=== PATIENT | female | born 1995 | race Caucasian/White ===

== ENCOUNTER → 2019-07-25 13:30 | Outpatient (BNVA) | payer MEDICAID, SELFPAY | PROVIDERS: Family Provider Internal Medicine; Visit Provider Nurse Practitioner | DX: F70 Mild intellectual disabilities (principal); F33.1 Major depressive disorder, recurrent, moderate | CPT/HCPCS: 99214 ==

== ENCOUNTER → 2019-10-17 07:43 | Outpatient (BNVA) | payer MEDICAID, SELFPAY | PROVIDERS: Family Provider Internal Medicine; Visit Provider Nurse Practitioner | DX: F33.1 Major depressive disorder, recurrent, moderate (principal); F70 Mild intellectual disabilities | CPT/HCPCS: 99214 ==

== ENCOUNTER → 2020-01-24 07:21 | Outpatient (BNVA) | payer MEDICAID, SELFPAY | PROVIDERS: Family Provider Internal Medicine; Visit Provider Nurse Practitioner | DX: F33.1 Major depressive disorder, recurrent, moderate (principal); F70 Mild intellectual disabilities; Z79.899 Other long term (current) drug therapy | CPT/HCPCS: 99213 ==

== ENCOUNTER → 2020-04-26 07:24 | Outpatient (BNVA) | payer MEDICAID, SELFPAY | PROVIDERS: Family Provider Internal Medicine; Visit Provider Nurse Practitioner | DX: F70 Mild intellectual disabilities (principal); F33.1 Major depressive disorder, recurrent, moderate | CPT/HCPCS: 99214 ==

== ENCOUNTER → 2020-07-03 08:16 | Outpatient (BNVA) | payer MEDICAID, SELFPAY | PROVIDERS: Family Provider Internal Medicine; Visit Provider Nurse Practitioner | DX: F33.1 Major depressive disorder, recurrent, moderate (principal); F70 Mild intellectual disabilities | CPT/HCPCS: 99214 ==

== ENCOUNTER 2020-07-27 11:44 | Emergency (ER) | payer MEDICAID, SELFPAY ==
[2020-07-27 11:56] VITALS: BP 125/77; PULSE 83; RESP 18; TEMP 36.8; O2SAT 96; BMI 29.7
[2020-07-27 12:12] VITALS: BP 125/77; PULSE 81; RESP 18; O2SAT 96
[2020-07-27] MEDS: HYDROcodone-acetaminophen 5-325 mg Tablet 1 TAB PO (12:21)
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
[2020-07-27] MEDS: ondansetron 4 MG Tablet PO (12:56)
[2020-07-27 13:25] VITALS: RESP 16
[2020-07-27] MEDS: morphine 4 mg/mL SDV 1 mL IM (13:25)
[2020-07-27 13:51] VITALS: BP 104/69; PULSE 71; RESP 17; O2SAT 92
== END 2020-07-27 13:52 | disposition home or self-care (01) ==
PROVIDERS: Emergency Provider Nurse Practitioner Family
DX: T76.21XA Adult sexual abuse, suspected, initial encounter (principal); F70 Mild intellectual disabilities
CPT/HCPCS: 99283; J2270; Q0162

== ENCOUNTER 2020-07-27 17:59 | Outpatient (CLI) | payer MEDICAID, SELFPAY ==
[2020-07-27 18:34] LABS: Basophils # 0.1 10^3/uL (0.0-0.1); Basophils % 0.8 %; Eosinophils # 0.3 10^3/uL (0.0-0.8); Eosinophils % 3.4 %; Hematocrit 42.8 % (37.0-47.0); Hemoglobin 13.7 g/dL (11.5-15.3); Lymphocytes # 3.1 10^3/uL (0.8-4.8); Lymphocytes % 36.1 %; Mean Corpuscular Hemoglobin 28.9 pg (28.0-34.0); Mean Corpuscular Volume 90.3 fL (81-99); Mean Platelet Volume 10.9 fL (7.4-10.4); Monocytes # 0.8 10^3/uL (0.2-0.9); Monocytes % 9.3 %; Neutrophils # 4.25 10^3/uL (1.8-7.7); Nucleated Red Blood Cells % 0 %; Platelet Count 218 10^3/cmm (130-400); Red Blood Count 4.74 10^6/uL (4.1-5.3); Red Cell Distribution Width 13.9 % (12.1-15.1); White Blood Count 8.5 10^3/uL (4.0-10.0)
[2020-07-27 18:56] LABS: Alanine Aminotransferase 21 U/L (0-33); Albumin Level 4.5 g/dL (3.5-5.2); Alkaline Phosphatase 92 IU/L (35-105); Anion Gap 13.6 (5-19); Aspartate Amino Transferase 21 U/L (0-32); Blood Urea Nitrogen 13 mg/dL (6-20); Calcium 9.2 mg/dL (8.5-10.5); Carbon Dioxide 27 mmol/L (22-29); Chloride 104 mmol/L (98-107); Globulin 3.1 g/dL (1.3-4.6); Glomerular Filtration Rate 45.5 mL/min (90-130); Glucose 90 mg/dL (65-115); Osmolality Calculated 292 mOsm/kg (285-295); Potassium 3.6 mmol/L (3.5-5.1); Rapid Plasma Reagin Syphilis Nonreactive (Nonreactive); Sodium 141 mmol/L (136-145); Total Bilirubin 0.2 mg/dL (0.15-1.2); Total Protein 7.6 g/dL (6.6-8.7)
[2020-07-27 19:07] LABS: Hepatitis A Antibody IgM Non-Reactive (Nonreactive); Hepatitis B Core IgM Non-Reactive (Nonreactive); Hepatitis B Surface Antigen Non-Reactive (Nonreactive); Hepatitis C Virus Antibody Non-Reactive (Nonreactive)
[2020-07-27 19:08] LABS: HIV 1 & 2 Antibody Non-Reactive (Non-Reactiv); HIV 1 & 2 Antigen Non-Reactive (Non-Reactiv)
== END 2020-07-27 18:00 | disposition home or self-care (01) ==
PROVIDERS: Visit Provider Nurse Practitioner Family
DX: N93.9 Abnormal uterine and vaginal bleeding, unspecified (principal); T76.21XA Adult sexual abuse, suspected, initial encounter
CPT/HCPCS: 36415; 80053; 80074; 85025; 86592; 87806

== ENCOUNTER → 2020-09-26 12:44 | Outpatient (BNVA) | payer MEDICAID, SELFPAY | PROVIDERS: Visit Provider Nurse Practitioner | DX: F33.1 Major depressive disorder, recurrent, moderate (principal); F70 Mild intellectual disabilities | CPT/HCPCS: 99214 ==

== ENCOUNTER → 2020-10-22 15:48 | Outpatient (BNVA) | payer MEDICAID, SELFPAY | PROVIDERS: Visit Provider Nurse Practitioner | DX: F70 Mild intellectual disabilities (principal); F33.1 Major depressive disorder, recurrent, moderate | CPT/HCPCS: 99214 ==

== ENCOUNTER → 2020-12-11 08:16 | Outpatient (BNVA) | payer MEDICAID, SELFPAY | PROVIDERS: Visit Provider Nurse Practitioner | DX: F33.1 Major depressive disorder, recurrent, moderate (principal); F70 Mild intellectual disabilities | CPT/HCPCS: 99214 ==

== ENCOUNTER → 2021-02-11 07:44 | Outpatient (BNVA) | payer MEDICAID, SELFPAY | PROVIDERS: Visit Provider Nurse Practitioner | DX: F33.1 Major depressive disorder, recurrent, moderate (principal); F70 Mild intellectual disabilities | CPT/HCPCS: 99214 ==

== ENCOUNTER → 2021-05-06 07:52 | Outpatient (BNVA) | payer MEDICAID, SELFPAY | PROVIDERS: Visit Provider Nurse Practitioner | DX: F33.1 Major depressive disorder, recurrent, moderate (principal); F70 Mild intellectual disabilities | CPT/HCPCS: 99214 ==

== ENCOUNTER → 2021-08-06 12:54 | Outpatient (BNVA) | payer MEDICAID, SELFPAY | PROVIDERS: Visit Provider Nurse Practitioner | DX: F33.1 Major depressive disorder, recurrent, moderate (principal); F70 Mild intellectual disabilities | CPT/HCPCS: 99214 ==

== ENCOUNTER → 2021-08-12 11:52 | Outpatient (BNVA) | payer MEDICAID, SELFPAY | PROVIDERS: Visit Provider Nurse Practitioner Family | DX: E03.9 Hypothyroidism, unspecified (principal); Z79.899 Other long term (current) drug therapy; F33.1 Major depressive disorder, recurrent, moderate; J30.9 Allergic rhinitis, unspecified; Z13.6 Encounter for screening for cardiovascular disorders; Z68.32 Body mass index [BMI] 32.0-32.9, adult | CPT/HCPCS: 80053; 80061; 83036; 83735; 84439; 84443; 85025 ==

== ENCOUNTER → 2021-11-11 13:47 | Outpatient (BNVA) | payer MEDICAID, SELFPAY | PROVIDERS: Visit Provider Nurse Practitioner | DX: F33.1 Major depressive disorder, recurrent, moderate (principal); F70 Mild intellectual disabilities; N39.44 Nocturnal enuresis | CPT/HCPCS: 99214 ==

== ENCOUNTER 2021-12-13 12:04 | Emergency (ER) | payer MEDICAID, SELFPAY ==
[2021-12-13 12:12] VITALS: BP 109/73; PULSE 72; RESP 16; TEMP 36.6; O2SAT 97; BMI 31.4
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
[2021-12-13 12:56] LABS: HCG Qualitative Urine. Negative (Negative)
[2021-12-13 12:56] LABS: Basophils % 0.5 %; Eosinophils # 0.3 10^3/uL (0.0-0.8); Eosinophils % 2.9 %; Hematocrit 41.4 % (37.0-47.0); Hemoglobin 13.6 g/dL (11.5-15.3); Lymphocytes # 1.7 10^3/uL (0.8-4.8); Lymphocytes % 18.9 %; Mean Corpuscular HGB Conc 32.9 g/dL (30.0-36.0); Mean Corpuscular Hemoglobin 29.1 pg (28.0-34.0); Mean Corpuscular Volume 88.5 fl (81-99); Mean Platelet Volume 10.5 fL (7.4-10.4); Monocytes # 0.6 10^3/uL (0.2-0.9); Monocytes % 6.5 %; Neutrophils # 6.28 10^3/uL (1.8-7.7); Neutrophils % 70.9 %; Nucleated Red Blood Cells % 0 %; Platelet Count 218 10^3/cmm (130-400); Red Blood Count 4.68 10^6/uL (4.1-5.3); Red Cell Distribution Width 14.5 % (12.1-15.1); White Blood Count 8.9 10^3/uL (4.0-10.0)
[2021-12-13 13:25] LABS: Alanine Aminotransferase 20 U/L (0-33); Albumin Level 4.6 g/dL (3.5-5.2); Alkaline Phosphatase 87 IU/L (35-105); Aspartate Amino Transferase 18 U/L (0-32); Blood Urea Nitrogen 24 mg/dL (6-20); Calcium 9.7 mg/dL (8.5-10.5); Carbon Dioxide 24 mmol/L (22-29); Chloride 103 mmol/L (98-107); Glomerular Filtration Rate 59.6 mL/min (90-130); Glucose 83 mg/dL (65-115); Osmolality Calculated 289 mOsm/kg (285-295); Sodium 138 mmol/L (136-145); Thyroid Stimulating Hormone 2.62 uIU/mL (0.27-4.20); Total Bilirubin 0.2 mg/dL (0.15-1.2); Total Protein 7.6 g/dL (6.6-8.7)
[2021-12-13 13:26] LABS: Acetaminophen < 5.0 ug/mL (10-30); Alcohol Level < 10 mg/dL (0-10); Salicylate < 0.3 mg/dL (3-10)
[2021-12-13 13:59] LABS: Add Urine Microscopic? NO; Charge for UA Resulting for Rev
[2021-12-13 14:02] LABS: Bilirubin Urine Neg (Negative); Blood Urine Neg (Negative); Glucose Urine UA Norm (Normal); Ketones Urine Negative (Negative); Leukocyte Esterase Urine Negative (Negative); Nitrate Urine Negative (Negative); Protein Urine Neg (Negative); Urine Appearance Clear (CLEAR); Urine Color Yellow (Yellow); Urobilinogen Urine Norm (Negative); pH Urine 5 (5-7)
--- NOTE | 2021-12-13 14:02 | PC.PHAR ---
PT IS FROM HEALTH [facility]AC[facility] - MEDICATION VERIFIED USING MED LIST FROM FACILITY- LIST LAST UPDATED 11/2021
[2021-12-13 14:11] LABS: Amphetamines Screen Urine Negative (Negative); Barbiturates Screen Urine Negative (Negative); Benzodiazepines Screen Urine Negative (Negative); Cocaine Screen Urine Negative (Negative); Opiate Screen Urine Negative (Negative); PCP Screen Urine Negative (Negative); THC Screen Urine Negative (Negative)
[2021-12-13 18:29] VITALS: BP 90/57; PULSE 75; RESP 18; O2SAT 97
== END 2021-12-13 18:31 | disposition home or self-care (01) ==
PROVIDERS: Emergency Provider Emergency Medicine
DX: R46.89 Other symptoms and signs involving appearance and behavior (principal)
CPT/HCPCS: 80053; 80306; 80307; 81003; 81025; 84443; 85025; 99283

== ENCOUNTER 2022-05-19 15:25 | Emergency (ER) | payer MEDICAID, SELFPAY ==
[2022-05-19] VITALS (11 sets, daily range): BP systolic 93–131; BP diastolic 77–93; PULSE 110; RESP 16; TEMP 34.4; O2SAT 92–99; BMI 33.3
--- NOTE | 2022-05-19 16:12 | ECG_ITS ---
[facility] Test Date: 2022-05-19 Pat Name: Jessica Pichardo Department: Room: Gender: Female Home Theater Specialist: : 1995 Requested By: Robert Lopez Order Number: [id number] Shannon MD: He March M.D. Measurements Intervals [place] Rate: 89 P: 61 [place]: 153 QRS: 74 QRSD: 105 T: 28 QT: 362 QTc: 442 Interpretive Statements SINUS RHYTHM LOW QRS VOLTAGE IN PRECORDIAL LEADS [QRS DEFLECTION < 1.0 mV IN CHEST LEADS] PATTERN CONSISTENT WITH PULMONARY DISEASE INCOMPLETE RIGHT BUNDLE BRANCH BLOCK [90+ ms QRS DURATION, TERMINAL R IN V1/V2, 40+ ms S IN I/aVL/V4/V5/V6] Compared to ECG 01/22/2016 11:15:35 Low QRS voltage now present Incomplete right bundle-branch block now present Electronically Signed On 05-20-2022 9:26:30 SECONDARY ENGLISH TEACHER by He Macrh M.D. [id number]
[2022-05-19 16:40] LABS: Basophils # 0.1 10^3/uL (0.0-0.1); Basophils % 0.7 %; Eosinophils # 0.4 10^3/uL (0.0-0.8); Eosinophils % 4.1 %; Hematocrit 41.6 % (37.0-47.0); Hemoglobin 13.2 g/dL (11.5-15.3); Lymphocytes # 2.2 10^3/uL (0.8-4.8); Lymphocytes % 25.8 %; Mean Corpuscular HGB Conc 31.7 g/dL (30.0-36.0); Mean Corpuscular Hemoglobin 28.1 pg (28.0-34.0); Mean Corpuscular Volume 88.7 fl (81-99); Mean Platelet Volume 10.3 fL (7.4-10.4); Monocytes # 0.6 10^3/uL (0.2-0.9); Monocytes % 6.5 %; Neutrophils # 5.35 10^3/uL (1.8-7.7); Neutrophils % 62.2 %; Nucleated Red Blood Cells % 0 %; Platelet Count 226 10^3/cmm (130-400); Red Blood Count 4.69 10^6/uL (4.1-5.3); White Blood Count 8.6 10^3/uL (4.0-10.0)
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
[2022-05-19 17:00] LABS: Troponin T (5th) Once 10 ng/L (0-10)
[2022-05-19 17:04] LABS: Anion Gap 15.2 (5-19); Blood Urea Nitrogen 18 mg/dL (6-20); Calcium 9.8 mg/dL (8.5-10.5); Carbon Dioxide 26 mmol/L (22-29); Chloride 104 mmol/L (98-107); Creatinine Clr Calc Pharmacy 77.6665; Glomerular Filtration Rate 53.5 mL/min (90-130); Glucose 77 mg/dL (65-115); Osmolality Calculated 295 mOsm/kg (285-295); Potassium 3.2 mmol/L (3.5-5.1); Sodium 142 mmol/L (136-145)
== END 2022-05-19 17:32 | disposition home or self-care (01) ==
PROVIDERS: Emergency Provider Student in an Organized Health Care Education/Training Program
DX: S40.022A Contusion of left upper arm, initial encounter (principal); S40.021A Contusion of right upper arm, initial encounter; S10.91XA Abrasion of unspecified part of neck, initial encounter; Y04.2XXA Assault by strike against or bumped into by another person, initial encounter
CPT/HCPCS: 36415; 80048; 84484; 85025; 93005; 99284

== ENCOUNTER → 2022-08-26 11:52 | Outpatient (BNVA) | payer MEDICAID, SELFPAY | PROVIDERS: Visit Provider Nurse Practitioner | DX: Z79.899 Other long term (current) drug therapy (principal) | CPT/HCPCS: 80061; 83036; 83721 ==

== ENCOUNTER 2022-10-24 17:38 | Emergency (ER) | payer MEDICAID, SELFPAY ==
[2022-10-24 17:40] VITALS: BMI 21.4
--- NOTE | 2022-10-24 18:03 | W.ED.PSYCHS ---
HPI - Psych General: Chief Complaint: Psychiatric Symptoms Stated Complaint: MHE Time Seen by Provider: 10/24/22 17:43 Source: patient Limitations: no limitations History of Present Illness: 27-year-old female who is here from [facility] states has been having increasing mood swings states that she has had just thoughts of destroying her own stuff. States she has been kicking the wall and taking up some of her drawings. She denies any suicidal or homicidal ideations no suicidal thoughts at all. She states that she came here wanting to get her meds reviewed. She does follow-up with [facility]. Associated symptoms: Deny depression Review of Systems Const: Denies: fever(s), chills, body aches or change in appetite ENMT: Denies: throat pain or dental pain Card: Denies: chest pain Resp: Denies: dyspnea GI: Denies: abdominal pain, nausea, vomiting or diarrhea : Denies: dysuria Musc: Denies: neck pain or back pain Skin/Breast: Denies: rash Neuro: Denies: headache(s) Psych: Reports: mood swings; Denies: depression PFSH ED PFSH: Medical History Intermittent explosive disorder Major depressive disorder, recurrent, moderate Mild intellectual disabilities Nocturnal enuresis On high dose antipsychotic drug therapy Psychiatric care Family History Other Family history unknown Social History Smoking and tobacco status: never smoked Second hand smoke exposure: No Alcohol intake: never Substance/Drug Use: never Caregiver/support person: Yes Lives independently: No Household members: other Details: Deya Simmons Marital status: Single service: No Current occupational status: disabled Current gender identity: Female Special gilmer needs: No Agree to transfusion: Yes Physical Exam Const: COMMON NORMALS: no acute distress, patient oriented x3 and healthy appearing HENMT: COMMON NORMALS: normocephalic and atraumatic HEAD & SCALP: normocephalic and atraumatic Eye: COMMON NORMALS: conjunctivae normal CONJUNCTIVA: Yes conjunctivae normal Neck/C-Spine: COMMON NORMALS: full ROM and supple Chest: COMMONS NORMALS: normal inspection of the chest and normal palpation of entire chest wall Resp: COMMON NORMALS: normal respiratory effort, No retractions, No use of accessory muscles and clear to auscultation bilaterally AUSCULTATION: clear to auscultation bilaterally Cardio: COMMON NORMALS: regular rate, regular rhythm and No murmurs present (Cardio) RATE: regular rate RHYTHM: regular rhythm GI: COMMON NORMALS: Normal to inspection, nondistended, normoactive bowel sounds present, Soft to palpation, non-tender and no masses PALPATION: Yes Soft to palpation Extremity: COMMON NORMALS: normal to inspection and full ROM Neuro: COMMON NORMALS: patient oriented x3, moves all extremities and no focal motor deficits Psych: COMMON NORMALS: mental status grossly normal, Normal thought process present and cooperative THOUGHT PROCESS: Normal thought process present Skin: COMMON NORMALS: no rashes or lesions noted and no wounds GENERAL SKIN EXAM: no rashes or lesions noted Course Vital Signs: Vital signs: Vital Signs Temperature 98.0 F 10/24/22 18:33 Pulse Rate 99 10/24/22 18:33 Respiratory Rate 18 10/24/22 18:33 Blood Pressure 110/78 10/24/22 18:33 Pulse Oximetry 95 10/24/22 18:33 MDM - Psych Medical Decision Making Patient presents with anger outburst she is not suicidal or homicidal she has not been harming any of the staff she has been destructive to some of her own things I did speak to Dr. Pritchett of psychiatry reviewed case with him she does not require inpatient admission we will add Zyprexa 5 mg for her to take during the day and she is to follow-up with [facility]. Medical Records I reviewed the patient's medical records. Lab Data I reviewed the patient's lab results. Discharge Plan Discharge Patient Disposition: Home Clinical Impression: Intermittent explosive disorder Condition: Stable Prescriptions: New Zyprexa 5 mg tablet 5 mg PO DAILY Qty: 30 0RF No Action levothyroxine 100 mcg capsule 100 mcg PO DAILY Rx Instructions: take 30 minutes before meal. trazodone 50 mg tablet 50 mg PO BEDTIME PRN (Reason: sleep) Qty: 30 2RF topiramate 100 mg tablet 100 mg PO BID Qty: 60 2RF duloxetine [Cymbalta] 30 mg capsule,delayed release(DR/EC) 30 mg PO DAILY Qty: 30 1RF olanzapine 20 mg tablet 20 mg PO .HS Qty: 30 2RF lamotrigine [Lamictal] 200 mg tablet 200 mg PO BID Qty: 60 2RF hydroxyzine pamoate 25 mg capsule See Rx Instructions .ROUTE .COMPLEX Qty: 30 1RF Dose Instruction: take 1 capsule BY MOUTH AT BEDTIME FOR sleep Rx Instructions: take 1 capsule BY MOUTH AT BEDTIME FOR sleep acetaminophen [Tylenol Extra Strength] 500 mg Tablet 500 mg PO Q4H PRN (Reason: TEMP OVER 100 DEGREES) benzonatate 100 mg capsule 100 mg PO TID PRN (Reason: Cough) loratadine 10 mg tablet 10 mg PO DAILY promethazine 6.25 mg/5 mL Syrup 12.5 mg PO Q6H PRN (Reason: Cough) Mucinex D 60-600 mg Tablet Extended Release 12 Hr 1 tab PO BID PRN (Reason: Congestion) prednisone 1 mg tablet See Rx Instructions .ROUTE .COMPLEX Rx Instructions: 2 mg orally in AM and 1 mg in PM Banophen 25 mg Tablet 25 mg PO TID PRN (Reason: Allergic Symptoms) mupirocin 2 % ointment 1 applic TOPICAL BID PRN (Reason: Skin Irritation) ondansetron 4 mg Tablet,Disintegrating 4 mg PO Q6H PRN (Reason: Nausea And Vomiting) SF 5000 Plus 1.1 % Cream 1 applic DENTAL BID Discharge Orders: Discharge ED (Routine); Ordered 10/24/22 Ordered By: Suzie Alvarenga Referrals: [facility], [Staff Physician] - 1-3 days Fran Mera DO [Primary Care Provider] - Discharge Diet: Advance as tolerated Discharge Activity: Resume usual activity Patient Instructions: Depression (ED) Coding Level of Care Code ED Etl Analyst for Carolina Figueroa
[2022-10-24 18:33] VITALS: BP 110/78; PULSE 99; RESP 18; TEMP 36.7; O2SAT 95
== END 2022-10-24 18:37 | disposition home or self-care (01) ==
PROVIDERS: Emergency Provider Emergency Medicine; PCP Internal Medicine
DX: F63.81 Intermittent explosive disorder (principal)
CPT/HCPCS: 99283

== ENCOUNTER 2022-11-22 02:42 | Emergency (ER) | payer MEDICAID, SELFPAY ==
[2022-11-22 02:46] VITALS: BP 130/86; PULSE 63; RESP 18; TEMP 37.2; O2SAT 95; BMI 26.6
[2022-11-22 03:06] LABS: Basophils # 0.1 10^3/uL (0.0-0.1); Basophils % 0.6 %; Eosinophils # 0.3 10^3/uL (0.0-0.8); Eosinophils % 3.2 %; Hematocrit 40.9 % (37.0-47.0); Hemoglobin 13.1 g/dL (11.5-15.3); Lymphocytes # 3.3 10^3/uL (0.8-4.8); Lymphocytes % 34.7 %; Mean Corpuscular Hemoglobin 28.2 pg (28.0-34.0); Mean Platelet Volume 10.9 fL (7.4-10.4); Monocytes # 0.8 10^3/uL (0.2-0.9); Monocytes % 8.7 %; Neutrophils # 4.91 10^3/uL (1.8-7.7); Neutrophils % 52.3 %; Nucleated Red Blood Cells % 0 %; Platelet Count 236 10^3/cmm (130-400); Red Blood Count 4.65 10^6/uL (4.1-5.3); Red Cell Distribution Width 14.8 % (12.1-15.1); White Blood Count 9.4 10^3/uL (4.0-10.0)
[2022-11-22 03:19] LABS: Alanine Aminotransferase 84 U/L (0-33); Albumin Level 4.8 g/dL (3.5-5.2); Alkaline Phosphatase 114 U/L (35-105); Aspartate Amino Transferase 55 U/L (0-32); Blood Urea Nitrogen 14 mg/dL (6-20); Carbon Dioxide 22 mmol/L (22-29); Chloride 101 mmol/L (98-107); Globulin 3.3 g/dL (1.3-4.6); Glomerular Filtration Rate 44.8 mL/min (90-130); Glucose 101 mg/dL (65-115); Osmolality Calculated 287 mOsm/kg (285-295); Sodium 138 mmol/L (136-145); Total Bilirubin 0.3 mg/dL (0.15-1.2); Total Protein 8.1 g/dL (6.6-8.7)
[2022-11-22 03:21] LABS: Creatinine Clr Calc Pharmacy 59.7172; Salicylate < 0.3 mg/dL (3-10)
[2022-11-22 03:22] LABS: Acetaminophen < 5.0 ug/mL (10-30); Alcohol Level < 10 mg/dL (0-10); Anion Gap 18.9 (5-19); Potassium 3.9 mmol/L (3.5-5.1)
--- NOTE | 2022-11-22 04:07 | ED.C_ITS ---
HPI - Psych General: Chief Complaint: Psychiatric Symptoms Stated Complaint: MHE Time Seen by Provider: 11/22/22 02:54 History of Present Illness: 27-year-old female who lives in a care home environment. She was upset this morning, and abraded her left wrist. She denies suicidality. She states that she was frustrated, and had the urge to do so. She is [place] now. She states I would like help so that I do not feel like I need to do this . complaint: feels depressed and other Onset (ago): hour(s) History of same: Yes Relieving factors: none Exacerbating factors: none Context: other Associated psychiatric symptoms: depression Associated symptoms: Reports depression; Deny auditory hallucinations, visual hallucinations, delusions, homicidal ideation, suicidal ideation or racing thoughts Treatments prior to arrival: none If self harm: admits thoughts of self harm (Abrading wrist. Denies suicidal ideation) Review of Systems Const: Denies: fever(s), chills or body aches Eyes: Denies: change in vision Card: Denies: chest pain or palpitations Resp: Denies: dyspnea, productive cough, non-productive cough or wheezing GI: Denies: abdominal pain, nausea, vomiting, diarrhea or hematochezia : Denies: difficulty voiding Skin/Breast: Denies: rash Neuro: Denies: headache(s), weakness in extremities, dizziness or confusion Psych: Reports: depression; Denies: visual hallucinations, auditory hallucinations, suicidal ideation or homicidal ideation PFS ED PFSH: Medical History Intermittent explosive disorder Major depressive disorder, recurrent, moderate Mild intellectual disabilities Nocturnal enuresis On high dose antipsychotic drug therapy Psychiatric care Family History Other Family history unknown Social History Smoking and tobacco status: never smoked Second hand smoke exposure: No Alcohol intake: never Substance/Drug Use: never Caregiver/support person: Yes Lives independently: No Household members: other Details: Deya Simmons Marital status: Single service: No Current occupational status: disabled Current gender identity: Female Special gilmer needs: No Agree to transfusion: Yes Physical Exam Const: COMMON NORMALS: no acute distress GENERAL APPEARANCE: cooperative; not ill appearing and not frail appearing HENMT: COMMON NORMALS: normocephalic, atraumatic and Normal external nose present HEAD & SCALP: normocephalic and atraumatic FACE & SINUS: normal facial exam and face symmetric NOSE: Normal external nose present Eye: COMMON NORMALS: Equal, round and reactive pupils present and EOMs intact bilaterally PUPIL: Yes Equal, round and reactive pupils present Neck/C-Spine: GENERAL: Yes trachea midline Chest: CHEST: Yes Symmetrical chest wall rise Resp: COMMON NORMALS: normal respiratory effort, No retractions, No use of accessory muscles and clear to auscultation bilaterally AUSCULTATION: clear to auscultation bilaterally Cardio: COMMON NORMALS: regular rate and regular rhythm RATE: regular rate RHYTHM: regular rhythm GI: COMMON NORMALS: Normal to inspection, nondistended, normoactive bowel sounds present Extremity: COMMON NORMALS: no pedal edema Neuro: DANY COMA SCALE: document GCS findings [place] coma scale eye opening: Spontaneous [place] coma scale verbal response: Orientated [place] coma scale motor response: Obey commands Dany coma scale total score: 15 SENSORY EXAM: Yes extremities (intact) Psych: COMMON NORMALS: speech normal SPEECH: Yes normal speech THOUGHT CONTENT: No delusions Skin: NARRATIVE SKIN EXAM: Several very small superficial abrasions to the left forearm Course Vital Signs: Vital signs: Vital Signs Temperature 98.9 F 11/22/22 02:46 Pulse Rate 78 11/22/22 04:48 Respiratory Rate 16 11/22/22 04:48 Blood Pressure 130/86 11/22/22 02:46 Pulse Oximetry 98 11/22/22 04:48 Oxygen Delivery Me thod Room Air 11/22/22 02:46 MDM - Psych Medical Decision Making 27-year-old female. Medically she is quite stable. She has a stable chronic rise in her creatinine indicative of chronic kidney disease. Minimal elevation in her liver enzymes. Otherwise laboratory is not remarkable. She is not suicidal or homicidal. She is much more calm now. She is given a dose of oral Zyprexa to prevent agitation and/or escalation currently checking to see whether or not she is taking the 5 mg olanzapine she was prescribed daily a few weeks ago. This was recommended by psychiatry on her previous visit. She is not psychotic, suicidal or homicidal, I do not believe she qualifies for inpatient treatment at this time. Outpatient follow-up this coming week. The staff member with her notes that she does go to therapy Lab Data 11/22/22 03:00 11/22/22 03:00 Laboratory Results WBC 9.4 10^3/uL (4.0-10.0) 11/22/22 03:00 RBC 4.65 10^6/uL (4.1-5.3) 11/22/22 03:00 Hgb 13.1 g/dL (11.5-15.3) 11/22/22 03:00 Hct 40.9 % (37.0-47.0) 11/22/22 03:00 MCV 88.0 fl (81-99) 11/22/22 03:00 MCH 28.2 pg (28.0-34.0) 11/22/22 03:00 MCHC 32.0 g/dL (30.0-36.0) 11/22/22 03:00 RDW 14.8 % (12.1-15.1) 11/22/22 03:00 Plt Count 236 10^3/cmm (130-400) 11/22/22 03:00 MPV 10.9 fL (7.4-10.4) H 11/22/22 03:00 Neut % (Auto) 52.3 % 11/22/22 03:00 Lymph % (Auto) 34.7 % 11/22/22 03:00 [place] % (Auto) 8.7 % 11/22/22 03:00 Eos % (Auto) 3.2 % 11/22/22 03:00 Baso % (Auto) 0.6 % 11/22/22 03:00 Neut # (Auto) 4.91 10^3/uL (1.8-7.7) 11/22/22 03:00 Lymph # (Auto) 3.3 10^3/uL (0.8-4.8) 11/22/22 03:00 [place] # (Auto) 0.8 10^3/uL (0.2-0.9) 11/22/22 03:00 Eos # (Auto) 0.3 10^3/uL (0.0-0.8) 11/22/22 03:00 Baso # (Auto) 0.1 10^3/uL (0.0-0.1) 11/22/22 03:00 Nucleated RBC % (auto) 0 % 11/22/22 03:00 Nucleated RBCs # 0.0 /100WBC 11/22/22 03:00 Sodium 138 mmol/L (136-145) 11/22/22 03:00 Potassium 3.9 mmol/L (3.5-5.1) 11/22/22 03:00 Chloride 101 mmol/L (98-107) 11/22/22 03:00 Carbon Dioxide 22 mmol/L (22-29) 11/22/22 03:00 Anion Gap 18.9 (5-19) 11/22/22 03:00 BUN 14 mg/dL (6-20) 11/22/22 03:00 Creatinine 1.4 mg/dL (0.5-0.9) H 11/22/22 03:00 GFR Calculation 44.8 mL/min (90-130) L 11/22/22 03:00 Glucose 101 mg/dL (65-115) 11/22/22 03:00 Calculated Osmolality 287 mOsm/kg (285-295) 11/22/22 03:00 Calcium 10.0 mg/dL (8.5-10.5) 11/22/22 03:00 Total Bilirubin 0.3 mg/dL (0.15-1.2) 11/22/22 03:00 AST 55 U/L (0-32) H 11/22/22 03:00 ALT 84 U/L (0-33) H 11/22/22 03:00 Alkaline Phosphatase 114 U/L (35-105) H 11/22/22 03:00 Total Protein 8.1 g/dL (6.6-8.7) 11/22/22 03:00 Albumin 4.8 g/dL (3.5-5.2) 11/22/22 03:00 Globulin 3.3 g/dL (1.3-4.6) 11/22/22 03:00 Salicylates < 0.3 mg/dL (3-10) L 11/22/22 03:00 Acetaminophen < 5.0 ug/mL (10-30) L 11/22/22 03:00 Ethyl Alcohol < 10 mg/dL (0-10) 11/22/22 03:00 Discharge Plan Discharge Patient Disposition: Home Clinical Impression: Intermittent explosive disorder, Deliberate self-cutting Condition: Stable Prescriptions: No Action levothyroxine 100 mcg capsule 100 mcg PO DAILY Rx Instructions: take 30 minutes before meal. trazodone 50 mg tablet 50 mg PO BEDTIME PRN (Reason: sleep) Qty: 30 2RF topiramate 100 mg tablet 100 mg PO BID Qty: 60 2RF olanzapine 20 mg tablet 20 mg PO .HS Qty: 30 2RF lamotrigine [Lamictal] 200 mg tablet 200 mg PO BID Qty: 60 2RF duloxetine [Cymbalta] 60 mg capsule,delayed release(DR/EC) 60 mg PO DAILY Qty: 30 1RF hydroxyzine pamoate 25 mg capsule See Rx Instructions .ROUTE .COMPLEX Qty: 30 1RF Dose Instruction: take 1 capsule BY MOUTH AT BEDTIME FOR sleep Rx Instructions: take 1 capsule BY MOUTH AT BEDTIME FOR sleep acetaminophen [Tylenol Extra Strength] 500 mg Tablet 500 mg PO Q4H PRN (Reason: TEMP OVER 100 DEGREES) benzonatate 100 mg capsule 100 mg PO TID PRN (Reason: Cough) loratadine 10 mg tablet 10 mg PO DAILY Zyprexa 5 mg tablet 5 mg PO DAILY Qty: 30 0RF promethazine 6.25 mg/5 mL Syrup 12.5 mg PO Q6H PRN (Reason: Cough) Mucinex D 60-600 mg Tablet Extended Release 12 Hr 1 tab PO BID PRN (Reason: Congestion) prednisone 1 mg tablet See Rx Instructions .ROUTE .COMPLEX Rx Instructions: 2 mg orally in AM and 1 mg in PM Banophen 25 mg Tablet 25 mg PO TID PRN (Reason: Allergic Symptoms) mupirocin 2 % ointment 1 applic TOPICAL BID PRN (Reason: Skin Irritation) ondansetron 4 mg Tablet,Disintegrating 4 mg PO Q6H PRN (Reason: Nausea And Vomiting) SF 5000 Plus 1.1 % Cream 1 applic DENTAL BID Discharge Orders: Discharge ED (Routine); Ordered 11/22/22 Ordered By: Mukund Rasheed Referrals: Fran Mera DO [Primary Care Provider] - 4-7 days Discharge Diet: Advance as tolerated Discharge Activity: Resume usual activity Patient Instructions: Suicide Prevention (ED) Coding Level of Care Code ED Enterprise Architect for Carolina Figueroa
[2022-11-22] MEDS: OLANZapine 10 mg ODT 20 MG PO (04:22)
[2022-11-22 04:48] VITALS: PULSE 78; RESP 16; O2SAT 98
== END 2022-11-22 04:50 | disposition home or self-care (01) ==
PROVIDERS: Emergency Provider Emergency Medicine; PCP Internal Medicine
DX: F63.81 Intermittent explosive disorder (principal); R45.88 Nonsuicidal self-harm; S50.812A Abrasion of left forearm, initial encounter; X78.9XXA Intentional self-harm by unspecified sharp object, initial encounter; Y92.199 Unspecified place in other specified residential institution as the place of occurrence of the external cause
CPT/HCPCS: 80053; 80307; 85025; 99283

== ENCOUNTER 2022-12-23 18:44 | Inpatient (IN) | payer MEDICAID, SELFPAY ==
[2022-12-23 18:51] VITALS: BP 137/86; PULSE 104; RESP 16; TEMP 36.8; O2SAT 95; BMI 37.9
--- NOTE | 2022-12-23 19:30 | W.ED.PSYCHS ---
HPI - Psych General: Chief Complaint: Psychiatric Symptoms Stated Complaint: SI Time Seen by Provider: 12/23/22 19:04 History of Present Illness: Presents to the ER with complaints of suicidal ID patient got into an argument with the [facility] she took a knife locked herself into the bathroom and attempted to cut her left wrist with a steak knife. Patient does have a small abrasion very superficial laceration to her left wrist. As well as some abrasions to her right wrist. Review of Systems General: Reports: 10 or more systems reviewed and unremarkable except in HPI and below PFSH ED PFSH: Medical History Intermittent explosive disorder Major depressive disorder, recurrent, moderate Mild intellectual disabilities Nocturnal enuresis On high dose antipsychotic drug therapy Psychiatric care Family History Other Family history unknown Social History Smoking and tobacco status: never smoked Second hand smoke exposure: No Alcohol intake: never Substance/Drug Use: never Caregiver/support person: Yes Lives independently: No Household members: other Details: Deya Simmons Marital status: Single service: No Current occupational status: disabled Current gender identity: Female Special gilmer needs: No Agree to transfusion: Yes Physical Exam Const: COMMON NORMALS: no acute distress, average body habitus, patient oriented x3, no limitations, healthy appearing, alert and well nourished HENMT: COMMON NORMALS: normocephalic, hearing grossly normal bilaterally, external ears normal, Normal external nose present and moist oral mucous membranes HEAD & SCALP: normocephalic NOSE: Normal external nose present EXTERNAL EAR: Yes external ears normal Neck/C-Spine: COMMON NORMALS: full ROM, no lymphadenopathy, supple, no meningeal signs, no JVD and Thyroid normal THYROID: Thyroid normal Chest: COMMONS NORMALS: normal inspection of the chest and normal palpation of entire chest wall Resp: COMMON NORMALS: normal respiratory effort, No retractions, No use of accessory muscles and clear to auscultation bilaterally AUSCULTATION: clear to auscultation bilaterally Cardio: COMMON NORMALS: no JVD, regular rate, regular rhythm, S1 normal heart sound present, S2 normal heart sound present, No gallops present (Cardio), No clicks present (Cardio), No murmurs present (Cardio) and No rub (Cardio) RATE: regular rate RHYTHM: regular rhythm HEART SOUNDS: S1 normal heart sound present and S2 normal heart sound present GI: COMMON NORMALS: Normal to inspection, nondistended, normoactive bowel sounds present, Soft to palpation, non-tender, No hepatosplenomegaly present and no masses PALPATION: Yes Soft to palpation and Yes No hepatosplenomegaly present : COMMON NORMALS: Yes no CVA tenderness BLADDER/KIDNEY EXAM: Yes no CVA tenderness Back/Pelvis: COMMON NORMALS: no CVA tenderness Neuro: COMMON NORMALS: patient oriented x3 SENSORIUM/ORIENTATION: Yes alert MENINGEAL SIGNS: Yes no meningeal signs Skin: NARRATIVE SKIN EXAM: Facial abrasions to the right wrist, superficial abrasion and superficial laceration to the left wrist. Bleeding controlled Course Vital Signs: Vital signs: Vital Signs Temperature 98.2 F 12/23/22 18:51 Pulse Rate 104 H 12/23/22 18:51 Respiratory Rate 16 12/23/22 18:51 Blood Pressure 137/86 12/23/22 18:51 Pulse Oximetry 95 12/23/22 18:51 Oxygen Delivery Me thod Room Air 12/23/22 18:51 MDM - Psych Medical Decision Making Presents to the ER today with a suicidal ideation and superficial laceration of her left arm. Physical exam was performed lab work was obtained patient anticipation admission to behavioral health unit. Shreyas was consulted and agreed to admission to [facility] for further evaluation and treatment. Differential Diagnosis Likely suicidal ideation; Unlikely acute psychosis, chronic schizophrenia, bipolar disorder, depression, drug-induced psychotic disorder or acute anxiety Medical Records I reviewed the patient's medical records. Lab Data I reviewed the patient's lab results. 12/23/22 19:20 12/23/22 19:20 Laboratory Results WBC 7.4 10^3/uL (4.0-10.0) 12/23/22 19:20 RBC 4.33 10^6/uL (4.1-5.3) 12/23/22 19:20 Hgb 12.6 g/dL (11.5-15.3) 12/23/22 19:20 Hct 39.2 % (37.0-47.0) 12/23/22 19:20 MCV 90.5 fl (81-99) 12/23/22 19:20 MCH 29.1 pg (28.0-34.0) 12/23/22 19:20 MCHC 32.1 g/dL (30.0-36.0) 12/23/22 19:20 RDW 14.6 % (12.1-15.1) 12/23/22 19:20 Plt Count 185 10^3/cmm (130-400) 12/23/22 19:20 MPV 10.8 fL (7.4-10.4) H 12/23/22 19:20 Neut % (Auto) 50.6 % 12/23/22 19:20 Lymph % (Auto) 35.1 % 12/23/22 19:20 [place] % (Auto) 8.0 % 12/23/22 19:20 Eos % (Auto) 4.8 % 12/23/22 19:20 Baso % (Auto) 0.8 % 12/23/22 19:20 Neut # (Auto) 3.73 10^3/uL (1.8-7.7) 12/23/22 19:20 Lymph # (Auto) 2.6 10^3/uL (0.8-4.8) 12/23/22 19:20 [place] # (Auto) 0.6 10^3/uL (0.2-0.9) 12/23/22 19:20 Eos # (Auto) 0.4 10^3/uL (0.0-0.8) 12/23/22 19:20 Baso # (Auto) 0.1 10^3/uL (0.0-0.1) 12/23/22 19:20 Nucleated RBC % (auto) 0 % 12/23/22 19:20 Nucleated RBCs # 0.0 /100WBC 12/23/22 19:20 Sodium 138 mmol/L (136-145) 12/23/22 19:20 Potassium 3.5 mmol/L (3.5-5.1) 12/23/22 19:20 Chloride 104 mmol/L (98-107) 12/23/22 19:20 Carbon Dioxide 20 mmol/L (22-29) L 12/23/22 19:20 Anion Gap 17.5 (5-19) 12/23/22 19:20 BUN 9 mg/dL (6-20) 12/23/22 19:20 Creatinine 1.3 mg/dL (0.5-0.9) H 12/23/22 19:20 GFR Calculation 48.8 mL/min (90-130) L 12/23/22 19:20 Glucose 95 mg/dL (65-115) 12/23/22 19:20 Calculated Osmolality 284 mOsm/kg (285-295) L 12/23/22 19:20 Calcium 9.3 mg/dL (8.5-10.5) 12/23/22 19:20 Total Bilirubin 0.2 mg/dL (0.15-1.2) 12/23/22 19:20 AST 61 U/L (0-32) H 12/23/22 19:20 ALT 88 U/L (0-33) H 12/23/22 19:20 Alkaline Phosphatase 114 U/L (35-105) H 12/23/22 19:20 Total Protein 7.4 g/dL (6.6-8.7) 12/23/22 19:20 Albumin 4.3 g/dL (3.5-5.2) 12/23/22 19:20 Globulin 3.1 g/dL (1.3-4.6) 12/23/22 19:20 Urine Color Yellow (Yellow) 12/23/22 19:35 Urine Appearance Clear (CLEAR) 12/23/22 19:35 Urine pH 5 (5-7) 12/23/22 19:35 Ur Specific [place] 1.020 (1.005-1.030) 12/23/22 19:35 Urine Protein Neg (Negative) 12/23/22 19:35 Urine Glucose (UA) Norm (Normal) 12/23/22 19:35 Urine Ketones Negative (Negative) 12/23/22 19:35 Urine Blood 3+ (Negative) H 12/23/22 19:35 Urine Nitrate Negative (Negative) 12/23/22 19:35 Urine Bilirubin Neg (Negative) 12/23/22 19:35 Urine Urobilinogen Norm mg/dL (Negative) 12/23/22 19:35 Ur Leukocyte Esterase Trace (Negative) H 12/23/22 19:35 Urine RBC 0-4 /hpf (0-2) H 12/23/22 19:35 Urine WBC 0-4 /hpf (0-5) H 12/23/22 19:35 Ur Squamous Epith Cells 0-4 /hpf (0-5) H 12/23/22 19:35 Amorphous Sediment Not Reportable 12/23/22 19:35 Urine Bacteria Trace /hpf (NONE) 12/23/22 19:35 Urine Mucus 1+ /hpf 12/23/22 19:35 Salicylates < 0.3 mg/dL (3-10) L 12/23/22 19:20 Urine Opiates Screen Negative ng/mL (Negative) 12/23/22 19:35 Acetaminophen < 5.0 ug/mL (10-30) L 12/23/22 19:20 Ur Barbiturates Screen Negative ng/mL (Negative) 12/23/22 19:35 Ur Phencyclidine Scrn Negative ng/mL (Negative) 12/23/22 19:35 Ur Amphetamines Screen Negative ng/mL (Negative) 12/23/22 19:35 U Benzodiazepines Scrn Negative ng/mL (Negative) 12/23/22 19:35 Urine Cocaine Screen Negative ng/mL (Negative) 12/23/22 19:35 U Marijuana (THC) Screen Negative ng/mL (Negative) 12/23/22 19:35 Ethyl Alcohol < 10 mg/dL (0-10) 12/23/22 19:20 Discharge Plan Discharge Patient Disposition: Admitted As Inpatient Clinical Impression: Suicidal ideation, Mild intellectual disabilities, Major depressive disorder, recurrent, moderate Condition: Stable Coding Level of Care Code ED Data Modeler for Carolina Figueroa
[2022-12-23 19:34] LABS: Basophils # 0.1 10^3/uL (0.0-0.1); Basophils % 0.8 %; Eosinophils # 0.4 10^3/uL (0.0-0.8); Eosinophils % 4.8 %; Hematocrit 39.2 % (37.0-47.0); Hemoglobin 12.6 g/dL (11.5-15.3); Lymphocytes # 2.6 10^3/uL (0.8-4.8); Lymphocytes % 35.1 %; Mean Corpuscular HGB Conc 32.1 g/dL (30.0-36.0); Mean Corpuscular Hemoglobin 29.1 pg (28.0-34.0); Mean Corpuscular Volume 90.5 fl (81-99); Mean Platelet Volume 10.8 fL (7.4-10.4); Monocytes # 0.6 10^3/uL (0.2-0.9); Neutrophils # 3.73 10^3/uL (1.8-7.7); Neutrophils % 50.6 %; Nucleated Red Blood Cells % 0 %; Platelet Count 185 10^3/cmm (130-400); Red Blood Count 4.33 10^6/uL (4.1-5.3); Red Cell Distribution Width 14.6 % (12.1-15.1); White Blood Count 7.4 10^3/uL (4.0-10.0)
[2022-12-23 19:59] LABS: Alanine Aminotransferase 88 U/L (0-33); Albumin Level 4.3 g/dL (3.5-5.2); Alkaline Phosphatase 114 U/L (35-105); Anion Gap 17.5 (5-19); Aspartate Amino Transferase 61 U/L (0-32); Blood Urea Nitrogen 9 mg/dL (6-20); Calcium 9.3 mg/dL (8.5-10.5); Carbon Dioxide 20 mmol/L (22-29); Chloride 104 mmol/L (98-107); Globulin 3.1 g/dL (1.3-4.6); Glomerular Filtration Rate 48.8 mL/min (90-130); Glucose 95 mg/dL (65-115); Osmolality Calculated 284 mOsm/kg (285-295); Potassium 3.5 mmol/L (3.5-5.1); Sodium 138 mmol/L (136-145); Total Bilirubin 0.2 mg/dL (0.15-1.2); Total Protein 7.4 g/dL (6.6-8.7)
[2022-12-23 20:01] LABS: Acetaminophen < 5.0 ug/mL (10-30); Alcohol Level < 10 mg/dL (0-10); Salicylate < 0.3 mg/dL (3-10)
[2022-12-23 20:09] LABS: Add Urine Microscopic? YES; Bilirubin Urine Neg (Negative); Blood Urine 3+ (Negative); Glucose Urine UA Norm (Normal); Ketones Urine Negative (Negative); Leukocyte Esterase Urine Trace (Negative); Nitrate Urine Negative (Negative); Protein Urine Neg (Negative); Urine Appearance Clear (CLEAR); Urine Color Yellow (Yellow); Urobilinogen Urine Norm (Negative); pH Urine 5 (5-7)
[2022-12-23 20:11] LABS: Add Urine Culture? No; Bacteria Urine TRACE /hpf; Mucus Urine 1+ /hpf; RBC Urine 0-4 /hpf (0-2); Squamous Epithelial Cell Urine 0-4 /hpf (0-5); WBC Urine 0-4 /hpf (0-5)
[2022-12-23 20:14] LABS: Amphetamines Screen Urine Negative (Negative); Barbiturates Screen Urine Negative (Negative); Benzodiazepines Screen Urine Negative (Negative); Cocaine Screen Urine Negative (Negative); Opiate Screen Urine Negative (Negative); PCP Screen Urine Negative (Negative); THC Screen Urine Negative (Negative)
[2022-12-23 22:29] VITALS: BP 127/80; PULSE 100; RESP 18; TEMP 36.9; O2SAT 97
--- NOTE | 2022-12-23 23:42 | PC.NURSE ---
ATTEMPTED TO CALL PT GUARDIAN AT TIME OF ADMISSION BUT GOT VOICEMAIL.
[2022-12-23] MEDS: OLANZapine 10 mg TABLET 20 MG PO (23:56)
[2022-12-24] MEDS: acetaminophen 325 mg Tablet 650 MG PO (00:05)
[2022-12-24 06:00] VITALS: RESP 20
[2022-12-24] MEDS: predniSONE 1 mg Tablet 2 MG PO (06:13)
--- NOTE | 2022-12-24 09:07 | PC.OT ---
OT EVALUATION ATTEMPTED THIS A.M. PATIENT IS SLEEPING SOUNDLY AND DOES NOT AWAKEN TO NAME; MULTIPLE ATTEMPTS. WILL ATTEMPT EVALUATION AGAIN THIS AFTERNOON.
[2022-12-24] MEDS: topiramate 100 mg Tablet PO ×2 (09:42→17:30)
[2022-12-24] MEDS: OLANZapine 5 mg TABLET PO (09:42)
[2022-12-24] MEDS: duloxetine 60 mg Capsule PO (09:42)
[2022-12-24] MEDS: loratadine 10 mg Tablet PO (09:42)
[2022-12-24] MEDS: lamoTRIgine 100 mg Tablet 200 MG PO ×2 (09:42→17:30)
[2022-12-24] MEDS: levothyroxine 100 mcg Tablet PO (09:42)
[2022-12-24 11:15] LABS: HCG Qualitative Urine. Negative (Negative)
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
--- NOTE | 2022-12-24 12:39 | XRR_ITS ---
PROCEDURE INFORMATION: Exam: XR Right Wrist Exam date and time: 12/24/2022 12:51 PM Age: 27 years old Clinical indication: Pain; Wrist; Right; Additional info: Possible fracture TECHNIQUE: Imaging protocol: Radiologic exam of the right wrist. Views: 3 or more views. COMPARISON: No relevant prior studies available. FINDINGS: Bones/joints: Alignment is normal. Joint spaces are preserved. No acute fracture. Soft tissues: Soft tissue edema in the dorsal distal forearm. XR/XR wrist RT min 3V* [id number] IMPRESSION: No acute fracture.
[2022-12-24 13:38] VITALS: BP 113/79; PULSE 104; RESP 16; TEMP 37.1; O2SAT 94
--- NOTE | 2022-12-24 15:04 | PC.OT ---
OT EVALUATION ATTEMPTED AGAIN THIS P.M. PATIENT CONTINUES TO SLEEP SOUNDLY. WILL ATTEMPT AGAIN TOMORROW.
--- NOTE | 2022-12-24 16:57 | PC.NURSE ---
Pt is currently endorsing that she wants to cut herself. This nurse encouraged pt to sit on the bench across from the nurses station, for a while. Nurse sat and talked with pt, pt states that she had spoken on the phone with her staff member and the staff had yelled at her on the phone and stated that she was still mad and upset with the patient. Pt was crying, staff talked with and consoled pt, encouraging pt to use some coping skills.
[2022-12-24] MEDS: OLANZapine 10 mg TABLET 20 MG PO (20:55)
[2022-12-24] MEDS: trazodone 50 mg Tablet PO (20:55)
[2022-12-24] MEDS: haloperidol 5 mg Tablet PO (21:09)
[2022-12-24 21:37] VITALS: BP 121/75; PULSE 103; RESP 17; TEMP 36.9; O2SAT 98
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
[2022-12-24] MEDS: predniSONE 1 mg Tablet PO (21:43)
--- NOTE | 2022-12-25 00:10 | PC.NURSE ---
AT APPROXIMATELY AT 2100 SPECIAL MACHINE OPERATOR REPORTED THAT PT DUG HER NAIL INTO HER LEFT WRIST WHERE SHE HAD PREVIOUSLY CUT HERSELF AT THE PLACE SHE LIVES PRIOR TO COMING TO FACILITY. LEFT WRIST WAS ASSESSED, NO BLEEDING, DRAINAGE OR INFECTION TO THE SITE IS NOTED. THE AREA APPEARS SLIGHTLY REDDENED BUT IT IS NOT BLEEDING. THIS RN ADVISED PT TO GO AND WASH HER ARM AND THEN LEAVE IT OPEN TO AIR AND STOP MESSING WITH IT. PT WAS EDUCATED ON INCREASING INFECTION TO THE AREA. SPECIAL MACHINE OPERATOR SPOKE TO PT IN DEPTH AND RN PROVIDED EDUCATION ON REPORTING INCREASED FEELINGS OF HURTING HERSELF. PT SHOOK HER HEAD YES AND STATES I SENDY, I'M SORRY. PT WAS INFORMED IF SHE NEEDS TO COME AND TALK TO STAFF SHE CAN. PT VERBALIZED UNDERSTANDING. PT WAS OFFERED MEDICATION FOR ANXIETY AND WAS GIVEN HALDOL 5 MG AND TRAZODONE 50 MG ORDERED TO HELP HER SLEEP AND DECREASE HER ANXIETY. PT HAS BEEN IN BED RESTING WITH EYES CLOSED IN NO DISTRESS SINCE APPROXIMATELY [address] [facility].
--- NOTE | 2022-12-25 02:06 | PC.NURSE ---
XRAY OF RIGHT WRIST/FOREARM REVIEWED AND IS NEGATIVE. NO NEW ORDERS RECEIVED.
[2022-12-25 06:00] VITALS: RESP 17
[2022-12-25] MEDS: duloxetine 30 mg Capsule 90 MG PO (09:57)
[2022-12-25] MEDS: loratadine 10 mg Tablet PO (09:57)
[2022-12-25] MEDS: topiramate 100 mg Tablet PO ×2 (09:57→17:53)
[2022-12-25] MEDS: lamoTRIgine 100 mg Tablet 200 MG PO ×2 (09:57→17:53)
[2022-12-25] MEDS: predniSONE 1 mg Tablet 2 MG PO (09:57)
[2022-12-25] MEDS: OLANZapine 5 mg TABLET PO (09:57)
[2022-12-25] MEDS: levothyroxine 100 mcg Tablet PO (09:57)
--- NOTE | 2022-12-25 12:00 | P.NPUPN_ITS ---
Subjective NPU Subjective: Patient presented today reporting that she was doing better and wanted to go home. She denied any residual feelings towards staff that were negative. We discussed the fact that staff were making proper adjustments to ensure her safety at home. She reports that she called staff saying that there was a likely discharge tomorrow and she reports they agree they will come pick her up. We discussed that we would talk with her outpatient team likely and consider the possibility of discharge tomorrow. Mental Status Exam MSE Comments: This is an obese white female with hospital scrubs on with limited grooming and adequate eye contact. No abnormal movements except for mild psychomotor retarda tion. Cooperative with exam in no acute distress. Speech was slightly decreased rate and volume and somewhat childlike. Mood described as okay, affect slightly subdued. Thought process organized. Thought content: Patient denied suicidal or homicidal ideation, there were no delusions reported or noted, she denied any auditory or visual hallucinations. Attention and concentration appeared intact and memory was mostly reliable but none were formally tested. She is alert and oriented times person and place. Insight and judgment are limited impulse control is impaired. Intellectual ability is impaired. Vitals/I&O/Wt Last Vital Signs Temp 98.5 F 12/24/22 21:37 Pulse 103 H 12/24/22 21:37 Resp 17 12/25/22 06:00 BP 121/75 12/24/22 21:37 Pulse Ox 98 12/24/22 21:37 O2 Del Method Room Air 12/24/22 21:37 Weight last 48 hrs Weight 103.419 kg Data NPU 12/23/22 19:20 12/23/22 19:20 A&P Assessment and plan (1) Intermittent explosive disorder: (2) Suicidal ideation: (3) Mild intellectual disabilities: (4) Dysthymia: Plan 27-year-old white female history of intellectual disability, intermittent explosive disorder, and depression currently residing in a half-way with suicidal ideation and increased aggressive outbursts. Patient would likely benefit from continued hospitalization with possible adjustments in medication. It is concerning that the patient appears to be having increase in weight with labs that appear to be supporting the development of metabolic syndrome (elevated LFT, weight gain) The financial underwriter of this note believes that this might be due to continued use of olanzapine to target agitation aggression and impul sivity. An alternative medication may need to be initiated that has lower potential to be the cause of this problem. #1. Encourage individual group and milieu therapy. #2. Will restart psychotropic medications and other outpatient medications. #3. Therapeutic observation 15-minute checks on the unit for safety #4. Will attempt to gather collateral information and possibly initiate new medication or alternative medication to target aggression and impulsivity. Patient showing no signs of irritability or aggression here and likely long-term has these intermittent moments. Staff have put dangerous items out of reach and will likely discharge tomorrow and recommend outpatient team take a look at medication changes over a longer period we will consider interventions for weight management. Involuntary Hold Information 96 Hour Hold: 96 Hour Involuntary Admission: No Attestations NPU Medical Necessity Statement*: Patient hospitalization is medically necessary and deemed to be the clinically appropriate intervention at this time. We will monitor and initiate medications while making changes as indicated. The patient's likely length of stay is 1-3 days. Coding Level of Care Code Acute Code for Chg Fwd Diagnoses Intermittent explosive disorder F63.81 Suicidal ideation R45.851 Mild intellectual disabilities F70 Dysthymia F34.1
[2022-12-25 14:00] VITALS: BP 110/76; PULSE 100; RESP 17; TEMP 36.7; O2SAT 96
[2022-12-25] MEDS: OLANZapine 10 mg TABLET 20 MG PO (20:46)
[2022-12-25] MEDS: predniSONE 1 mg Tablet PO (20:46)
[2022-12-25 21:33] VITALS: BP 126/84; PULSE 101; RESP 18; TEMP 37.1; O2SAT 94
[2022-12-26 06:00] VITALS: BP 101/70; PULSE 95; RESP 16; TEMP 36.7; O2SAT 94
[2022-12-26] MEDS: lamoTRIgine 100 mg Tablet 200 MG PO (08:32)
[2022-12-26] MEDS: loratadine 10 mg Tablet PO (08:32)
[2022-12-26] MEDS: levothyroxine 100 mcg Tablet PO (08:32)
[2022-12-26] MEDS: duloxetine 30 mg Capsule 90 MG PO (08:32)
[2022-12-26] MEDS: OLANZapine 5 mg TABLET PO (08:32)
[2022-12-26] MEDS: topiramate 100 mg Tablet PO (08:32)
[2022-12-26] MEDS: predniSONE 1 mg Tablet 2 MG PO (08:33)
--- NOTE | 2022-12-26 09:37 | PC.NURSE ---
IN DAY ROOM SPEAKING WITH PEERS. PT VOICES EXCITEMENT ABOUT LEAVING TODAY. PT IS GOING BACK TO [facility]. PT DENIES PAIN. DENIES SI/HI AND AVH AT THIS TIME.
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
[2022-12-26 13:28] VITALS: BP 101/70; PULSE 95; RESP 16; TEMP 36.7; O2SAT 94
[2022-12-26 14:00] VITALS: BP 117/81; PULSE 100; RESP 20; TEMP 37; O2SAT 95
== END 2022-12-26 15:44 | disposition home or self-care (01) | DRG 914 ==
LOC: ER 19:33 → NP 12-24 06:57
PROVIDERS: Admitting Provider Psychiatry & Neurology Psychiatry; Emergency Provider Emergency Medicine; PCP Internal Medicine; Visit Provider Psychiatry & Neurology Psychiatry
DX: T14.91XA Suicide attempt, initial encounter (principal); F33.9 Major depressive disorder, recurrent, unspecified; X78.1XXA Intentional self-harm by knife, initial encounter; F63.81 Intermittent explosive disorder; F70 Mild intellectual disabilities; Z91.410 Personal history of adult physical and sexual abuse; Z62.812 Personal history of neglect in childhood; Z81.8 Family history of other mental and behavioral disorders
CPT/HCPCS: 36415; 73110; 80053; 80306; 80307; 81001; 81025; 85025; 97150; 97165; 99238; 99285; J7512

== ENCOUNTER 2023-01-09 23:42 | Emergency (ER) | payer MEDICAID, SELFPAY ==
[2023-01-09 23:44] VITALS: BP 115/79; PULSE 100; RESP 18; TEMP 36.6; O2SAT 98; BMI 38.6
[2023-01-10 00:46] LABS: Basophils # 0.1 10^3/uL (0.0-0.1); Basophils % 0.8 %; Eosinophils # 0.2 10^3/uL (0.0-0.8); Eosinophils % 2.9 %; Hematocrit 39.6 % (36-47); Lymphocytes # 2.8 10^3/uL (0.8-4.8); Mean Corpuscular HGB Conc 33.1 g/dL (30-55); Mean Corpuscular Hemoglobin 29.6 pg (27-33); Mean Corpuscular Volume 89.6 fl (85-98); Mean Platelet Volume 10.6 fL (7.4-10.4); Monocytes # 0.7 10^3/uL (0.2-0.9); Monocytes % 10.1 %; Neutrophils # 3.49 10^3/uL (1.8-7.7); Neutrophils % 47.5 %; Nucleated Red Blood Cells % 0 %; Platelet Count 229 10^3/cmm (157-399); Red Blood Count 4.42 10^6/uL (3.85-5.65); White Blood Count 7.34 10^3/uL (3.29-11.43)
[2023-01-10 00:52] LABS: HCG Qualitative Urine. Negative (Negative)
[2023-01-10 01:03] LABS: Alanine Aminotransferase 59 U/L (0-33); Albumin Level 4.8 g/dL (3.5-5.2); Alkaline Phosphatase 125 U/L (35-105); Anion Gap 17.2 (5-19); Aspartate Amino Transferase 39 U/L (0-32); Blood Urea Nitrogen 19 mg/dL (6-20); Calcium 9.6 mg/dL (8.5-10.5); Carbon Dioxide 25 mmol/L (22-29); Chloride 102 mmol/L (98-107); Globulin 2.9 g/dL (1.3-4.6); Glomerular Filtration Rate 44.8 mL/min (90-130); Glucose 110 mg/dL (65-115); Osmolality Calculated 295 mOsm/kg (285-295); Potassium 3.2 mmol/L (3.5-5.1); Sodium 141 mmol/L (136-145); Total Bilirubin 0.3 mg/dL (0.15-1.2); Total Protein 7.7 g/dL (6.6-8.7)
[2023-01-10 01:05] LABS: Acetaminophen < 5.0 ug/mL (10-30); Alcohol Level < 10 mg/dL (0-10); Creatinine Clr Calc Pharmacy 72.0547; Salicylate < 0.3 mg/dL (3-10)
[2023-01-10 01:47] LABS: Amphetamines Screen Urine Negative (Negative); Barbiturates Screen Urine Negative (Negative); Benzodiazepines Screen Urine Negative (Negative); Cocaine Screen Urine Negative (Negative); Opiate Screen Urine Negative (Negative); PCP Screen Urine Negative (Negative); THC Screen Urine Negative (Negative)
[2023-01-10 01:52] LABS: Add Urine Microscopic? YES; Bilirubin Urine 1+ (Negative); Blood Urine Neg (Negative); Glucose Urine UA Norm (Normal); Ketones Urine 1+ (Negative); Leukocyte Esterase Urine 2+ (Negative); Nitrate Urine Negative (Negative); Protein Urine Trace (Negative); RBC Urine 0-4 /hpf (0-2); Urine Appearance Clear (CLEAR); Urine Color Yellow (Yellow); Urobilinogen Urine 1 mg/dL (Negative); WBC Urine 15-25 /hpf (0-5); pH Urine 5 (5-7)
[2023-01-10 01:53] LABS: Add Urine Culture? Yes; Bacteria Urine TRACE /hpf; Mucus Urine 4+ /hpf; Squamous Epithelial Cell Urine 0-4 /hpf (0-5)
[2023-01-10] MEDS: ziprasidone 20 mg/mL SDV IM (03:18)
[2023-01-10] MEDS: water for injection-sterile 10 ML (03:19)
[2023-01-10 04:03] VITALS: BP 120/90; PULSE 101; RESP 14; O2SAT 94
--- NOTE | 2023-01-10 04:14 | W.ED.PSYCHS ---
Documented by User: Mukund Rasheed DO 01/10/23 18:21 HPI - Psych General: Chief Complaint: Psychiatric Symptoms Stated Complaint: SI Time Seen by Provider: 01/09/23 23:52 History of Present Illness: 27-year-old female presenting from [facility]. She was brought in after an outburst at home. This evidently was upsetting to her, causing her to have thoughts about hurting herself. She has abraded her forearms with her fingernails. Staff from the home states that they have pulled multiple things off of her today including thumbtacks and paperclips used to scratch herself evidently. The patient is here willingly, concerned that she may harm herself because she is still upset. Review of Systems Const: Denies: fever(s), chills or body aches Eyes: Denies: change in vision Card: Denies: chest pain or palpitations Resp: Denies: dyspnea, productive cough, non-productive cough or wheezing GI: Denies: abdominal pain, nausea, vomiting, diarrhea or hematochezia : Denies: difficulty voiding Skin/Breast: Denies: rash Neuro: Denies: headache(s), weakness in extremities, dizziness or confusion PFSH ED PFSH: Medical History Intermittent explosive disorder Major depressive disorder, recurrent, moderate Mild intellectual disabilities Nocturnal enuresis On high dose antipsychotic drug therapy Psychiatric care Family History Other Family history unknown Social History Smoking and tobacco status: never smoked Second hand smoke exposure: No Alcohol intake: never Substance/Drug Use: never Caregiver/support person: Yes Lives independently: No Household members: other Details: Deya Simmons Marital status: Single service: No Current occupational status: disabled Current gender identity: Female Special gilmer needs: No Agree to transfusion: Yes Physical Exam Const: COMMON NORMALS: no acute distress GENERAL APPEARANCE: cooperative; not ill appearing and not frail appearing HENMT: COMMON NORMALS: normocephalic, atraumatic and Normal external nose present HEAD & SCALP: normocephalic and atraumatic FACE & SINUS: normal facial exam and face symmetric NOSE: Normal external nose present Eye: COMMON NORMALS: Equal, round and reactive pupils present and EOMs intact bilaterally PUPIL: Yes Equal, round and reactive pupils present Neck/C-Spine: GENERAL: Yes trachea midline Chest: CHEST: Yes Symmetrical chest wall rise Resp: COMMON NORMALS: normal respiratory effort, No retractions, No use of accessory muscles and clear to auscultation bilaterally AUSCULTATION: clear to auscultation bilaterally Cardio: COMMON NORMALS: regular rate and regular rhythm RATE: regular rate RHYTHM: regular rhythm GI: COMMON NORMALS: Normal to inspection, nondistended, normoactive bowel sounds present Extremity: COMMON NORMALS: no pedal edema Neuro: DANY COMA SCALE: document GCS findings [place] coma scale eye opening: Spontaneous Dany coma scale verbal response: Orientated Dany coma scale motor response: Obey commands [place] coma scale total score: 15 SENSORY EXAM: Yes extremities (intact) Psych: COMMON NORMALS: speech normal SPEECH: Yes normal speech Skin: COMMON NORMALS: no rashes or lesions noted GENERAL SKIN EXAM: no rashes or lesions noted Course Vital Signs: Vital signs: Vital Signs Temperature 98 F 01/09/23 23:44 Pulse Rate 86 01/10/23 10:13 Respiratory Rate 18 01/10/23 11:08 Blood Pressure 120/90 01/10/23 04:03 Pulse Oximetry 98 01/10/23 11:08 MDM - Psych Medical Decision Making Medically the patient is quite stable. There is some secondary gain to her complaint, and honestly I do not believe that she would seriously injure herself in her current home setting. There is some attention seeking behavior here. She continues to make statements of wanting to self-harm. I spoke with psychiatry, and we do not have bed available here currently. Recommendations were medication to calm the patient, and potentially diffuse the situation that brought events about an home, followed by his interview later in the morning for further recommendations. Were compliant with this. Her potassium was mildly low, and will be repleted. 01/10 @0630. Patient maintains that she is worried Lab Data 01/10/23 00:33 01/10/23 00:33 Laboratory Results WBC 7.34 10^3/uL (3.29-11.43) 01/10/23 00:33 RBC 4.42 10^6/uL (3.85-5.65) 01/10/23 00:33 Hgb 13.10 g/dL (11.27-16.99) 01/10/23 00:33 Hct 39.6 % (36-47) 01/10/23 00:33 MCV 89.6 fl (85-98) 01/10/23 00:33 MCH 29.6 pg (27-33) 01/10/23 00: MCHC 33.1 g/dL (30-55) 01/10/23 00: RDW 14.0 % (12.1-15.1) 01/10/23 00:33 Plt Count 229 10^3/cmm (157-399) 01/10/23 00: MPV 10.6 fL (7.4-10.4) H 01/10/23 00: Neut % (Auto) 47.5 % 01/10/23 00: Lymph % (Auto) 38.0 % 01/10/23 00: Pope % (Auto) 10.1 % 01/10/23 00:33 Eos % (Auto) 2.9 % 01/10/23 00:33 Baso % (Auto) 0.8 % 01/10/23 00:33 Neut # (Auto) 3.49 10^3/uL (1.8-7.7) 01/10/23 00:33 Lymph # (Auto) 2.8 10^3/uL (0.8-4.8) 01/10/23 00:33 Pope # (Auto) 0.7 10^3/uL (0.2-0.9) 01/10/23 00: Eos # (Auto) 0.2 10^3/uL (0.0-0.8) 01/10/23 00:33 Baso # (Auto) 0.1 10^3/uL (0.0-0.1) 01/10/23 00:33 Nucleated RBC % (auto) 0 % 01/10/23 00: Nucleated RBCs # 0.0 /100WBC 01/10/23 00:33 Sodium 141 mmol/L (136-145) 01/10/23 00:33 Potassium 3.2 mmol/L (3.5-5.1) L 01/10/23 00: Chloride 102 mmol/L (98-107) 01/10/23 00:33 Carbon Dioxide 25 mmol/L (22-29) 01/10/23 00:33 Anion Gap 17.2 (5-19) 01/10/23 00:33 BUN 19 mg/dL (6-20) 01/10/23 00:33 Creatinine 1.4 mg/dL (0.5-0.9) H 01/10/23 00:33 GFR Calculation 44.8 mL/min (90-130) L 01/10/23 00: Glucose 110 mg/dL (65-115) 01/10/23 00:33 Calculated Osmolality 295 mOsm/kg (285-295) 01/10/23 00:33 Calcium 9.6 mg/dL (8.5-10.5) 01/10/23 00:33 Total Bilirubin 0.3 mg/dL (0.15-1.2) 01/10/23 00:33 AST 39 U/L (0-32) H 01/10/23 00: ALT 59 U/L (0-33) H 01/10/23 00:33 Alkaline Phosphatase 125 U/L (35-105) H 01/10/23 00:33 Total Protein 7.7 g/dL (6.6-8.7) 01/10/23 00:33 Albumin 4.8 g/dL (3.5-5.2) 01/10/23 00:33 Globulin 2.9 g/dL (1.3-4.6) 01/10/23 00:33 HCG, Qual Negative (Negative) 01/10/23 00:11 Urine Color Yellow (Yellow) 01/10/23 00:11 Urine Appearance Clear (CLEAR) 01/10/23 00:11 Urine pH 5 (5-7) 01/10/23 00:11 Ur Specific [place] 1.030 (1.005-1.030) 01/10/23 00:11 Urine Protein Trace (Negative) 01/10/23 00:11 Urine Glucose (UA) Norm (Normal) 01/10/23 00:11 Urine Ketones 1+ (Negative) H 01/10/23 00:11 Urine Blood Neg (Negative) 01/10/23 00:11 Urine Nitrate Negative (Negative) 01/10/23 00:11 Urine Bilirubin 1+ (Negative) H 01/10/23 00:11 Urine Urobilinogen 1 mg/dL (Negative) H 01/10/23 00:11 Ur Leukocyte Esterase 2+ (Negative) H 01/10/23 00:11 Urine RBC 0-4 /hpf (0-2) H 01/10/23 00:11 Urine WBC 15-25 /hpf (0-5) H 01/10/23 00:11 Ur Squamous Epith Cells 0-4 /hpf (0-5) H 01/10/23 00:11 Amorphous Sediment Not Reportable 01/10/23 00:11 Urine Bacteria Trace /hpf (NONE) 01/10/23 00:11 Urine Mucus 4+ /hpf 01/10/23 00:11 Salicylates < 0.3 mg/dL (3-10) L 01/10/23 00:33 Urine Opiates Screen Negative ng/mL (Negative) 01/10/23 00:11 Acetaminophen < 5.0 ug/mL (10-30) L 01/10/23 00:33 Ur Barbiturates Screen Negative ng/mL (Negative) 01/10/23 00:11 Ur Phencyclidine Scrn Negative ng/mL (Negative) 01/10/23 00:11 Ur Amphetamines Screen Negative ng/mL (Negative) 01/10/23 00:11 U Benzodiazepines Scrn Negative ng/mL (Negative) 01/10/23 00:11 Urine Cocaine Screen Negative ng/mL (Negative) 01/10/23 00:11 U Marijuana (THC) Screen Negative ng/mL (Negative) 01/10/23 00:11 Ethyl Alcohol < 10 mg/dL (0-10) 01/10/23 00:33 Discharge Plan Discharge Patient Disposition: Home Clinical Impression: Intermittent explosive disorder, Acute hypokalemia Condition: Stable Prescriptions: No Action levothyroxine 100 mcg capsule 100 mcg PO DAILY Rx Instructions: take 30 minutes before meal. lamotrigine [Lamictal] 200 mg tablet 200 mg PO BID Qty: 60 2RF loratadine 10 mg tablet 10 mg PO DAILY topiramate 100 mg tablet 100 mg PO BID olanzapine 20 mg tablet 20 mg PO BEDTIME duloxetine 30 mg Capsule,Delayed Release(Dr/Ec) 90 mg PO DAILY 30 Days Qty: 90 1RF sertraline 100 mg tablet 200 mg PO DAILY ondansetron 4 mg tablet,disintegrating 4 mg PO Q6H PRN (Reason: Nausea) duloxetine 60 mg capsule,delayed release(DR/EC) 60 mg PO DAILY prednisone 1 mg tablet See Rx Instructions .ROUTE .COMPLEX Rx Instructions: 2 mg orally in AM and 1 mg in PM Discharge Orders: Discharge ED (Routine); Ordered 01/10/23 Ordered By: Niles Simons Referrals: Fran Mera DO [Primary Care Provider] - 1-3 days Discharge Diet: Usual diet Discharge Activity: Increase activity as tolerated Patient Instructions: Hypokalemia (ED), Help Prevent Suicide in Children and Adolescents (ED) Activity Restrictions/Additional Instructions: Follow-up with behavioral health as previously scheduled. No change in medications at this time. Coding Level of Care Code ED Tractor Crane Engineer for Chg Fwd Documented by User: Niles Simons DO 01/10/23 13:01 HPI - Psych General: Chief Complaint: Psychiatric Symptoms Stated Complaint: SI Time Seen by Provider: 01/09/23 23:52 PFSH ED PFSH: Medical History Intermittent explosive disorder Major depressive disorder, recurrent, moderate Mild intellectual disabilities Nocturnal enuresis On high dose antipsychotic drug therapy Psychiatric care Family History Other Family history unknown Social History Smoking and tobacco status: never smoked Second hand smoke exposure: No Alcohol intake: never Substance/Drug Use: never Caregiver/support person: Yes Lives independently: No Household members: other Details: Deya Simmons Marital status: Single service: No Current occupational status: disabled Current gender identity: Female Special gilmer needs: No Agree to transfusion: Yes Physical Exam Neuro: DANY COMA SCALE: document GCS findings D[place] coma scale total score: 15 Course Vital Signs: Vital signs: Vital Signs Temperature 98 F 01/09/23 23:44 Pulse Rate 86 01/10/23 10:13 Respiratory Rate 18 01/10/23 11:08 Blood Pressure 120/90 01/10/23 04:03 Pulse Oximetry 98 01/10/23 11:08 MDM - Psych Medical Decision Making Medically the patient is quite stable. There is some secondary gain to her complaint, and honestly I do not believe that she would seriously injure herself in her current home setting. There is some attention seeking behavior here. She continues to make statements of wanting to self-harm. I spoke with psychiatry, and we do not have bed available here currently. Recommendations were medication to calm the patient, and potentially diffuse the situation that brought events about an home, followed by his interview later in the morning for further recommendations. Were compliant with this. Her potassium was mildly low, and will be repleted. 01/10 @0630. Patient maintains that she is worried 01/10/[address] Lemos's he feels patient can be discharged home. He is seen the patient by telehealth. Discharge patient home no change in medications follow-up with her outpatient psychiatry team. Lab Data 01/10/23 00:33 01/10/23 00:33 Laboratory Results WBC 7.34 10^3/uL (3.29-11.43) 01/10/23 00:33 RBC 4.42 10^6/uL (3.85-5.65) 01/10/23 00:33 Hgb 13.10 g/dL (11.27-16.99) 01/10/23 00:33 Hct 39.6 % (36-47) 01/10/23 00:33 MCV 89.6 fl (85-98) 01/10/23 00:33 MCH 29.6 pg (27-33) 01/10/23 00:33 MCHC 33.1 g/dL (30-55) 01/10/23 00:33 RDW 14.0 % (12.1-15.1) 01/10/23 00:33 Plt Count 229 10^3/cmm (157-399) 01/10/23 00:33 MPV 10.6 fL (7.4-10.4) H 01/10/23 00:33 Neut % (Auto) 47.5 % 01/10/23 00:33 Lymph % (Auto) 38.0 % 01/10/23 00:33 Pope % (Auto) 10.1 % 01/10/23 00:33 Eos % (Auto) 2.9 % 01/10/23 00:33 Baso % (Auto) 0.8 % 01/10/23 00: Neut # (Auto) 3.49 10^3/uL (1.8-7.7) 01/10/23 00: Lymph # (Auto) 2.8 10^3/uL (0.8-4.8) 01/10/23 00:33 Pope # (Auto) 0.7 10^3/uL (0.2-0.9) 01/10/23 00:33 Eos # (Auto) 0.2 10^3/uL (0.0-0.8) 01/10/23 00: Baso # (Auto) 0.1 10^3/uL (0.0-0.1) 01/10/23 00:33 Nucleated RBC % (auto) 0 % 01/10/23 00: Nucleated RBCs # 0.0 /100WBC 01/10/23 00:33 Sodium 141 mmol/L (136-145) 01/10/23 00:33 Potassium 3.2 mmol/L (3.5-5.1) L 01/10/23 00: Chloride 102 mmol/L (98-107) 01/10/23 00: Carbon Dioxide 25 mmol/L (22-29) 01/10/23 00:33 Anion Gap 17.2 (5-19) 01/10/23 00: BUN 19 mg/dL (6-20) 01/10/23 00: Creatinine 1.4 mg/dL (0.5-0.9) H 01/10/23 00:33 GFR Calculation 44.8 mL/min (90-130) L 01/10/23 00: Glucose 110 mg/dL (65-115) 01/10/23 00: Calculated Osmolality 295 mOsm/kg (285-295) 01/10/23 00: Calcium 9.6 mg/dL (8.5-10.5) 01/10/23 00:33 Total Bilirubin 0.3 mg/dL (0.15-1.2) 01/10/23 00: AST 39 U/L (0-32) H 01/10/23 00:33 ALT 59 U/L (0-33) H 01/10/23 00:33 Alkaline Phosphatase 125 U/L (35-105) H 01/10/23 00:33 Total Protein 7.7 g/dL (6.6-8.7) 01/10/23 00:33 Albumin 4.8 g/dL (3.5-5.2) 01/10/23 00:33 Globulin 2.9 g/dL (1.3-4.6) 01/10/23 00:33 HCG, Qual Negative (Negative) 01/10/23 00:11 Urine Color Yellow (Yellow) 01/10/23 00:11 Urine Appearance Clear (CLEAR) 01/10/23 00:11 Urine pH 5 (5-7) 01/10/23 00:11 Ur Specific [place] 1.030 (1.005-1.030) 01/10/23 00:11 Urine Protein Trace (Negative) 01/10/23 00:11 Urine Glucose (UA) Norm (Normal) 01/10/23 00:11 Urine Ketones 1+ (Negative) H 01/10/23 00:11 Urine Blood Neg (Negative) 01/10/23 00:11 Urine Nitrate Negative (Negative) 01/10/23 00:11 Urine Bilirubin 1+ (Negative) H 01/10/23 00:11 Urine Urobilinogen 1 mg/dL (Negative) H 01/10/23 00:11 Ur Leukocyte Esterase 2+ (Negative) H 01/10/23 00:11 Urine RBC 0-4 /hpf (0-2) H 01/10/23 00:11 Urine WBC 15-25 /hpf (0-5) H 01/10/23 00:11 Ur Squamous Epith Cells 0-4 /hpf (0-5) H 01/10/23 00:11 Amorphous Sediment Not Reportable 01/10/23 00:11 Urine Bacteria Trace /hpf (NONE) 01/10/23 00:11 Urine Mucus 4+ /hpf 01/10/23 00:11 Salicylates < 0.3 mg/dL (3-10) L 01/10/23 00:33 Urine Opiates Screen Negative ng/mL (Negative) 01/10/23 00:11 Acetaminophen < 5.0 ug/mL (10-30) L 08/26/23 00:33 Ur Barbiturates Screen Negative ng/mL (Negative) 01/10/23 00:11 Ur Phencyclidine Scrn Negative ng/mL (Negative) 01/10/23 00:11 Ur Amphetamines Screen Negative ng/mL (Negative) 01/10/23 00:11 U Benzodiazepines Scrn Negative ng/mL (Negative) 01/10/23 00:11 Urine Cocaine Screen Negative ng/mL (Negative) 01/10/23 00:11 U Marijuana (THC) Screen Negative ng/mL (Negative) 01/10/23 00:11 Ethyl Alcohol < 10 mg/dL (0-10) 01/10/23 00:33 Discharge Plan Discharge Patient Disposition: Home Clinical Impression: Intermittent explosive disorder, Acute hypokalemia Condition: Stable Prescriptions: No Action levothyroxine 100 mcg capsule 100 mcg PO DAILY Rx Instructions: take 30 minutes before meal. lamotrigine [Lamictal] 200 mg tablet 200 mg PO BID Qty: 60 2RF loratadine 10 mg tablet 10 mg PO DAILY topiramate 100 mg tablet 100 mg PO BID olanzapine 20 mg tablet 20 mg PO BEDTIME duloxetine 30 mg Capsule,Delayed Release(Dr/Ec) 90 mg PO DAILY 30 Days Qty: 90 1RF sertraline 100 mg tablet 200 mg PO DAILY ondansetron 4 mg tablet,disintegrating 4 mg PO Q6H PRN (Reason: Nausea) duloxetine 60 mg capsule,delayed release(DR/EC) 60 mg PO DAILY prednisone 1 mg tablet See Rx Instructions .ROUTE .COMPLEX Rx Instructions: 2 mg orally in AM and 1 mg in PM Discharge Orders: Discharge ED (Routine); Ordered 01/10/23 Ordered By: Niles Simons Referrals: Fran Mera DO [Primary Care Provider] - 1-3 days Discharge Diet: Usual diet Discharge Activity: Increase activity as tolerated Patient Instructions: Hypokalemia (ED), Help Prevent Suicide in Children and Adolescents (ED) Activity Restrictions/Additional Instructions: Follow-up with behavioral health as previously scheduled. No change in medications at this time. Coding Level of Care Code ED Tractor Crane Engineer for Carolina Figueroa
[2023-01-10] MEDS: potassium chloride ER 20 mEq Tablet 40 MEQ PO (04:44)
[2023-01-10] MEDS: ondansetron 4 MG Tablet PO (05:00)
--- NOTE | 2023-01-10 07:11 | PC.NURSE ---
Report from Keyona LANDERS. Pt resting quietly at this time. Visitor at bedside.
[2023-01-10 10:13] VITALS: PULSE 86; RESP 16; O2SAT 97
[2023-01-10 11:08] VITALS: RESP 18; O2SAT 98
== END 2023-01-10 11:12 | disposition home or self-care (01) ==
PROVIDERS: Emergency Medicine; Emergency Provider Family Medicine; PCP Internal Medicine
DX: F63.81 Intermittent explosive disorder (principal); E87.6 Hypokalemia
CPT/HCPCS: 80053; 80306; 80307; 81001; 81025; 85025; 87086; 96372; 99284; J3486; Q0162

== ENCOUNTER 2023-01-22 19:25 | Emergency (ER) | payer MEDICAID, SELFPAY ==
[2023-01-22 19:28] VITALS: BP 130/90; PULSE 85; RESP 16; TEMP 36.9; O2SAT 93; BMI 38.2
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
[2023-01-22 19:53] LABS: Basophils # 0.1 10^3/uL (0.0-0.1); Basophils % 0.7 %; Eosinophils # 0.4 10^3/uL (0.0-0.8); Eosinophils % 5.4 %; Hematocrit 39.4 % (36-47); Lymphocytes # 3.1 10^3/uL (0.8-4.8); Lymphocytes % 38.1 %; Mean Corpuscular HGB Conc 32.7 g/dL (30-55); Mean Corpuscular Hemoglobin 28.8 pg (27-33); Mean Corpuscular Volume 87.9 fl (85-98); Mean Platelet Volume 10.7 fL (7.4-10.4); Monocytes # 0.7 10^3/uL (0.2-0.9); Monocytes % 8.6 %; Neutrophils # 3.81 10^3/uL (1.8-7.7); Neutrophils % 46.6 %; Nucleated Red Blood Cells % 0 %; Platelet Count 235 10^3/cmm (157-399); Red Blood Count 4.48 10^6/uL (3.85-5.65); Red Cell Distribution Width 13.9 % (12.1-15.1); White Blood Count 8.17 10^3/uL (3.29-11.43)
[2023-01-22 19:56] LABS: HCG Qualitative Urine. Negative (Negative)
[2023-01-22 20:02] LABS: Amphetamines Screen Urine Negative (Negative); Barbiturates Screen Urine Negative (Negative); Benzodiazepines Screen Urine Negative (Negative); Cocaine Screen Urine Negative (Negative); Opiate Screen Urine Negative (Negative); PCP Screen Urine Negative (Negative); THC Screen Urine Negative (Negative)
[2023-01-22 20:16] LABS: Alanine Aminotransferase 68 U/L (0-33); Albumin Level 4.6 g/dL (3.5-5.2); Alkaline Phosphatase 120 U/L (35-105); Anion Gap 14.7 (5-19); Aspartate Amino Transferase 49 U/L (0-32); Blood Urea Nitrogen 13 mg/dL (6-20); Calcium 9.4 mg/dL (8.5-10.5); Carbon Dioxide 24 mmol/L (22-29); Chloride 102 mmol/L (98-107); Globulin 2.8 g/dL (1.3-4.6); Glomerular Filtration Rate 53.5 mL/min (90-130); Glucose 93 mg/dL (65-115); Osmolality Calculated 284 mOsm/kg (285-295); Potassium 3.7 mmol/L (3.5-5.1); Salicylate 0.5 mg/dL (3-10); Sodium 137 mmol/L (136-145); Total Bilirubin 0.3 mg/dL (0.15-1.2); Total Protein 7.4 g/dL (6.6-8.7)
[2023-01-22 20:17] LABS: Acetaminophen < 5.0 ug/mL (10-30); Alcohol Level < 10 mg/dL (0-10)
[2023-01-22] MEDS: meclizine 25 mg tablet 50 MG PO (20:25)
== END 2023-01-22 20:40 | disposition home or self-care (01) ==
PROVIDERS: Emergency Provider Emergency Medicine; PCP Internal Medicine
DX: F63.81 Intermittent explosive disorder (principal); F32.A Depression, unspecified
CPT/HCPCS: 36415; 80053; 80306; 80307; 81025; 85025; 99283; J8597

== ENCOUNTER 2023-02-21 20:28 | Inpatient (IN) | payer MEDICAID, SELFPAY ==
[2023-02-21 20:30] VITALS: BP 149/90; PULSE 120; RESP 18; TEMP 36.6; O2SAT 94
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
--- NOTE | 2023-02-21 20:40 | XRR_ITS ---
PROCEDURE INFORMATION: Exam: XR Left Foot Exam date and time: 02/21/2023 8:48 PM Age: 27 years old Clinical indication: Injury or trauma; Other: Pain to left foot after being stepped on; Patient HX: Left foot pain after being stepped on; Most painful in arch area TECHNIQUE: Imaging protocol: Radiologic exam of the left foot. Views: 3 or more views. COMPARISON: No relevant prior studies available. FINDINGS: Bones/joints: No evidence of acute fracture or dislocation. No erosive disease. No significant degenerative change. Soft tissues: Normal. XR/XR foot LT min 3V* [id number] IMPRESSION: No acute bony injury.
[2023-02-21 21:06] LABS: Basophils % 0.7 %; Eosinophils # 0.4 10^3/uL (0.0-0.8); Eosinophils % 6.1 %; Hematocrit 41.8 % (36-47); Lymphocytes # 2.2 10^3/uL (0.8-4.8); Lymphocytes % 36.8 %; Mean Corpuscular HGB Conc 32.1 g/dL (30-55); Mean Corpuscular Volume 90.5 fl (85-98); Mean Platelet Volume 10.4 fL (7.4-10.4); Monocytes # 0.6 10^3/uL (0.2-0.9); Monocytes % 9.8 %; Neutrophils # 2.74 10^3/uL (1.8-7.7); Neutrophils % 46.1 %; Nucleated Red Blood Cells % 0 %; Platelet Count 229 10^3/cmm (157-399); Red Blood Count 4.62 10^6/uL (3.85-5.65); Red Cell Distribution Width 13.3 % (12.1-15.1); White Blood Count 5.93 10^3/uL (3.29-11.43)
[2023-02-21 21:36] LABS: Alanine Aminotransferase 105 U/L (0-33); Albumin Level 4.3 g/dL (3.5-5.2); Alkaline Phosphatase 139 U/L (35-105); Anion Gap 16.5 (5-19); Aspartate Amino Transferase 79 U/L (0-32); Blood Urea Nitrogen 14 mg/dL (6-20); Calcium 9.3 mg/dL (8.5-10.5); Carbon Dioxide 22 mmol/L (22-29); Chloride 103 mmol/L (98-107); Globulin 3.1 g/dL (1.3-4.6); Glomerular Filtration Rate 53.5 mL/min (90-130); Glucose 103 mg/dL (65-115); Osmolality Calculated 287 mOsm/kg (285-295); Potassium 3.5 mmol/L (3.5-5.1); Sodium 138 mmol/L (136-145); Thyroid Stimulating Hormone 0.71 uIU/mL (0.27-4.20); Total Bilirubin 0.2 mg/dL (0.15-1.2); Total Protein 7.4 g/dL (6.6-8.7)
[2023-02-21 21:37] LABS: Acetaminophen < 5.0 ug/mL (10-30); Alcohol Level < 10 mg/dL (0-10); Salicylate < 0.3 mg/dL (3-10)
[2023-02-21 21:57] LABS: HCG Qualitative Urine. Negative (Negative)
[2023-02-21 22:00] VITALS: RESP 16
[2023-02-21 22:01] LABS: Amphetamines Screen Urine Negative (Negative); Barbiturates Screen Urine Negative (Negative); Benzodiazepines Screen Urine Negative (Negative); Cocaine Screen Urine Negative (Negative); Opiate Screen Urine Negative (Negative); PCP Screen Urine Negative (Negative); THC Screen Urine Negative (Negative)
[2023-02-21 22:11] LABS: Blood Urine Neg (Negative); Glucose Urine UA Norm (Normal); Ketones Urine 1+ (Negative); Nitrate Urine Negative (Negative); Protein Urine Trace (Negative); Urine Appearance Clear (CLEAR); Urine Color Amber (Yellow); pH Urine 5 (5-7)
[2023-02-21 22:12] LABS: Add Urine Culture? No; Add Urine Microscopic? YES; Amorphous Sediment Urine 1+ /hpf; Bacteria Urine TRACE /hpf; Bilirubin Urine Neg (Negative); Leukocyte Esterase Urine 1+ (Negative); Mucus Urine 1+ /hpf; RBC Urine 0-4 /hpf (0-2); Urobilinogen Urine 1 mg/dL (Negative)
[2023-02-21] MEDS: diphenhydrAMINE 50 mg/mL SDV 1mL IM (23:40)
--- NOTE | 2023-02-21 23:42 | PC.NURSE ---
Patient nauseous and has vomited on the floor x 2. Provider notified and Benadryl has been ordered.
[2023-02-22 01:29] VITALS: PULSE 88; RESP 16; O2SAT 98
[2023-02-22 01:59] VITALS: BP 126/90; PULSE 95; RESP 18; TEMP 37.3; O2SAT 99
--- NOTE | 2023-02-22 02:47 | PC.NURSE ---
Pt arrived to [facility] w/RN at side. Cooperative w/assessment. Lac to left great toe, cleaned w/NS and bandaid applied per orders.
[2023-02-22 06:00] VITALS: BP 117/87; PULSE 104; RESP 17; O2SAT 97
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
[2023-02-22 15:11] VITALS: BP 117/87; PULSE 104; RESP 17; O2SAT 97
== END 2023-02-22 16:09 | disposition intermediate care facility (04) | DRG 883 ==
LOC: ER 02-22 00:48 → NP 02-22 01:32
PROVIDERS: Admitting Provider Psychiatry & Neurology Psychiatry; Emergency Provider Nurse Practitioner Family; PCP Internal Medicine; Visit Provider Psychiatry & Neurology Psychiatry
DX: F63.81 Intermittent explosive disorder (principal); R45.851 Suicidal ideations; F32.A Depression, unspecified; F70 Mild intellectual disabilities; S99.922A Unspecified injury of left foot, initial encounter; W50.0XXA Accidental hit or strike by another person, initial encounter; R45.850 Homicidal ideations
CPT/HCPCS: 36415; 73630; 80053; 80306; 80307; 81001; 81025; 84443; 85025; 96372; 99285; J1200

== ENCOUNTER 2023-03-06 16:11 | Emergency (ER) | payer MEDICAID, SELFPAY ==
[2023-03-06 16:58] VITALS: BP 108/75; PULSE 100; RESP 18; TEMP 36.8; O2SAT 96
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
--- NOTE | 2023-03-06 19:01 | PC.NURSE ---
EXTERNAL EXAM DONE ON PT WITH DR. ULLOA. BRUISING NOTED TO POSTERIOR MEDIAL ASPECT OF R KNEE. NO BRUISING NOTED TO EXTERNAL VAGINAL AREA. NO BLOOD NOTED TO AREA. PT DOES C/O TENDERNESS TO ABD WITH PALPATION.
[2023-03-06 19:16] LABS: HCG Qualitative Urine. Negative (Negative)
[2023-03-06 19:37] LABS: Add Urine Culture? No; Add Urine Microscopic? YES; Bilirubin Urine Neg (Negative); Blood Urine Neg (Negative); Glucose Urine UA Norm (Normal); Ketones Urine 1+ (Negative); Leukocyte Esterase Urine 1+ (Negative); Nitrate Urine Negative (Negative); Protein Urine Neg (Negative); Specific Gravity, Urine 1.015 (1.005-1.030); Urine Appearance Clear (CLEAR); Urine Color Yellow (Yellow); Urobilinogen Urine Neg (Negative); WBC Urine 0-4 /hpf (0-5); pH Urine 5 (5-7)
[2023-03-06 21:39] VITALS: BP 115/88; PULSE 84; RESP 17; O2SAT 97
[2023-03-06 21:40] VITALS: RESP 17; O2SAT 97
== END 2023-03-06 21:41 | disposition short-term general hospital (02) ==
PROVIDERS: Emergency Provider Emergency Medicine; PCP Internal Medicine
DX: T76.21XA Adult sexual abuse, suspected, initial encounter (principal); Y07.9 Unspecified perpetrator of maltreatment and neglect
CPT/HCPCS: 81001; 81025; 99283

== ENCOUNTER 2023-03-08 23:17 | Emergency (ER) | payer MEDICAID, SELFPAY ==
[2023-03-08 23:20] VITALS: BP 124/84; PULSE 98; RESP 16; TEMP 36.9; O2SAT 95; BMI 20.7
[2023-03-09 00:39] VITALS: BP 124/84; PULSE 98; RESP 16; TEMP 36.9; O2SAT 95
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
== END 2023-03-09 00:40 | disposition home or self-care (01) ==
PROVIDERS: Emergency Provider Emergency Medicine; PCP Internal Medicine
DX: F63.81 Intermittent explosive disorder (principal)
CPT/HCPCS: 99282

== ENCOUNTER 2023-03-21 18:17 | Emergency (ER) | payer MEDICAID, SELFPAY ==
[2023-03-21 18:28] VITALS: BP 110/81; PULSE 101; RESP 17; TEMP 36.8; O2SAT 95
[2023-03-21 20:03] VITALS: BP 119/73; PULSE 98; O2SAT 97
--- NOTE | 2023-03-21 20:08 | W.ED.DIZZY ---
HPI - Dizziness General: Chief Complaint: Dizziness Stated Complaint: possible seizsure around 5:15 Time Seen by Provider: 03/21/23 19:59 History of Present Illness: HPI Narrative: Patient is a 27-year-old female with a past medical history significant for major depressive disorder, seizure-like activity, and developmental delay who presents to the emergency department from a inpatient facility with caregiver for evaluation of lightheadedness, dizziness, and seizure-like activity. Caregiver reports that approximately 1700 the patient was found on the couch having tonic-clonic like activity. Caregiver reports that the episode lasted approximately 2 minutes. Patient does take lamotrigine and topiramate for management of her seizures. Caregiver reports that she takes her medications as prescribed on a daily basis. Patient states that since the episode she has continued to have lightheadedness and dizziness. Patient states that she also has had mild shortness of breath and intermittent chest pains. Admits to subjective fever and chills. Admits to a nonproductive cough and a sore throat. Patient did have approximately 1 episode of emesis after the seizure-like activity. Patient states she is still nauseous. She denies abdominal pain, constipation, diarrhea, dysuria, hematuria, otalgia, otorrhea, melena, hematochezia, hematemesis, or any other associated symptoms. No other complaints at this time. Associated symptoms: Reports chest pain, chills, nausea and vomiting; Denies ear discharge or palpitations Review of Systems General: Reports: 10 or more systems reviewed and unremarkable except in HPI and below Const: Reports: fever(s) and chills Eyes: Denies: change in vision, blurry vision, eye discharge or eye redness ENMT: Reports: throat pain; Denies: odynophagia, ear or mastoid pain or ear discharge Card: Reports: chest pain and lightheadedness; Denies: palpitations Resp: Reports: dyspnea and non-productive cough; Denies: wheezing, stridor or pain on inspiration GI: Reports: nausea and vomiting; Denies: abdominal pain, diarrhea or constipation : Denies: difficulty voiding, dysuria, urinary urgency or hematuria Musc: Denies: neck pain, back pain, extremity pain or extremity swelling Skin/Breast: Denies: rash Neuro: Reports: dizziness and seizure-like activity [facility] ED PFSH: Medical History Intermittent explosive disorder Major depressive disorder, recurrent, moderate Mild intellectual disabilities Nocturnal enuresis On high dose antipsychotic drug therapy Psychiatric care Family History Other Family history unknown Social History Smoking and tobacco/nicotine status: never used tobacco/nicotine Second hand smoke exposure: No Alcohol intake: never Substance/Drug Use: never Caregiver/support person: Yes Lives independently: No Household members: other Details: Deya Simmons Marital status: Single service: No Current occupational status: disabled Current gender identity: Female Special gilmer needs: No Agree to transfusion: Yes Physical Exam Const: COMMON NORMALS: no acute distress, patient oriented x3 and alert HENMT: COMMON NORMALS: normocephalic and atraumatic; oropharynx not normal HEAD & SCALP: normocephalic and atraumatic OTHER: Posterior oropharynx mildly erythematous without swelling, lesions, erythema, or exudates. No evidence of retropharyngeal abscess, peritonsillar abscess, or Awais angina. Neck/C-Spine: COMMON NORMALS: full ROM, no lymphadenopathy and supple Chest: COMMONS NORMALS: normal inspection of the chest Resp: COMMON NORMALS: normal respiratory effort, No retractions, No use of accessory muscles and clear to auscultation bilaterally AUSCULTATION: clear to auscultation bilaterally Cardio: COMMON NORMALS: regular rate, regular rhythm, No gallops present (Cardio), No clicks present (Cardio), No murmurs present (Cardio) and No rub (Cardio) RATE: regular rate RHYTHM: regular rhythm GI: COMMON NORMALS: Normal to inspection, nondistended, normoactive bowel sounds present, Soft to palpation and non-tender PALPATION: Yes Soft to palpation Neuro: COMMON NORMALS: patient oriented x3 SENSORIUM/ORIENTATION: Yes alert OTHER: Sensation intact in the bilateral upper and lower extremities. No focal neurological deficits noted on examination. Cranial nerves II through XII grossly intact. Course Vital Signs: Vital signs: Vital Signs Temperature 98.3 F 03/21/23 18:28 Pulse Rate 84 03/21/23 21:11 Respiratory Rate 17 03/21/23 18:28 Blood Pressure 125/77 03/21/23 21:11 Pulse Oximetry 98 03/21/23 21:11 Oxygen Delivery Me thod Room Air 03/21/23 21:11 MDM - Dizziness Medical Decision Making Patient is a 27-year-old female with a past medical history significant for major depressive disorder, seizure-like activity, and developmental delay who presents to the emergency department from a inpatient facility with caregiver for evaluation of lightheadedness, dizziness, and seizure-like activity. On physical examination patient is nontoxic and in no acute distress. Vital signs stable at discharge. Patient is afebrile. CBC, CMP, urinalysis, urine , urine drug screen, influenza, COVID-19, and rapid strep all grossly unremarkable. Lamotrigine and topiramate levels currently pending. Patient currently resides at a facility and caregiver states that she takes her medications on a regular basis. Patient was given her normal dose of lamotrigine and topiramate in the emergency department. EKG normal sinus rhythm with nonspecific T wave abnormalities. CT of the head without contrast showed no acute intracranial pathology. Patient was given 1 L normal saline in the emergency department. Patient reports that her symptoms had greatly improved after fluid administration. Based off history and physical examination I do not believe the patient symptoms are emergent and warrant further emergent evaluation at this time. Patient has a known history of seizure-like activity. Patient reports that she had a seizure in the emergency department, however, the patient showed no signs of postictal state and with the patient's significant psychiatric history and developmental delay I am concerned for possible pseudoseizures. I discussed the patient's history, exam, and all findings with Dr. Rasheed In the emergency department who agreed my assessment and plan. He did not feel the patient required admission or further evaluation at this time. Patient and caregiver stated understanding of all discharge instructions and was agreeable to the plan of care. Continue to take all home medications as prescribed. Increase oral hydration. See handout over generalized instructions. Cold-mist humidifier night. Call your primary care provider tomorrow with an update of your symptoms and to schedule appointment for further management/evaluation. Return to the emergency department for any rapid or worsening symptoms to include but not limited to increase seizure-like activity, fever, chest pain, shortness of breath, palpitations, lightheadedness, dizziness, or as needed Differential diagnosis includes but is not limited to pseudoseizures, epilepsy, viral URI, urinary tract infection, substance abuse, arrhythmia, electrolyte abnormality Lab Data 03/21/23 20:14 03/21/23 20:[address] 03/21/23 20:19 IMPRESSION: No evidence of acute intracranial hemorrhage, mass effect, or edema. Laboratory Results WBC 7.24 10^3/uL (3.29-11.43) 03/21/23 20:14 RBC 4.39 10^6/uL (3.85-5.65) 03/21/23 20:14 Hgb 13.00 g/dL (11.27-16.99) 03/21/23 20:14 Hct 40.5 % (36-47) 03/21/23 20:14 MCV 92.3 fl (85-98) 03/21/23 20:14 MCH 29.6 pg (27-33) 03/21/23 20:14 MCHC 32.1 g/dL (30-55) 03/21/23 20:14 RDW 13.4 % (12.1-15.1) 03/21/23 20:14 Plt Count 215 10^3/cmm (157-399) 03/21/23 20:14 MPV 11.0 fL (7.4-10.4) H 03/21/23 20:14 Neut % (Auto) 42.1 % 03/21/23 20:14 Lymph % (Auto) 43.6 % 03/21/23 20:14 Thomas % (Auto) 8.1 % 03/21/23 20:14 Eos % (Auto) 4.8 % 03/21/23 20:14 Baso % (Auto) 0.7 % 03/21/23 20:14 Neut # (Auto) 3.04 10^3/uL (1.8-7.7) 03/21/23 20:14 Lymph # (Auto) 3.2 10^3/uL (0.8-4.8) 03/21/23 20:14 Thomas # (Auto) 0.6 10^3/uL (0.2-0.9) 03/21/23 20:14 Eos # (Auto) 0.4 10^3/uL (0.0-0.8) 03/21/23 20:14 Baso # (Auto) 0.1 10^3/uL (0.0-0.1) 03/21/23 20:14 Nucleated RBC % (auto) 0 % 03/21/23 20:14 Nucleated RBCs # 0.0 /100WBC 03/21/23 20:14 Sodium 140 mmol/L (136-145) 03/21/23 20:14 Potassium 3.8 mmol/L (3.5-5.1) 03/21/23 20:14 Chloride 104 mmol/L (98-107) 03/21/23 20:14 Carbon Dioxide 24 mmol/L (22-29) 03/21/23 20:14 Anion Gap 15.8 (5-19) 03/21/23 20:14 BUN 13 mg/dL (6-20) 03/21/23 20:14 Creatinine 1.1 mg/dL (0.5-0.9) H 03/21/23 20:14 GFR Calculation 59.1 mL/min (90-130) L 03/21/23 20:14 Glucose 88 mg/dL (65-115) 03/21/23 20:14 Calculated Osmolality 290 mOsm/kg (285-295) 03/21/23 20:14 Calcium 9.1 mg/dL (8.5-10.5) 03/21/23 20:14 Total Bilirubin 0.2 mg/dL (0.15-1.2) 03/21/23 20:14 AST 5 U/L (0-32) 03/21/23 20:14 ALT 52 U/L (0-33) H 03/21/23 20:14 Alkaline Phosphatase 132 U/L (35-105) H 03/21/23 20:14 Total Protein 7.2 g/dL (6.6-8.7) 03/21/23 20:14 Albumin 4.2 g/dL (3.5-5.2) 03/21/23 20:14 Globulin 3.0 g/dL (1.3-4.6) 03/21/23 20:14 HCG, Qual Negative (Negative) 03/21/23 21:50 Urine Color Yellow (Yellow) 03/21/23 21:50 Urine Appearance Clear (CLEAR) 03/21/23 21:50 Urine pH 7 (5-7) 03/21/23 21:50 Ur Specific [place] 1.010 (1.005-1.030) 03/21/23 21:50 Urine Protein Neg (Negative) 03/21/23 21:50 Urine Glucose (UA) Norm (Normal) 03/21/23 21:50 Urine Ketones 1+ (Negative) H 03/21/23 21:50 Urine Blood Neg (Negative) 03/21/23 21:50 Urine Nitrate Negative (Negative) 03/21/23 21:50 Urine Bilirubin Neg (Negative) 03/21/23 21:50 Urine Urobilinogen Neg mg/dL (Negative) 03/21/23 21:50 Ur Leukocyte Esterase Negative (Negative) 03/21/23 21:50 Urine Opiates Screen Negative ng/mL (Negative) 03/21/23 21:50 Ur Barbiturates Screen Negative ng/mL (Negative) 03/21/23 21:50 Ur Phencyclidine Scrn Negative ng/mL (Negative) 03/21/23 21:50 Ur Amphetamines Screen Negative ng/mL (Negative) 03/21/23 21:50 U Benzodiazepines Scrn Negative ng/mL (Negative) 03/21/23 21:50 Urine Cocaine Screen Negative ng/mL (Negative) 03/21/23 21:50 U Marijuana (THC) Screen Negative ng/mL (Negative) 03/21/23 21:50 Influenza Type A Ag negative (Negative) 03/21/23 20:14 Influenza Type B Ag negative (Negative) 03/21/23 20:14 SARS-CoV-2 RNA (RT-PCR) Cancelled 03/21/23 20:14 SARS-CoV-2 Ag (Rapid) negative (Negative) 03/21/23 20:14 Group A Strep Rapid Negative (Negative) 03/21/23 20:14 All radiology interpretation(s) finalized by discharge Discharge Plan Discharge Patient Disposition: Home Clinical Impression: Seizure-like activity Condition: Stable Prescriptions: No Action levothyroxine 100 mcg capsule 100 mcg PO DAILY Rx Instructions: take 30 minutes before meal. duloxetine [Cymbalta] 30 mg capsule,delayed release(DR/EC) 30 mg PO DAILY Qty: 30 1RF Rx Instructions: take together with cymbalta 60mg duloxetine 60 mg capsule,delayed release(DR/EC) 60 mg PO DAILY Qty: 30 1RF Rx Instructions: take together with cymbalta 30mg lamotrigine [Lamictal] 200 mg tablet 200 mg PO BID Qty: 60 2RF topiramate 100 mg tablet 100 mg PO BID Qty: 60 2RF olanzapine 20 mg tablet 20 mg PO BEDTIME Qty: 30 2RF loratadine 10 mg tablet 10 mg PO DAILY sertraline 100 mg tablet 200 mg PO DAILY ondansetron 4 mg tablet,disintegrating 4 mg PO Q6H PRN (Reason: Nausea) prednisone 1 mg tablet See Rx Instructions .ROUTE .COMPLEX Rx Instructions: 2 mg orally in AM and 1 mg in PM Discharge Orders: Discharge ED (Routine); Ordered 03/21/23 Ordered By: Alexander Stephenson Referrals: Fran Mera DO [Primary Care Provider] - Patient Instructions: Seizures Activity Restrictions/Additional Instructions: Continue to take all home medications as prescribed. Increase oral hydration. See handout over generalized instructions. Cold-mist humidifier night. Call your primary care provider tomorrow with an update of your symptoms and to schedule appointment for further management/evaluation. Return to the emergency department for any rapid or worsening symptoms to include but not limited to increase seizure-like activity, fever, chest pain, shortness of breath, palpitations, lightheadedness, dizziness, or as needed Coding Level of Care Code ED Transformation Coach for Carolina Figueroa
--- NOTE | 2023-03-21 20:19 | CTR_ITS ---
PROCEDURE INFORMATION: Exam: CT Head Without Contrast Exam date and time: 03/21/2023 8:32 PM Age: 27 years old Clinical indication: Patient HX: Seizure activity. TECHNIQUE: Imaging protocol: Computed tomography of the head without contrast. Radiation optimization: All CT scans at this facility use at least one of these dose optimization techniques: automated exposure control; mA and/or kV adjustment per patient size (includes targeted exams where dose is matched to clinical indication); or iterative reconstruction. REPORTING DATA: Count of CT and Cardiac NM exams in prior 12 months: This patient has received 0 known CTs and 0 known cardiac nuclear medicine studies in the 12 months prior to the current study. COMPARISON: No relevant prior studies available. RADIATION DOSE METRICS: Total DLP (mGy-cm): 1093.79 FINDINGS: Brain: No hemorrhage. Unremarkable white matter. No mass effect. Preserved singh-white interfaces. Cerebral ventricles: No ventriculomegaly. Paranasal sinuses: Visualized sinuses are unremarkable. No fluid levels. Mastoid air cells: Visualized mastoid air cells are well aerated. Bones/joints: Unremarkable. No acute fracture. Soft tissues: Unremarkable. CT/CT head wo con* [id number] IMPRESSION: No evidence of acute intracranial hemorrhage, mass effect, or edema.
[2023-03-21 20:40] LABS: Basophils # 0.1 10^3/uL (0.0-0.1); Basophils % 0.7 %; Eosinophils # 0.4 10^3/uL (0.0-0.8); Eosinophils % 4.8 %; Hematocrit 40.5 % (36-47); Lymphocytes # 3.2 10^3/uL (0.8-4.8); Lymphocytes % 43.6 %; Mean Corpuscular HGB Conc 32.1 g/dL (30-55); Mean Corpuscular Hemoglobin 29.6 pg (27-33); Mean Corpuscular Volume 92.3 fl (85-98); Monocytes # 0.6 10^3/uL (0.2-0.9); Monocytes % 8.1 %; Neutrophils # 3.04 10^3/uL (1.8-7.7); Neutrophils % 42.1 %; Nucleated Red Blood Cells % 0 %; Platelet Count 215 10^3/cmm (157-399); Red Blood Count 4.39 10^6/uL (3.85-5.65); Red Cell Distribution Width 13.4 % (12.1-15.1); White Blood Count 7.24 10^3/uL (3.29-11.43)
--- NOTE | 2023-03-21 20:52 | ECG_ITS ---
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 Measurements Intervals [place] Rate: 86 P: 67 CO: 147 QRS: 75 QRSD: 93 T: 58 QT: 355 QTc: 425 Interpretive Statements SINUS RHYTHM NONSPECIFIC T-WAVE ABNORMALITY Compared to ECG 05/19/2022 16:12:39 T-wave abnormality now present Incomplete right bundle-branch block no longer present Electronically Signed On 03-22-2023 5:50:53 GLASSWARE FINISHER by Gricelda Burrell M.D. [email or web address]
[2023-03-21 21:00] LABS: Influenza A by IFA negative (Negative); Influenza B by IFA negative (Negative)
[2023-03-21 21:06] LABS: Albumin Level 4.2 g/dL (3.5-5.2); Alkaline Phosphatase 132 U/L (35-105); Anion Gap 15.8 (5-19); Blood Urea Nitrogen 13 mg/dL (6-20); Calcium 9.1 mg/dL (8.5-10.5); Carbon Dioxide 24 mmol/L (22-29); Chloride 104 mmol/L (98-107); Glomerular Filtration Rate 59.1 mL/min (90-130); Glucose 88 mg/dL (65-115); Osmolality Calculated 290 mOsm/kg (285-295); Potassium 3.8 mmol/L (3.5-5.1); SARS Covid-2 Antigen negative (Negative); Sodium 140 mmol/L (136-145); Total Bilirubin 0.2 mg/dL (0.15-1.2); Total Protein 7.2 g/dL (6.6-8.7)
[2023-03-21] MEDS: sodium chloride 0.9% 1,000 ML 999 ML IV (21:09)
[2023-03-21 21:11] VITALS: BP 125/77; PULSE 84; O2SAT 98
[2023-03-21 21:18] LABS: Alanine Aminotransferase 52 U/L (0-33); Aspartate Amino Transferase 5 U/L (0-32)
[2023-03-21 21:21] LABS: Rapid Strep A Test Negative (Negative)
[2023-03-21] MEDS: lamoTRIgine 100 mg Tablet 200 MG PO (21:53)
[2023-03-21] MEDS: topiramate 100 mg Tablet PO (21:54)
[2023-03-21 21:56] LABS: Add Urine Microscopic? NO; Charge for UA Resulting for Rev
[2023-03-21 21:59] LABS: Bilirubin Urine Neg (Negative); Blood Urine Neg (Negative); Glucose Urine UA Norm (Normal); HCG Qualitative Urine. Negative (Negative); Ketones Urine 1+ (Negative); Leukocyte Esterase Urine Negative (Negative); Nitrate Urine Negative (Negative); Protein Urine Neg (Negative); Urine Appearance Clear (CLEAR); Urine Color Yellow (Yellow); Urobilinogen Urine Neg (Negative); pH Urine 7 (5-7)
[2023-03-21 22:09] LABS: Amphetamines Screen Urine Negative (Negative); Barbiturates Screen Urine Negative (Negative); Benzodiazepines Screen Urine Negative (Negative); Cocaine Screen Urine Negative (Negative); Opiate Screen Urine Negative (Negative); PCP Screen Urine Negative (Negative); THC Screen Urine Negative (Negative)
[2023-03-27 10:00] LABS: Lamotrigine (Lamictal) Level 5.4 mcg/mL (2.5-15.0)
== END 2023-03-21 22:33 | disposition home or self-care (01) ==
PROVIDERS: Emergency Provider Physician Assistant; PCP Internal Medicine
DX: R56.9 Unspecified convulsions (principal); Z11.52 Encounter for screening for COVID-19
CPT/HCPCS: 70450; 80053; 80175; 80201; 80306; 81003; 81025; 85025; 87081; 87426; 87804; 87880; 93005; 96360; 99285; J7030

== ENCOUNTER 2023-04-27 10:06 | Emergency (ER) | payer MEDICAID, SELFPAY ==
[2023-04-27 10:11] VITALS: BP 123/79; PULSE 99; RESP 18; TEMP 37; O2SAT 96; BMI 37.0
--- NOTE | 2023-04-27 10:50 | ED.C_ITS ---
HPI - Psych 2 General: Chief Complaint: Psychiatric Symptoms Stated Complaint: MHE Time Seen by Provider: 04/27/23 10:26 Source: patient and other (care staff) Mode of arrival: ambulatory Limitations: no limitations History of Present Illness: Patient is a 28-year-old female presents to ED today along with her care staff as she is a resident at [facility] here for complaints of sleeping more than normal. Staff states she is sleeping much more than is characteristic for her and when she is awake seems to be more angry than normal. She reportedly mentioned feeling suicidal yesterday but states she is not currently suicidal. Care staff states that patient's medications and sharps are locked up in her home. Patient tells me about a week ago she had nonspecific URI-like symptoms and was seen by a medical provider and diagnosed with a viral infection. She states symptoms seem to be improving however she does still have a bit of a cough. She has not been running fevers. Denies vomiting or diarrhea. Relieving factors: none Exacerbating factors: none Associated psychiatric symptoms: depression Treatments prior to arrival: none Review of Systems 2 Const: Reports: fatigue; Denies: fever(s), chills, body aches or malaise ENMT: Denies: throat pain, odynophagia, ear or mastoid pain, nasal discharge, nasal congestion or sinus pain Card: Denies: chest pain Resp: Reports: productive cough and chest congestion; Denies: dyspnea, wheezing or hemoptysis GI: Denies: abdominal pain, nausea, vomiting or diarrhea : Denies: flank pain, difficulty voiding, dysuria, urinary frequency, urinary urgency or urinary hesitancy Musc: Denies: neck pain, back pain, extremity pain or joint pain Skin/Breast: Denies: rash Neuro: Denies: headache(s), numbness in extremities, weakness in extremities or sensory changes PFSH ED 2 PFSH: Medical History Intermittent explosive disorder Nocturnal enuresis Psychiatric care On high dose antipsychotic drug therapy Major depressive disorder, recurrent, moderate Mild intellectual disabilities Family History Other Family history unknown Social History Smoking and tobacco/nicotine status: never used tobacco/nicotine Second hand smoke exposure: No Alcohol intake: never Substance/Drug Use: never Caregiver/support person: Yes Lives independently: No Household members: other Details: Deya Simmons Marital status: Single service: No Current occupational status: disabled Current gender identity: Female Special gilmer needs: No Agree to transfusion: Yes Physical Exam 2 Const: COMMON NORMALS: no acute distress, average body habitus, patient oriented x3, alert and well nourished EXAM LIMITATIONS: other limitations (Intellectual disability) GENERAL APPEARANCE: cooperative O RIENTATION/CONSCIOUSNESS: Yes awake, Yes oriented to person, Yes oriented to place and Yes oriented to time HENMT: COMMON NORMALS: normocephalic, atraumatic, hearing grossly normal bilaterally, external ears normal, EAC's normal, TM's normal bilaterally, Normal external nose present and Normal nasal mucous membranes and turbinates present HEAD & SCALP: normal to inspection, normocephalic and atraumatic FACE & SINUS: normal facial exam NOSE: Normal external nose present and Normal nasal mucous membranes and turbinates present EXTERNAL EAR: Yes external ears normal EXTERNAL AUDITORY CANAL: EAC's normal TYMPANIC MEMBRANE: TM's normal bilaterally MOUTH: Normal oral and palatal mucosa present and lip normal THROAT: posterior oropharynx normal Eye: GENERAL EYE: appearance normal, both eyes and all related structures Neck/C-Spine: COMMON NORMALS: no lymphadenopathy Resp: COMMON NORMALS: normal respiratory effort and clear to auscultation bilaterally AUSCULTATION: clear to auscultation bilaterally Cardio: COMMON NORMALS: regular rate and regular rhythm RATE: regular rate RHYTHM: regular rhythm GI: COMMON NORMALS: Normal to inspection, nondistended, normoactive bowel sounds present, Soft to palpation and non-tender PALPATION: Yes Soft to palpation : COMMON NORMALS: Yes no CVA tenderness BLADDER/KIDNEY EXAM: Yes no CVA tenderness Back/Pelvis: COMMON NORMALS: no CVA tenderness Extremity: GENERAL: Yes normal exam except as noted Neuro: DANY COMA SCALE: document GCS findings Dany coma scale eye opening: Spontaneous [place] coma scale verbal response: Orientated Dany coma scale motor response: Obey commands Dany coma scale total score: 15 COMMON NORMALS: patient oriented x3, moves all extremities, no focal motor deficits, no sensory deficits noted and gait normal SENSORIUM/ORIENTATION: Yes alert, Yes oriented to person, Yes oriented to place and Yes oriented to time Skin: COMMON NORMALS: no rashes or lesions noted GENERAL SKIN EXAM: no rashes or lesions noted Course 2 Vital Signs: Vital signs: Vital Signs Temperature 98.6 F 04/27/23 10:11 Pulse Rate 99 04/27/23 10:11 Respiratory Rate 18 04/27/23 10:11 Blood Pressure 123/79 04/27/23 10:11 Pulse Oximetry 96 04/27/23 10:11 Oxygen Delivery Me thod Room Air 04/27/23 10:11 MDM - Psych Medical Decision Making Patient is alert and oriented here. Vital signs are normal. Blood work overall is unremarkable. She has minor elevations to her kidney and LFTs that are chronic. These most likely are medication induced although LFTs could be secondary to fatty liver as she is obese. Her Lamictal and Topamax labs are send outs and thus pending. CXR is normal. Patient is on multiple sedating medications. Primary care or psychiatrist can perform medication reconciliation and adjustment as needed or indicated. Fatigue may be also post viral as she is recovering from recent viral infection. Patient states she is not suicidal. She had a negative suicide assessment questionnaire. All of the medications/sharps are already locked up in the home. Patient is stable for discharge with return precautions. Lab Data 04/27/23 10:46 04/27/23 10:46 Laboratory Results WBC 6.56 10^3/uL (3.29-11.43) 04/27/23 10:46 RBC 4.47 10^6/uL (3.85-5.65) 04/27/23 10:46 Hgb 13.10 g/dL (11.27-16.99) 04/27/23 10:46 Hct 41.4 % (36-47) 04/27/23 10:46 MCV 92.6 fl (85-98) 04/27/23 10:46 MCH 29.3 pg (27-33) 04/27/23 10:46 MCHC 31.6 g/dL (30-55) 04/27/23 10:46 RDW 13.7 % (12.1-15.1) 04/27/23 10:46 Plt Count 233 10^3/cmm (157-399) 04/27/23 10:46 MPV 10.5 fL (7.4-10.4) H 04/27/23 10:46 Neut % (Auto) 43.1 % 04/27/23 10:46 Lymph % (Auto) 41.3 % 04/27/23 10:46 [place] % (Auto) 7.8 % 04/27/23 10:46 Eos % (Auto) 4.7 % 04/27/23 10:46 Baso % (Auto) 0.8 % 04/27/23 10:46 Neut # (Auto) 2.83 10^3/uL (1.8-7.7) 04/27/23 10:46 Lymph # (Auto) 2.7 10^3/uL (0.8-4.8) 04/27/23 10:46 [place] # (Auto) 0.5 10^3/uL (0.2-0.9) 04/27/23 10:46 Eos # (Auto) 0.3 10^3/uL (0.0-0.8) 04/27/23 10:46 Baso # (Auto) 0.1 10^3/uL (0.0-0.1) 04/27/23 10:46 Nucleated RBC % (auto) 0 % 04/27/23 10:46 Nucleated RBCs # 0.0 /100WBC 04/27/23 10:46 Sodium 141 mmol/L (136-145) 04/27/23 10:46 Potassium 3.6 mmol/L (3.5-5.1) 04/27/23 10:46 Chloride 107 mmol/L (98-107) 04/27/23 10:46 Carbon Dioxide 23 mmol/L (22-29) 04/27/23 10:46 Anion Gap 14.6 (5-19) 04/27/23 10:46 BUN 8 mg/dL (6-20) 04/27/23 10:46 Creatinine 1.3 mg/dL (0.5-0.9) H 04/27/23 10:46 GFR Calculation 48.4 mL/min (90-130) L 04/27/23 10:46 Glucose 108 mg/dL (65-115) 04/27/23 10:46 Calculated Osmolality 291 mOsm/kg (285-295) 04/27/23 10:46 Calcium 9.5 mg/dL (8.5-10.5) 04/27/23 10:46 Total Bilirubin 0.2 mg/dL (0.15-1.2) 04/27/23 10:46 AST 45 U/L (0-32) H 04/27/23 10:46 ALT 66 U/L (0-33) H 04/27/23 10:46 Alkaline Phosphatase 126 U/L (35-105) H 04/27/23 10:46 Total Protein 7.2 g/dL (6.6-8.7) 04/27/23 10:46 Albumin 4.3 g/dL (3.5-5.2) 04/27/23 10:46 Globulin 2.9 g/dL (1.3-4.6) 04/27/23 10:46 TSH 1.05 uIU/mL (0.27-4.20) 04/27/23 10:46 HCG, Qual Negative (Negative) 04/27/23 10:46 Salicylates < 0.3 mg/dL (3-10) L 04/27/23 10:46 Acetaminophen < 5.0 ug/mL (10-30) L 04/27/23 10:46 All radiology interpretation(s) finalized by discharge Discharge Plan Discharge Patient Disposition: Home Clinical Impression: Fatigue Qualifiers: Fatigue type: unspecified Qualified Code(s): R53.83 - Other fatigue Condition: Stable Prescriptions: No Action levothyroxine 100 mcg capsule 100 mcg PO DAILY Rx Instructions: take 30 minutes before meal. duloxetine [Cymbalta] 30 mg capsule,delayed release(DR/EC) 30 mg PO DAILY Qty: 30 1RF Rx Instructions: take together with cymbalta 60mg duloxetine 60 mg capsule,delayed release(DR/EC) 60 mg PO DAILY Qty: 30 1RF Rx Instructions: take together with cymbalta 30mg lamotrigine [Lamictal] 200 mg tablet 200 mg PO BID Qty: 60 2RF topiramate 100 mg tablet 100 mg PO BID Qty: 60 2RF olanzapine 20 mg tablet 20 mg PO BEDTIME Qty: 30 2RF loratadine 10 mg tablet 10 mg PO DAILY ondansetron 4 mg tablet,disintegrating 4 mg PO Q6H PRN (Reason: Nausea) prednisone 1 mg tablet See Rx Instructions .ROUTE .COMPLEX Rx Instructions: 2 mg orally in AM and 1 mg in PM promethazine-DM 6.25-15 mg/5 mL Syrup 5 ml PO Q6H PRN (Reason: Cough) Delsym 12 hour 30 mg/5 mL Suspension,Extended Rel 12 Hr 5 ml PO Q12H PRN (Reason: Cough) trazodone 50 mg tablet 50 mg PO BEDTIME PRN (Reason: Sleep) acetaminophen 500 mg Tablet 500 mg PO Q4H PRN (Reason: Pain or fever) Mucinex D Maximum Strength 120-1,200 mg Tablet Extended Release 12 Hr 1 tab PO Q12H PRN (Reason: Congestion) benzonatate 100 mg Capsule 200 mg PO TID PRN (Reason: Cough) Banophen 25 mg Capsule 25 mg PO Q6H PRN (Reason: allergies) SF 5000 Plus 1.1 % Cream 1 applic DENTAL BID Discharge Orders: Discharge ED (Routine); Ordered 04/27/23 Ordered By: Amrita Light Referrals: Fran Mera, [Primary Care Provider] - Activity Restrictions/Additional Instructions: As we discussed I would like you to follow-up with Dr. Mera in the meantime until you can get to see your [facility] psychiatrist. As we discussed all medications and sharps need to continue to be locked up in the home. As we discussed patient is on multiple sedating medications. Primary care or psychiatrist can elect to perform a medication reconciliation as needed or indicated. Coding Level of Care Code ED [employer] for Carolina Figueroa
--- NOTE | 2023-04-27 10:50 | XR_ITS ---
WS: [id number] Exam: XR chest 1V portable [id number] Date/Time of Exam: 04/27/2023 10:51 AM Reason For Exam: fatigue Comparison 05/28/2014. Findings: The lungs are clear and fully expanded. Costophrenic angles are sharp. No infiltrates. Bronchovascula r relief appears normal. Cardiac silhouette is unremarkable. Bony elements are intact. IMPRESSION: Unremarkable chest radiograph.
--- NOTE | 2023-04-27 11:00 | PC.NURSE ---
report to Allie LANDERS
[2023-04-27 11:06] LABS: Basophils # 0.1 10^3/uL (0.0-0.1); Basophils % 0.8 %; Eosinophils # 0.3 10^3/uL (0.0-0.8); Eosinophils % 4.7 %; Hematocrit 41.4 % (36-47); Lymphocytes # 2.7 10^3/uL (0.8-4.8); Lymphocytes % 41.3 %; Mean Corpuscular HGB Conc 31.6 g/dL (30-55); Mean Corpuscular Hemoglobin 29.3 pg (27-33); Mean Corpuscular Volume 92.6 fl (85-98); Mean Platelet Volume 10.5 fL (7.4-10.4); Monocytes # 0.5 10^3/uL (0.2-0.9); Monocytes % 7.8 %; Neutrophils # 2.83 10^3/uL (1.8-7.7); Neutrophils % 43.1 %; Nucleated Red Blood Cells % 0 %; Platelet Count 233 10^3/cmm (157-399); Red Blood Count 4.47 10^6/uL (3.85-5.65); Red Cell Distribution Width 13.7 % (12.1-15.1); White Blood Count 6.56 10^3/uL (3.29-11.43)
--- NOTE | 2023-04-27 11:22 | PC.NURSE ---
pt case management coordinator advised procedure writer that pt has not eaten in 4 days.
[2023-04-27 11:23] LABS: HCG, Serum Qual Negative (Negative)
[2023-04-27 11:34] LABS: Alanine Aminotransferase 66 U/L (0-33); Albumin Level 4.3 g/dL (3.5-5.2); Alkaline Phosphatase 126 U/L (35-105); Anion Gap 14.6 (5-19); Aspartate Amino Transferase 45 U/L (0-32); Blood Urea Nitrogen 8 mg/dL (6-20); Calcium 9.5 mg/dL (8.5-10.5); Carbon Dioxide 23 mmol/L (22-29); Chloride 107 mmol/L (98-107); Globulin 2.9 g/dL (1.3-4.6); Glomerular Filtration Rate 48.4 mL/min (90-130); Glucose 108 mg/dL (65-115); Osmolality Calculated 291 mOsm/kg (285-295); Potassium 3.6 mmol/L (3.5-5.1); Sodium 141 mmol/L (136-145); Thyroid Stimulating Hormone 1.05 uIU/mL (0.27-4.20); Total Bilirubin 0.2 mg/dL (0.15-1.2); Total Protein 7.2 g/dL (6.6-8.7)
[2023-04-27 11:52] LABS: Acetaminophen < 5.0 ug/mL (10-30); Salicylate < 0.3 mg/dL (3-10)
[2023-04-27 12:35] VITALS: BP 126/83; O2SAT 98
[2023-04-27 12:39] LABS: Add Urine Microscopic? NO; Charge for UA Resulting for Rev
[2023-04-27 12:48] LABS: Bilirubin Urine Neg (Negative); Blood Urine Neg (Negative); Glucose Urine UA Norm (Normal); Ketones Urine Negative (Negative); Leukocyte Esterase Urine Negative (Negative); Nitrate Urine Negative (Negative); Protein Urine Neg (Negative); Urine Appearance Clear (CLEAR); Urine Color Yellow (Yellow); Urobilinogen Urine Norm (Negative); pH Urine 5 (5-7)
[2023-05-01 21:50] LABS: Lamotrigine (Lamictal) Level 10.4 mcg/mL (2.5-15.0)
== END 2023-04-27 12:38 | disposition home or self-care (01) ==
PROVIDERS: Family Medicine; Emergency Provider Physician Assistant; PCP Internal Medicine
DX: R53.83 Other fatigue (principal)
CPT/HCPCS: 36415; 71045; 80053; 80175; 80201; 80307; 81003; 84443; 84703; 85025; 99284

== ENCOUNTER 2023-05-14 21:51 | Emergency (ER) | payer MEDICAID, SELFPAY ==
[2023-05-14 21:52] VITALS: BP 130/83; PULSE 109; RESP 16; TEMP 36.7; O2SAT 92; BMI 31.6
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
== END 2023-05-14 23:24 | disposition home or self-care (01) ==
PROVIDERS: Emergency Provider Nurse Practitioner Family; PCP Internal Medicine
DX: S50.811A Abrasion of right forearm, initial encounter (principal); S50.812A Abrasion of left forearm, initial encounter; S80.01XA Contusion of right knee, initial encounter; W18.39XA Other fall on same level, initial encounter; Y92.199 Unspecified place in other specified residential institution as the place of occurrence of the external cause
CPT/HCPCS: 73562; 99283

== ENCOUNTER 2023-05-29 22:39 | Emergency (ER) | payer MEDICAID, SELFPAY ==
[2023-05-29 22:44] VITALS: BP 111/77; PULSE 102; RESP 16; TEMP 36.6; O2SAT 97
[2023-05-30 01:05] LABS: Basophils # 0.1 10^3/uL (0.0-0.1); Basophils % 0.8 %; Eosinophils # 0.3 10^3/uL (0.0-0.8); Eosinophils % 3.9 %; Hematocrit 40.4 % (36-47); Lymphocytes # 3.4 10^3/uL (0.8-4.8); Lymphocytes % 39.8 %; Mean Corpuscular HGB Conc 32.7 g/dL (30-55); Mean Corpuscular Hemoglobin 29.3 pg (27-33); Mean Corpuscular Volume 89.6 fl (85-98); Mean Platelet Volume 10.8 fL (7.4-10.4); Monocytes # 0.7 10^3/uL (0.2-0.9); Neutrophils # 3.96 10^3/uL (1.8-7.7); Neutrophils % 46.7 %; Nucleated Red Blood Cells % 0 %; Platelet Count 251 10^3/cmm (157-399); Red Blood Count 4.51 10^6/uL (3.85-5.65); Red Cell Distribution Width 13.4 % (12.1-15.1); White Blood Count 8.49 10^3/uL (3.29-11.43)
[2023-05-30 01:10] LABS: HCG, Serum Qual Negative (Negative)
[2023-05-30 01:20] LABS: Alanine Aminotransferase 56 U/L (0-33); Albumin Level 4.4 g/dL (3.5-5.2); Alkaline Phosphatase 128 U/L (35-105); Anion Gap 16.1 (5-19); Aspartate Amino Transferase 37 U/L (0-32); Blood Urea Nitrogen 20 mg/dL (6-20); Calcium 10.2 mg/dL (8.5-10.5); Carbon Dioxide 25 mmol/L (22-29); Chloride 99 mmol/L (98-107); Globulin 3.2 g/dL (1.3-4.6); Glomerular Filtration Rate 58.7 mL/min (90-130); Glucose 108 mg/dL (65-115); Lipase 57 U/L (13-60); Osmolality Calculated 285 mOsm/kg (285-295); Potassium 4.1 mmol/L (3.5-5.1); Sodium 136 mmol/L (136-145); Total Bilirubin 0.2 mg/dL (0.15-1.2); Total Protein 7.6 g/dL (6.6-8.7)
[2023-05-30 02:00] VITALS: BP 106/71; PULSE 92; RESP 16; O2SAT 99
[2023-05-30] MEDS: ondansetron 2 mg/ML SDV 2 mL 4 MG IVP (02:33)
[2023-05-30] MEDS: ketorolac 30 mg/mL INJ 15 MG IVP (02:33)
[2023-05-30] MEDS: sodium chloride 0.9% 500 ML 999 ML IV (02:34)
--- NOTE | 2023-05-30 05:35 | ED_ITS ---
HPI - Nausea/Vomiting/Diarrhea 2 General: Chief complaint: Nausea/Vomiting/Diarrhea Stated complaint: vomiting high bp dizzy blurry eyesight Time Seen by Provider: 05/30/23 02:06 History of Present Illness: 28-year-old female here with nausea vomi ting and diarrhea since last night. She states more than 1 episode. She has generalized abdominal pain. No localizing pain. No fever. No known sick contacts. No respiratory symptoms. She states that her blood pressure was high at home after vomiting, and her vision was blurred which concerned her. The symptoms are resolved now. Associated nausea: Yes Associated symtoms: Reports nausea; Denies change in vision, chest pain, dizziness, headache(s) or palpitations Review of Systems 2 Const: Reports: chills and body aches; Denies: fever(s) Eyes: Denies: change in vision Card: Denies: chest pain or palpitations Resp: Denies: dyspnea, productive cough, non-productive cough or wheezing GI: Reports: abdominal pain, nausea and vomiting; Denies: hematochezia : Denies: difficulty voiding Skin/Breast: Denies: rash Neuro: Denies: headache(s), weakness in extremities, dizziness or confusion PFSH ED 2 PFSH: Medical History Intermittent explosive disorder Nocturnal enuresis Psychiatric care On high dose antipsychotic drug therapy Major depressive disorder, recurrent, moderate Mild intellectual disabilities Family History Other Family history unknown Social History Smoking and tobacco/nicotine status: never used tobacco/nicotine Second hand smoke exposure: No Alcohol intake: never Substance/Drug Use: never Caregiver/support person: Yes Lives independently: No Household members: other Details: Deya Simmons Marital status: Single service: No Current occupational status: disabled Current gender identity: Female Special gilmer needs: No Agree to transfusion: Yes Physical Exam 2 Const: COMMON NORMALS: no acute distress GENERAL APPEARANCE: cooperative; not ill appearing and not frail appearing HENMT: COMMON NORMALS: normocephalic, atraumatic and Normal external nose present HEAD & SCALP: normocephalic and atraumatic FACE & SINUS: normal facial exam and face symmetric NOSE: Normal external nose present Eye: COMMON NORMALS: Equal, round and reactive pupils present and EOMs intact bilaterally PUPIL: Yes Equal, round and reactive pupils present Neck/C-Spine: GENERAL: Yes trachea midline Chest: CHEST: Yes Symmetrical chest wall rise Resp: COMMON NORMALS: normal respiratory effort, No retractions, No use of accessory muscles and clear to auscultation bilaterally AUSCULTATION: clear to auscultation bilaterally Cardio: COMMON NORMALS: regular rate and regular rhythm RATE: regular rate RHYTHM: regular rhythm GI: COMMON NORMALS: Normal to inspection, nondistended, normoactive bowel sounds present PALPATION: Yes Tenderness to palpation present (GI) (diffuse) Extremity: COMMON NORMALS: no pedal edema Neuro: DANY COMA SCALE: document GCS findings [place] coma scale eye opening: Spontaneous [place] coma scale verbal response: Orientated [place] coma scale motor response: Obey commands D[place] coma scale total score: 15 S ENSORY EXAM: Yes extremities (intact) Psych: COMMON NORMALS: speech normal SPEECH: Yes normal speech Skin: COMMON NORMALS: no rashes or lesions noted GENERAL SKIN EXAM: no rashes or lesions noted Course 2 Vital Signs: Vital signs: Vital Signs Temperature 97.8 F 05/29/23 22:44 Pulse Rate 92 05/30/23 02:00 Respiratory Rate 16 05/30/23 02:00 Blood Pressure 106/71 05/30/23 02:00 Pulse Oximetry 99 05/30/23 02:00 MDM - Nausea/Vomiting/Diarrhea Medical Decision Making Patient's vitals are good. CBC is normal. BMP is normal. There is slight elevation in liver enzymes, which has been present on prior exams. Her lipase is 57. She is not . She will be allowed discharge with symptom control for gastroenteritis. Because of the elevation of liver enzymes which have been somewhat consistent, right upper quadrant ultrasound has been ordered as an outpatient. Lab Data 05/30/23 00:34 05/30/23 00:34 Laboratory Results WBC 8.49 10^3/uL (3.29-11.43) 05/30/23 00:34 RBC 4.51 10^6/uL (3.85-5.65) 05/30/23 00:34 Hgb 13.20 g/dL (11.27-16.99) 05/30/23 00:34 Hct 40.4 % (36-47) 05/30/23 00:34 MCV 89.6 fl (85-98) 05/30/23 00:34 MCH 29.3 pg (27-33) 05/30/23 00:34 MCHC 32.7 g/dL (30-55) 05/30/23 00:34 RDW 13.4 % (12.1-15.1) 05/30/23 00:34 Plt Count 251 10^3/cmm (157-399) 05/30/23 00:34 MPV 10.8 fL (7.4-10.4) H 05/30/23 00:34 Neut % (Auto) 46.7 % 05/30/23 00:34 Lymph % (Auto) 39.8 % 05/30/23 00:34 [place] % (Auto) 8.0 % 05/30/23 00:34 Eos % (Auto) 3.9 % 05/30/23 00:34 Baso % (Auto) 0.8 % 05/30/23 00:34 Neut # (Auto) 3.96 10^3/uL (1.8-7.7) 05/30/23 00:34 Lymph # (Auto) 3.4 10^3/uL (0.8-4.8) 05/30/23 00:34 [place] # (Auto) 0.7 10^3/uL (0.2-0.9) 05/30/23 00:34 Eos # (Auto) 0.3 10^3/uL (0.0-0.8) 05/30/23 00:34 Baso # (Auto) 0.1 10^3/uL (0.0-0.1) 05/30/23 00:34 Nucleated RBC % (auto) 0 % 05/30/23 00:34 Nucleated RBCs # 0.0 /100WBC 05/30/23 00:34 Sodium 136 mmol/L (136-145) 05/30/23 00:34 Potassium 4.1 mmol/L (3.5-5.1) 05/30/23 00:34 Chloride 99 mmol/L (98-107) 05/30/23 00:34 Carbon Dioxide 25 mmol/L (22-29) 05/30/23 00:34 Anion Gap 16.1 (5-19) 05/30/23 00:34 BUN 20 mg/dL (6-20) 05/30/23 00:34 Creatinine 1.1 mg/dL (0.5-0.9) H 05/30/23 00:34 GFR Calculation 58.7 mL/min (90-130) L 05/30/23 00:34 Glucose 108 mg/dL (65-115) 05/30/23 00:34 Calculated Osmolality 285 mOsm/kg (285-295) 05/30/23 00:34 Calcium 10.2 mg/dL (8.5-10.5) 05/30/23 00:34 Total Bilirubin 0.2 mg/dL (0.15-1.2) 05/30/23 00:34 AST 37 U/L (0-32) H 05/30/23 00:34 ALT 56 U/L (0-33) H 05/30/23 00:34 Alkaline Phosphatase 128 U/L (35-105) H 05/30/23 00:34 Total Protein 7.6 g/dL (6.6-8.7) 05/30/23 00:34 Albumin 4.4 g/dL (3.5-5.2) 05/30/23 00:34 Globulin 3.2 g/dL (1.3-4.6) 05/30/23 00:34 Lipase 57 U/L (13-60) 05/30/23 00:34 HCG, Qual Negative (Negative) 05/30/23 00:34 No radiology studies performed this visit Discharge Plan Discharge Patient Disposition: Home Clinical Impression: Gastroenteritis, Elevated liver enzymes Condition: Stable Prescriptions: Continued ondansetron 4 mg tablet,disintegrating 4 mg PO Q6H PRN (Reason: Nausea) Qty: 14 0RF No Action levothyroxine 100 mcg capsule 100 mcg PO DAILY Rx Instructions: take 30 minutes before meal. lamotrigine [Lamictal] 200 mg tablet 200 mg PO BID Qty: 60 2RF topiramate 100 mg tablet 100 mg PO BID Qty: 60 2RF olanzapine 20 mg tablet 20 mg PO BEDTIME Qty: 30 2RF duloxetine [Cymbalta] 30 mg capsule,delayed release(DR/EC) 30 mg PO DAILY Qty: 30 1RF Rx Instructions: take together with cymbalta 60mg duloxetine 60 mg capsule,delayed release(DR/EC) 60 mg PO DAILY Qty: 30 1RF Rx Instructions: take together with cymbalta 30mg loratadine 10 mg tablet 10 mg PO DAILY prednisone 1 mg tablet See Rx Instructions .ROUTE .COMPLEX Rx Instructions: 2 mg orally in AM and 1 mg in PM promethazine-DM 6.25-15 mg/5 mL Syrup 5 ml PO Q6H PRN (Reason: Cough) Delsym 12 hour 30 mg/5 mL Suspension,Extended Rel 12 Hr 5 ml PO Q12H PRN (Reason: Cough) trazodone 50 mg tablet 50 mg PO BEDTIME PRN (Reason: Sleep) acetaminophen 500 mg Tablet 500 mg PO Q4H PRN (Reason: Pain or fever) Mucinex D Maximum Strength 120-1,200 mg Tablet Extended Release 12 Hr 1 tab PO Q12H PRN (Reason: Congestion) benzonatate 100 mg Capsule 200 mg PO TID PRN (Reason: Cough) Banophen 25 mg Capsule 25 mg PO Q6H PRN (Reason: allergies) SF 5000 Plus 1.1 % Cream 1 applic DENTAL BID Discharge Orders: Discharge ED (Routine); Ordered 05/30/23 Ordered By: Mukund Rasheed Referrals: Fran Mera, [Primary Care Provider] - 1-3 days Patient Instructions: Gastroenteritis (ED), Opioid Safety, Pain Management Activity Restrictions/Additional Instructions: Take prescribed medication every 4 hours while awake for the first 24 hours, then as needed for vomiting. Return for significant fever, vomiting liquids or medications despite the above, worsening pain, etc. Case management has been asked to make you an outpatient ultrasound appointment of your gallbladder and liver. Schedule this when you get a call. Follow-up with your doctor next week. Coding Level of Care Code ED Rand Tacker for Carolina Figueroa
== END 2023-05-30 03:22 | disposition home or self-care (01) ==
PROVIDERS: Emergency Provider Emergency Medicine; PCP Internal Medicine
DX: K52.9 Noninfective gastroenteritis and colitis, unspecified (principal); R74.8 Abnormal levels of other serum enzymes
CPT/HCPCS: 80053; 83690; 84703; 85025; 96374; 96375; 99284; J1885; J2405; J7040

== ENCOUNTER 2023-07-11 18:37 | Emergency (ER) | payer MEDICAID, SELFPAY ==
[2023-07-11 18:44] VITALS: BP 114/72; PULSE 97; RESP 16; TEMP 37.1; O2SAT 96; BMI 37.9
[2023-07-11] MEDS: sodium chloride 0.9% 1,000 ML 999 ML IV (20:12)
[2023-07-11 20:22] LABS: Basophils % 0.5 %; Eosinophils # 0.3 10^3/uL (0.0-0.8); Eosinophils % 3.7 %; Hematocrit 39.7 % (36-47); Lymphocytes % 39.7 %; Mean Corpuscular HGB Conc 33.5 g/dL (30-55); Mean Corpuscular Volume 89.6 fl (85-98); Mean Platelet Volume 10.6 fL (7.4-10.4); Monocytes # 0.5 10^3/uL (0.2-0.9); Monocytes % 7.2 %; Neutrophils # 3.65 10^3/uL (1.8-7.7); Neutrophils % 48.6 %; Nucleated Red Blood Cells % 0 %; Platelet Count 222 10^3/cmm (157-399); Red Blood Count 4.43 10^6/uL (3.85-5.65); Red Cell Distribution Width 13.3 % (12.1-15.1); White Blood Count 7.51 10^3/uL (3.29-11.43)
[2023-07-11 20:44] LABS: Alanine Aminotransferase 104 U/L (0-33); Albumin Level 4.4 g/dL (3.5-5.2); Alkaline Phosphatase 124 U/L (35-105); Anion Gap 17.8 (5-19); Aspartate Amino Transferase 69 U/L (0-32); Blood Urea Nitrogen 19 mg/dL (6-20); Calcium 9.4 mg/dL (8.5-10.5); Carbon Dioxide 21 mmol/L (22-29); Chloride 106 mmol/L (98-107); Globulin 2.7 g/dL (1.3-4.6); Glomerular Filtration Rate 44.5 mL/min (90-130); Glucose 103 mg/dL (65-115); Magnesium 2.1 mg/dL (1.7-2.3); Osmolality Calculated 295 mOsm/kg (285-295); Phosphorus 3.9 mg/dL (2.5-4.5); Potassium 3.8 mmol/L (3.5-5.1); Sodium 141 mmol/L (136-145); Total Bilirubin 0.2 mg/dL (0.15-1.2); Total Protein 7.1 g/dL (6.6-8.7)
[2023-07-11 20:53] LABS: HCG, Serum Qual Negative (Negative)
--- NOTE | 2023-07-11 21:15 | ECG_ITS ---
[facility] Test Date: 2023-07-11 Pat Name: Jessica Pichardo Department: Room: Gender: Female Tin Flipper: : 1995 Requested By: Mukund العلي Order Number: [id number] Shannon MD: He March M.D. Measurements Intervals [place] Rate: 83 P: 52 TX: 154 QRS: 63 QRSD: 89 T: 32 QT: 372 QTc: 439 Interpretive Statements SINUS RHYTHM Compared to ECG 03/21/2023 20:52:52 T-wave abnormality no longer present Electronically Signed On 07-12-2023 20:54:05 DRIVER SALES by He March M.D. [email or web address] hospitalMira Designscommunity regional medical centerSankofa Community [facility]/store/[id number]
[2023-07-11 21:17] VITALS: BP 97/69; PULSE 88; RESP 21; O2SAT 96
[2023-07-11 21:22] LABS: Add Urine Microscopic? YES
[2023-07-11 21:24] LABS: Blood Urine Neg (Negative); Glucose Urine UA Norm (Normal); Ketones Urine 1+ (Negative); Nitrate Urine Negative (Negative); Protein Urine Trace (Negative); Specific Gravity, Urine 1.025 (1.005-1.030); Urine Appearance Clear (CLEAR); Urine Color Yellow (Yellow); pH Urine 5 (5-7)
[2023-07-11 21:25] LABS: Bilirubin Urine 1+ (Negative); Leukocyte Esterase Urine Trace (Negative); RBC Urine 0-4 /hpf (0-2); Squamous Epithelial Cell Urine 0-4 /hpf (0-5); Urobilinogen Urine Norm (Negative); WBC Urine 0-4 /hpf (0-5)
[2023-07-11 21:26] LABS: Amphetamines Screen Urine Negative (Negative); Barbiturates Screen Urine Negative (Negative); Benzodiazepines Screen Urine Negative (Negative); Cocaine Screen Urine Negative (Negative); Opiate Screen Urine Negative (Negative); PCP Screen Urine Negative (Negative); THC Screen Urine Negative (Negative)
[2023-07-11 21:27] LABS: Bacteria Urine TRACE /hpf; Mucus Urine TRACE /hpf
[2023-07-11 22:07] VITALS: RESP 16; O2SAT 99
--- NOTE | 2023-07-12 00:44 | ED_ITS ---
HPI - Seizure 2 General: Chief Complaint: Seizure Stated Complaint: possible seizure,dizzy Time Seen by Provider: 07/11/23 19:20 History of Present Illness: HPI Narrative: 28-year-old female presenting with what she believes was a seizure. Staff whether reports that she does not believe that the patient had a seizure. She may have passed out for a couple of seconds. The patient herself felt faint, dizzy, had a headache. She is had the symptoms most of the day. There is a small point in time which the patient does not remember, and it felt like her previous episodes of seizure when she was a child. No fever. No vomiting. No diarrhea. No shortness of breath or cough. Associated symptoms: Deny chest pain, chills, confusion or fever(s) Review of Systems 2 Const: Denies: fever(s), chills or body aches Eyes: Denies: change in vision Card: Denies: chest pain or palpitations Resp: Denies: dyspnea, productive cough, non-productive cough or wheezing GI: Reports: nausea; Denies: abdominal pain, vomiting, diarrhea or hematochezia : Denies: difficulty voiding Skin/Breast: Denies: rash Neuro: Reports: headache(s) and dizziness; Denies: weakness in extremities, confusion, seizure-like activity or involuntary movements PFSH ED 2 PFSH: Medical History Intermittent explosive disorder Nocturnal enuresis Psychiatric care On high dose antipsychotic drug therapy Major depressive disorder, recurrent, moderate Mild intellectual disabilities Family History Other Family history unknown Social History Smoking and tobacco/nicotine status: never used tobacco/nicotine Second hand smoke exposure: No Alcohol intake: never Substance/Drug Use: never Caregiver/support person: Yes Lives independently: No Household members: other Details: Deya Simmons Marital status: Single service: No Current occupational status: disabled Current gender identity: Female Special gilmer needs: No Agree to transfusion: Yes Physical Exam 2 Const: COMMON NORMALS: no acute distress GENERAL APPEARANCE: cooperative; not ill appearing and not frail appearing HENMT: COMMON NORMALS: normocephalic, atraumatic and Normal external nose present HEAD & SCALP: normocephalic and atraumatic FACE & SINUS: normal facial exam and face symmetric NOSE: Normal external nose present Eye: COMMON NORMALS: Equal, round and reactive pupils present and EOMs intact bilaterally PUPIL: Yes Equal, round and reactive pupils present Neck/C-Spine: GENERAL: Yes trachea midline Chest: CHEST: Yes Symmetrical chest wall rise Resp: COMMON NORMALS: normal respiratory effort, No retractions, No use of accessory muscles and clear to auscultation bilaterally AUSCULTATION: clear to auscultation bilaterally Cardio: COMMON NORMALS: regular rate and regular rhythm RATE: regular rate RHYTHM: regular rhythm GI: COMMON NORMALS: Normal to inspection, nondistended, normoactive bowel sounds present Extremity: COMMON NORMALS: no pedal edema Neuro: JEROM[place] COMA SCALE: document GCS findings [place] coma scale eye opening: Spontaneous [place] coma scale verbal response: Orientated [place] coma scale motor response: Obey commands [place] coma scale total score: 15 S ENSORY EXAM: Yes extremities (intact) Psych: COMMON NORMALS: speech normal SPEECH: Yes normal speech Skin: COMMON NORMALS: no rashes or lesions noted GENERAL SKIN EXAM: no rashes or lesions noted Course 2 Vital Signs: Vital signs: Vital Signs Temperature 98.8 F 07/11/23 18:44 Pulse Rate 88 07/11/23 21:17 Respiratory Rate 16 07/11/23 22:07 Blood Pressure 97/69 07/11/23 21:17 Pulse Oximetry 99 07/11/23 22:07 Oxygen Delivery Me thod Room Air 07/11/23 21:17 MDM - Seizure MDM Narrative Medical decision making narrative: Patient appears at baseline status. CBC is normal. BMP is not remarkable. She is given 1 L of fluid. Urinalysis is negative. Urine drug screen is negative. With improvement in her symptoms, no repeated episodes, she will be allowed discharge home. To return for new or worsening symptoms. Lab Data 07/11/23 20:14 07/11/23 20:14 Labs: Laboratory Results WBC 7.51 10^3/uL (3.29-11.43) 07/11/23 20:14 RBC 4.43 10^6/uL (3.85-5.65) 07/11/23 20:14 Hgb 13.30 g/dL (11.27-16.99) 07/11/23 20:14 Hct 39.7 % (36-47) 07/11/23 20:14 MCV 89.6 fl (85-98) 07/11/23 20:14 MCH 30.0 pg (27-33) 07/11/23 20:14 MCHC 33.5 g/dL (30-55) 07/11/23 20:14 RDW 13.3 % (12.1-15.1) 07/11/23 20:14 Plt Count 222 10^3/cmm (157-399) 07/11/23 20:14 MPV 10.6 fL (7.4-10.4) H 07/11/23 20:14 Neut % (Auto) 48.6 % 07/11/23 20:14 Lymph % (Auto) 39.7 % 07/11/23 20:14 [place] % (Auto) 7.2 % 07/11/23 20:14 Eos % (Auto) 3.7 % 07/11/23 20:14 Baso % (Auto) 0.5 % 07/11/23 20:14 Neut # (Auto) 3.65 10^3/uL (1.8-7.7) 07/11/23 20:14 Lymph # (Auto) 3.0 10^3/uL (0.8-4.8) 07/11/23 20:14 [place] # (Auto) 0.5 10^3/uL (0.2-0.9) 07/11/23 20:14 Eos # (Auto) 0.3 10^3/uL (0.0-0.8) 07/11/23 20:14 Baso # (Auto) 0.0 10^3/uL (0.0-0.1) 07/11/23 20:14 Nucleated RBC % (auto) 0 % 07/11/23 20:14 Nucleated RBCs # 0.0 /100WBC 07/11/23 20:14 Sodium 141 mmol/L (136-145) 07/11/23 20:14 Potassium 3.8 mmol/L (3.5-5.1) 07/11/23 20:14 Chloride 106 mmol/L (98-107) 07/11/23 20:14 Carbon Dioxide 21 mmol/L (22-29) L 07/11/23 20:14 Anion Gap 17.8 (5-19) 07/11/23 20:14 BUN 19 mg/dL (6-20) 07/11/23 20:14 Creatinine 1.4 mg/dL (0.5-0.9) H 07/11/23 20:14 GFR Calculation 44.5 mL/min (90-130) L 07/11/23 20:14 Glucose 103 mg/dL (65-115) 07/11/23 20:14 Calculated Osmolality 295 mOsm/kg (285-295) 07/11/23 20:14 Calcium 9.4 mg/dL (8.5-10.5) 07/11/23 20:14 Phosphorus 3.9 mg/dL (2.5-4.5) 07/11/23 20:14 Magnesium 2.1 mg/dL (1.7-2.3) 07/11/23 20:14 Total Bilirubin 0.2 mg/dL (0.15-1.2) 07/11/23 20:14 AST 69 U/L (0-32) H 07/11/23 20:14 ALT 104 U/L (0-33) H 07/11/23 20:14 Alkaline Phosphatase 124 U/L (35-105) H 07/11/23 20:14 Total Protein 7.1 g/dL (6.6-8.7) 07/11/23 20:14 Albumin 4.4 g/dL (3.5-5.2) 07/11/23 20:14 Globulin 2.7 g/dL (1.3-4.6) 07/11/23 20:14 HCG, Qual Negative (Negative) 07/11/23 20:14 Urine Color Yellow (Yellow) 07/11/23 21:10 Urine Appearance Clear (CLEAR) 07/11/23 21:10 Urine pH 5 (5-7) 07/11/23 21:10 Ur Specific [place] 1.025 (1.005-1.030) 07/11/23 21:10 Urine Protein Trace (Negative) H 07/11/23 21:10 Urine Glucose (UA) Norm (Normal) 07/11/23 21:10 Urine Ketones 1+ (Negative) H 07/11/23 21:10 Urine Blood Neg (Negative) 07/11/23 21:10 Urine Nitrate Negative (Negative) 07/11/23 21:10 Urine Bilirubin 1+ (Negative) H 07/11/23 21:10 Urine Urobilinogen Norm mg/dL (Negative) 07/11/23 21:10 Ur Leukocyte Esterase Trace (Negative) H 07/11/23 21:10 Urine RBC 0-4 /hpf (0-2) H 07/11/23 21:10 Urine WBC 0-4 /hpf (0-5) H 07/11/23 21:10 Ur Squamous Epith Cells 0-4 /hpf (0-5) H 07/11/23 21:10 Calcium Oxalate Crystal 5-10 /hpf H 07/11/23 21:10 Amorphous Sediment Not Reportable 07/11/23 21:10 Urine Bacteria Trace /hpf (NONE) 07/11/23 21:10 Urine Mucus Trace /hpf 07/11/23 21:10 Urine Opiates Screen Negative ng/mL (Negative) 07/11/23 21:10 Ur Barbiturates Screen Negative ng/mL (Negative) 07/11/23 21:10 Ur Phencyclidine Scrn Negative ng/mL (Negative) 07/11/23 21:10 Ur Amphetamines Screen Negative ng/mL (Negative) 07/11/23 21:10 U Benzodiazepines Scrn Negative ng/mL (Negative) 07/11/23 21:10 Urine Cocaine Screen Negative ng/mL (Negative) 07/11/23 21:10 U Marijuana (THC) Screen Negative ng/mL (Negative) 07/11/23 21:10 No radiology studies performed this visit Discharge Plan Discharge Patient Disposition: Home Clinical Impression: Dizziness, Pre-syncope Condition: Stable Prescriptions: No Action levothyroxine 100 mcg capsule 100 mcg PO DAILY Rx Instructions: take 30 minutes before meal. duloxetine [Cymbalta] 30 mg capsule,delayed release(DR/EC) 30 mg PO DAILY Qty: 30 1RF Rx Instructions: take together with cymbalta 60mg duloxetine 60 mg capsule,delayed release(DR/EC) 60 mg PO DAILY Qty: 30 1RF Rx Instructions: take together with cymbalta 30mg lamotrigine [Lamictal] 200 mg tablet 200 mg PO BID Qty: 60 2RF topiramate 100 mg tablet 100 mg PO BID Qty: 60 2RF olanzapine 20 mg tablet 20 mg PO BEDTIME Qty: 30 2RF loratadine 10 mg tablet 10 mg PO DAILY ondansetron 4 mg tablet,disintegrating 4 mg PO Q6H PRN (Reason: Nausea) Qty: 14 0RF prednisone 1 mg tablet See Rx Instructions .ROUTE .COMPLEX Rx Instructions: 2 mg orally in AM and 1 mg in PM promethazine-DM 6.25-15 mg/5 mL Syrup 5 ml PO Q6H PRN (Reason: Cough) trazodone 50 mg tablet 50 mg PO BEDTIME PRN (Reason: Sleep) Mucinex D Maximum Strength 120-1,200 mg Tablet Extended Release 12 Hr 1 tab PO Q12H PRN (Reason: Congestion) SF 5000 Plus 1.1 % Cream 1 applic DENTAL BID Discharge Orders: Discharge ED (Routine); Ordered 07/11/23 Ordered By: Mukund Rasheed Referrals: Fran Mera DO [Primary Care Provider] - 4-7 days Patient Instructions: Near Syncope (ED), Dizziness (ED), Opioid Safety, Pain Management Activity Restrictions/Additional Instructions: Make sure you are getting plenty of fluids. Return for repeated episodes of seizure or syncope, mental status changes, fever, other concerning symptoms. See your doctor next week. Coding Level of Care Code ED Senior Electronics Technician for Carolina Figueroa
== END 2023-07-11 22:08 | disposition home or self-care (01) ==
PROVIDERS: Emergency Provider Emergency Medicine; PCP Internal Medicine
DX: R55 Syncope and collapse (principal); R42 Dizziness and giddiness
CPT/HCPCS: 80053; 80306; 81001; 83735; 84100; 84703; 85025; 93005; 96360; 99284; J7030

== ENCOUNTER 2023-07-25 18:32 | Inpatient (IN) | payer MEDICAID, SELFPAY ==
[2023-07-25 18:34] VITALS: BP 123/86; PULSE 97; RESP 18; TEMP 36.9; O2SAT 96
--- NOTE | 2023-07-25 18:42 | ED_ITS ---
HPI - General Adult 2 General: Chief complaint: Psychiatric Symptoms Stated complaint: SI, Wrist lac Time Seen by Provider: 07/25/23 18:34 Source: patient Mode of arrival: ambulatory Limitations: no limitations History of Present Illness: 20-year-old female who is an [facility] home patient states she has had increasing suicidal thoughts today. She has a superficial laceration left wrist she states she has been suicidal. States she does have a plan to kill herself by cutting her wrist she is admitted here once last December she denies any worsening proving factors. Associated symptoms: Deny chest pain, dyspnea, headache(s), nausea, rash or vomiting Review of Systems 2 Const: Denies: fever(s), chills, body aches or change in appetite ENMT: Denies: throat pain or dental pain Card: Denies: chest pain Resp: Denies: dyspnea GI: Denies: abdominal pain, nausea, vomiting or diarrhea Musc: Denies: neck pain or back pain Skin/Breast: Denies: rash Neuro: Denies: headache(s) Psych: Reports: depression and suicidal ideation PFS ED 2 PFSH: Medical History Intermittent explosive disorder Nocturnal enuresis Psychiatric care On high dose antipsychotic drug therapy Major depressive disorder, recurrent, moderate Mild intellectual disabilities Family History Other Family history unknown Social History Smoking and tobacco/nicotine status: never used tobacco/nicotine Second hand smoke exposure: No Alcohol intake: never Substance/Drug Use: never Caregiver/support person: Yes Lives independently: No Household members: other Details: Deya Simmons Marital status: Single service: No Current occupational status: disabled Current gender identity: Female Special gilmer needs: No Agree to transfusion: Yes Physical Exam 2 Const: COMMON NORMALS: no acute distress, patient oriented x3 and healthy appearing HENMT: COMMON NORMALS: normocephalic and atraumatic HEAD & SCALP: n ormocephalic and atraumatic Neck/C-Spine: COMMON NORMALS: full ROM and supple Chest: COMMONS NORMALS: normal inspection of the chest Resp: COMMON NORMALS: normal respiratory effort Cardio: COMMON NORMALS: regular rate, regular rhythm and No murmurs present (Cardio) RATE: regular rate RHYTHM: regular rhythm GI: COMMON NORMALS: Normal to inspection, nondistended, normoactive bowel sounds present, Soft to palpation, non-tender and no masses PALPATION: Yes Soft to palpation Extremity: COMMON NORMALS: normal to inspection and full ROM Neuro: COMMON NORMALS: patient oriented x3, moves all extremities and no focal motor deficits Psych: COMMON NORMALS: mental status grossly normal, Normal thought process present and cooperative THOUGHT PROCESS: Normal thought process present Skin: COMMON NORMALS: no rashes or lesions noted and no wounds GENERAL SKIN EXAM: no rashes or lesions noted Course 2 Vital Signs: Vital signs: Vital Signs Temperature 98.5 F 07/25/23 18:34 Pulse Rate 97 07/25/23 18:34 Respiratory Rate 18 07/25/23 18:34 Blood Pressure 123/86 07/25/23 18:34 Pulse Oximetry 96 07/25/23 18:34 Oxygen Delivery Me thod Room Air 07/25/23 18:34 MDM - General Adult Medical Decision Making Patient presents for suicidal ideation she does have a very superficial laceration left wrist does not require any sutures I spoke to the psychiatrist patient is medically cleared and will admit. Lab Data I reviewed the patient's lab results. 07/25/23 19:15 07/25/23 19:15 No radiology studies performed this visit Discharge Plan Discharge Patient Disposition: Admitted As Inpatient Admit Provider: Bandar Pritchett Clinical Impression: Suicidal ideation Condition: Stable Coding Level of Care Code ED Social Psychologist for Carolina Figueroa
[2023-07-25 19:08] LABS: HCG Qualitative Urine. Negative (Negative)
[2023-07-25 19:16] LABS: Amphetamines Screen Urine Negative (Negative); Barbiturates Screen Urine Negative (Negative); Benzodiazepines Screen Urine Negative (Negative); Cocaine Screen Urine Negative (Negative); Opiate Screen Urine Negative (Negative); PCP Screen Urine Negative (Negative); THC Screen Urine Negative (Negative)
[2023-07-25 19:26] LABS: Basophils % 0.4 %; Eosinophils # 0.4 10^3/uL (0.0-0.8); Eosinophils % 6.2 %; Hematocrit 41.8 % (36-47); Lymphocytes # 3.1 10^3/uL (0.8-4.8); Mean Corpuscular HGB Conc 32.1 g/dL (30-55); Mean Corpuscular Hemoglobin 29.3 pg (27-33); Mean Corpuscular Volume 91.3 fl (85-98); Mean Platelet Volume 10.9 fL (7.4-10.4); Monocytes # 0.4 10^3/uL (0.2-0.9); Neutrophils # 3.03 10^3/uL (1.8-7.7); Neutrophils % 42.7 %; Nucleated Red Blood Cells % 0 %; Platelet Count 254 10^3/cmm (157-399); Red Blood Count 4.58 10^6/uL (3.85-5.65); Red Cell Distribution Width 13.5 % (12.1-15.1); White Blood Count 7.11 10^3/uL (3.29-11.43)
[2023-07-25 20:21] VITALS: BP 111/77; PULSE 91; O2SAT 94
[2023-07-25 20:21] LABS: Alanine Aminotransferase 49 U/L (0-33); Albumin Level 4.6 g/dL (3.5-5.2); Alkaline Phosphatase 112 U/L (35-105); Anion Gap 15.9 (5-19); Aspartate Amino Transferase 40 U/L (0-32); Blood Urea Nitrogen 11 mg/dL (6-20); Calcium 9.5 mg/dL (8.5-10.5); Carbon Dioxide 24 mmol/L (22-29); Chloride 102 mmol/L (98-107); Creatinine Clr Calc Pharmacy 69.7134; Globulin 2.7 g/dL (1.3-4.6); Glomerular Filtration Rate 44.5 mL/min (90-130); Glucose 94 mg/dL (65-115); Osmolality Calculated 285 mOsm/kg (285-295); Potassium 3.9 mmol/L (3.5-5.1); Sodium 138 mmol/L (136-145); Total Bilirubin 0.3 mg/dL (0.15-1.2); Total Protein 7.3 g/dL (6.6-8.7)
[2023-07-25 20:24] LABS: Acetaminophen < 5.0 ug/mL (10-30); Alcohol Level < 10 mg/dL (0-10); Salicylate < 0.3 mg/dL (3-10)
[2023-07-25 20:37] VITALS: BP 111/77; PULSE 91; O2SAT 94
[2023-07-25 20:41] VITALS: BP 114/80; PULSE 97; RESP 18; TEMP 37; O2SAT 97
[2023-07-25 20:45] VITALS: BP 114/80; PULSE 97; RESP 18; TEMP 37; O2SAT 97
[2023-07-25] MEDS: trazodone 50 mg Tablet PO (21:51)
[2023-07-25] MEDS: ondansetron 4 MG Tablet PO (21:51)
--- NOTE | 2023-07-25 22:40 | PC.ADMIT ---
[address] Admission Note: The patient,Jessica Pichardo,28 y/o, was given written information regarding hospital policies, unit procedures and contact persons. Patient's smoking status: never smoked.NON SMOKER Vital Signs - 8 hr 07/25/23 18:34 07/25/23 20:21 07/25/23 20:37 Temperature 98.5 F Pulse Rate 97 91 91 Respiratory Rate 18 Blood Pressure 123/86 111/77 111/77 Pulse Oximetry 96 94 94 Oxygen Delivery Method Room Air Room Air 07/25/23 20:41 07/25/23 20:45 07/25/23 22:28 Temperature 98.6 F 98.6 F Pulse Rate 97 97 Respiratory Rate 18 18 Blood Pressure 114/80 114/80 Pulse Oximetry 97 97 Oxygen Delivery Method Room Air Room Air Room Air ADMITTED FROM [facility] ER VIA WHEELCHAIR,SECURITY AND ER STAFF AT 2039. PT HAS GUARDIAN, MOISES ROME WHO ER STATES IS AWARE OF ADMISSION TO NPU. PT LIVES AT [facility] AND THEY ASSIST HER WITH HER CARES AND MEDICATIONS DAILY. PT STATES SHE IS HERE DUE TO HAVING SUICIDAL THOUGHTS AND I CUT MYSELF. PT POINTS TO HER LEFT WRIST WHERE A SMALL SUPERFICIAL SCRATCH IS OBSERVED. PT REQUESTS THAT SHE BE GIVEN A FLU SHOT, ORDERS WERE PLACED AND PT TO RECEIVE IN THE AM. MEDICATION LIST WAS NOT PROVIDED BY [facility] AT THIS TIME AND PT CAN NOT REMEMBER MEDICATIONS OR WHAT SHE TAKES ON A DAILY BASIS. DENIES PAIN. CURRENTLY DENIES SI/HI AND AVH AT THIS TIME. PT IS HAPPY AND UPBEAT, STATES SHE HOPES HER FRIEND IS HERE FROM LAST TIME, I REALLY MISSED HER. PT IS ALERT AND ORIENTATED TIMES FOUR. RATES ANXIETY 6/10 AND DEPRESSION 7/10. SKIN ASSESSMENT COMPLETED AND REVEALS SMALL SCRATCH TO LEFT WRIST WHICH WAS SELF INFLICTED AND RASH TO LEFT SIDE AXILLARY REGION. PT WAS DRESSED OUT AND WANDED PER POLICY. ALL QUESTIONS WERE ANSWERED AND SUPPORT WAS VOICED. ALL QUESTIONS ANSWERED AND SUPPORT WAS VOICED. PT STATES SHE IS EXCITED TO GO AND TALK TO ALL MY FRIENDS. PT ORIENTATED TO UNIT, SAFETY RULES AND GUIDELINES. VERBALIZED UNDERSTANDING.
[2023-07-26 06:00] VITALS: BP 109/75; PULSE 65; RESP 16; TEMP 36.6; O2SAT 96
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
[2023-07-26] MEDS: flu vacc pf 2023-24 (6 mos+) 60 MCG IM (09:28)
[2023-07-26] MEDS: lamoTRIgine 100 mg Tablet 200 MG PO ×2 (09:56→20:09)
[2023-07-26] MEDS: predniSONE 1 mg Tablet 2 MG PO (09:56)
[2023-07-26] MEDS: topiramate 100 mg Tablet PO ×2 (09:56→17:16)
[2023-07-26] MEDS: loratadine 10 mg Tablet PO (09:57)
[2023-07-26 14:00] VITALS: BP 98/63; PULSE 71; RESP 12; TEMP 36.5; O2SAT 98
[2023-07-26 19:58] VITALS: BP 114/82; PULSE 96; RESP 18; TEMP 36.2; O2SAT 97
[2023-07-26] MEDS: predniSONE 1 mg Tablet PO (20:07)
[2023-07-26] MEDS: OLANZapine 10 mg TABLET 20 MG PO (20:07)
[2023-07-26] MEDS: acetaminophen 325 mg Tablet 650 MG PO (21:44)
[2023-07-26] MEDS: trazodone 50 mg Tablet PO (21:55)
[2023-07-27 06:00] VITALS: BP 96/63; PULSE 74; RESP 16; TEMP 36.4; O2SAT 97
[2023-07-27] MEDS: levothyroxine 100 mcg Tablet PO (06:39)
[2023-07-27] MEDS: loratadine 10 mg Tablet PO (09:09)
[2023-07-27] MEDS: duloxetine 60 mg Capsule 120 MG PO (09:09)
[2023-07-27] MEDS: predniSONE 1 mg Tablet 2 MG PO (09:09)
[2023-07-27] MEDS: topiramate 100 mg Tablet PO (09:09)
[2023-07-27] MEDS: lamoTRIgine 100 mg Tablet 200 MG PO (09:11)
[2023-07-27 14:00] VITALS: BP 103/72; PULSE 93; RESP 16; TEMP 36.6; O2SAT 96
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
[2023-07-27 14:23] VITALS: BP 96/63; PULSE 74; RESP 16; TEMP 36.4; O2SAT 97
== END 2023-07-27 15:35 | disposition home or self-care (01) | DRG 885 ==
LOC: ER 18:46 → NP 19:02
PROVIDERS: Admitting Provider Psychiatry & Neurology Psychiatry; Emergency Provider Emergency Medicine; PCP Internal Medicine; Visit Provider Psychiatry & Neurology Psychiatry
DX: F33.1 Major depressive disorder, recurrent, moderate (principal); R45.851 Suicidal ideations; F63.81 Intermittent explosive disorder; F70 Mild intellectual disabilities; E66.9 Obesity, unspecified; Z68.36 Body mass index [BMI] 36.0-36.9, adult; F34.1 Dysthymic disorder
CPT/HCPCS: 36415; 80053; 80306; 80307; 81025; 85025; 90471; 90686; 97150; 97165; 99285; J7512; Q0162

== ENCOUNTER 2023-08-21 17:19 | Emergency (ER) | payer MEDICAID, SELFPAY ==
--- NOTE | 2023-08-21 17:21 | ECG_ITS ---
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 Measurements Intervals [place] Rate: 99 P: 56 [place]: 145 QRS: 40 QRSD: 106 T: 38 QT: 366 QTc: 471 Interpretive Statements SINUS RHYTHM LOW QRS VOLTAGE IN PRECORDIAL LEADS [QRS DEFLECTION < 1.0 mV IN CHEST LEADS] INCOMPLETE RIGHT BUNDLE BRANCH BLOCK [90+ ms QRS DURATION, TERMINAL R IN V1/V2, 40+ ms S IN I/aVL/V4/V5/V6] Compared to ECG 07/11/2023 21:15:34 Low QRS voltage now present Incomplete right bundle-branch block now present Electronically Signed On 08-21-2023 17:36:09 CDT by He March M.D. [id number]
[2023-08-21 17:27] VITALS: BP 113/80; PULSE 103; RESP 20; TEMP 37.2
--- NOTE | 2023-08-21 17:30 | ED.C_ITS ---
HPI - Psych General: Chief Complaint: Psychiatric Symptoms Stated Complaint: psych eval Time Seen by Provider: 08/21/23 17:20 History of Present Illness: 28-year-old patient with a history of de pression, intellectual disorder, psychiatric issues who lives in a intermediate who presents to the emergency room by ambulance. Apparently she called the ambulance to bring her to the emergency room because she wanted to go to a different intermediate because she did not like the person who was in charge of the intermediate at this time. Now that she is here there is somebody else on staff and she decided she wants to go back. She denies any homicidal or suicidal ideation. She has not voiced this to anyone. Not EMS Review of Systems Narrative: Constitutional symptoms: Negative except as documented in HPI. Skin symptoms: Negative except as documented in HPI. Eye symptoms: Negative except as documented in HPI. ENMT symptoms: Negative except as documented in HPI. Respiratory symptoms: Negative except as documented in HPI. Cardiovascular symptoms: Negative except as documented in HPI. Gastrointestinal symptoms: Negative except as documented in HPI. Genitourinary symptoms: Negative except as documented in HPI. Musculoskeletal symptoms: Negative except as documented in HPI. Neurologic symptoms: Negative except as documented in HPI. Psychiatric symptoms: Negative except as documented in HPI. Endocrine symptoms: Negative except as documented in HPI. [facility] ACCESS [facility]ITAL ED PFSH: Medical History Intermittent explosive disorder Nocturnal enuresis Psychiatric care On high dose antipsychotic drug therapy Major depressive disorder, recurrent, moderate Mild intellectual disabilities Family History Other Family history unknown Social History Smoking and tobacco/nicotine status: never used tobacco/nicotine Second hand smoke exposure: No Alcohol intake: never Substance/Drug Use: never Caregiver/support person: Yes Lives independently: No Household members: other Details: Deya Simmons Marital status: Single service: No Current occupational status: disabled Current gender identity: Female Special gilmer needs: No Agree to transfusion: Yes Physical Exam Narrative: EXAM NARRATIVE: General: Alert, no acute distress. Skin: Warm, dry. Head: Normocephalic, atraumatic. Neck: Supple, trachea midline. Eye: Extraocular movements are intact. Ears, nose, mouth and throat: mucosa moist. Cardiovascular: Regular, Normal peripheral perfusion. Respiratory: Lungs are clear to auscultation, respirations are non-labored, breath sounds are equal, Symmetrical chest wall expansion. Gastrointestinal: Soft, Nontender, Non distended, Normal bowel sounds. Musculoskeletal: Normal ROM, no deformity. Neurological: Alert and oriented, No focal neurological deficit observed. Psychiatric: Cooperative, patient is a bit tearful initially. She denies any homicidal or suicidal ideations. No hallucinations. No psychotic type behaviors Course Vital Signs: Vital signs: Vital Signs Temperature 98.9 F 08/21/23 17:27 Pulse Rate 103 H 08/21/23 17: Respiratory Rate 20 H 08/21/23 17:27 Blood Pressure 113/80 08/21/23 17:27 [facility] - Psych Medical Decision Making Physical exam and history. She does not need any workup at this time. She agrees to go back to her intermediate. No radiology studies performed this visit Other Data Assessment and plan: - Discharged home - Discussed plan with patient. Answered any questions. - Evaluation and treatment of this problem were appropriate in the emergency setting. Discharge Plan Discharge Patient Disposition: Home Clinical Impression: Mild intellectual disabilities Condition: Stable Prescriptions: No Action levothyroxine 100 mcg capsule 100 mcg PO DAILY Rx Instructions: take 30 minutes before meal. ibuprofen 200 mg tablet 200 mg PO Q8H fluticasone propionate 50 mcg/actuation spray,suspension 1 spray intranasal DAILY PRN Rx Instructions: administer into each nostril fluoride (sodium) [Sodium Fluoride 5000 Plus] 1.1 % cream 1 applic dental DAILY chlorhexidine gluconate 0.12 % mouthwash 15 ml buccal BID duloxetine 60 mg capsule,delayed release(DR/EC) 120 mg PO DAILY Qty: 60 1RF topiramate 100 mg tablet 100 mg PO BID Qty: 60 2RF lamotrigine [Lamictal] 200 mg tablet 200 mg PO BID Qty: 60 2RF olanzapine 20 mg tablet 20 mg PO BEDTIME Qty: 30 2RF loratadine 10 mg tablet 10 mg PO DAILY ondansetron 4 mg tablet,disintegrating 4 mg PO Q6H PRN (Reason: Nausea) Qty: 14 0RF prednisone 1 mg tablet See Rx Instructions .ROUTE .COMPLEX Rx Instructions: 2 mg orally in AM and 1 mg in PM promethazine-DM 6.25-15 mg/5 mL Syrup 5 ml PO Q6H PRN (Reason: Cough) trazodone 50 mg tablet 50 mg PO BEDTIME PRN (Reason: Sleep) Discharge Orders: Discharge ED (Routine); Ordered 08/21/23 Ordered By: Mary Regalado Referrals: Fran Mera, [Primary Care Provider] - (You have been screened and evaluated and felt safe for discharge. Health conditions do change or evolve sometimes and as such it is important that you follow up with your Primary Doctor to be re checked, 3-5 days is a general good time frame for follow up. You are always welcome to return to the ED for re assessment if your symptoms are worsening or you have new concerns) Discharge Diet: Advance as tolerated Discharge Activity: Resume usual activity Patient Instructions: Opioid Safety, Pain Management Coding Level of Care Code ED Planning Consultant for Carolina Figueroa
--- NOTE | 2023-08-21 17:31 | PC.NURSE ---
pt career development coordinator arrived, pt now states she just wants to go home now that sidney is here
--- NOTE | 2023-08-21 18:25 | PC.NURSE ---
pt states she does not want to hurt herself or anyone else. pt would like too be dc'd back home. pt medical scientific liaison states she will just do the same thing when she gets back. notified and stated PT is to be DC'd at this time. PT medical scientific liaison instructed to have PT brought back with any new or worsening symptoms.
== END 2023-08-21 18:31 | disposition home or self-care (01) ==
PROVIDERS: Emergency Provider Emergency Medicine; PCP Internal Medicine
DX: F70 Mild intellectual disabilities (principal)
CPT/HCPCS: 93005; 99283

== ENCOUNTER 2023-10-08 18:12 | Emergency (ER) | payer MEDICAID, SELFPAY ==
[2023-10-08 18:15] VITALS: BP 114/82; PULSE 96; RESP 17; TEMP 36.8; O2SAT 95; BMI 35.8
--- NOTE | 2023-10-08 19:40 | ED_ITS ---
HPI - Abdominal Pain 2 General: Chief Complaint: Abdominal Pain Stated Complaint: sharp pain in abd. n/v Time Seen by Provider: 10/08/23 18:49 Source: patient Mode of arrival: ambulatory Limitations: no limitations History of Present Illness: 20-year-old female states she been havin g some abdominal pain for last 2 days she also has had some vomiting constipation states she did have a bowel movement. She states her biggest concern is she believes she may be . She is unsure when her last menstruation was denies any vaginal bleeding. She denies any fever states the pain is mainly around her bellybutton rates the pain a 2 out of 10. Associated Symptoms: Reports nausea and vomiting; Denies chills, diarrhea and fever(s) Review of Systems 2 Const: Denies: fever(s), chills, body aches or change in appetite ENMT: Denies: throat pain or dental pain Card: Denies: chest pain Resp: Denies: dyspnea GI: Reports: abdominal pain, nausea and vomiting; Denies: diarrhea Musc: Denies: neck pain or back pain Skin/Breast: Denies: rash Neuro: Denies: headache(s) PFSH ED 2 PFSH: Medical History Intermittent explosive disorder Nocturnal enuresis Psychiatric care On high dose antipsychotic drug therapy Major depressive disorder, recurrent, moderate Mild intellectual disabilities Family History Other Family history unknown Social History Smoking and tobacco/nicotine status: never used tobacco/nicotine Second hand smoke exposure: No Alcohol intake: never Substance/Drug Use: never Caregiver/support person: Yes Lives independently: No Household members: other Details: Deya Simmons Marital status: Single service: No Current occupational status: disabled Current gender identity: Female Special gilmer needs: No Agree to transfusion: Yes Physical Exam 2 Const: COMMON NORMALS: no acute distress, patient oriented x3 and healthy appearing HENMT: COMMON NORMALS: normocephalic and atraumatic HEAD & SCALP: n ormocephalic and atraumatic Eye: COMMON NORMALS: conjunctivae normal CONJUNCTIVA: Yes conjunctivae normal Neck/C-Spine: COMMON NORMALS: full ROM and supple Chest: COMMONS NORMALS: normal inspection of the chest Resp: COMMON NORMALS: normal respiratory effort Cardio: COMMON NORMALS: regular rate, regular rhythm and No murmurs present (Cardio) RATE: regular rate RHYTHM: regular rhythm GI: COMMON NORMALS: Normal to inspection, nondistended, normoactive bowel sounds present, Soft to palpation, non-tender and no masses PALPATION: Yes Soft to palpation Extremity: COMMON NORMALS: normal to inspection and full ROM Neuro: COMMON NORMALS: patient oriented x3, moves all extremities and no focal motor deficits Psych: COMMON NORMALS: mental status grossly normal, Normal thought process present and cooperative THOUGHT PROCESS: Normal thought process present Skin: COMMON NORMALS: no rashes or lesions noted and no wounds GENERAL SKIN EXAM: no rashes or lesions noted Course 2 Vital Signs: Vital signs: Vital Signs Temperature 98.3 F 10/08/23 18:15 Pulse Rate 77 10/08/23 20:50 Respiratory Rate 16 10/08/23 20:50 Blood Pressure 98/67 10/08/23 20:50 Pulse Oximetry 96 10/08/23 20:50 Oxygen Delivery Me thod Room Air 10/08/23 18:15 MDM - Abdominal Pain Medical Decision Making Patient presents with abdominal pain her initial exam here is benign I did do a repeat exam at discharge and she has no tenderness in her right lower quadrant or right upper quadrant and exam is benign again blood work here shows no signs of infection white count was normal she does have some dehydration did give IV fluids here she is not she stable for discharge informed if she has worsening pain she is return if she has continued pain get an outpatient ultrasound will return we will prescribe her Zofran Lab Data 10/08/23 20:18 10/08/23 19:07 Labs/Radiology: Laboratory Results WBC 8.04 10^3/uL (3.29-11.43) 10/08/23 20:18 RBC 4.13 10^6/uL (3.85-5.65) 10/08/23 20:18 Hgb 12.60 g/dL (11.27-16.99) 10/08/23 20:18 Hct 38.6 % (36-47) 10/08/23 20:18 MCV 93.5 fl (85-98) 10/08/23 20:18 MCH 30.5 pg (27-33) 10/08/23 20:18 MCHC 32.6 g/dL (30-55) 10/08/23 20:18 RDW 13.2 % (12.1-15.1) 10/08/23 20:18 Plt Count 186 10^3/cmm (157-399) 10/08/23 20:18 MPV 11.2 fL (7.4-10.4) H 10/08/23 20:18 Neut % (Auto) 48.7 % 10/08/23 20:18 Lymph % (Auto) 39.7 % 10/08/23 20:18 [place] % (Auto) 7.3 % 10/08/23 20:18 Eos % (Auto) 3.1 % 10/08/23 20:18 Baso % (Auto) 0.5 % 10/08/23 20:18 Neut # (Auto) 3.91 10^3/uL (1.8-7.7) 10/08/23 20:18 Lymph # (Auto) 3.2 10^3/uL (0.8-4.8) 10/08/23 20:18 [place] # (Auto) 0.6 10^3/uL (0.2-0.9) 10/08/23 20:18 Eos # (Auto) 0.3 10^3/uL (0.0-0.8) 10/08/23 20:18 Baso # (Auto) 0.0 10^3/uL (0.0-0.1) 10/08/23 20:18 Nucleated RBC % (auto) 0 % 10/08/23 20:18 Nucleated RBCs # 0.0 /100WBC 10/08/23 20:18 Sodium 137 mmol/L (136-145) 10/08/23 19:07 Potassium 4.0 mmol/L (3.5-5.1) 10/08/23 19:07 Chloride 103 mmol/L (98-107) 10/08/23 19:07 Carbon Dioxide 19 mmol/L (22-29) L 10/08/23 19:07 Anion Gap 19.0 (5-19) 10/08/23 19:07 BUN 21 mg/dL (6-20) H 10/08/23 19:07 Creatinine 1.5 mg/dL (0.5-0.9) H 10/08/23 19:07 GFR Calculation 41.1 mL/min (90-130) L 10/08/23 19:07 Glucose 101 mg/dL (65-115) 10/08/23 19:07 Calculated Osmolality 287 mOsm/kg (285-295) 10/08/23 19:07 Calcium 8.8 mg/dL (8.5-10.5) 10/08/23 19:07 Total Bilirubin 0.2 mg/dL (0.15-1.2) 10/08/23 19:07 AST 45 U/L (0-32) H 10/08/23 19:07 ALT 66 U/L (0-33) H 10/08/23 19:07 Alkaline Phosphatase 128 U/L (35-105) H 10/08/23 19:07 Total Protein 8.1 g/dL (6.6-8.7) 10/08/23 19:07 Albumin 4.5 g/dL (3.5-5.2) 10/08/23 19:07 Globulin 3.6 g/dL (1.3-4.6) 10/08/23 19:07 HCG, Qual Negative (Negative) 10/08/23 20:18 Urine Color Yellow (Yellow) 10/08/23 20:40 Urine Appearance Clear (CLEAR) 10/08/23 20:40 Urine pH 6 (5-7) 10/08/23 20:40 Ur Specific [place] 1.015 (1.005-1.030) 10/08/23 20:40 Urine Protein Neg (Negative) 10/08/23 20:40 Urine Glucose (UA) Norm (Normal) 10/08/23 20:40 Urine Ketones Negative (Negative) 10/08/23 20:40 Urine Blood Neg (Negative) 10/08/23 20:40 Urine Nitrate Negative (Negative) 10/08/23 20:40 Urine Bilirubin Neg (Negative) 10/08/23 20:40 Urine Urobilinogen 1 mg/dL (Negative) H 10/08/23 20:40 Ur Leukocyte Esterase Negative (Negative) 10/08/23 20:40 No radiology studies performed this visit Discharge Plan Discharge Patient Disposition: Home Clinical Impression: Abdominal pain Condition: Stable Prescriptions: New ondansetron 4 mg tablet,disintegrating 4 mg PO Q6H PRN (Reason: nausea and vomiting) Qty: 14 0RF No Action levothyroxine 100 mcg capsule 100 mcg PO DAILY Rx Instructions: take 30 minutes before meal. olanzapine 10 mg tablet 10 mg PO .HS Qty: 30 1RF prazosin 1 mg capsule 1 mg PO .HS Qty: 60 1RF Rx Instructions: 1 tab at bedtime for 3 nights and then increase to 2 tablets at bedtime. ibuprofen 200 mg tablet 200 mg PO Q8H fluticasone propionate 50 mcg/actuation spray,suspension 1 spray intranasal DAILY PRN Rx Instructions: administer into each nostril fluoride (sodium) [Sodium Fluoride 5000 Plus] 1.1 % cream 1 applic dental DAILY albuterol sulfate [Ventolin HFA] 90 mcg/actuation HFA aerosol inhaler 2 puff inhalation QID PRN polyethylene glycol 3350 [Miralax] 17 gram/dose powder 4 g PO DAILY PRN hydrocortisone 2.5 % cream 1 applic topical BID PRN topiramate 100 mg tablet 100 mg PO BID Qty: 60 2RF lamotrigine [Lamictal] 200 mg tablet 200 mg PO BID Qty: 60 2RF duloxetine 60 mg capsule,delayed release(DR/EC) 120 mg PO DAILY Qty: 60 1RF trazodone 100 mg tablet 100 mg PO .HS Qty: 30 1RF risperidone [Risperdal] 1 mg tablet 1 mg PO BID Qty: 60 1RF loratadine 10 mg tablet 10 mg PO DAILY ondansetron 4 mg tablet,disintegrating 4 mg PO Q6H PRN (Reason: Nausea) Qty: 14 0RF prednisone 1 mg tablet See Rx Instructions .ROUTE .COMPLEX Rx Instructions: 2 mg orally in AM and 1 mg in PM promethazine-DM 6.25-15 mg/5 mL Syrup 5 ml PO Q6H PRN (Reason: Cough) Discharge Orders: Discharge ED (Routine); Ordered 10/08/23 Ordered By: Suzie Alvarenga Referrals: Fran Mera DO [Primary Care Provider] - 1-3 days Discharge Diet: Advance as tolerated Discharge Activity: Resume usual activity Patient Instructions: Abdominal Pain (ED) Activity Restrictions/Additional Instructions: CONTINUE HOME MEDS Coding Level of Care Code ED Principal Statistical Scientist for Carolina Figueroa
[2023-10-08 20:00] LABS: Alanine Aminotransferase 66 U/L (0-33); Albumin Level 4.5 g/dL (3.5-5.2); Alkaline Phosphatase 128 U/L (35-105); Blood Urea Nitrogen 21 mg/dL (6-20); Calcium 8.8 mg/dL (8.5-10.5); Carbon Dioxide 19 mmol/L (22-29); Chloride 103 mmol/L (98-107); Globulin 3.6 g/dL (1.3-4.6); Glomerular Filtration Rate 41.1 mL/min (90-130); Glucose 101 mg/dL (65-115); Osmolality Calculated 287 mOsm/kg (285-295); Sodium 137 mmol/L (136-145); Total Bilirubin 0.2 mg/dL (0.15-1.2); Total Protein 8.1 g/dL (6.6-8.7)
[2023-10-08 20:04] LABS: Creatinine Clr Calc Pharmacy 66.2714
[2023-10-08 20:05] LABS: Aspartate Amino Transferase 45 U/L (0-32)
[2023-10-08] MEDS: sodium chloride 0.9% 1,000 ML 999 ML IV (20:06)
[2023-10-08] MEDS: ondansetron 2 mg/ML SDV 2 mL 4 MG IVP (20:08)
[2023-10-08 20:11] VITALS: BP 102/71; PULSE 86; RESP 16; O2SAT 94
[2023-10-08 20:24] LABS: Basophils % 0.5 %; Eosinophils # 0.3 10^3/uL (0.0-0.8); Eosinophils % 3.1 %; Hematocrit 38.6 % (36-47); Lymphocytes # 3.2 10^3/uL (0.8-4.8); Lymphocytes % 39.7 %; Mean Corpuscular HGB Conc 32.6 g/dL (30-55); Mean Corpuscular Hemoglobin 30.5 pg (27-33); Mean Corpuscular Volume 93.5 fl (85-98); Mean Platelet Volume 11.2 fL (7.4-10.4); Monocytes # 0.6 10^3/uL (0.2-0.9); Monocytes % 7.3 %; Neutrophils # 3.91 10^3/uL (1.8-7.7); Neutrophils % 48.7 %; Nucleated Red Blood Cells % 0 %; Platelet Count 186 10^3/cmm (157-399); Red Blood Count 4.13 10^6/uL (3.85-5.65); Red Cell Distribution Width 13.2 % (12.1-15.1); White Blood Count 8.04 10^3/uL (3.29-11.43)
[2023-10-08 20:36] LABS: HCG, Serum Qual Negative (Negative)
[2023-10-08 20:47] LABS: Add Urine Microscopic? NO; Charge for UA Resulting for Rev
[2023-10-08 20:50] VITALS: BP 98/67; PULSE 77; RESP 16; O2SAT 96
[2023-10-08 21:11] LABS: Bilirubin Urine Neg (Negative); Blood Urine Neg (Negative); Glucose Urine UA Norm (Normal); Ketones Urine Negative (Negative); Leukocyte Esterase Urine Negative (Negative); Nitrate Urine Negative (Negative); Protein Urine Neg (Negative); Specific Gravity, Urine 1.015 (1.005-1.030); Urine Appearance Clear (CLEAR); Urine Color Yellow (Yellow); Urobilinogen Urine 1 mg/dL (Negative); pH Urine 6 (5-7)
== END 2023-10-08 21:30 | disposition home or self-care (01) ==
PROVIDERS: Nurse Practitioner Family; Emergency Provider Emergency Medicine; PCP Internal Medicine
DX: R10.9 Unspecified abdominal pain (principal); K59.00 Constipation, unspecified; R11.11 Vomiting without nausea
CPT/HCPCS: 36415; 80053; 81003; 84703; 85025; 96361; 96374; 99284; J2405; J7030

== ENCOUNTER → 2023-10-21 08:16 | Outpatient (BNVA) | payer MEDICAID, SELFPAY | PROVIDERS: PCP Internal Medicine; Visit Provider Nurse Practitioner | DX: Z79.899 Other long term (current) drug therapy (principal) | CPT/HCPCS: 80061; 83036 ==

== ENCOUNTER 2023-11-22 15:51 | Inpatient (IN) | payer MEDICAID, SELFPAY ==
[2023-11-22 15:57] VITALS: BP 106/74; PULSE 77; RESP 16; TEMP 36.6; O2SAT 95
--- NOTE | 2023-11-22 16:10 | ECG_ITS ---
[facility] Test Date: 2023-11-22 Pat Name: Jessica Pichardo Department: Room: Gender: Female International Operations Manager: : 1995 Requested By: Mary Sánchez Order Number: [id number] Shannon MD: Javier Velasquez M.D. Measurements Intervals [place] Rate: 66 P: 63 OR: 159 QRS: 15 QRSD: 92 T: 1 QT: 391 QTc: 410 Interpretive Statements SINUS RHYTHM WITH SINUS ARRHYTHMIA LOW QRS VOLTAGE IN PRECORDIAL LEADS [QRS DEFLECTION < 1.0 mV IN CHEST LEADS] MINIMAL ST DEPRESSION [0.025+ mV ST DEPRESSION] Compared to ECG 08/21/2023 17:32:41 ST (T wave) deviation now present Incomplete right bundle-branch block no longer present Electronically Signed On 11-22-2023 19:18:44 CDT by Javier Velasquez M.D. [id number]
[2023-11-22 16:13] VITALS: BP 106/74; PULSE 77; RESP 16; TEMP 36.6; O2SAT 95
--- NOTE | 2023-11-22 16:31 | W.ED.PSYCHS ---
HPI - Psych General: Chief Complaint: Psychiatric Symptoms Stated Complaint: SI Time Seen by Provider: 11/22/23 16:06 History of Present Illness: 28-year-old with a history of depression and mild learning disorder who presents to the emergency room with worsening depression symptoms and suicidal thoughts. She has had some thoughts of self-harm. No ingestions. No altered mental status. Review of Systems Narrative: Constitutional symptoms: Negative except as documented in HPI. Skin symptoms: Negative except as documented in HPI. Eye symptoms: Negative except as documented in HPI. ENMT symptoms: Negative except as documented in HPI. Respiratory symptoms: Negative except as documented in HPI. Cardiovascular symptoms: Negative except as documented in HPI. Gastrointestinal symptoms: Negative except as documented in HPI. Genitourinary symptoms: Negative except as documented in HPI. Musculoskeletal symptoms: Negative except as documented in HPI. Neurologic symptoms: Negative except as documented in HPI. Psychiatric symptoms: Negative except as documented in HPI. Endocrine symptoms: Negative except as documented in HPI. PFS ED PFSH: Medical History Intermittent explosive disorder Nocturnal enuresis Psychiatric care On high dose antipsychotic drug therapy Major depressive disorder, recurrent, moderate Mild intellectual disabilities Family History Other Family history unknown Social History Smoking and tobacco/nicotine status: never used tobacco/nicotine Second hand smoke exposure: No Alcohol intake: never Substance/Drug Use: never Caregiver/support person: Yes Lives independently: No Household members: other Details: Deya Simmons Marital status: Single service: No Current occupational status: disabled Current gender identity: Female Special gilmer needs: No Agree to transfusion: Yes Physical Exam Narrative: EXAM NARRATIVE: General: Alert, no acute distress. Skin: Warm, dry. Head: Normocephalic, atraumatic. Neck: Supple, trachea midline. Eye: Extraocular movements are intact. Ears, nose, mouth and throat: mucosa moist. Cardiovascular: Regular, Normal peripheral perfusion. Respiratory: Lungs are clear to auscultation, respirations are non-labored, breath sounds are equal, Symmetrical chest wall expansion. Gastrointestinal: Soft, Nontender, Non distended Musculoskeletal: Normal ROM, no deformity. Neurological: Alert and oriented, No focal neurological deficit observed. Psychiatric: Cooperative, patient endorses suicidal thoughts. Course Vital Signs: Vital signs: Vital Signs Temperature 97.8 F 11/22/23 16:13 Pulse Rate 77 11/22/23 16:13 Respiratory Rate 16 11/22/23 16:13 Blood Pressure 106/74 11/22/23 16:13 Pulse Oximetry 95 11/22/23 16:13 Oxygen Delivery Me thod Room Air 11/22/23 16:13 [facility] - Psych Medical Decision Making Differential diagnosis: Patient with reported depression and suicidal ideation. concerns for infection, alcohol intoxication, cardiac issues or other medical problems prior to psychiatric admission. Workup: labwork, ekg ordered to evaluate the pathologies and to clear the patient medically prior to psychiatric admission EKG: Time 1636. Rate 66. Normal sinus rhythm, No ST-T changes, no ectopy, normal [place] & QRS intervals, This was reviewed and interpreted by myself the ER physician at 1640. Lab Review: Laboratory results were reviewed and interpreted by myself the emergency room physician. Lab review: - Medically cleared. - EKG shows no ischemic changes. - Blood alcohol level is negative, as well as salicylate and Tylenol. - Drug screen is negative -10-15 whites in urine. No bacteria. I think this was just a bad catch. - No anemia. - BUN and creatinine are within normal limits. Consultation: I spoke with Dr. Potts who is admitting the patient. Assessment and plan: Suicidal ideation Depression -Admission to neuropsychiatric unit for continued evaluation and treatment. - All lab work was reviewed and interpreted personally by myself, the ER physician - Evaluation and treatment of this problem were appropriate in the emergency setting Lab Data 11/22/23 16:55 11/22/23 16:55 Laboratory Results WBC 5.45 10^3/uL (3.29-11.43) 11/22/23 16:55 RBC 4.57 10^6/uL (3.85-5.65) 11/22/23 16:55 Hgb 13.60 g/dL (11.27-16.99) 11/22/23 16:55 Hct 41.3 % (36-47) 11/22/23 16:55 MCV 90.4 fl (85-98) 11/22/23 16:55 MCH 29.8 pg (27-33) 11/22/23 16:55 MCHC 32.9 g/dL (30-55) 11/22/23 16:55 RDW 13.0 % (12.1-15.1) 11/22/23 16:55 Plt Count 210 10^3/cmm (157-399) 11/22/23 16:55 MPV 10.6 fL (7.4-10.4) H 11/22/23 16:55 Neut % (Auto) 47.9 % 11/22/23 16:55 Lymph % (Auto) 39.1 % 11/22/23 16:55 [place] % (Auto) 6.8 % 11/22/23 16:55 Eos % (Auto) 5.1 % 11/22/23 16:55 Baso % (Auto) 0.7 % 11/22/23 16:55 Neut # (Auto) 2.61 10^3/uL (1.8-7.7) 11/22/23 16:55 Lymph # (Auto) 2.1 10^3/uL (0.8-4.8) 11/22/23 16:55 [place] # (Auto) 0.4 10^3/uL (0.2-0.9) 11/22/23 16:55 Eos # (Auto) 0.3 10^3/uL (0.0-0.8) 11/22/23 16:55 Baso # (Auto) 0.0 10^3/uL (0.0-0.1) 11/22/23 16:55 Nucleated RBC % (auto) 0 % 11/22/23 16:55 Nucleated RBCs # 0.0 /100WBC 11/22/23 16:55 Sodium 142 mmol/L (136-145) 11/22/23 16:55 Potassium 3.9 mmol/L (3.5-5.1) 11/22/23 16:55 Chloride 107 mmol/L (98-107) 11/22/23 16:55 Carbon Dioxide 22 mmol/L (22-29) 11/22/23 16:55 Anion Gap 16.9 (5-19) 11/22/23 16:55 BUN 15 mg/dL (6-20) 11/22/23 16:55 Creatinine 1.3 mg/dL (0.5-0.9) H 11/22/23 16:55 GFR Calculation 48.4 mL/min (90-130) L 11/22/23 16:55 Glucose 96 mg/dL (65-115) 11/22/23 16:55 Calculated Osmolality 295 mOsm/kg (285-295) 11/22/23 16:55 Calcium 9.5 mg/dL (8.5-10.5) 11/22/23 16:55 Total Bilirubin 0.2 mg/dL (0.15-1.2) 11/22/23 16:55 AST 31 U/L (0-32) 11/22/23 16:55 ALT 51 U/L (0-33) H 11/22/23 16:55 Alkaline Phosphatase 103 U/L (35-105) 11/22/23 16:55 Total Protein 7.7 g/dL (6.6-8.7) 11/22/23 16:55 Albumin 4.7 g/dL (3.5-5.2) 11/22/23 16:55 Globulin 3.0 g/dL (1.3-4.6) 11/22/23 16:55 TSH 0.36 uIU/mL (0.27-4.20) 11/22/23 16:55 HCG, Qual Negative (Negative) 11/22/23 17:34 Urine Color Yellow (Yellow) 11/22/23 17:34 Urine Appearance Clear (CLEAR) 11/22/23 17:34 Urine pH 5 (5-7) 11/22/23 17:34 Ur Specific [place] 1.020 (1.005-1.030) 11/22/23 17:34 Urine Protein Neg (Negative) 11/22/23 17:34 Urine Glucose (UA) Norm (Normal) 11/22/23 17:34 Urine Ketones Negative (Negative) 11/22/23 17:34 Urine Blood Neg (Negative) 11/22/23 17:34 Urine Nitrate Negative (Negative) 11/22/23 17:34 Urine Bilirubin Neg (Negative) 11/22/23 17:34 Urine Urobilinogen Norm mg/dL (Negative) 11/22/23 17:34 Ur Leukocyte Esterase 1+ (Negative) H 11/22/23 17:34 Urine RBC None /hpf (0-2) 11/22/23 17:34 Urine WBC 10-15 /hpf (0-5) H 11/22/23 17:34 Ur Squamous Epith Cells Rare /hpf (0-5) 11/22/23 17:34 Amorphous Sediment Not Reportable 11/22/23 17:34 Urine Bacteria Trace /hpf (NONE) 11/22/23 17:34 Salicylates < 0.3 mg/dL (3-10) L 11/22/23 16:55 Urine Opiates Screen Negative ng/mL (Negative) 11/22/23 17:34 Acetaminophen < 5.0 ug/mL (10-30) L 11/22/23 16:55 Ur Barbiturates Screen Negative ng/mL (Negative) 11/22/23 17:34 Ur Phencyclidine Scrn Negative ng/mL (Negative) 11/22/23 17:34 Ur Amphetamines Screen Negative ng/mL (Negative) 11/22/23 17:34 U Benzodiazepines Scrn Negative ng/mL (Negative) 11/22/23 17:34 Urine Cocaine Screen Negative ng/mL (Negative) 11/22/23 17:34 U Marijuana (THC) Screen Negative ng/mL (Negative) 11/22/23 17:34 Ethyl Alcohol < 10 mg/dL (0-10) 11/22/23 16:55 No radiology studies performed this visit Discharge Plan Discharge Patient Disposition: Admitted As Inpatient Admit Provider: Keron Darden Clinical Impression: Depression, Suicidal ideation Condition: Stable Coding Level of Care Code ED Manager Of Patient for Carolina Figueroa
[2023-11-22 17:00] LABS: Basophils % 0.7 %; Eosinophils # 0.3 10^3/uL (0.0-0.8); Eosinophils % 5.1 %; Hematocrit 41.3 % (36-47); Lymphocytes # 2.1 10^3/uL (0.8-4.8); Lymphocytes % 39.1 %; Mean Corpuscular HGB Conc 32.9 g/dL (30-55); Mean Corpuscular Hemoglobin 29.8 pg (27-33); Mean Corpuscular Volume 90.4 fl (85-98); Mean Platelet Volume 10.6 fL (7.4-10.4); Monocytes # 0.4 10^3/uL (0.2-0.9); Monocytes % 6.8 %; Neutrophils # 2.61 10^3/uL (1.8-7.7); Neutrophils % 47.9 %; Nucleated Red Blood Cells % 0 %; Platelet Count 210 10^3/cmm (157-399); Red Blood Count 4.57 10^6/uL (3.85-5.65); White Blood Count 5.45 10^3/uL (3.29-11.43)
[2023-11-22 17:31] LABS: Alanine Aminotransferase 51 U/L (0-33); Albumin Level 4.7 g/dL (3.5-5.2); Alkaline Phosphatase 103 U/L (35-105); Anion Gap 16.9 (5-19); Aspartate Amino Transferase 31 U/L (0-32); Blood Urea Nitrogen 15 mg/dL (6-20); Calcium 9.5 mg/dL (8.5-10.5); Carbon Dioxide 22 mmol/L (22-29); Chloride 107 mmol/L (98-107); Glomerular Filtration Rate 48.4 mL/min (90-130); Glucose 96 mg/dL (65-115); Osmolality Calculated 295 mOsm/kg (285-295); Potassium 3.9 mmol/L (3.5-5.1); Sodium 142 mmol/L (136-145); Thyroid Stimulating Hormone 0.36 uIU/mL (0.27-4.20); Total Bilirubin 0.2 mg/dL (0.15-1.2); Total Protein 7.7 g/dL (6.6-8.7)
[2023-11-22 17:46] LABS: HCG Qualitative Urine. Negative (Negative)
[2023-11-22 17:46] LABS: Acetaminophen < 5.0 ug/mL (10-30); Alcohol Level < 10 mg/dL (0-10); Creatinine Clr Calc Pharmacy 75.1865; Salicylate < 0.3 mg/dL (3-10)
[2023-11-22 18:01] LABS: Bacteria Urine TRACE /hpf; Bilirubin Urine Neg (Negative); Blood Urine Neg (Negative); Glucose Urine UA Norm (Normal); Ketones Urine Negative (Negative); Leukocyte Esterase Urine 1+ (Negative); Nitrate Urine Negative (Negative); Protein Urine Neg (Negative); Squamous Epithelial Cell Urine RARE /hpf (0-5); Urine Appearance Clear (CLEAR); Urine Color Yellow (Yellow); Urobilinogen Urine Norm (Negative); pH Urine 5 (5-7)
[2023-11-22 18:02] LABS: Add Urine Culture? No
[2023-11-22 18:03] LABS: Amphetamines Screen Urine Negative (Negative); Barbiturates Screen Urine Negative (Negative); Benzodiazepines Screen Urine Negative (Negative); Cocaine Screen Urine Negative (Negative); Opiate Screen Urine Negative (Negative); PCP Screen Urine Negative (Negative); THC Screen Urine Negative (Negative)
[2023-11-22 19:16] VITALS: BP 109/76; PULSE 104; RESP 18; TEMP 36.8; O2SAT 95
[2023-11-22 19:24] VITALS: BP 109/76; PULSE 104; RESP 18; TEMP 36.8; O2SAT 95
[2023-11-22 19:29] VITALS: BP 109/76; PULSE 74; RESP 18; TEMP 36.8; O2SAT 95
[2023-11-22] MEDS: OLANZapine 5 mg TABLET PO (22:45)
[2023-11-22] MEDS: prazosin 1 mg Capsule PO (22:45)
[2023-11-22] MEDS: trazodone 100 mg Tablet PO (22:45)
[2023-11-23 06:00] VITALS: BP 102/70; PULSE 60; RESP 16; O2SAT 96
[2023-11-23] MEDS: lamoTRIgine 100 mg Tablet 200 MG PO ×2 (08:24→17:45)
[2023-11-23] MEDS: topiramate 100 mg Tablet PO (08:25)
[2023-11-23] MEDS: duloxetine 60 mg Capsule 120 MG PO (08:25)
[2023-11-23] MEDS: levothyroxine 100 mcg Tablet PO (08:25)
[2023-11-23] MEDS: risperiDONE 1 mg Tablet PO (08:25)
[2023-11-23 14:00] VITALS: BP 109/72; PULSE 76; RESP 16; TEMP 36.8; O2SAT 95
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
[2023-11-23] MEDS: topiramate 25 mg Tablet 75 MG PO (17:48)
[2023-11-23] MEDS: trazodone 100 mg Tablet PO (20:19)
[2023-11-23] MEDS: risperiDONE 1 mg Tablet 1.5 MG PO (20:19)
[2023-11-23] MEDS: prazosin 1 mg Capsule PO (20:19)
[2023-11-23 22:00] VITALS: BP 109/76; PULSE 97; RESP 18; TEMP 36.6; O2SAT 96
[2023-11-24] MEDS: ibuprofen 600 mg Tablet PO (04:01)
[2023-11-24 06:00] VITALS: BP 95/61; PULSE 85; RESP 16; O2SAT 97
[2023-11-24] MEDS: risperiDONE 1 mg Tablet PO (08:32)
[2023-11-24] MEDS: duloxetine 60 mg Capsule 120 MG PO (08:32)
[2023-11-24] MEDS: topiramate 25 mg Tablet 75 MG PO ×2 (08:32→18:22)
[2023-11-24] MEDS: levothyroxine 100 mcg Tablet PO (08:33)
[2023-11-24] MEDS: lamoTRIgine 100 mg Tablet 200 MG PO ×2 (08:33→18:22)
[2023-11-24 14:00] VITALS: BP 94/69; PULSE 98; RESP 16; TEMP 36.8; O2SAT 95
--- NOTE | 2023-11-24 14:51 | P.NPUPN_ITS ---
Subjective NPU 2 Subjective: 28-year-old female with mild cognitive i mpairment along with intermittent explosive disorder and depression admitted with suicidal ideation with a history of explosive outburst. Patient had stated today that she did not wish to go to a locked residential treatment facility. She had described having some issues with feeling lonely. She had stated that she was struggling with making friends. She reported that she did have nightmares regarding her time spent in [facility]. She reported no difficulties with falling asleep. She had no acts of aggression here. Mental Status Exam 2 MSE Comments: This is an obese white female with hospital scrubs on with limited grooming and fair eye contact. No abnormal movements except for mild psychomotor retardation. She was cooperative with exam and appeared in mild to moderate distress. Speech was decreased in rate and decreased in volume and somewhat childlike. Mood described better. Her affect was anxious. Thought process was linear and organized. Thought content: Patient denied suicidal or homicidal ideation, there were no delusions reported or noted, she denied any auditory or visual hallucinations. Attention and concentration appeared intact and recent and remote memory were poor. She is alert and oriented times person and place but not date. Insight is feeble and judgment is poor. Her impulse control is impaired. Intellectual ability is commensurate with mild to moderate intellectual cognitive impairment. Vitals/I&O/Wt Last Vital Signs Temp 98 F 11/23/23 22:00 Pulse 85 11/24/23 06:00 Resp 16 11/24/23 06:00 BP 95/61 11/24/23 06:00 Pulse Ox 97 11/24/23 06:00 O2 Del Method Room Air 11/24/23 06:00 Weight last 48 hrs Weight 97.522 kg Data NPU 11/22/23 16:55 11/22/23 16:55 A&P Assessment and plan (1) Intermittent explosive disorder: (2) Suicidal ideation: (3) Mild intellectual disabilities: (4) Dysthymia: Plan 28-year-old white female history of intellectual disability, intermittent explosive disorder, and depression currently residing in [facility], a senior living with complaints of suicidal ideation and continued aggressive outbursts. Patient may require medication adjustment to target challenging behaviors. She has guardianship but may require another different locked facility. 1. Encourage individual group and milieu therapy. 2. We will continue current psychotropic medications and other outpatient medications; Decreased topamax to 75mg bid as patients on this medication with intellectual disability have a substantial risk of persistent and severe cognitive decline. Increased Risperidal 1mg in am, 1.5mg at night, discontinued zyprexa. 3. Therapeutic observation 15-minute checks on the unit for safety 4. We will contact facility and guardian and explore safety plan for discharge as soon as it is appropriate, likely tommorow. Involuntary Hold Information 2 96 Hour Hold: 96 Hour Involuntary Admission: No Attestations NPU 2 Medical Necessity Statement*: Patient hospitalization is medically necessary and deemed to be the clinically appropriate intervention at this time. We will monitor and initiate medications while making changes as indicated. The patient's likely length of stay is 1-2 days. Coding Level of Care Code Acute Code for [facility] Fwd Diagnoses Intermittent explosive disorder F63.81 Suicidal ideation R45.851 Mild intellectual disabilities F70 Dysthymia F34.1
[2023-11-24] MEDS: prazosin 1 mg Capsule PO (20:56)
[2023-11-24] MEDS: trazodone 100 mg Tablet PO (20:56)
[2023-11-24] MEDS: risperiDONE 1 mg Tablet 2 MG PO (20:56)
[2023-11-24 21:37] VITALS: BP 92/61; PULSE 84; RESP 13; TEMP 36.8; O2SAT 95
[2023-11-25 06:00] VITALS: BP 97/67; PULSE 78; RESP 13; TEMP 36.6; O2SAT 95
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
[2023-11-25 08:32] VITALS: BP 97/67; PULSE 78; RESP 13; TEMP 36.6; O2SAT 95
[2023-11-25] MEDS: duloxetine 60 mg Capsule 120 MG PO (10:04)
[2023-11-25] MEDS: levothyroxine 100 mcg Tablet PO (10:04)
[2023-11-25] MEDS: lamoTRIgine 100 mg Tablet 200 MG PO (10:04)
[2023-11-25] MEDS: topiramate 25 mg Tablet 75 MG PO (10:04)
[2023-11-25] MEDS: risperiDONE 1 mg Tablet PO (10:05)
== END 2023-11-25 13:10 | disposition home or self-care (01) | DRG 883 ==
LOC: ER 16:32 → NP 18:25
PROVIDERS: Admitting Provider Psychiatry & Neurology Psychiatry; Emergency Provider Emergency Medicine; PCP Internal Medicine; Visit Provider Psychiatry & Neurology Psychiatry
DX: F63.81 Intermittent explosive disorder (principal); R45.851 Suicidal ideations; F70 Mild intellectual disabilities; F34.1 Dysthymic disorder
CPT/HCPCS: 36415; 80053; 80306; 80307; 81001; 81025; 84443; 85025; 93005; 97150; 97165; 99285

== ENCOUNTER 2023-12-04 13:58 | Inpatient (IN) | payer MEDICAID, SELFPAY ==
[2023-12-04 13:59] VITALS: BP 117/76; PULSE 86; RESP 22; TEMP 36.7; O2SAT 94; BMI 32.3
--- NOTE | 2023-12-04 14:05 | ED.C_ITS ---
HPI - Psych 2 General: Chief Complaint: Psychiatric Symptoms Stated Complaint: si Time Seen by Provider: 12/04/23 14:00 Source: patient Mode of arrival: EMS History of Present Illness: 28-year-old female presents to the emerg ency room via law enforcement with complaints of suicidal ideation. She had scratched at her left wrist. She lives in independent living center and became quite frustrated with her conditions. She felt the staff was being mean to her. She threatened to harm herself and was brought in by police after they had called the police. MD complaint: suicidal ideation Onset (ago): minute(s) If self harm: admits thoughts of self harm, has plan and has acted on plan Review of Systems 2 Const: Denies: fever(s) or chills Card: Denies: chest pain Resp: Denies: dyspnea GI: Denies: abdominal pain : Denies: dysuria, urinary frequency or urinary urgency Musc: Denies: neck pain or back pain Skin/Breast: Denies: rash PFSH ED 2 PFSH: Medical History Intermittent explosive disorder Nocturnal enuresis Psychiatric care On high dose antipsychotic drug therapy Major depressive disorder, recurrent, moderate Mild intellectual disabilities Family History Other Family history unknown Social History Smoking and tobacco/nicotine status: never used tobacco/nicotine Second hand smoke exposure: No Alcohol intake: never Substance/Drug Use: never Caregiver/support person: Yes Lives independently: No Household members: other Details: Deya Simmons Marital status: Single service: No Current occupational status: disabled Current gender identity: Female Special gilmer needs: No Agree to transfusion: Yes Physical Exam 2 Const: COMMON NORMALS: no acute distress GENERAL APPEARANCE: cooperative and comfortable ORIENTATION/CONSCIOUSNESS: Yes awake, Yes oriented to person, Yes oriented to place and Yes oriented to time HENMT: COMMON NORMALS: normocephalic, atraumatic and hearing grossly normal bilaterally HEAD & SCALP: normocephalic and atraumatic Resp: COMMON NORMALS: normal respiratory effort, No retractions, No use of accessory muscles and clear to auscultation bilaterally AUSCULTATION: clear to auscultation bilaterally Cardio: COMMON NORMALS: regular rate, regular rhythm and No murmurs present (Cardio) RATE: regular rate RHYTHM: regular rhythm Extremity: COMMON NORMALS: normal to inspection, capillary refill normal, no clubbing, cyanosis or edema, no calf tenderness and no pedal edema Neuro: SENSORIUM/ORIENTATION: Yes oriented to person, Yes oriented to place and Yes oriented to time Skin: COMMON NORMALS: no rashes or lesions noted GENERAL SKIN EXAM: no rashes or lesions noted Course 2 Vital Signs: Vital signs: Vital Signs Temperature 98.0 F 12/04/23 14:16 Pulse Rate 86 12/04/23 14:16 Respiratory Rate 22 H 12/04/23 14:16 Blood Pressure 117/76 12/04/23 14:16 Pulse Oximetry 94 12/04/23 14:16 [facility] - Psych Medical Decision Making Discussed Dr. Pritchett. Will admit for suicidal ideation patient is agreeable to admission orders written Lab Data 12/04/23 14:18 12/04/23 14:18 Laboratory Results WBC 5.99 10^3/uL (3.29-11.43) 12/04/23 14:18 RBC 4.62 10^6/uL (3.85-5.65) 12/04/23 14:18 Hgb 13.80 g/dL (11.27-16.99) 12/04/23 14:18 Hct 42.1 % (36-47) 12/04/23 14:18 MCV 91.1 fl (85-98) 12/04/23 14:18 MCH 29.9 pg (27-33) 12/04/23 14:18 MCHC 32.8 g/dL (30-55) 12/04/23 14:18 RDW 13.2 % (12.1-15.1) 12/04/23 14:18 Plt Count 207 10^3/cmm (157-399) 12/04/23 14:18 MPV 11.0 fL (7.4-10.4) H 12/04/23 14:18 Neut % (Auto) 54.0 % 12/04/23 14:18 Lymph % (Auto) 34.7 % 12/04/23 14:18 Wilkes % (Auto) 6.8 % 12/04/23 14:18 Eos % (Auto) 3.8 % 12/04/23 14:18 Baso % (Auto) 0.5 % 12/04/23 14:18 Neut # (Auto) 3.23 10^3/uL (1.8-7.7) 12/04/23 14:18 Lymph # (Auto) 2.1 10^3/uL (0.8-4.8) 12/04/23 14:18 Wilkes # (Auto) 0.4 10^3/uL (0.2-0.9) 12/04/23 14:18 Eos # (Auto) 0.2 10^3/uL (0.0-0.8) 12/04/23 14:18 Baso # (Auto) 0.0 10^3/uL (0.0-0.1) 12/04/23 14:18 Nucleated RBC % (auto) 0 % 12/04/23 14:18 Nucleated RBCs # 0.0 /100WBC 12/04/23 14:18 Sodium 140 mmol/L (136-145) 12/04/23 14:18 Potassium 3.5 mmol/L (3.5-5.1) 12/04/23 14:18 Chloride 104 mmol/L (98-107) 12/04/23 14:18 Carbon Dioxide 23 mmol/L (22-29) 12/04/23 14:18 Anion Gap 16.5 (5-19) 12/04/23 14:18 BUN 14 mg/dL (6-20) 12/04/23 14:18 Creatinine 1.4 mg/dL (0.5-0.9) H 12/04/23 14:18 GFR Calculation 44.5 mL/min (90-130) L 12/04/23 14:18 Glucose 108 mg/dL (65-115) 12/04/23 14:18 Calculated Osmolality 291 mOsm/kg (285-295) 12/04/23 14:18 Calcium 9.2 mg/dL (8.5-10.5) 12/04/23 14:18 Total Bilirubin 0.3 mg/dL (0.15-1.2) 12/04/23 14:18 AST 47 U/L (0-32) H 12/04/23 14:18 ALT 63 U/L (0-33) H 12/04/23 14:18 Alkaline Phosphatase 104 U/L (35-105) 12/04/23 14:18 Total Protein 7.6 g/dL (6.6-8.7) 12/04/23 14:18 Albumin 4.7 g/dL (3.5-5.2) 12/04/23 14:18 Globulin 2.9 g/dL (1.3-4.6) 12/04/23 14:18 Salicylates < 0.3 mg/dL (3-10) L 12/04/23 14:18 Acetaminophen < 5.0 ug/mL (10-30) L 12/04/23 14:18 No radiology studies performed this visit Discharge Plan Discharge Patient Disposition: Admitted As Inpatient Clinical Impression: Suicidal ideation, Mild intellectual disabilities, Intermittent explosive disorder, Dysthymia, Major depressive disorder, recurrent, moderate Condition: Stable Coding Level of Care Code ED Radiology Specialist for Carolina Figueroa
[2023-12-04 14:16] VITALS: BP 117/76; PULSE 86; RESP 22; TEMP 36.7; O2SAT 94
[2023-12-04 14:28] LABS: Basophils % 0.5 %; Eosinophils # 0.2 10^3/uL (0.0-0.8); Eosinophils % 3.8 %; Hematocrit 42.1 % (36-47); Lymphocytes # 2.1 10^3/uL (0.8-4.8); Lymphocytes % 34.7 %; Mean Corpuscular HGB Conc 32.8 g/dL (30-55); Mean Corpuscular Hemoglobin 29.9 pg (27-33); Mean Corpuscular Volume 91.1 fl (85-98); Monocytes # 0.4 10^3/uL (0.2-0.9); Monocytes % 6.8 %; Neutrophils # 3.23 10^3/uL (1.8-7.7); Nucleated Red Blood Cells % 0 %; Platelet Count 207 10^3/cmm (157-399); Red Blood Count 4.62 10^6/uL (3.85-5.65); Red Cell Distribution Width 13.2 % (12.1-15.1); White Blood Count 5.99 10^3/uL (3.29-11.43)
[2023-12-04 14:48] LABS: Alanine Aminotransferase 63 U/L (0-33); Albumin Level 4.7 g/dL (3.5-5.2); Alkaline Phosphatase 104 U/L (35-105); Anion Gap 16.5 (5-19); Aspartate Amino Transferase 47 U/L (0-32); Blood Urea Nitrogen 14 mg/dL (6-20); Calcium 9.2 mg/dL (8.5-10.5); Carbon Dioxide 23 mmol/L (22-29); Chloride 104 mmol/L (98-107); Creatinine Clr Calc Pharmacy 67.2686; Globulin 2.9 g/dL (1.3-4.6); Glomerular Filtration Rate 44.5 mL/min (90-130); Glucose 108 mg/dL (65-115); Osmolality Calculated 291 mOsm/kg (285-295); Potassium 3.5 mmol/L (3.5-5.1); Sodium 140 mmol/L (136-145); Total Bilirubin 0.3 mg/dL (0.15-1.2); Total Protein 7.6 g/dL (6.6-8.7)
[2023-12-04 14:51] LABS: Acetaminophen < 5.0 ug/mL (10-30); Salicylate < 0.3 mg/dL (3-10)
[2023-12-04 18:29] VITALS: BP 100/69; PULSE 95; RESP 18; TEMP 36.7; O2SAT 96
--- NOTE | 2023-12-04 18:53 | PC.NURSE ---
Patient currently resides at [facility], a longterm. Patient stated, I tried to dig into my vein with a pen. Patient has superficial lacerations to her anterior wrist and forearm. She says the staff at [facility] continuously talk behind her back and that when two of them were at her house today, she knew they were talking about her although they claimed they were not. She then became angry and said she had to do something, so decided to attempt to cut herself with a pen. At this time patient is denying si and says she just wants to be placed somewhere other than [facility].
[2023-12-04] MEDS: OLANZapine 5 mg ODT PO (19:25)
--- NOTE | 2023-12-04 19:57 | PC.NURSE ---
This nurse went to patient's room to administer a zyprexa for agitation. When this nurse rounded the corner, this nurse saw patient digging into her left wrist with the corner of her patient packet. Patient abruptly moved the packet away from her arm. Patient said that she wanted to leave right now, that she does not like the staff at this hospital because we don't give a shit about her. Patient also stated that she intended to cut herself and bleed out right there because she would [facility] be in [place]. This nurse demanded that she hand over packet; patient refused. This nurse did not leave room, instead yelled for assistance from other staff. LEESA Mac and LEESA Angel quickly responded. Patient at first refused zyprexa. Staff talked with patient. Patient tearful and angry. Patient stated that if she didn't use the packet edge to cut her wrist, that she would break the window and use glass to kill herself. TAYLA Lockhart was able to calm patient's emotions by talking about spending the night coloring and doing [place] words. Patient stated to this nurse once nurse Bubba left that she was sorry, that she did not want to hurt herself. Patient said that she is scared because she is not familiar with all of the current staff. Patient willing to hand over packet. Patient willing to take the zyprexa 5mg ODT. Patient presented with injections; patient began crying. Patient verbally agreed to LEESA Mac to not self-harm. Patient not left alone. Patient currently with TAYLA Lockhart.
[2023-12-04] MEDS: azithromycin 250 mg Tablet 500 MG PO (20:43)
[2023-12-04 21:42] VITALS: BP 119/77; PULSE 84; RESP 18; O2SAT 97
[2023-12-05 06:00] VITALS: BP 94/73; PULSE 70; RESP 16; O2SAT 98
[2023-12-05] MEDS: levothyroxine 100 mcg Tablet PO (06:18)
[2023-12-05] MEDS: predniSONE 1 mg Tablet 2 MG PO (09:39)
[2023-12-05] MEDS: loratadine 10 mg Tablet PO (09:40)
[2023-12-05] MEDS: duloxetine 60 mg Capsule 120 MG PO (09:40)
[2023-12-05] MEDS: risperiDONE 1 mg Tablet PO (09:40)
[2023-12-05] MEDS: topiramate 25 mg Tablet 75 MG PO ×2 (09:40→17:14)
[2023-12-05] MEDS: azithromycin 250 mg Tablet PO (09:42)
[2023-12-05 14:00] VITALS: BP 94/62; PULSE 65; RESP 15; TEMP 36.7; O2SAT 97
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
[2023-12-05] MEDS: predniSONE 1 mg Tablet PO (17:14)
[2023-12-05] MEDS: OLANZapine 5 mg ODT PO (20:10)
[2023-12-05] MEDS: prazosin 1 mg Capsule 2 MG PO (20:10)
[2023-12-05] MEDS: risperiDONE 1 mg Tablet 2 MG PO (20:10)
[2023-12-05] MEDS: trazodone 100 mg Tablet PO (20:10)
[2023-12-05 20:57] VITALS: BP 101/73; PULSE 65; RESP 16; TEMP 36.3; O2SAT 98
[2023-12-05] MEDS: hyDROXYzine 25 mg Capsule 50 MG PO (21:56)
--- NOTE | 2023-12-06 02:31 | PC.NURSE ---
During shift assessment pt told this nurse that she was frustrated because she doesn't know any of the current staff that was here during day shift and she wanted to go home. Pt then showed this nurse her arm and there was a healed scar that had been opened on her left wrist. Pt stated that she has been picking at her arm all day. When asked why she felt the need to pick at her arm pt stated i do it when i don't get my way. This nurse educated pt on positive coping mechanisms. Pt was able to contract for safety. During assessment pt denied SI/HI/AVH. Behavioral monitoring continues
[2023-12-06 06:00] VITALS: RESP 16
[2023-12-06] MEDS: predniSONE 1 mg Tablet 2 MG PO (08:40)
[2023-12-06] MEDS: duloxetine 60 mg Capsule 120 MG PO (08:40)
[2023-12-06] MEDS: loratadine 10 mg Tablet PO (08:40)
[2023-12-06] MEDS: topiramate 25 mg Tablet 75 MG PO ×2 (08:40→17:37)
[2023-12-06] MEDS: azithromycin 250 mg Tablet PO (08:40)
[2023-12-06] MEDS: levothyroxine 100 mcg Tablet PO (08:40)
[2023-12-06] MEDS: risperiDONE 1 mg Tablet PO (08:41)
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
[2023-12-06 14:00] VITALS: BP 105/70; PULSE 79; RESP 15; TEMP 36.7; O2SAT 96
--- NOTE | 2023-12-06 14:22 | P.NPUPN_ITS ---
Subjective NPU 2 Subjective: Patient presented today reporting that she wanted to go home. We had a long discussion about this pattern that she has related to having conflicts that her [facility] leading to her wanting to be hospitalized and very quickly not wanting to be hospitalized and wanting to be at the [facility] for nominal reasons. Staff reports of significant attention seeking behavior and identifying minimal issues as significant conflicts which is observed on direct observation as well. She denied any side effects of the medication and we discussed with the social work team at her [facility] tomorrow for discharge arrangements. Mental Status Exam 2 MSE Comments: This is an obese white female with hospital scrubs on with limited grooming and adequate eye contact. No abnormal movements except for psychomotor retardation. Cooperative with exam in mild to moderate distress. Speech was slightly decreased rate and volume and childlike. Mood described as a I want to go home, affect slightly subdued. Thought process organized. Thought content: Patient denied suicidal or homicidal ideation, there were no delusions reported or noted, she denied any auditory or visual hallucinations. Attention and concentration appeared intact and memory was mostly reliable but none were formally tested. She is alert and oriented times person and place. Insight, judgment and impulse control are impaired. Intellectual ability is impaired. Vitals/I&O/Wt Last Vital Signs Temp 97.4 F L 12/05/23 20:57 Pulse 65 12/05/23 20:57 Resp 16 12/06/23 06:00 BP 101/73 12/05/23 20:57 Pulse Ox 98 12/05/23 20:57 O2 Del Method Room Air 12/05/23 06:00 Weight last 48 hrs Weight 96.661 kg Data NPU 12/04/23 14:18 12/04/23 14:18 A&P Assessment and plan (1) Intermittent explosive disorder: (2) Suicidal ideation: (3) Mild intellectual disabilities: (4) Dysthymia: Plan 28-year-old white female history of intellectual disability, intermittent explosive disorder, and depression currently residing in [place] [facility] with suicidal ideation and a recent aggressive outbursts with multiple hospitalizations with exactly that presentation. We will evaluate for safety and identify whether this is a recent decline versus consistent with baseline which would we would recommend a more rapid therapeutic discharge in the next day or so. 1. Encourage individual group and milieu therapy. 2. We will continue current psychotropic medications and other outpatient medications. We will review medications and consider discharge likely tomorrow. Will work with social work team and [facility] for discharge planning. 3. Therapeutic observation 15-minute checks on the unit for safety 4. We will contact facility and guardian and explore safety plan for discharge as soon as it is appropriate. Involuntary Hold Information 2 96 Hour Hold: 96 Hour Involuntary Admission: No Attestations NPU 2 Medical Necessity Statement*: Patient hospitalization is medically necessary and deemed to be the clinically appropriate intervention at this time. We will monitor and initiate medications while making changes as indicated. The patient's likely length of stay is 1-2 days. Coding Level of Care Code Acute Code for Chg Fwd Diagnoses Intermittent explosive disorder F63.81 Suicidal ideation R45.851 Mild intellectual disabilities F70 Dysthymia F34.1
[2023-12-06] MEDS: predniSONE 1 mg Tablet PO (17:37)
[2023-12-06 19:41] VITALS: BP 80/60; PULSE 109; RESP 18; TEMP 37.1; O2SAT 97
[2023-12-06] MEDS: risperiDONE 1 mg Tablet 2 MG PO (20:47)
[2023-12-06] MEDS: trazodone 100 mg Tablet PO (20:47)
[2023-12-06] MEDS: prazosin 1 mg Capsule 2 MG PO (20:47)
[2023-12-07] MEDS: ibuprofen 600 mg Tablet PO (02:02)
[2023-12-07 06:00] VITALS: RESP 15
--- NOTE | 2023-12-07 06:08 | PC.NURSE ---
0600 vital signs not obtain due to pt finally resting in bed. Respiration rate 15. nutrition faculty member notified.
[2023-12-07] MEDS: risperiDONE 1 mg Tablet PO (08:53)
[2023-12-07] MEDS: loratadine 10 mg Tablet PO (08:53)
[2023-12-07] MEDS: duloxetine 60 mg Capsule 120 MG PO (08:53)
[2023-12-07] MEDS: predniSONE 1 mg Tablet 2 MG PO (08:53)
[2023-12-07] MEDS: azithromycin 250 mg Tablet PO (08:53)
[2023-12-07] MEDS: topiramate 25 mg Tablet 75 MG PO (08:53)
[2023-12-07] MEDS: levothyroxine 100 mcg Tablet PO (08:54)
[2023-12-07 09:22] VITALS: PULSE 104; RESP 18; O2SAT 97
--- NOTE | 2023-12-07 13:46 | P.NPUDS_ITS ---
Diagnoses at Discharge Discharge Diagnosis (1) Intermittent explosive disorder: Status: Acute (2) Suicidal ideation: Status: Resolved (3) Mild intellectual disabilities: Status: Acute (4) Dysthymia: Status: Acute Reason for Visit Reason for Visit: si Involuntary Hold Information 96 Hour Hold: 96 Hour Involuntary Admission: No Mental Status Exam MSE Comments: This is an obese white female with hospital scrubs on with limited grooming and adequate eye contact. No abnormal movements except for psychomotor retardation. Cooperative with exam in mild to moderate distress. Speech was slightly decreased rate and volume and childlike. Mood described as a I want to go home, affect slightly subdued. Thought process organized. Thought content: Patient denied suicidal or homicidal ideation, there were no delusions reported or noted, she denied any auditory or visual hallucinations. Attention and concentration appeared intact and memory was mostly reliable but none were formally tested. She is alert and oriented times person and place. Insight, judgment and impulse control are impaired. Intellectual ability is impaired. Discharge Data Studies Completed and Pending: Laboratory Results WBC 5.99 10^3/uL (3.2 9-11.43) 12/04/23 14:18 RBC 4.62 10^6/uL (3.8 5-5.65) 12/04/23 14:18 Hgb 13.80 g/dL (11.27 -16.99) 12/04/23 14:18 Hct 42.1 % (36-47) 12/04/23 14:18 MCV 91.1 fl (85-98) 12/04/23 14:18 MCH 29.9 pg (27-33) 12/04/23 14:18 MCHC 32.8 g/dL (30-55) 12/04/23 14:18 RDW 13.2 % (12.1-15.1 ) 12/04/23 14:18 Plt Count 207 10^3/cmm (157 -399) 12/04/23 14:18 MPV 11.0 fL (7.4-10.4 ) H 12/04/23 14:18 Neut % (Auto) 54.0 % 12/04/23 14:18 Lymph % (Auto) 34.7 % 12/04/23 14:18 [place] % (Auto) 6.8 % 12/04/23 14:18 Eos % (Auto) 3.8 % 12/04/23 14:18 Baso % (Auto) 0.5 % 12/04/23 14:18 Neut # (Auto) 3.23 10^3/uL (1.8 -7.7) 12/04/23 14:18 Lymph # (Auto) 2.1 10^3/uL (0.8- 4.8) 12/04/23 14:18 [place] # (Auto) 0.4 10^3/uL (0.2- 0.9) 12/04/23 14:18 Eos # (Auto) 0.2 10^3/uL (0.0- 0.8) 12/04/23 14:18 Baso # (Auto) 0.0 10^3/uL (0.0- 0.1) 12/04/23 14:18 Nucleated RBC % (a uto) 0 % 12/04/23 14:18 Nucleated RBCs # 0.0 /100WBC 12/04/23 14:18 Sodium 140 mmol/L (136-1 45) 12/04/23 14:18 Potassium 3.5 mmol/L (3.5-5 .1) 12/04/23 14:18 Chloride 104 mmol/L (98-10 7) 12/04/23 14:18 Carbon Dioxide 23 mmol/L (22-29) 12/04/23 14:18 Anion Gap 16.5 (5-19) 12/04/23 14:18 BUN 14 mg/dL (6-20) 12/04/23 14:18 Creatinine 1.4 mg/dL (0.5-0. 9) H 12/04/23 14:18 GFR Calculation 44.5 mL/min (90-1 30) L 12/04/23 14:18 Glucose 108 mg/dL (65-115 ) 12/04/23 14:18 Calculated Osmolal ity 291 mOsm/kg (285- 295) 12/04/23 14:18 Calcium 9.2 mg/dL (8.5-10 .5) 12/04/23 14:18 Total Bilirubin 0.3 mg/dL (0.15-1 .2) 12/04/23 14:18 AST 47 U/L (0-32) H 12/04/23 14:18 ALT 63 U/L (0-33) H 12/04/23 14:18 Alkaline Phosphata se 104 U/L (35-105) 12/04/23 14:18 Total Protein 7.6 g/dL (6.6-8.7 ) 12/04/23 14:18 Albumin 4.7 g/dL (3.5-5.2 ) 12/04/23 14:18 Globulin 2.9 g/dL (1.3-4.6 ) 12/04/23 14:18 Salicylates < 0.3 mg/dL (3-10 ) L 12/04/23 14:18 Acetaminophen < 5.0 ug/mL (10-3 0) L 12/04/23 14:18 Vitals: Last Vital Signs Temp 98.8 F 12/06/23 19:41 Pulse 104 H 12/07/23 09:22 Resp 18 12/07/23 09:22 BP 80/60 12/06/23 19:41 Pulse Ox 97 12/07/23 09:22 O2 Del Method Room Air 12/07/23 09:22 Discharge Plan Discharge Patient Disposition: Home Condition: Stable Prescriptions: Continued levothyroxine 100 mcg capsule 100 mcg PO DAILY Rx Instructions: take 30 minutes before meal. fluticasone propionate 50 mcg/actuation spray,suspension 1 spray intranasal DAILY PRN (Reason: Allergy Symptoms) Rx Instructions: administer into each nostril albuterol sulfate [Ventolin HFA] 90 mcg/actuation HFA aerosol inhaler 2 puff inhalation QID PRN (Reason: Shortness Of Breath Or Wheezing) polyethylene glycol 3350 [Miralax] 17 gram/dose powder 4 g PO DAILY PRN (Reason: Constipation) hydrocortisone 2.5 % cream 1 applic topical BID PRN (Reason: Itching) trazodone 100 mg tablet 100 mg PO .HS Qty: 30 1RF duloxetine 60 mg capsule,delayed release(DR/EC) 120 mg PO DAILY Qty: 60 1RF loratadine 10 mg tablet 10 mg PO DAILY topiramate 25 mg Tablet 75 mg PO BID Qty: 180 1RF risperidone 1 mg tablet 1 mg PO DIRECTED 30 Days Qty: 90 1RF Rx Instructions: take one tablet in am, two tablets at night prazosin 1 mg capsule 2 mg PO BEDTIME prednisone 1 mg tablet See Rx Instructions .ROUTE .COMPLEX Rx Instructions: Take two 1mg tab PO in the morning (0900) and one 1mg tab PO in the evening (1800). Discharge Orders: Discharge Order (Routine); Ordered 12/07/23 Ordered By: Bandar Pritchett Referrals: Ree Bui LCSW [Other] - 01/07/24 10:30 am (Follow up) Jaky Perry PMHNP [Staff Physician] - Fran Mera DO [Primary Care Provider] - 01/04/24 10:45 am (Follow up) Discharge Diet: Regular Discharge Activity: Resume usual activity Patient Instructions: Opioid Safety Discharge Attestations NPU Time Spent in Discharge Care*: less than 30 min Specific Discharge Activities: Specific discharge activities: educating patient, discussing with correctional case manager/social workers/dc planners, documenting/other paperwork and evaluating patient/reviewing data Coding Level of Care Code Acute Code for Chg Fwd Diagnoses Intermittent explosive disorder F63.81 Suicidal ideation R45.851 Mild intellectual disabilities F70 Dysthymia F34.1
[2023-12-07 13:58] VITALS: PULSE 104; RESP 18; O2SAT 97
[2023-12-07 14:00] VITALS: BP 101/77; PULSE 108; RESP 16; TEMP 36.6; O2SAT 95
== END 2023-12-07 15:00 | disposition home or self-care (01) | DRG 883 ==
LOC: ER 17:48 → NP 17:56
PROVIDERS: Admitting Provider Psychiatry & Neurology Psychiatry; Emergency Provider Family Medicine; PCP Internal Medicine; Visit Provider Psychiatry & Neurology Psychiatry
DX: F63.81 Intermittent explosive disorder (principal); R45.851 Suicidal ideations; F33.1 Major depressive disorder, recurrent, moderate; F70 Mild intellectual disabilities; F34.1 Dysthymic disorder
CPT/HCPCS: 80053; 80307; 85025; 97150; 97165; 99285; J3535; J7512; Q0144

== ENCOUNTER 2023-12-15 18:08 | Emergency (ER) | payer MEDICAID, SELFPAY ==
[2023-12-15 18:08] VITALS: BP 120/92; PULSE 71; TEMP 37.1; O2SAT 96
--- NOTE | 2023-12-15 18:14 | ECG_ITS ---
[facility] Test Date: 2023-12-15 Pat Name: Jessica Pichardo Department: Room: Gender: Female Digital Strategist: : 1995 Requested By: Diogenes Mustafa Order Number: [id number] Shannon MD: Javier Velasquez M.D. Measurements Intervals [place] Rate: 70 P: 52 VT: 172 QRS: 17 QRSD: 89 T: 19 QT: 400 QTc: 433 Interpretive Statements SINUS RHYTHM Compared to ECG 11/22/2023 16:36:47 Sinus arrhythmia no longer present ST (T wave) deviation no longer present Electronically Signed On 12-16-2023 17:18:06 CDT by Javier Velasquez M.D. [id number]
[2023-12-15 18:30] LABS: Basophils % 0.6 %; Eosinophils # 0.2 10^3/uL (0.0-0.8); Hematocrit 41.4 % (36-47); Lymphocytes # 2.7 10^3/uL (0.8-4.8); Lymphocytes % 42.7 %; Mean Corpuscular HGB Conc 33.3 g/dL (30-55); Mean Corpuscular Hemoglobin 29.9 pg (27-33); Mean Corpuscular Volume 89.8 fl (85-98); Mean Platelet Volume 10.9 fL (7.4-10.4); Monocytes # 0.5 10^3/uL (0.2-0.9); Monocytes % 7.4 %; Neutrophils # 2.91 10^3/uL (1.8-7.7); Nucleated Red Blood Cells % 0 %; Platelet Count 202 10^3/cmm (157-399); Red Blood Count 4.61 10^6/uL (3.85-5.65); White Blood Count 6.34 10^3/uL (3.29-11.43)
[2023-12-15 18:54] LABS: Alanine Aminotransferase 70 U/L (0-33); Albumin Level 4.6 g/dL (3.5-5.2); Alkaline Phosphatase 99 U/L (35-105); Anion Gap 17.7 (5-19); Aspartate Amino Transferase 47 U/L (0-32); Blood Urea Nitrogen 11 mg/dL (6-20); Calcium 9.5 mg/dL (8.5-10.5); Carbon Dioxide 23 mmol/L (22-29); Chloride 104 mmol/L (98-107); Creatine Phosphokinase 193 U/L (26-192); Creatinine Clr Calc Pharmacy 67.2686; Globulin 2.9 g/dL (1.3-4.6); Glomerular Filtration Rate 44.5 mL/min (90-130); Glucose 86 mg/dL (65-115); Magnesium 2.3 mg/dL (1.7-2.3); Osmolality Calculated 291 mOsm/kg (285-295); Potassium 3.7 mmol/L (3.5-5.1); Prolactin 25.38 ng/mL (4.8-23.3); Sodium 141 mmol/L (136-145); Total Bilirubin 0.5 mg/dL (0.15-1.2); Total Protein 7.5 g/dL (6.6-8.7)
--- NOTE | 2023-12-15 19:11 | ED_ITS ---
HPI - Seizure 2 General: Chief Complaint: Seizure Stated Complaint: seizure History of Present Illness: HPI Narrative: Patient presents to the ER by EMS from [facility] with seizure-like activity. Patient did not have any postictal state per EMS, she is alert and oriented x 4. She does have a history of seizures per her since , she is on duloxetine and Lamictal Topamax. But she is in [facility] currently and is on for sure she is getting these. Patient does have some mild intellectual disability. Review of Systems 2 General: Reports: 10 or more systems reviewed and unremarkable except in HPI and below PFSH ED 2 PFSH: Medical History Intermittent explosive disorder Nocturnal enuresis Psychiatric care On high dose antipsychotic drug therapy Major depressive disorder, recurrent, moderate Mild intellectual disabilities Family History Other Family history unknown Social History Smoking and tobacco/nicotine status: never used tobacco/nicotine Second hand smoke exposure: No Alcohol intake: never Substance/Drug Use: never Caregiver/support person: Yes Lives independently: No Household members: other Details: Deya Simmons Marital status: Single service: No Current occupational status: disabled Current gender identity: Female Special gilmer needs: No Agree to transfusion: Yes Physical Exam 2 Const: COMMON NORMALS: no acute distress, average body habitus, patient oriented x3, no limitations, healthy appearing, alert and well nourished HENMT: COMMON NORMALS: normocephalic, atraumatic, hearing grossly normal bilaterally, external ears normal, Normal external nose present and moist oral mucous membranes HEAD & SCALP: normocephalic and atraumatic NOSE: Normal external nose present EXTERNAL EAR: Yes external ears normal Neck/C-Spine: COMMON NORMALS: full ROM, no lymphadenopathy, supple, no meningeal signs, no JVD and Thyroid normal THYROID: Thyroid normal Chest: COMMONS NORMALS: normal inspection of the chest and normal palpation of entire chest wall Resp: COMMON NORMALS: normal respiratory effort, No retractions, No use of accessory muscles and clear to auscultation bilaterally AUSCULTATION: clear to auscultation bilaterally Cardio: COMMON NORMALS: no JVD, regular rate, regular rhythm, S1 normal heart sound present, S2 normal heart sound present, No gallops present (Cardio), No clicks present (Cardio), No murmurs present (Cardio) and No rub (Cardio) R ATE: regular rate RHYTHM: regular rhythm HEART SOUNDS: S1 normal heart sound present and S2 normal heart sound present GI: COMMON NORMALS: Normal to inspection, nondistended, normoactive bowel sounds present, Soft to palpation, non-tender, No hepatosplenomegaly present and no masses PALPATION: Yes Soft to palpation and Yes No hepatosplenomegaly present Neuro: COMMON NORMALS: patient oriented x3 SENSORIUM/ORIENTATION: Yes alert MENINGEAL SIGNS: Yes no meningeal signs Course 2 Vital Signs: Vital signs: Vital Signs Temperature 98.7 F 12/15/23 18:08 Pulse Rate 66 12/15/23 19:29 Blood Pressure 129/104 12/15/23 19:29 Pulse Oximetry 97 12/15/23 19:29 Oxygen Delivery Me thod Room Air 12/15/23 19:29 MDM - Seizure MDM Narrative Medical decision making narrative: Patient was worked up in a standard seizure type block fashion. CBC CMP magnesium CPK prolactin urine urine drug screen all of which essentially benign CK was mildly elevated at 193, prolactin mildly elevated 25.38, patient will be discharged back to the [facility] with diagnosis of seizure-like activity. Differential Diagnosis Seizure Differential Diagnosis: Likely generalized seizure and epileptic seizure Medical Records Attestation: I reviewed the patient's medical records. Lab Data Attestation: I reviewed the patient's lab results. 12/15/23 18:21 12/15/23 18:21 Labs: Laboratory Results WBC 6.34 10^3/uL (3.29-11.43) 12/15/23 18:21 RBC 4.61 10^6/uL (3.85-5.65) 12/15/23 18:21 Hgb 13.80 g/dL (11.27-16.99) 12/15/23 18:21 Hct 41.4 % (36-47) 12/15/23 18:21 MCV 89.8 fl (85-98) 12/15/23 18:21 MCH 29.9 pg (27-33) 12/15/23 18:21 MCHC 33.3 g/dL (30-55) 12/15/23 18:21 RDW 13.0 % (12.1-15.1) 12/15/23 18:21 Plt Count 202 10^3/cmm (157-399) 12/15/23 18:21 MPV 10.9 fL (7.4-10.4) H 12/15/23 18:21 Neut % (Auto) 46.0 % 12/15/23 18:21 Lymph % (Auto) 42.7 % 12/15/23 18:21 [place] % (Auto) 7.4 % 12/15/23 18:21 Eos % (Auto) 3.0 % 12/15/23 18:21 Baso % (Auto) 0.6 % 12/15/23 18:21 Neut # (Auto) 2.91 10^3/uL (1.8-7.7) 12/15/23 18:21 Lymph # (Auto) 2.7 10^3/uL (0.8-4.8) 12/15/23 18:21 [place] # (Auto) 0.5 10^3/uL (0.2-0.9) 12/15/23 18:21 Eos # (Auto) 0.2 10^3/uL (0.0-0.8) 12/15/23 18:21 Baso # (Auto) 0.0 10^3/uL (0.0-0.1) 12/15/23 18:21 Nucleated RBC % (auto) 0 % 12/15/23 18:21 Nucleated RBCs # 0.0 /100WBC 12/15/23 18:21 Sodium 141 mmol/L (136-145) 12/15/23 18:21 Potassium 3.7 mmol/L (3.5-5.1) 12/15/23 18:21 Chloride 104 mmol/L (98-107) 12/15/23 18:21 Carbon Dioxide 23 mmol/L (22-29) 12/15/23 18:21 Anion Gap 17.7 (5-19) 12/15/23 18:21 BUN 11 mg/dL (6-20) 12/15/23 18:21 Creatinine 1.4 mg/dL (0.5-0.9) H 12/15/23 18:21 GFR Calculation 44.5 mL/min (90-130) L 12/15/23 18:21 Glucose 86 mg/dL (65-115) 12/15/23 18:21 Calculated Osmolality 291 mOsm/kg (285-295) 12/15/23 18:21 Calcium 9.5 mg/dL (8.5-10.5) 12/15/23 18:21 Magnesium 2.3 mg/dL (1.7-2.3) 12/15/23 18:21 Total Bilirubin 0.5 mg/dL (0.15-1.2) 12/15/23 18:21 AST 47 U/L (0-32) H 12/15/23 18:21 ALT 70 U/L (0-33) H 12/15/23 18:21 Alkaline Phosphatase 99 U/L (35-105) 12/15/23 18:21 Creatine Kinase 193 U/L (26-192) H 12/15/23 18:21 Total Protein 7.5 g/dL (6.6-8.7) 12/15/23 18:21 Albumin 4.6 g/dL (3.5-5.2) 12/15/23 18:21 Globulin 2.9 g/dL (1.3-4.6) 12/15/23 18:21 Prolactin 25.38 ng/mL (4.8-23.3) H 12/15/23 18:21 Urine Color Yellow (Yellow) 12/15/23 19:25 Urine Appearance Clear (CLEAR) 12/15/23 19:25 Urine pH 5.5 (5-7) 12/15/23 19:25 Ur Specific [place] 1.012 (1.005-1.030) 12/15/23 19:25 Urine Protein Negative (Negative) 12/15/23 19:25 Urine Glucose (UA) Negative (Normal) 12/15/23 19:25 Urine Ketones Trace (Negative) 12/15/23 19:25 Urine Blood Negative (Negative) 12/15/23 19:25 Urine Nitrate Negative (Negative) 12/15/23 19: Urine Bilirubin Negative (Negative) 12/15/23 19:25 Urine Urobilinogen 1.0 mg/dL (Negative) 12/15/23 19:25 Ur Leukocyte Esterase Trace (Negative) 12/15/23 19:25 Urine RBC 0-2 /hpf (0-2) 12/15/23 19:25 Urine WBC 6-10 /hpf (0-5) 12/15/23 19:25 Ur Squamous Epith Cells 0-5 /hpf (0-5) 12/15/23 19:25 Amorphous Sediment Not Reportable 12/15/23 19:25 Urine Bacteria None seen /hpf (NONE) 12/15/23 19:25 Hyaline Casts 0.81 /lpf 12/15/23 19:25 Urine Opiates Screen Negative ng/mL (Negative) 12/15/23 19:25 Ur Barbiturates Screen Negative ng/mL (Negative) 12/15/23 19:25 Ur Phencyclidine Scrn Negative ng/mL (Negative) 12/15/23 19:25 Ur Amphetamines Screen Negative ng/mL (Negative) 12/15/23 19:25 U Benzodiazepines Scrn Negative ng/mL (Negative) 12/15/23 19:25 Urine Cocaine Screen Negative ng/mL (Negative) 12/15/23 19:25 U Marijuana (THC) Screen Negative ng/mL (Negative) 12/15/23 19:25 No radiology studies performed this visit Discharge Plan Discharge Patient Disposition: Home Clinical Impression: Seizure-like activity Condition: Stable Prescriptions: No Action levothyroxine 100 mcg capsule 100 mcg PO DAILY Rx Instructions: take 30 minutes before meal. lamotrigine 200 mg tablet 200 mg PO BID fluticasone propionate 50 mcg/actuation spray,suspension 1 spray intranasal DAILY PRN (Reason: Allergy Symptoms) Rx Instructions: administer into each nostril albuterol sulfate [Ventolin HFA] 90 mcg/actuation HFA aerosol inhaler 2 puff inhalation QID PRN (Reason: Shortness Of Breath Or Wheezing) polyethylene glycol 3350 [Miralax] 17 gram/dose powder 4 g PO DAILY PRN (Reason: Constipation) hydrocortisone 2.5 % cream 1 applic topical BID PRN (Reason: Itching) trazodone 100 mg tablet 100 mg PO .HS Qty: 30 1RF duloxetine 60 mg capsule,delayed release(DR/EC) 120 mg PO DAILY Qty: 60 1RF loratadine 10 mg tablet 10 mg PO DAILY topiramate 25 mg Tablet 75 mg PO BID Qty: 180 1RF risperidone 1 mg tablet 1 mg PO DIRECTED 30 Days Qty: 90 1RF Rx Instructions: take one tablet in am, two tablets at night prazosin 1 mg capsule 2 mg PO BEDTIME prednisone 1 mg tablet See Rx Instructions .ROUTE .COMPLEX Rx Instructions: Take two 1mg tab PO in the morning (0900) and one 1mg tab PO in the evening (1800). Discharge Orders: Discharge ED (Routine); Ordered 12/15/23 Ordered By: Diogenes Mustafa Referrals: Fran Mera DO [Primary Care Provider] - 1 week Patient Instructions: Seizures Activity Restrictions/Additional Instructions: Your workup essentially was unremarkable for any acute cause of your seizure- like activity. You will be discharged back to the custody of the [facility]'s department. Thank you for choosing [facility] for your healthcare needs today. Please realize that you were seen in the emergency department and that we are providing you with an emergency medical screening exam and this may not be a complete and all exclusive of all testing and/or medical workup we may need to determine your element or severity of your illness. It is very important that you follow-up as instructed with your primary care provider or specialist for the additional evaluation and to discuss your medical treatment plan. You may return to the emergency department should you have concerns or if your condition changes or worsens in any way. Coding Level of Care Code ED Wort Extractor for Carolina Figueroa
[2023-12-15 19:29] VITALS: BP 129/104; PULSE 66; O2SAT 97
[2023-12-15 19:33] LABS: Charge for UA Resulting for Rev
[2023-12-15 19:38] LABS: Bilirubin Urine Negative (Negative); Blood Urine Negative (Negative); Glucose Urine UA Negative (Normal); Ketones Urine Trace (Negative); Leukocyte Esterase Urine Trace (Negative); Nitrate Urine Negative (Negative); Protein Urine Negative (Negative); Specific Gravity, Urine 1.012 (1.005-1.030); Urine Appearance Clear (CLEAR); Urine Color Yellow (Yellow); pH Urine 5.5 (5-7)
[2023-12-15 19:45] LABS: Amphetamines Screen Urine Negative (Negative); Barbiturates Screen Urine Negative (Negative); Benzodiazepines Screen Urine Negative (Negative); Cocaine Screen Urine Negative (Negative); Opiate Screen Urine Negative (Negative); PCP Screen Urine Negative (Negative); THC Screen Urine Negative (Negative)
[2023-12-15 19:58] LABS: Bacteria Urine None Seen /hpf; Hyaline Casts Urine 0.81 /lpf; RBC Urine 0-2 /hpf (0-2); Squamous Epithelial Cell Urine 0-5 /hpf (0-5)
== END 2023-12-15 20:25 | disposition home or self-care (01) ==
PROVIDERS: Emergency Provider Emergency Medicine; PCP Internal Medicine
DX: R56.9 Unspecified convulsions (principal)
CPT/HCPCS: 36415; 80053; 80306; 81003; 81015; 82550; 83735; 84146; 85025; 93005; 99284

== ENCOUNTER 2023-12-21 10:28 | Emergency (ER) | payer MEDICAID, SELFPAY ==
[2023-12-21 10:36] VITALS: BP 99/69; PULSE 77; TEMP 36.9; O2SAT 97; BMI 31.9
--- NOTE | 2023-12-21 10:37 | ED.C_ITS ---
HPI - Psych 2 General: Chief Complaint: Psychiatric Symptoms Stated Complaint: SI Time Seen by Provider: 12/21/23 10:32 Source: patient Mode of arrival: ambulatory Limitations: no limitations History of Present Illness: 28-year-old female is very well-known to the ER patient's been seen here multiple times for psych related complaints in the past she had to psych admissions last month. Lives at [facility] home they state that she is very aggressive today and aggravated she had been picking at her arm and tried to jump out of a car she states she was upset with the staff member she denies being SI or HI. Associated symptoms: Deny suicidal ideation Review of Systems 2 Const: Denies: fever(s), chills, body aches or change in appetite ENMT: Denies: throat pain or dental pain Card: Denies: chest pain Resp: Denies: dyspnea GI: Denies: abdominal pain, nausea, vomiting or diarrhea Musc: Denies: neck pain or back pain Skin/Breast: Denies: rash Neuro: Denies: headache(s) Psych: Denies: suicidal ideation PFSH ED 2 PFSH: Medical History Intermittent explosive disorder Nocturnal enuresis Psychiatric care On high dose antipsychotic drug therapy Major depressive disorder, recurrent, moderate Mild intellectual disabilities Family History Other Family history unknown Social History Smoking and tobacco/nicotine status: never used tobacco/nicotine Second hand smoke exposure: No Alcohol intake: never Substance/Drug Use: never Caregiver/support person: Yes Lives independently: No Household members: other Details: Deya Simmons Marital status: Single service: No Current occupational status: disabled Current gender identity: Female Special gilmer needs: No Agree to transfusion: Yes Physical Exam 2 Const: COMMON NORMALS: no acute distress, patient oriented x3 and healthy appearing HENMT: COMMON NORMALS: normocephalic and atraumatic HEAD & SCALP: n ormocephalic and atraumatic Eye: COMMON NORMALS: conjunctivae normal CONJUNCTIVA: Yes conjunctivae normal Neck/C-Spine: COMMON NORMALS: full ROM and supple Chest: COMMONS NORMALS: normal inspection of the chest Resp: COMMON NORMALS: normal respiratory effort Cardio: COMMON NORMALS: regular rate, regular rhythm and No murmurs present (Cardio) RATE: regular rate RHYTHM: regular rhythm Extremity: COMMON NORMALS: normal to inspection and full ROM Neuro: COMMON NORMALS: patient oriented x3, moves all extremities and no focal motor deficits Psych: COMMON NORMALS: mental status grossly normal, Normal thought process present and cooperative THOUGHT PROCESS: Normal thought process present Skin: COMMON NORMALS: no rashes or lesions noted and no wounds GENERAL SKIN EXAM: no rashes or lesions noted Course 2 Vital Signs: Vital signs: Vital Signs Temperature 98.4 F 12/21/23 10:36 Pulse Rate 77 12/21/23 10:36 Blood Pressure 99/69 12/21/23 10:36 Pulse Oximetry 97 12/21/23 10:36 Oxygen Delivery Me thod Room Air 12/21/23 10:36 MDM - Psych Medical Decision Making Patient presents here with depression she is not suicidal she is seen in the ER by the psychiatrist who agrees she is stable for [facility] she is follow-up with PCP return if worsening. Medical Records I reviewed the patient's medical records. Lab Data I reviewed the patient's lab results. 12/21/23 11:07 12/21/23 11:07 Laboratory Results WBC 5.99 10^3/uL (3.29-11.43) 12/21/23 11:07 RBC 4.22 10^6/uL (3.85-5.65) 12/21/23 11:07 Hgb 12.60 g/dL (11.27-16.99) 12/21/23 11:07 Hct 38.5 % (36-47) 12/21/23 11:07 MCV 91.2 fl (85-98) 12/21/23 11:07 MCH 29.9 pg (27-33) 12/21/23 11:07 MCHC 32.7 g/dL (30-55) 12/21/23 11:07 RDW 13.3 % (12.1-15.1) 12/21/23 11:07 Plt Count 194 10^3/cmm (157-399) 12/21/23 11:07 MPV 11.4 fL (7.4-10.4) H 12/21/23 11:07 Neut % (Auto) 44.3 % 12/21/23 11:07 Lymph % (Auto) 41.9 % 12/21/23 11:07 [place] % (Auto) 8.3 % 12/21/23 11:07 Eos % (Auto) 4.5 % 12/21/23 11:07 Baso % (Auto) 0.7 % 12/21/23 11:07 Neut # (Auto) 2.65 10^3/uL (1.8-7.7) 12/21/23 11:07 Lymph # (Auto) 2.5 10^3/uL (0.8-4.8) 12/21/23 11:07 Independence # (Auto) 0.5 10^3/uL (0.2-0.9) 12/21/23 11:07 Eos # (Auto) 0.3 10^3/uL (0.0-0.8) 12/21/23 11:07 Baso # (Auto) 0.0 10^3/uL (0.0-0.1) 12/21/23 11:07 Nucleated RBC % (auto) 0 % 12/21/23 11:07 Nucleated RBCs # 0.0 /100WBC 12/21/23 11:07 Sodium 138 mmol/L (136-145) 12/21/23 11:07 Potassium 3.3 mmol/L (3.5-5.1) L 12/21/23 11:07 Chloride 105 mmol/L (98-107) 12/21/23 11:07 Carbon Dioxide 20 mmol/L (22-29) L 12/21/23 11:07 Anion Gap 16.3 (5-19) 12/21/23 11:07 BUN 14 mg/dL (6-20) 12/21/23 11:07 Creatinine 1.2 mg/dL (0.5-0.9) H 12/21/23 11:07 GFR Calculation 53.1 mL/min (90-130) L 12/21/23 11:07 Glucose 87 mg/dL (65-115) 12/21/23 11:07 Calculated Osmolality 286 mOsm/kg (285-295) 12/21/23 11:07 Calcium 9.0 mg/dL (8.5-10.5) 12/21/23 11:07 Total Bilirubin 0.2 mg/dL (0.15-1.2) 12/21/23 11:07 AST 53 U/L (0-32) H 12/21/23 11:07 ALT 74 U/L (0-33) H 12/21/23 11:07 Alkaline Phosphatase 99 U/L (35-105) 12/21/23 11:07 Total Protein 6.8 g/dL (6.6-8.7) 12/21/23 11:07 Albumin 4.4 g/dL (3.5-5.2) 12/21/23 11:07 Globulin 2.4 g/dL (1.3-4.6) 12/21/23 11:07 HCG, Qual Negative (Negative) 12/21/23 11:43 Salicylates < 0.3 mg/dL (3-10) L 12/21/23 11:07 Urine Opiates Screen Negative ng/mL (Negative) 12/21/23 11:43 Acetaminophen < 5.0 ug/mL (10-30) L 12/21/23 11:07 Ur Barbiturates Screen Negative ng/mL (Negative) 12/21/23 11:43 Ur Phencyclidine Scrn Negative ng/mL (Negative) 12/21/23 11:43 Ur Amphetamines Screen Negative ng/mL (Negative) 12/21/23 11:43 U Benzodiazepines Scrn Negative ng/mL (Negative) 12/21/23 11:43 Urine Cocaine Screen Negative ng/mL (Negative) 12/21/23 11:43 U Marijuana (THC) Screen Negative ng/mL (Negative) 12/21/23 11:43 Ethyl Alcohol < 10 mg/dL (0-10) 12/21/23 11:07 No radiology studies performed this visit Discharge Plan Discharge Patient Disposition: Home Clinical Impression: Depression Condition: Stable Prescriptions: No Action levothyroxine 100 mcg capsule 100 mcg PO DAILY Rx Instructions: take 30 minutes before meal. lamotrigine 200 mg tablet 200 mg PO BID fluticasone propionate 50 mcg/actuation spray,suspension 1 spray intranasal DAILY PRN (Reason: Allergy Symptoms) Rx Instructions: administer into each nostril polyethylene glycol 3350 [Miralax] 17 gram/dose powder 4 g PO DAILY PRN (Reason: Constipation) duloxetine 60 mg capsule,delayed release(DR/EC) 120 mg PO DAILY Qty: 60 1RF loratadine 10 mg tablet 10 mg PO DAILY topiramate 25 mg Tablet 75 mg PO BID Qty: 180 1RF risperidone 1 mg tablet 1 mg PO DIRECTED 30 Days Qty: 90 1RF Rx Instructions: take one tablet in am, two tablets at night prazosin 1 mg capsule 2 mg PO BEDTIME prednisone 1 mg tablet See Rx Instructions .ROUTE .COMPLEX Rx Instructions: Take two 1mg tab PO in the morning (0900) and one 1mg tab PO in the evening (1800). olanzapine 5 mg tablet 5 mg PO BEDTIME ibuprofen 200 mg tablet 400 mg PO Q8H PRN (Reason: Pain) trazodone 100 mg tablet 100 mg PO BEDTIME Discharge Orders: Discharge ED (Routine); Ordered 12/21/23 Ordered By: Suzie Alvarenga Referrals: Fran Mera DO [Primary Care Provider] - 4-7 days Discharge Diet: Advance as tolerated Discharge Activity: Resume usual activity Patient Instructions: Depression (ED) Coding Level of Care Code ED [employer] Apprentice for Carolina Figueroa
--- NOTE | 2023-12-21 10:50 | P.NPUCON_ITS ---
Providers/Reason for Consult Consulting Physican/Specialty*: Keron Darden MD/Psychiatry Reason for Consult*: suicidal ideation. Primary Care Provider: Fran Mera, Psych Consult HPI History of Present Illness Jessica Pichardo is a 28 year old female currently residing at the [facility] with a history of multiple inpatient hospitalizations including two in the last 30 days. Patient had a court hearing today at which time on the way home from her court hearing she had been upset and had allegedly attempted to jump out of a car. She had been picking at her arm and appeared noticeably aggravated. The patient on arrival here was interviewed and stated that she was tired and had not been sleeping well. She states that she is no longer having thoughts of hurting herself and is no longer upset at a staff member. She reports no current thoughts of cutting on herself and reports that she is able to contract for safety. She had reported having some occasional nightmares associated with her trauma in the past. She reports no recent changes in her mood since her last hospitalization 2 weeks ago. She has a past history of intermittent explosive disorder and major depressive disorder along with mild to mild to moderate cognitive impairment. Meds Home Medications and Allergies Home Medications Medication Instructions Recorded Confirmed Last Taken Type levothyroxine 100 mcg capsule 100 mcg PO DAILY 07/25/19 12/21/23 12/21/23 History loratadine 10 mg tablet 10 mg PO DAILY 11/11/21 12/21/23 12/21/23 History fluticasone propionate 50 1 spray intranasal DAILY PRN 07/28/23 12/21/23 Unknown History mcg/actuation nasal Allergy Symptoms spray,suspension polyethylene glycol 3350 17 4 g PO DAILY PRN Constipation 09/10/23 12/21/23 Unknown History gram/dose oral powder (Miralax) duloxetine 60 mg capsule,delayed 120 mg (2 x 60 mg) PO DAILY #60 11/03/23 12/21/23 12/21/23 Rx release caps risperidone 1 mg tablet 1 mg PO DIRECTED 30 days #90 11/24/23 12/21/23 12/21/23 Rx tabs topiramate 25 mg tablet 75 mg (3 x 25 mg) PO BID #180 tabs 11/24/23 12/21/23 12/21/23 Rx prazosin 1 mg capsule 2 mg PO BEDTIME 0712/21/23 12/20/23 History prednisone 1 mg tablet See Rx Instructions .Route .COMPLEX 12/05/23 12/21/23 12/21/23 History lamotrigine 200 mg tablet 200 mg PO BID 12/10/23 12/21/23 12/21/23 History ibuprofen 200 mg tablet 400 mg PO Q8H PRN Pain 12/21/23 12/21/23 Unknown History olanzapine 5 mg tablet 5 mg PO BEDTIME 12/21/23 12/21/23 12/20/23 History trazodone 100 mg tablet 100 mg PO BEDTIME 12/21/23 12/21/23 12/20/23 History Allergies Allergy/AdvReac Type Severity Reaction Status Date / Time divalproex sodium Allergy Unknown Unknown Verified 12/21/23 10:42 [From Depakote] adhesive tape Allergy Unknown Verified 12/21/23 10:42 cefpodoxime Allergy Unknown Verified 12/21/23 10:42 diazepam [From Valium] Allergy Unknown Verified 12/21/23 10:42 levomilnacipran Allergy Unknown Verified 12/21/23 10:42 [From Fetzima] Penicillins Allergy Unknown Verified 12/21/23 10:42 PFSH NPU PFSH: Medical History Intermittent explosive disorder Nocturnal enuresis Psychiatric care On high dose antipsychotic drug therapy Major depressive disorder, recurrent, moderate Mild intellectual disabilities Family History Other Family history unknown Social History Smoking and tobacco/nicotine status: never used tobacco/nicotine Second hand smoke exposure: No Alcohol intake: never Substance/Drug Use: never Caregiver/support person: Yes Lives independently: No Household members: other Details: Deya Simmons Marital status: Single service: No Current occupational status: disabled Current gender identity: Female Special gilmer needs: No Agree to transfusion: Yes Mental Status Exam MSE Comments: This is an obese white female with hospital scrubs on with limited grooming and adequate eye contact. No abnormal movements except for mild psychomotor retardation. Cooperative with exam in mild distress. Speech was slightly decreased in rate and volume and childlike. Mood described as a I want to go home affect slightly subdued. Thought process organized. Thought content: Patient denied suicidal or homicidal ideation, there were no delusions reported or noted, she denied any auditory or visual hallucinations. Attention and concentration appeared intact and memory was mostly reliable but none were formally tested. She is alert and oriented times person and place. Insight is poor. , judgment is limited and impulse control is poor. Intellectual ability is impaired and commensurate with mild cognitive impairment. Vitals/I&O/Wt Last Vital Signs Temp 98.4 F 12/21/23 10:36 Pulse 77 12/21/23 10:36 BP 99/69 12/21/23 10:36 Pulse Ox 97 12/21/23 10:36 O2 Del Method Room Air 12/21/23 10:36 Weight last 48 hrs Weight 92.533 kg A&P Assessment and plan (1) Intermittent explosive disorder: (2) Suicidal ideation: (3) Mild intellectual disabilities: (4) Dysthymia: Plan 28-year-old white female history of intellectual disability, intermittent explosive disorder, and depression currently residing in a nursing home with hx of aggressive outbursts and poor impulse control currently denying thoughts of self injury. 1. Recommend d/c back to [facility] and continue medications as prescribed today. Involuntary Hold Information 96 Hour Hold: 96 Hour Involuntary Admission: No Attestations NPU Medical Necessity Statement*: Inpatient hospitalization not recommended at this time. Coding Level of Care Code Acute Code for [facility] Fwd Diagnoses Intermittent explosive disorder F63.81 Suicidal ideation R45.851 Mild intellectual disabilities F70 Dysthymia F34.1
[2023-12-21 11:15] LABS: Basophils % 0.7 %; Eosinophils # 0.3 10^3/uL (0.0-0.8); Eosinophils % 4.5 %; Hematocrit 38.5 % (36-47); Lymphocytes # 2.5 10^3/uL (0.8-4.8); Lymphocytes % 41.9 %; Mean Corpuscular HGB Conc 32.7 g/dL (30-55); Mean Corpuscular Hemoglobin 29.9 pg (27-33); Mean Corpuscular Volume 91.2 fl (85-98); Mean Platelet Volume 11.4 fL (7.4-10.4); Monocytes # 0.5 10^3/uL (0.2-0.9); Monocytes % 8.3 %; Neutrophils # 2.65 10^3/uL (1.8-7.7); Neutrophils % 44.3 %; Nucleated Red Blood Cells % 0 %; Platelet Count 194 10^3/cmm (157-399); Red Blood Count 4.22 10^6/uL (3.85-5.65); Red Cell Distribution Width 13.3 % (12.1-15.1); White Blood Count 5.99 10^3/uL (3.29-11.43)
[2023-12-21 11:30] LABS: Alanine Aminotransferase 74 U/L (0-33); Albumin Level 4.4 g/dL (3.5-5.2); Alkaline Phosphatase 99 U/L (35-105); Anion Gap 16.3 (5-19); Aspartate Amino Transferase 53 U/L (0-32); Blood Urea Nitrogen 14 mg/dL (6-20); Carbon Dioxide 20 mmol/L (22-29); Chloride 105 mmol/L (98-107); Creatinine Clr Calc Pharmacy 80.7798; Globulin 2.4 g/dL (1.3-4.6); Glomerular Filtration Rate 53.1 mL/min (90-130); Glucose 87 mg/dL (65-115); Osmolality Calculated 286 mOsm/kg (285-295); Potassium 3.3 mmol/L (3.5-5.1); Sodium 138 mmol/L (136-145); Total Bilirubin 0.2 mg/dL (0.15-1.2); Total Protein 6.8 g/dL (6.6-8.7)
[2023-12-21 11:32] LABS: Acetaminophen < 5.0 ug/mL (10-30); Alcohol Level < 10 mg/dL (0-10); Salicylate < 0.3 mg/dL (3-10)
[2023-12-21 11:52] LABS: HCG Qualitative Urine. Negative (Negative)
[2023-12-21 12:00] LABS: Amphetamines Screen Urine Negative (Negative); Barbiturates Screen Urine Negative (Negative); Benzodiazepines Screen Urine Negative (Negative); Cocaine Screen Urine Negative (Negative); Opiate Screen Urine Negative (Negative); PCP Screen Urine Negative (Negative); THC Screen Urine Negative (Negative)
== END 2023-12-21 13:24 | disposition home or self-care (01) ==
PROVIDERS: Emergency Provider Emergency Medicine; PCP Internal Medicine
DX: F32.A Depression, unspecified (principal)
CPT/HCPCS: 36415; 80053; 80306; 80307; 81025; 85025; 99283

== ENCOUNTER 2024-01-16 11:47 | Emergency (ER) | payer MEDICAID, SELFPAY ==
[2024-01-16 12:13] VITALS: BP 112/76; PULSE 73; RESP 18; TEMP 36.7; O2SAT 98
--- NOTE | 2024-01-16 13:33 | CTR_ITS ---
PROCEDURE INFORMATION: Exam: CT Cervical Spine Without Contrast Exam date and time: 01/16/2024 2:07 PM Age: 28 years old Clinical indication: Injury or trauma; Fall; Blunt trauma; Additional info: Fall/hit head TECHNIQUE: Imaging protocol: Computed tomography of the cervical spine without contrast. Radiation optimization: All CT scans at this facility use at least one of these dose optimization techniques: automated exposure control; mA and/or kV adjustment per patient size (includes targeted exams where dose is matched to clinical indication); or iterative reconstruction. COMPARISON: CT head wo con* [id number] 01/16/2024 2:07 PM RADIATION DOSE METRICS: Total DLP (mGy-cm): 1160.7 FINDINGS: Bones: No acute fracture. Normal alignment. No significant disc bulge or herniation. No severe spinal canal stenosis. No significant neural foraminal narrowing. Lungs: Lung apices are normal. Soft tissues: Unremarkable. CT/CT cervical spin wo con* [id number] IMPRESSION: No acute findings.
--- NOTE | 2024-01-16 13:33 | CTR_ITS ---
PROCEDURE INFORMATION: Exam: CT Head Without Contrast Exam date and time: 01/16/2024 2:07 PM Age: 28 years old Clinical indication: Injury or trauma; Fall; Blunt trauma (contusions or hematomas); Additional info: Fall ht head/dizzy/nausea TECHNIQUE: Imaging protocol: Computed tomography of the head without contrast. Radiation optimization: All CT scans at this facility use at least one of these dose optimization techniques: automated exposure control; mA and/or kV adjustment per patient size (includes targeted exams where dose is matched to clinical indication); or iterative reconstruction. COMPARISON: CT head wo con* [id number] 03/21/2023 8:32 PM RADIATION DOSE METRICS: Total DLP (mGy-cm): 1148.2 FINDINGS: Brain: Normal. No hemorrhage. Unremarkable white matter. No mass effect. Cerebral ventricles: No ventriculomegaly. Paranasal sinuses: Visualized sinuses are unremarkable. No fluid levels. Mastoid air cells: Visualized mastoid air cells are well aerated. Bones: Unremarkable. No acute fracture. Soft tissues: Unremarkable. CT/CT head wo con* [id number] IMPRESSION: No acute intracranial abnormality.
--- NOTE | 2024-01-16 14:46 | ED_ITS ---
Documented by User: [email or web address] French 01/16/24 14:52 HPI - Head Injury General: Chief complaint: Head Injury Stated complaint: fall hit head Time Seen by Provider: 01/16/24 13:18 Source: patient and other (caregiver) Mode of arrival: ambulatory Limitations: no limitations History of Present Illness: Patient is a 28-year-old female who is brought into the emergency department by caregiver from [facility] due to a couple of falls prior to arrival. These falls were witnessed, caregiver states that they were simple trip and falls, however patient is adamant that she struck her head. Patient stating she is having dizziness and nausea at this time, and while she has not thrown up she feels like she is constantly going to. Caregiver is adamant that she did not hit her head, and patient has done this in the past. Patient at this time complaining of head pain, said that she heard a crack when she hit the floor. Vitals are normal, and there is no obvious neurological deficit noted at this time. Patient has psychiatric history and history of mental delay. MD Complaint: head injury and fall Onset (ago): hour(s) Place: home Loss of Consciousness: no Location of injury: occipital Other Injuries: none Associated symptoms: Reports nausea; Deny neck pain or vomiting Related Data Home Medications Medication Instructions Recorded Confirmed levothyroxine 100 mcg capsule 100 mcg PO DAILY 07/25/19 12/29/23 loratadine 10 mg tablet 10 mg PO DAILY 11/11/21 12/29/23 fluticasone propionate 50 1 spray intranasal DAILY PRN 07/28/23 12/29/23 mcg/actuation nasal Allergy Symptoms spray,suspension polyethylene glycol 3350 17 4 g PO DAILY PRN Constipation 09/10/23 12/29/23 gram/dose oral powder (Miralax) prednisone 1 mg tablet See Rx Instructions .Route .COMPLEX 12/05/23 12/29/23 lamotrigine 200 mg tablet 200 mg PO BID 12/10/23 12/29/23 ibuprofen 200 mg tablet 400 mg PO Q8H PRN Pain 12/21/23 12/29/23 Previous Rx's Medication Instructions Recorded topiramate 25 mg tablet 75 mg (3 x 25 mg) PO BID #180 tabs 11/24/23 risperidone 2 mg tablet (Risperdal) 2 mg PO BID #60 tabs 12/29/23 duloxetine 60 mg capsule,delayed 120 mg (2 x 60 mg) PO DAILY #60 01/04/24 release caps prazosin 2 mg capsule 2 mg PO .HS #30 caps 01/04/24 trazodone 100 mg tablet 100 mg PO BEDTIME #30 tabs 01/12/24 Allergies Allergy/AdvReac Type Severity Reaction Status Date / Time divalproex sodium Allergy Unknown Unknown Verified 12/29/23 12:00 [From Depakote] adhesive tape Allergy Unknown Verified 12/29/23 12:00 cefpodoxime Allergy Unknown Verified 12/29/23 12:00 diazepam [From Valium] Allergy Unknown Verified 12/29/23 12:00 levomilnacipran Allergy Unknown Verified 12/29/23 12:00 [From Fetzima] Penicillins Allergy Unknown Verified 12/29/23 12:00 Review of Systems General: Reports: 10 or more systems reviewed and unremarkable except in HPI and below Const: Reports: other (Fall/head injury); Denies: fever(s) or chills Eyes: Denies: change in vision ENMT: Denies: throat pain or ear or mastoid pain Card: Denies: chest pain Resp: Denies: dyspnea, productive cough or wheezing GI: Reports: nausea; Denies: abdominal pain, vomiting or diarrhea Musc: Denies: neck pain, back pain or joint pain Neuro: Reports: headache(s) and dizziness; Denies: numbness in extremities or weakness in extremities PFSH ED PFSH: Medical History Intermittent explosive disorder Nocturnal enuresis Psychiatric care On high dose antipsychotic drug therapy Major depressive disorder, recurrent, moderate Mild intellectual disabilities Family History Other Family history unknown Social History Smoking and tobacco/nicotine status: never used tobacco/nicotine Second hand smoke exposure: No Alcohol intake: never Substance/Drug Use: never Caregiver/support person: Yes Lives independently: No Household members: other Details: Deya Simmons Marital status: Single service: No Current occupational status: disabled Current gender identity: Female Special gilmer needs: No Agree to transfusion: Yes Physical Exam Const: COMMON NORMALS: no acute distress, patient oriented x3 and no limitations GENERAL APPEARANCE: cooperative, comfortable and well developed ORIENTATION/CONSCIOUSNESS: Yes awake, Yes oriented to person, Yes oriented to place and Yes oriented to time HENMT: COMMON NORMALS: normocephalic, atraumatic, hearing grossly normal bilaterally and Normal external nose present HEAD & SCALP: normal to inspection, normocephalic, atraumatic and scalp tenderness; no Apodaca's sign, no hematoma and no raccoon eyes FACE & SINUS: normal facial exam NOSE: Normal external nose present MOUTH: Normal oral and palatal mucosa present THROAT: posterior oropharynx normal Eye: COMMON NORMALS: Equal, round and reactive pupils present, EOMs intact bilaterally and conjunctivae normal CONJUNCTIVA: Yes conjunctivae normal PUPIL: Yes Equal, round and reactive pupils present Neck/C-Spine: COMMON NORMALS: full ROM, supple and no JVD Resp: COMMON NORMALS: normal respiratory effort, No retractions, No use of accessory muscles and clear to auscultation bilaterally AUSCULTATION: clear to auscultation bilaterally Cardio: COMMON NORMALS: no JVD, regular rate, regular rhythm, No clicks present (Cardio), No murmurs present (Cardio) and No rub (Cardio) RATE: regular rate RHYTHM: regular rhythm Extremity: COMMON NORMALS: normal to inspection, full ROM and capillary refill normal Neuro: COMMON NORMALS: patient oriented x3, CN's II-XII intact bilaterally, moves all extremities, no focal motor deficits and no sensory deficits noted SENSORIUM/ORIENTATION: Yes oriented to person, Yes oriented to place and Yes oriented to time Psych: COMMON NORMALS: mental status grossly normal and Normal thought process present THOUGHT PROCESS: Normal thought process present Skin: COMMON NORMALS: no rashes or lesions noted GENERAL SKIN EXAM: no rashes or lesions noted Course Vital Signs: Vital signs: Vital Signs Temperature 98.1 F 01/16/24 14:55 Pulse Rate 71 01/16/24 14:55 Respiratory Rate 16 01/16/24 14:55 Blood Pressure 115/74 01/16/24 14:55 Pulse Oximetry 99 01/16/24 14:55 Oxygen Delivery Me thod Room Air 01/16/24 12:13 MDM - Head Injury Medcial Decision Making Patient brought in by a caregiver from longterm after having a couple of falls where patient had stated that she hit her head. Caregiver states she did not hit her head, and patient has a history of similar incidences in the past. However patient was noting some dizziness and nausea, as well as some scalp tenderness on exam. Her vitals were normal and neurologically she was completely intact. CT head neck were obtained just to confirm no intracranial injury, which these were negative. Closed head injury suspected and return precautions were given. Paperwork filled out for longterm at caregivers request. Lab Data Radiology Impressions Cervical Spine CT 01/16/24 13:33 IMPRESSION: No acute findings. Head CT 01/16/24 13:33 IMPRESSION: No acute intracranial abnormality. All radiology interpretation(s) finalized by discharge Discharge Plan Discharge Patient Disposition: Home Clinical Impression: Closed head injury Qualifiers: Encounter type: initial encounter Qualified Code(s): S09.90XA - Unspecified injury of head, initial encounter Fall Qualifiers: Encounter type: initial encounter Qualified Code(s): W19.XXXA - Unspecified fall, initial encounter Condition: Stable Prescriptions: No Action levothyroxine 100 mcg capsule 100 mcg PO DAILY Rx Instructions: take 30 minutes before meal. lamotrigine 200 mg tablet 200 mg PO BID risperidone [Risperdal] 2 mg tablet 2 mg PO BID Qty: 60 1RF fluticasone propionate 50 mcg/actuation spray,suspension 1 spray intranasal DAILY PRN (Reason: Allergy Symptoms) Rx Instructions: administer into each nostril polyethylene glycol 3350 [Miralax] 17 gram/dose powder 4 g PO DAILY PRN (Reason: Constipation) duloxetine 60 mg capsule,delayed release(DR/EC) 120 mg PO DAILY Qty: 60 1RF prazosin 2 mg capsule 2 mg PO .HS Qty: 30 2RF trazodone 100 mg tablet 100 mg PO BEDTIME Qty: 30 2RF loratadine 10 mg tablet 10 mg PO DAILY topiramate 25 mg Tablet 75 mg PO BID Qty: 180 1RF prednisone 1 mg tablet See Rx Instructions .ROUTE .COMPLEX Rx Instructions: Take two 1mg tab PO in the morning (0900) and one 1mg tab PO in the evening (1800). ibuprofen 200 mg tablet 400 mg PO Q8H PRN (Reason: Pain) Discharge Orders: Discharge ED (Routine); Ordered 01/16/24 Ordered By: Heath Martel Referrals: Fran Mera DO [Primary Care Provider] - Discharge Diet: Usual diet Discharge Activity: Increase activity as tolerated Patient Instructions: Head Injury (ED) Activity Restrictions/Additional Instructions: Monitor closely for any severe vomiting or other neurological changes and return as needed. Avoid any recurrent injuries to the head. Please follow-up with your primary care as needed. Coding Level of Care Code ED Place Change Roof Bolter for Chg Fwd Documented by User: Niles Simons DO 01/18/24 05:44 HPI - Head Injury General: Chief complaint: Head Injury Stated complaint: fall hit head Time Seen by Provider: 01/16/24 13:18 Related Data Home Medications Medication Instructions Recorded Confirmed levothyroxine 100 mcg capsule 100 mcg PO DAILY 07/25/19 12/29/23 loratadine 10 mg tablet 10 mg PO DAILY 11/11/21 12/29/23 fluticasone propionate 50 1 spray intranasal DAILY PRN 07/28/23 12/29/23 mcg/actuation nasal Allergy Symptoms spray,suspension polyethylene glycol 3350 17 4 g PO DAILY PRN Constipation 09/10/23 12/29/23 gram/dose oral powder (Miralax) prednisone 1 mg tablet See Rx Instructions .Route .COMPLEX 12/05/23 12/29/23 lamotrigine 200 mg tablet 200 mg PO BID 12/10/23 12/29/23 ibuprofen 200 mg tablet 400 mg PO Q8H PRN Pain 12/21/23 12/29/23 Previous Rx's Medication Instructions Recorded topiramate 25 mg tablet 75 mg (3 x 25 mg) PO BID #180 tabs 11/24/23 risperidone 2 mg tablet (Risperdal) 2 mg PO BID #60 tabs 12/29/23 duloxetine 60 mg capsule,delayed 120 mg (2 x 60 mg) PO DAILY #60 01/04/24 release caps prazosin 2 mg capsule 2 mg PO .HS #30 caps 01/04/24 trazodone 100 mg tablet 100 mg PO BEDTIME #30 tabs 01/12/24 Allergies Allergy/AdvReac Type Severity Reaction Status Date / Time divalproex sodium Allergy Unknown Unknown Verified 12/29/23 12:00 [From Depakote] adhesive tape Allergy Unknown Verified 12/29/23 12:00 cefpodoxime Allergy Unknown Verified 12/29/23 12:00 diazepam [From Valium] Allergy Unknown Verified 12/29/23 12:00 levomilnacipran Allergy Unknown Verified 12/29/23 12:00 [From Fetzima] Penicillins Allergy Unknown Verified 12/29/23 12:00 PFS ED PFSH: Medical History Intermittent explosive disorder Nocturnal enuresis Psychiatric care On high dose antipsychotic drug therapy Major depressive disorder, recurrent, moderate Mild intellectual disabilities Family History Other Family history unknown Social History Smoking and tobacco/nicotine status: never used tobacco/nicotine Second hand smoke exposure: No Alcohol intake: never Substance/Drug Use: never Caregiver/support person: Yes Lives independently: No Household members: other Details: Deya Simmons Marital status: Single service: No Current occupational status: disabled Current gender identity: Female Special gilmer needs: No Agree to transfusion: Yes Course Vital Signs: Vital signs: Vital Signs Temperature 98.1 F 01/16/24 14:55 Pulse Rate 71 01/16/24 14:55 Respiratory Rate 16 01/16/24 14:55 Blood Pressure 115/74 01/16/24 14:55 Pulse Oximetry 99 01/16/24 14:55 Oxygen Delivery Me thod Room Air 01/16/24 12:13 MDM - Head Injury Medcial Decision Making Patient brought in by a caregiver from longterm after having a couple of falls where patient had stated that she hit her head. Caregiver states she did not hit her head, and patient has a history of similar incidences in the past. However patient was noting some dizziness and nausea, as well as some scalp tenderness on exam. Her vitals were normal and neurologically she was completely intact. CT head neck were obtained just to confirm no intracranial injury, which these were negative. Closed head injury suspected and return precautions were given. Paperwork filled out for longterm at caregivers request. Chart reviewed Lab Data Radiology Impressions Cervical Spine CT 01/16/24 13:33 IMPRESSION: No acute findings. Head CT 01/16/24 13:33 IMPRESSION: No acute intracranial abnormality. Discharge Plan Discharge Patient Disposition: Home Clinical Impression: Closed head injury Qualifiers: Encounter type: initial encounter Qualified Code(s): S09.90XA - Unspecified injury of head, initial encounter Fall Qualifiers: Encounter type: initial encounter Qualified Code(s): W19.XXXA - Unspecified fall, initial encounter Condition: Stable Prescriptions: No Action levothyroxine 100 mcg capsule 100 mcg PO DAILY Rx Instructions: take 30 minutes before meal. lamotrigine 200 mg tablet 200 mg PO BID risperidone [Risperdal] 2 mg tablet 2 mg PO BID Qty: 60 1RF fluticasone propionate 50 mcg/actuation spray,suspension 1 spray intranasal DAILY PRN (Reason: Allergy Symptoms) Rx Instructions: administer into each nostril polyethylene glycol 3350 [Miralax] 17 gram/dose powder 4 g PO DAILY PRN (Reason: Constipation) duloxetine 60 mg capsule,delayed release(DR/EC) 120 mg PO DAILY Qty: 60 1RF prazosin 2 mg capsule 2 mg PO .HS Qty: 30 2RF trazodone 100 mg tablet 100 mg PO BEDTIME Qty: 30 2RF loratadine 10 mg tablet 10 mg PO DAILY topiramate 25 mg Tablet 75 mg PO BID Qty: 180 1RF prednisone 1 mg tablet See Rx Instructions .ROUTE .COMPLEX Rx Instructions: Take two 1mg tab PO in the morning (0900) and one 1mg tab PO in the evening (1800). ibuprofen 200 mg tablet 400 mg PO Q8H PRN (Reason: Pain) Discharge Orders: Discharge ED (Routine); Ordered 01/16/24 Ordered By: Heath Martel Referrals: Fran Mera DO [Primary Care Provider] - Discharge Diet: Usual diet Discharge Activity: Increase activity as tolerated Patient Instructions: Head Injury (ED) Activity Restrictions/Additional Instructions: Monitor closely for any severe vomiting or other neurological changes and return as needed. Avoid any recurrent injuries to the head. Please follow-up with your primary care as needed. Coding Level of Care Code ED Place Change Roof Bolter for Carolina Figueroa
[2024-01-16 14:55] VITALS: BP 115/74; PULSE 71; RESP 16; TEMP 36.7; O2SAT 99
== END 2024-01-16 14:54 | disposition home or self-care (01) ==
PROVIDERS: Emergency Provider Physician Assistant; PCP Internal Medicine
DX: S09.8XXA Other specified injuries of head, initial encounter (principal); W01.0XXA Fall on same level from slipping, tripping and stumbling without subsequent striking against object, initial encounter
CPT/HCPCS: 70450; 72125; 99284

== ENCOUNTER → 2024-01-20 10:30 | Outpatient (BNVA) | payer MEDICAID, SELFPAY | PROVIDERS: PCP Internal Medicine; Referring Provider Internal Medicine; Visit Provider Internal Medicine | DX: E23.0 Hypopituitarism (principal); E03.8 Other specified hypothyroidism; E27.40 Unspecified adrenocortical insufficiency; Z79.890 Hormone replacement therapy | CPT/HCPCS: 36415; 80053; 84439; 99204 ==

== ENCOUNTER 2024-02-19 16:31 | Inpatient (IN) | payer MEDICAID, SELFPAY ==
[2024-02-19 16:33] VITALS: BP 132/73; PULSE 73; RESP 18; TEMP 36.4; O2SAT 98
--- NOTE | 2024-02-19 16:48 | W.ED.PSYCHS ---
HPI - Psych General: Chief Complaint: Psychiatric Symptoms Stated Complaint: SI Time Seen by Provider: 02/19/24 16:37 History of Present Illness: Patient is a nontoxic 28-year-old female with history of developmental delay and mood disorder who presents to the ER after an outburst at her nursing home. Patient states she had gotten upset because she got sad because she was missing her mother. She states she really did not have any significant outburst and has no acute complaints currently. She adamantly denies having any suicidal ideation or thoughts. She denies any physical complaints and states she feels perfectly fine and would like to go back to the nursing home. Patient states she has been doing quite a bit better from a mood standpoint but became sad this afternoon and just had a mild outburst. Related Data Home Medications Medication Instructions Recorded Confirmed levothyroxine 100 mcg capsule 100 mcg PO DAILY 07/25/19 02/11/24 loratadine 10 mg tablet 10 mg PO DAILY 11/11/21 02/11/24 fluticasone propionate 50 1 spray intranasal DAILY PRN 07/28/23 02/11/24 mcg/actuation nasal Allergy Symptoms spray,suspension polyethylene glycol 3350 17 4 g PO DAILY PRN Constipation 09/10/23 02/11/24 gram/dose oral powder (Miralax) prednisone 1 mg tablet See Rx Instructions .Route .COMPLEX 12/05/23 02/11/24 ibuprofen 200 mg tablet 400 mg PO Q8H PRN Pain 12/21/23 02/11/24 albuterol sulfate 90 mcg/actuation 2 puff inhalation Q6H PRN 01/20/24 02/11/24 aerosol inhaler (Ventolin HFA) bismuth subsalicylate 525 mg 525 mg PO TID PRN 01/20/24 02/11/24 tablet (Pepto-Bismol Ultra) hydrocortisone 2.5 % topical cream topical 01/20/24 02/11/24 with perineal applicator ondansetron HCl 4 mg tablet 4 mg PO Q8H 01/20/24 02/11/24 Previous Rx's Medication Instructions Recorded duloxetine 60 mg capsule,delayed 120 mg (2 x 60 mg) PO DAILY #60 01/04/24 release caps prazosin 2 mg capsule 2 mg PO .HS #30 caps 01/04/24 trazodone 100 mg tablet 100 mg PO BEDTIME #30 tabs 01/12/24 clonazepam 0.5 mg tablet 0.5 mg PO BID #60 tabs 02/11/24 lamotrigine 200 mg tablet 200 mg PO BID #60 tabs 02/15/24 topiramate 25 mg tablet 75 mg (3 x 25 mg) PO BID #180 tabs 02/15/24 risperidone 2 mg tablet (Risperdal) 2 mg PO BID #60 tabs 02/19/24 Allergies Allergy/AdvReac Type Severity Reaction Status Date / Time divalproex sodium Allergy Unknown Unknown Verified 02/11/24 08:55 [From Depakote] adhesive tape Allergy Unknown Verified 02/11/24 08:55 cefpodoxime Allergy Unknown Verified 02/11/24 08:55 diazepam [From Valium] Allergy Unknown Verified 02/11/24 08:55 levomilnacipran Allergy Unknown Verified 02/11/24 08:55 [From Fetzima] Penicillins Allergy Unknown Verified 02/11/24 08:55 Review of Systems Const: Denies: fever(s), chills or diaphoresis Card: Denies: chest pain Resp: Denies: dyspnea GI: Denies: abdominal pain, nausea or vomiting Skin/Breast: Denies: rash Neuro: Denies: headache(s) PFSH ED PFSH: Medical History Intermittent explosive disorder Nocturnal enuresis Psychiatric care On high dose antipsychotic drug therapy Major depressive disorder, recurrent, moderate Mild intellectual disabilities Family History Other Family history unknown Social History Smoking and tobacco/nicotine status: never used tobacco/nicotine Second hand smoke exposure: No Alcohol intake: never Substance/Drug Use: never Caregiver/support person: Yes Lives independently: No Household members: other Details: Deya Simmons Marital status: Single service: No Current occupational status: disabled Current gender identity: Female Special gilmer needs: No Agree to transfusion: Yes Physical Exam Const: COMMON NORMALS: no acute distress, average body habitus, alert and well nourished GENERAL APPEARANCE: cooperative ORIENTATION/CONSCIOUSNESS: Yes awake OTHER: Nontoxic 28-year-old female who appears to have some degree of developmental delay and in no acute distress HENMT: COMMON NORMALS: normocephalic and atraumatic HEAD & SCALP: normocephalic and atraumatic Eye: COMMON NORMALS: conjunctivae normal CONJUNCTIVA: Yes conjunctivae normal Neck/C-Spine: GENERAL: Yes normal visual inspection Resp: COMMON NORMALS: normal respiratory effort, No retractions and No use of accessory muscles Cardio: COMMON NORMALS: regular rhythm and Peripheral pulses 2+ throughout RHYTHM: regular rhythm PERIPHERAL PULSES: Peripheral pulses 2+ throughout GI: COMMON NORMALS: Soft to palpation and non-tender PALPATION: Yes Soft to palpation Extremity: COMMON NORMALS: full ROM and no pedal edema Neuro: COMMON NORMALS: no focal motor deficits SENSORIUM/ORIENTATION: Yes alert Psych: COMMON NORMALS: mental status grossly normal and cooperative Skin: COMMON NORMALS: no rashes or lesions noted GENERAL SKIN EXAM: no rashes or lesions noted Course Vital Signs: Vital signs: Vital Signs Temperature 97.6 F 02/19/24 16:33 Pulse Rate 73 02/19/24 16:33 Respiratory Rate 18 02/19/24 16:33 Blood Pressure 132/73 02/19/24 16:33 Pulse Oximetry 98 02/19/24 16:33 Oxygen Delivery Me thod Room Air 02/19/24 16:33 MDM - Psych Medical Decision Making Patient is a 28-year-old female with a history of developmental delay and mental health disease who was brought to the ER due to outburst at her nursing home today. She has no acute physical complaints currently. She adamantly denies having any suicidal ideation or thoughts of self-harm and was very appropriate here. She does not have any desire for inpatient hospitalization nor do I see any indication for such. She has no acute physical complaints and do not feel that labs or any imaging would be of significant benefit. She is comfortable discharge back to the nursing home facility. No radiology studies performed this visit Discharge Plan Discharge Patient Disposition: Home Clinical Impression: Mild intellectual disabilities, Outbursts of explosive behavior Condition: Stable Prescriptions: No Action levothyroxine 100 mcg capsule 100 mcg PO DAILY Rx Instructions: take 30 minutes before meal. clonazepam 0.5 mg tablet 0.5 mg PO BID Qty: 60 1RF fluticasone propionate 50 mcg/actuation spray,suspension 1 spray intranasal DAILY PRN (Reason: Allergy Symptoms) Rx Instructions: administer into each nostril polyethylene glycol 3350 [Miralax] 17 gram/dose powder 4 g PO DAILY PRN (Reason: Constipation) hydrocortisone 2.5 % cream with perineal applicator topical Pepto-Bismol Ultra 525 mg tablet 525 mg PO TID PRN Rx Instructions: do not exceed 8 doses in a 24 hour period ondansetron HCl 4 mg tablet 4 mg PO Q8H albuterol sulfate [Ventolin HFA] 90 mcg/actuation HFA aerosol inhaler 2 puff inhalation Q6H PRN duloxetine 60 mg capsule,delayed release(DR/EC) 120 mg PO DAILY Qty: 60 1RF prazosin 2 mg capsule 2 mg PO .HS Qty: 30 2RF trazodone 100 mg tablet 100 mg PO BEDTIME Qty: 30 2RF topiramate 25 mg tablet 75 mg PO BID Qty: 180 1RF lamotrigine 200 mg tablet 200 mg PO BID Qty: 60 2RF risperidone [Risperdal] 2 mg tablet 2 mg PO BID Qty: 60 1RF loratadine 10 mg tablet 10 mg PO DAILY prednisone 1 mg tablet See Rx Instructions .ROUTE .COMPLEX Rx Instructions: Take two 1mg tab PO in the morning (0900) and one 1mg tab PO in the evening (1800). ibuprofen 200 mg tablet 400 mg PO Q8H PRN (Reason: Pain) Discharge Orders: Discharge ED (Routine); Ordered 02/19/24 Ordered By: Kj Jones Referrals: Fran Mera DO [Primary Care Provider] - Discharge Diet: Usual diet Discharge Activity: Resume usual activity Patient Instructions: Opioid Safety, Pain Management Activity Restrictions/Additional Instructions: Continue home medications as previously directed. Return to the ER for any concerns. Coding Level of Care Code ED Yarn Mer[employer] Operator for Carolina Figueroa
[2024-02-19 17:46] LABS: HCG Qualitative Urine. Negative (Negative)
[2024-02-19 17:50] LABS: Bilirubin Urine Negative (Negative); Blood Urine Negative (Negative); Glucose Urine UA Negative (Normal); Ketones Urine Negative (Negative); Leukocyte Esterase Urine Negative (Negative); Nitrate Urine Negative (Negative); Protein Urine Negative (Negative); Specific Gravity, Urine 1.015 (1.005-1.030); Urine Appearance Clear (CLEAR); Urine Color Yellow (Yellow); pH Urine 5.5 (5-7)
[2024-02-19 17:53] LABS: Add Urine Microscopic? YES; Bacteria Urine None Seen /hpf; RBC Urine 0-2 /hpf (0-2); Squamous Epithelial Cell Urine 0-5 /hpf (0-5); WBC Urine 0-5 /hpf (0-5)
[2024-02-19 17:57] LABS: Amphetamines Screen Urine Negative (Negative); Barbiturates Screen Urine Negative (Negative); Benzodiazepines Screen Urine Negative (Negative); Cocaine Screen Urine Negative (Negative); Opiate Screen Urine Negative (Negative); PCP Screen Urine Negative (Negative); THC Screen Urine Negative (Negative)
[2024-02-19 19:06] LABS: Basophils # 0.1 10^3/uL (0.0-0.1); Basophils % 0.7 %; Eosinophils # 0.2 10^3/uL (0.0-0.8); Eosinophils % 2.8 %; Hematocrit 37.9 % (36-47); Lymphocytes # 2.9 10^3/uL (0.8-4.8); Lymphocytes % 40.5 %; Mean Corpuscular HGB Conc 32.5 g/dL (30-55); Mean Corpuscular Hemoglobin 30.2 pg (27-33); Mean Corpuscular Volume 93.1 fl (85-98); Mean Platelet Volume 10.5 fL (7.4-10.4); Monocytes # 0.5 10^3/uL (0.2-0.9); Monocytes % 6.9 %; Neutrophils # 3.52 10^3/uL (1.8-7.7); Neutrophils % 48.7 %; Nucleated Red Blood Cells % 0 %; Platelet Count 185 10^3/cmm (157-399); Red Blood Count 4.07 10^6/uL (3.85-5.65); Red Cell Distribution Width 13.5 % (12.1-15.1); White Blood Count 7.23 10^3/uL (3.29-11.43)
[2024-02-19 19:25] LABS: Alanine Aminotransferase 39 U/L (0-33); Albumin Level 4.2 g/dL (3.5-5.2); Alkaline Phosphatase 78 U/L (35-105); Anion Gap 14.8 (5-19); Aspartate Amino Transferase 32 U/L (0-32); Blood Urea Nitrogen 15 mg/dL (6-20); Calcium 8.6 mg/dL (8.5-10.5); Carbon Dioxide 23 mmol/L (22-29); Chloride 103 mmol/L (98-107); Globulin 2.6 g/dL (1.3-4.6); Glomerular Filtration Rate 48.4 mL/min (90-130); Glucose 93 mg/dL (65-115); Osmolality Calculated 285 mOsm/kg (285-295); Potassium 3.8 mmol/L (3.5-5.1); Sodium 137 mmol/L (136-145); Total Bilirubin 0.2 mg/dL (0.15-1.2); Total Protein 6.8 g/dL (6.6-8.7)
[2024-02-19 19:27] LABS: Acetaminophen < 5.0 ug/mL (10-30); Alcohol Level < 10 mg/dL (0-10); Salicylate < 0.3 mg/dL (3-10)
--- NOTE | 2024-02-19 21:07 | PC.NURSE ---
ED Nurse Leidy stated that this patients guardian was notified.
[2024-02-19 21:11] VITALS: BP 124/71; PULSE 69; RESP 16; O2SAT 99
[2024-02-19 21:26] VITALS: BP 103/72; PULSE 82; RESP 17; TEMP 36.6; O2SAT 95
--- NOTE | 2024-02-19 22:20 | PC.NURSE ---
Notified Retort Firer that patient was 96'd in ED and patient has a guardian.
[2024-02-20 06:00] VITALS: BP 94/64; PULSE 78; RESP 15; O2SAT 96
--- NOTE | 2024-02-20 09:11 | PC.NURSE ---
PT CURRENTLY DENIES SI/HI/AH/VH. PT CURRENTLY DENIES DEPRESSION. PT ENDORSES ANXIETY RATING IT A 2/10 ON A 0-10 SCALE WHERE 0 IS NONE AND 10 IS THE WORST POSSIBLE. PT IS INTERMITTENTLY TEARFUL DURING ASSESSMENT. PT IS WANTING TO SPEAK AND SEE HER MOTHER HOWEVER HER GUARDIAN IS NOT WILLING ALLOW VISITATION WITH MOTHER. PT WAS COOPERATIVE WITH ASSESSMENT. PT STATES THE LAST TIME SHE FELT SUICIDAL WAS YESTERDAY HOWEVER STATED I'M GOOD NOW I WANT TO GO HOME. PT CURRENT NEEDS ARE MET AT THIS TIME.
[2024-02-20] MEDS: duloxetine 60 mg Capsule 120 MG PO (09:34)
[2024-02-20] MEDS: loratadine 10 mg Tablet PO (09:35)
[2024-02-20] MEDS: CLONazepam 0.5 mg Tablet PO ×2 (09:35→17:45)
[2024-02-20] MEDS: lamoTRIgine 100 mg Tablet 200 MG PO ×2 (09:35→17:45)
[2024-02-20] MEDS: risperiDONE 2 mg Tablet PO ×2 (09:35→17:45)
[2024-02-20] MEDS: topiramate 25 mg Tablet 75 MG PO ×2 (09:35→17:45)
[2024-02-20] MEDS: predniSONE 1 mg Tablet 2 MG PO (09:36)
[2024-02-20] MEDS: hyDROXYzine 25 mg Capsule 50 MG PO (09:36)
[2024-02-20] MEDS: levothyroxine 100 mcg Tablet PO (09:36)
--- NOTE | 2024-02-20 11:54 | W.PM.NPUH&PS ---
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 She is alert and oriented times person and place. Insight, judgment and impulse control are impaired. Intellectual ability is impaired. Vitals/I&O/Wt Last Vital Signs Temp 98 F 02/19/24 21:26 Pulse 78 02/20/24 06:00 Resp 15 02/20/24 06:00 BP 94/64 02/20/24 06:00 Pulse Ox 96 02/20/24 06:00 O2 Del Method Room Air 02/20/24 06:00 Weight last 48 hrs Weight 72.575 kg Data NPU 02/19/24 19:00 02/19/24 19:00 A&P Assessment and plan (1) Intermittent explosive disorder: (2) Suicidal ideation: (3) Mild intellectual disabilities: (4) Dysthymia: Plan 28-year-old white female history of intellectual disability, intermittent explosive disorder, and depression currently residing in a [facility] with current reports of homicidal threats and aggressive threats earlier today with multiple hospitalizations with similar presentations. We will evaluate for safety and identify whether this is a recent decline versus consistent with baseline which would we would recommend a more rapid therapeutic discharge in the next day or so. 1. Encourage individual group and milieu therapy. 2. We will continue current psychotropic medications and other outpatient medications. We will review medications and consider discharge likely in 48 hours. 3. Therapeutic observation 15-minute checks on the unit for safety 4. We will contact facility and guardian and explore safety plan for discharge as soon as it is appropriate. Involuntary Hold Information 96 Hour Hold: 96 Hour Involuntary Admission: No Attestations NPU Medical Necessity Statement*: Patient hospitalization is medically necessary and deemed to be the clinically appropriate intervention at this time. We will monitor and initiate medications while making changes as indicated. The patient's likely length of stay is 2-3 days. Coding Level of Care Code Acute Code for [facility] Fwd Diagnoses Intermittent explosive disorder F63.81 Suicidal ideation R45.851 Mild intellectual disabilities F70 Dysthymia F34.1
[2024-02-20 14:00] VITALS: BP 99/67; PULSE 110; RESP 18; TEMP 36.8; O2SAT 96
[2024-02-20] MEDS: predniSONE 1 mg Tablet PO (17:45)
[2024-02-20 19:28] VITALS: BP 96/57; PULSE 92; RESP 16; TEMP 36.4; O2SAT 95
[2024-02-20] MEDS: prazosin 1 mg Capsule 2 MG PO (21:35)
[2024-02-20] MEDS: trazodone 100 mg Tablet PO (21:36)
[2024-02-21 06:00] VITALS: BP 89/58; PULSE 60; RESP 16; TEMP 36.4; O2SAT 97; BMI 31.4
[2024-02-21] MEDS: topiramate 25 mg Tablet 75 MG PO ×2 (08:52→17:17)
[2024-02-21] MEDS: predniSONE 1 mg Tablet 2 MG PO (08:52)
[2024-02-21] MEDS: duloxetine 60 mg Capsule 120 MG PO (08:53)
[2024-02-21] MEDS: levothyroxine 100 mcg Tablet PO (08:53)
[2024-02-21] MEDS: lamoTRIgine 100 mg Tablet 200 MG PO ×2 (08:53→17:16)
[2024-02-21] MEDS: CLONazepam 0.5 mg Tablet PO ×2 (08:53→17:17)
[2024-02-21] MEDS: risperiDONE 2 mg Tablet PO ×2 (08:53→17:17)
[2024-02-21] MEDS: loratadine 10 mg Tablet PO (08:53)
[2024-02-21 14:00] VITALS: BP 108/69; PULSE 113; RESP 18; TEMP 36.7; O2SAT 95
[2024-02-21] MEDS: hyDROXYzine 25 mg Capsule 50 MG PO (16:25)
[2024-02-21] MEDS: predniSONE 1 mg Tablet PO (17:16)
--- NOTE | 2024-02-21 17:59 | P.NPUPN_ITS ---
Subjective NPU 2 Subjective: Patient presented today reporting that she is feeling better. She was trying to find out if she could be discharged but we discussed the fact that there will be mild discharge over the weekend. We discussed working with the social work team in the morning to connect with her [facility] and figure out if they have gotten the knives out of hand. She reports that she is hopeful that she can discharge soon as possible and denies any side effects to the medication. Mental Status Exam 2 MSE Comments: This is an obese white female with hospital scrubs on with limited grooming and adequate eye contact. No abnormal movements except for psychomotor retardation. Cooperative with exam in mild distress. Speech was slightly decreased rate and volume and childlike. Mood described as fine, affect slightly subdued. Thought process organized. Thought content: Patient denied suicidal or homicidal ideation, there were no delusions reported or noted, she denied any auditory or visual hallucinations. Attention and concentration appeared intact and memory was mostly reliable but it is unclear whether she was being honest about her statements to her staff, but none were formally tested. She is alert and oriented times person and place. Insight, judgment and impulse control are impaired. Intellectual ability is impaired. Vitals/I&O/Wt Last Vital Signs Temp 98.1 F 02/21/24 14:00 Pulse 113 H 02/21/24 14:00 Resp 18 02/21/24 14:00 BP 108/69 02/21/24 14:00 Pulse Ox 95 02/21/24 14:00 O2 Del Method Room Air 02/21/24 14:00 Weight last 48 hrs Weight 90.889 kg Data NPU 02/19/24 19:00 02/19/24 19:00 A&P Assessment and plan (1) Intermittent explosive disorder: (2) Suicidal ideation: (3) Mild intellectual disabilities: (4) Dysthymia: Plan 28-year-old white female history of intellectual disability, intermittent explosive disorder, and depression currently residing in a prison with current reports of homicidal threats and aggressive threats earlier today with multiple hospitalizations with similar presentations. We will evaluate for safety and identify whether this is a recent decline versus consistent with baseline which would we would recommend a more rapid therapeutic discharge in the next day or so. 1. Encourage individual group and milieu therapy. 2. We will continue current psychotropic medications and other outpatient medications. We will review medications and consider discharge likely in 48 hours. 3. Therapeutic observation 15-minute checks on the unit for safety 4. We will contact facility and guardian and explore safety plan for discharge as soon as it is appropriate. Involuntary Hold Information 2 96 Hour Hold: 96 Hour Involuntary Admission: No Attestations NPU 2 Medical Necessity Statement*: Patient hospitalization is medically necessary and deemed to be the clinically appropriate intervention at this time. We will monitor and initiate medications while making changes as indicated. The patient's likely length of stay is 1-2 days. Coding Level of Care Code Acute Code for [facility] Fwd Diagnoses Intermittent explosive disorder F63.81 Suicidal ideation R45.851 Mild intellectual disabilities F70 Dysthymia F34.1
--- NOTE | 2024-02-21 18:17 | PC.NURSE ---
Pt has torn up two identification bracelet's, this nurse has educated pt on the importance of wearing her ID Bracelet. Printed new bracelet and placed on right arm.
[2024-02-21] MEDS: trazodone 100 mg Tablet PO (20:23)
[2024-02-21] MEDS: prazosin 1 mg Capsule 2 MG PO (20:24)
[2024-02-21 21:53] VITALS: BP 123/81; PULSE 93; RESP 18; TEMP 37.1; O2SAT 96
[2024-02-22 06:00] VITALS: BP 117/81; PULSE 83; RESP 17; O2SAT 96
--- NOTE | 2024-02-22 08:58 | PC.NURSE ---
IN HALLWAYS WALKING. PT IS NOTED TO HAVE FLAT AFFECT AND WITHDRAWN TO ROOM AT TIMES. RATES ANXIETY AND DEPRESSION 0/10. PT IS NOTED TO HAVE MILD ANXIETY AT TIMES AND DEPRESSED MOOD. DENIES SI/HI AND AVH AT THIS TIME. STATES GOAL FOR THE DAY IS TO GO HOME AND DO BETTER. RN SPOKE WITH PT AND ENCOURAGED HER TO DO WELL AND WENT OVER COPING SKILLS. PT VERBALIZED UNDERSTANDING. PT STATES SHE SLEPT GOOD ALL QUESTIONS ANSWERED AND SUPPORT WAS VOICED.
[2024-02-22] MEDS: duloxetine 60 mg Capsule 120 MG PO (09:15)
[2024-02-22] MEDS: lamoTRIgine 100 mg Tablet 200 MG PO (09:15)
[2024-02-22] MEDS: topiramate 25 mg Tablet 75 MG PO (09:15)
[2024-02-22] MEDS: risperiDONE 2 mg Tablet PO (09:16)
[2024-02-22] MEDS: CLONazepam 0.5 mg Tablet PO (09:16)
[2024-02-22] MEDS: predniSONE 1 mg Tablet 2 MG PO (09:16)
[2024-02-22] MEDS: loratadine 10 mg Tablet PO (09:16)
[2024-02-22] MEDS: levothyroxine 100 mcg Tablet PO (09:16)
--- NOTE | 2024-02-22 10:52 | W.PM.NPUDCS ---
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 02/19/24 17:39 Urine RBC 0-2 /hpf (0-2) 02/19/24 17:39 Urine WBC 0-5 /hpf (0-5) 02/19/24 17:39 Ur Squamous Epith Cells 0-5 /hpf (0-5) 02/19/24 17:39 Amorphous Sediment Not Reportable 02/19/24 17:39 Urine Bacteria None seen /hpf (N ONE) 02/19/24 17:39 Hyaline Casts 0.40 /lpf 02/19/24 17:39 Salicylates < 0.3 mg/dL (3-10 ) L 02/19/24 19:00 Urine Opiates Scre en Negative ng/mL (N egative) 02/19/24 17:39 Acetaminophen < 5.0 ug/mL (10-3 0) L 02/19/24 19:00 Ur Barbiturates Sc reen Negative ng/mL (N egative) 02/19/24 17:39 Ur Phencyclidine S crn Negative ng/mL (N egative) 02/19/24 17:39 Ur Amphetamines Sc reen Negative ng/mL (N egative) 02/19/24 17:39 U Benzodiazepines Scrn Negative ng/mL (N egative) 02/19/24 17:39 Urine Cocaine Scre en Negative ng/mL (N egative) 02/19/24 17:39 U Marijuana (THC) Screen Negative ng/mL (N egative) 02/19/24 17:39 Ethyl Alcohol < 10 mg/dL (0-10) 02/19/24 19:00 Vitals: Last Vital Signs Temp 98.7 F 02/21/24 21:53 Pulse 83 02/22/24 06:00 Resp 17 02/22/24 06:00 BP 117/81 02/22/24 06:00 Pulse Ox 96 02/22/24 06:00 O2 Del Method Room Air 02/22/24 06:00 Discharge Plan Discharge Patient Disposition: Home Condition: Stable Prescriptions: Continued levothyroxine 100 mcg capsule 100 mcg PO DAILY Rx Instructions: take 30 minutes before meal. clonazepam 0.5 mg tablet 0.5 mg PO BID Qty: 60 1RF fluticasone propionate 50 mcg/actuation spray,suspension 1 spray intranasal DAILY PRN (Reason: Allergy Symptoms) Rx Instructions: administer into each nostril polyethylene glycol 3350 [Miralax] 17 gram/dose powder 4 g PO DAILY PRN (Reason: Constipation) hydrocortisone 2.5 % cream with perineal applicator 1 applic topical 09 Pepto-Bismol Ultra 525 mg tablet 525 mg PO TID PRN (Reason: Abdominal Discomfort) Rx Instructions: do not exceed 8 doses in a 24 hour period ondansetron HCl 4 mg tablet 4 mg PO Q8H albuterol sulfate [Ventolin HFA] 90 mcg/actuation HFA aerosol inhaler 2 puff inhalation Q6H PRN (Reason: Shortness Of Breath Or Wheezing) duloxetine 60 mg capsule,delayed release(DR/EC) 120 mg PO DAILY Qty: 60 1RF prazosin 2 mg capsule 2 mg PO .HS Qty: 30 2RF trazodone 100 mg tablet 100 mg PO BEDTIME Qty: 30 2RF topiramate 25 mg tablet 75 mg PO BID Qty: 180 1RF lamotrigine 200 mg tablet 200 mg PO BID Qty: 60 2RF risperidone [Risperdal] 2 mg tablet 2 mg PO BID Qty: 60 1RF loratadine 10 mg tablet 10 mg PO DAILY prednisone 1 mg tablet See Rx Instructions .ROUTE .COMPLEX Rx Instructions: Take two 1mg tab PO in the morning (0900) and one 1mg tab PO in the evening (1800). ibuprofen 200 mg tablet 400 mg PO Q8H PRN (Reason: Pain) Discharge Orders: Discharge Order (Routine); Ordered 02/22/24 Ordered By: Bandar Pritchett Referrals: Jaky Perry PMHNP [Staff Physician] - 03/07/24 8:45 am Fran Mera DO [Primary Care Provider] - Discharge Diet: Regular Discharge Activity: Resume usual activity Patient Instructions: Opioid Safety, Pain Management Activity Restrictions/Additional Instructions: Continue home medications as previously directed. Return to the ER for any concerns. Discharge Attestations NPU Time Spent in Discharge Care*: less than 30 min Specific Discharge Activities: Specific discharge activities: educating patient, discussing with watch caser/social workers/dc planners, documenting/other paperwork and evaluating patient/reviewing data Coding Level of Care Code Acute Code for Chg Fwd Diagnoses Intermittent explosive disorder F63.81 Suicidal ideation R45.851 Mild intellectual disabilities F70 Dysthymia F34.1
[2024-02-22 10:55] VITALS: BP 117/81; PULSE 83; RESP 17; O2SAT 96
== END 2024-02-22 14:15 | disposition home or self-care (01) | DRG 883 ==
LOC: ER 18:29 → NP 20:56
PROVIDERS: Admitting Provider Psychiatry & Neurology Psychiatry; Emergency Provider Student in an Organized Health Care Education/Training Program; PCP Internal Medicine; Visit Provider Psychiatry & Neurology Psychiatry
DX: F63.81 Intermittent explosive disorder (principal); R45.851 Suicidal ideations; F33.9 Major depressive disorder, recurrent, unspecified; F70 Mild intellectual disabilities; F34.1 Dysthymic disorder; E66.9 Obesity, unspecified; Z68.31 Body mass index [BMI] 31.0-31.9, adult
CPT/HCPCS: 36415; 80053; 80306; 80307; 81001; 81025; 85025; 97165; 99285; J7512

== ENCOUNTER 2024-02-28 09:26 | Emergency (ER) | payer MEDICAID, SELFPAY ==
[2024-02-28 09:27] VITALS: BP 100/75; PULSE 94; RESP 16; TEMP 36.9; O2SAT 96; BMI 34.4
--- NOTE | 2024-02-28 10:08 | W.ED.PSYCHS ---
Documented by User: Diogenes UmstafaDO 02/28/24 10:11 HPI - Psych General: Chief Complaint: Psychiatric Symptoms Stated Complaint: MHE Time Seen by Provider: 02/28/24 09:30 History of Present Illness: Patient brought in by EMS with complaints of behavioral issues. EMS stated that they were told patient was trying to break into the med box to overdose. Patient denies suicidal homicidal ideation. Patient denies trying to break into the med box overdose. She said she was trying to get into the med box to see if her allergy pill was entered to verify if she was giving it with her morning meds or not. Patient denies suicidal homicidal ideation. Patient is cool calm and cooperative. Patient states several incidences like this has happened with a new staff member that she does not like. Patient was just placed in NPU on 02/19/2024 for grabbing a knife and threatening to kill staff members. Related Data Home Medications Medication Instructions Recorded Confirmed levothyroxine 100 mcg capsule 100 mcg PO DAILY 07/25/19 02/29/24 loratadine 10 mg tablet 10 mg PO DAILY 11/11/21 02/29/24 fluticasone propionate 50 1 spray intranasal DAILY PRN 07/28/23 02/29/24 mcg/actuation nasal Allergy Symptoms spray,suspension polyethylene glycol 3350 17 4 g PO DAILY PRN Constipation 09/10/23 02/29/24 gram/dose oral powder (Miralax) prednisone 1 mg tablet See Rx Instructions .Route .COMPLEX 12/05/23 02/29/24 ibuprofen 200 mg tablet 400 mg PO Q8H PRN Pain 12/21/23 02/29/24 albuterol sulfate 90 mcg/actuation 2 puff inhalation Q6H PRN 01/20/24 02/29/24 aerosol inhaler (Ventolin HFA) Shortness Of Breath Or Wheezing bismuth subsalicylate 525 mg 525 mg PO TID PRN Abdominal 01/20/24 02/29/24 tablet (Pepto-Bismol Ultra) Discomfort hydrocortisone 2.5 % topical cream 1 applic topical 01/20/24 02/29/24 with perineal applicator ondansetron HCl 4 mg tablet 4 mg PO Q8H 01/20/24 02/29/24 Previous Rx's Medication Instructions Recorded duloxetine 60 mg capsule,delayed 120 mg (2 x 60 mg) PO DAILY #60 01/04/24 release caps prazosin 2 mg capsule 2 mg PO .HS #30 caps 01/04/24 trazodone 100 mg tablet 100 mg PO BEDTIME #30 tabs 01/12/24 lamotrigine 200 mg tablet 200 mg PO BID #60 tabs 02/15/24 topiramate 25 mg tablet 75 mg (3 x 25 mg) PO BID #180 tabs 02/15/24 risperidone 2 mg tablet (Risperdal) 2 mg PO BID #60 tabs 02/19/24 clonazepam 0.5 mg tablet 0.5 mg PO .HS #30 tabs 02/24/24 Allergies Allergy/AdvReac Type Severity Reaction Status Date / Time divalproex sodium Allergy Unknown Unknown Verified 02/11/24 08:55 [From Depakote] adhesive tape Allergy Unknown Verified 02/11/24 08:55 cefpodoxime Allergy Unknown Verified 02/11/24 08:55 diazepam [From Valium] Allergy Unknown Verified 02/11/24 08:55 levomilnacipran Allergy Unknown Verified 02/11/24 08:55 [From Fetzima] Penicillins Allergy Unknown Verified 02/11/24 08:55 Review of Systems General: Reports: 10 or more systems reviewed and unremarkable except in HPI and below PFSH ED PFSH: Medical History Intermittent explosive disorder Nocturnal enuresis Psychiatric care On high dose antipsychotic drug therapy Major depressive disorder, recurrent, moderate Mild intellectual disabilities Family History Other Family history unknown Social History Smoking and tobacco/nicotine status: never used tobacco/nicotine Second hand smoke exposure: No Alcohol intake: never Substance/Drug Use: never Caregiver/support person: Yes Lives independently: No Household members: other Details: Deya Simmons Marital status: Single service: No Current occupational status: disabled Current gender identity: Female Special gilmer needs: No Agree to transfusion: Yes Physical Exam Const: COMMON NORMALS: no acute distress, average body habitus, no limitations, healthy appearing, alert and well nourished HENMT: COMMON NORMALS: normocephalic, atraumatic, hearing grossly normal bilaterally, external ears normal, Normal external nose present and moist oral mucous membranes HEAD & SCALP: normocephalic and atraumatic NOSE: Normal external nose present EXTERNAL EAR: Yes external ears normal Neck/C-Spine: COMMON NORMALS: no JVD Chest: COMMONS NORMALS: normal inspection of the chest and normal palpation of entire chest wall Resp: COMMON NORMALS: normal respiratory effort, No retractions, No use of accessory muscles and clear to auscultation bilaterally AUSCULTATION: clear to auscultation bilaterally Cardio: COMMON NORMALS: no JVD, regular rate, regular rhythm, S1 normal heart sound present, S2 normal heart sound present, No gallops present (Cardio), No clicks present (Cardio), No murmurs present (Cardio) and No rub (Cardio) RATE: regular rate RHYTHM: regular rhythm HEART SOUNDS: S1 normal heart sound present and S2 normal heart sound present GI: COMMON NORMALS: Normal to inspection, nondistended, normoactive bowel sounds present, Soft to palpation, non-tender, No hepatosplenomegaly present and no masses PALPATION: Yes Soft to palpation and Yes No hepatosplenomegaly present Neuro: SENSORIUM/ORIENTATION: Yes alert Course Vital Signs: Vital signs: Vital Signs Temperature 98.5 F 02/28/24 09:27 Pulse Rate 69 02/29/24 12:18 Respiratory Rate 18 02/29/24 11:57 Blood Pressure 102/71 02/29/24 12:18 Pulse Oximetry 95 02/29/24 12:18 Oxygen Delivery Me thod Room Air 02/29/24 11:57 MDM - Psych Lab Data 02/28/24 12:44 02/28/24 12:44 Radiology Impressions Chest X-Ray 02/28/24 12:10 IMPRESSION: No acute findings. Laboratory Results WBC 8.59 10^3/uL (3.29-11.43) 02/28/24 12:44 RBC 4.76 10^6/uL (3.85-5.65) 02/28/24 12:44 Hgb 14.20 g/dL (11.27-16.99) 02/28/24 12:44 Hct 45.0 % (36-47) 02/28/24 12:44 MCV 94.5 fl (85-98) 02/28/24 12:44 MCH 29.8 pg (27-33) 02/28/24 12:44 MCHC 31.6 g/dL (30-55) 02/28/24 12:44 RDW 13.3 % (12.1-15.1) 02/28/24 12:44 Plt Count 207 10^3/cmm (157-399) 02/28/24 12:44 MPV 10.2 fL (7.4-10.4) 02/28/24 12:44 Neut % (Auto) 63.4 % 02/28/24 12:44 Lymph % (Auto) 26.3 % 02/28/24 12:44 [place] % (Auto) 7.0 % 02/28/24 12:44 Eos % (Auto) 2.3 % 02/28/24 12:44 Baso % (Auto) 0.5 % 02/28/24 12:44 Neut # (Auto) 5.45 10^3/uL (1.8-7.7) 02/28/24 12:44 Lymph # (Auto) 2.3 10^3/uL (0.8-4.8) 02/28/24 12:44 [place] # (Auto) 0.6 10^3/uL (0.2-0.9) 02/28/24 12:44 Eos # (Auto) 0.2 10^3/uL (0.0-0.8) 02/28/24 12:44 Baso # (Auto) 0.0 10^3/uL (0.0-0.1) 02/28/24 12:44 Nucleated RBC % (auto) 0 % 02/28/24 12:44 Nucleated RBCs # 0.0 /100WBC 02/28/24 12:44 Sodium 143 mmol/L (136-145) 02/28/24 12:44 Potassium 4.0 mmol/L (3.5-5.1) 02/28/24 12:44 Chloride 106 mmol/L (98-107) 02/28/24 12:44 Carbon Dioxide 25 mmol/L (22-29) 02/28/24 12:44 Anion Gap 16.0 (5-19) 02/28/24 12:44 BUN 14 mg/dL (6-20) 02/28/24 12:44 Creatinine 1.3 mg/dL (0.5-0.9) H 02/28/24 12:44 GFR Calculation 48.4 mL/min (90-130) L 02/28/24 12:44 Glucose 92 mg/dL (65-115) 02/28/24 12:44 Calculated Osmolality 296 mOsm/kg (285-295) H 02/28/24 12:44 Calcium 9.4 mg/dL (8.5-10.5) 02/28/24 12:44 Total Bilirubin 0.3 mg/dL (0.15-1.2) 02/28/24 12:44 AST 32 U/L (0-32) 02/28/24 12:44 ALT 48 U/L (0-33) H 02/28/24 12:44 Alkaline Phosphatase 94 U/L (35-105) 02/28/24 12:44 Total Protein 7.6 g/dL (6.6-8.7) 02/28/24 12:44 Albumin 4.5 g/dL (3.5-5.2) 02/28/24 12:44 Globulin 3.1 g/dL (1.3-4.6) 02/28/24 12:44 TSH 0.56 uIU/mL (0.27-4.20) 02/28/24 12:44 HCG, Qual Negative (Negative) 02/28/24 12:45 Urine Color Yellow (Yellow) 02/28/24 12:45 Urine Appearance Clear (CLEAR) 02/28/24 12:45 Urine pH 6.0 (5-7) 02/28/24 12:45 Ur Specific [place] 1.009 (1.005-1.030) 02/28/24 12:45 Urine Protein Negative (Negative) 02/28/24 12:45 Urine Glucose (UA) Negative (Normal) 02/28/24 12:45 Urine Ketones Negative (Negative) 02/28/24 12:45 Urine Blood Negative (Negative) 02/28/24 12:45 Urine Nitrate Negative (Negative) 02/28/24 12:45 Urine Bilirubin Negative (Negative) 02/28/24 12:45 Urine Urobilinogen 0.2 mg/dL (Negative) 02/28/24 12:45 Ur Leukocyte Esterase Trace (Negative) A 02/28/24 12:45 Urine RBC 0-2 /hpf (0-2) 02/28/24 12:45 Urine WBC 11-20 /hpf (0-5) H 02/28/24 12:45 Ur Squamous Epith Cells 0-5 /hpf (0-5) 02/28/24 12:45 Amorphous Sediment Not Reportable 02/28/24 12:45 Urine Bacteria None seen /hpf (NONE) 02/28/24 12:45 Hyaline Casts 0.40 /lpf 02/28/24 12:45 Salicylates < 0.3 mg/dL (3-10) L 02/28/24 12:44 Urine Opiates Screen Negative ng/mL (Negative) 02/28/24 12:45 Acetaminophen < 5.0 ug/mL (10-30) L 02/28/24 12:44 Ur Barbiturates Screen Negative ng/mL (Negative) 02/28/24 12:45 Ur Phencyclidine Scrn Negative ng/mL (Negative) 02/28/24 12:45 Ur Amphetamines Screen Negative ng/mL (Negative) 02/28/24 12:45 U Benzodiazepines Scrn Negative ng/mL (Negative) 02/28/24 12:45 Urine Cocaine Screen Negative ng/mL (Negative) 02/28/24 12:45 U Marijuana (THC) Screen Negative ng/mL (Negative) 02/28/24 12:45 Ethyl Alcohol < 10 mg/dL (0-10) 02/28/24 12:44 Coronavirus (PCR) Negative (Negative) 02/28/24 12:45 Influenza A (PCR) Negative (Negative) 02/28/24 12:45 Influenza Type B (PCR) Negative (Negative) 02/28/24 12:45 RSV (PCR) Negative (Negative) 02/28/24 12:45 Discharge Plan Discharge Patient Disposition: Home Clinical Impression: Intermittent explosive disorder, Mild intellectual disabilities, Major depressive disorder, recurrent, moderate Condition: Stable Prescriptions: No Action levothyroxine 100 mcg capsule 100 mcg PO DAILY Rx Instructions: take 30 minutes before meal. fluticasone propionate 50 mcg/actuation spray,suspension 1 spray intranasal DAILY PRN (Reason: Allergy Symptoms) Rx Instructions: administer into each nostril polyethylene glycol 3350 [Miralax] 17 gram/dose powder 4 g PO DAILY PRN (Reason: Constipation) hydrocortisone 2.5 % cream with perineal applicator 1 applic topical 09 Pepto-Bismol Ultra 525 mg tablet 525 mg PO TID PRN (Reason: Abdominal Discomfort) Rx Instructions: do not exceed 8 doses in a 24 hour period ondansetron HCl 4 mg tablet 4 mg PO Q8H albuterol sulfate [Ventolin HFA] 90 mcg/actuation HFA aerosol inhaler 2 puff inhalation Q6H PRN (Reason: Shortness Of Breath Or Wheezing) duloxetine 60 mg capsule,delayed release(DR/EC) 120 mg PO DAILY Qty: 60 1RF prazosin 2 mg capsule 2 mg PO .HS Qty: 30 2RF trazodone 100 mg tablet 100 mg PO BEDTIME Qty: 30 2RF topiramate 25 mg tablet 75 mg PO BID Qty: 180 1RF lamotrigine 200 mg tablet 200 mg PO BID Qty: 60 2RF risperidone [Risperdal] 2 mg tablet 2 mg PO BID Qty: 60 1RF clonazepam 0.5 mg tablet 0.5 mg PO .HS Qty: 30 0RF loratadine 10 mg tablet 10 mg PO DAILY prednisone 1 mg tablet See Rx Instructions .ROUTE .COMPLEX Rx Instructions: take 2 tablets by mouth every morning and take 1 tablet every evening ibuprofen 200 mg tablet 400 mg PO Q8H PRN (Reason: Pain) Discharge Orders: Discharge ED (Routine); Ordered 02/29/24 Ordered By: Niles Simons Referrals: Fran Mera DO [Primary Care Provider] - Discharge Diet: Usual diet Discharge Activity: Increase activity as tolerated Patient Instructions: Opioid Safety, Pain Management Activity Restrictions/Additional Instructions: Thank you for choosing [facility] for your healthcare needs today. It is very important that you follow up as instructed or that you return to the Emergency Department should you have concerns or if your condition changes or worsens in any way. You were seen in the emergency room after some difficulty with your medications. We have discussed your case with Dr. Pritchett who is on-call for psychiatry and reviewed the laboratory work done. Dr. Pritchett recommends discharge and follow-up with your outpatient psychiatry team. If needed you can also follow-up with the crisis center. He is not recommending hospital admission at this time Coding Level of Care Code ED Chair Upholsterer for Chg Fwd Documented by User: Niles Simons DO 02/29/24 13:38 HPI - Psych General: Chief Complaint: Psychiatric Symptoms Stated Complaint: MHE Time Seen by Provider: 02/28/24 09:30 Related Data Home Medications Medication Instructions Recorded Confirmed levothyroxine 100 mcg capsule 100 mcg PO DAILY 07/25/19 02/29/24 loratadine 10 mg tablet 10 mg PO DAILY 11/11/21 02/29/24 fluticasone propionate 50 1 spray intranasal DAILY PRN 07/28/23 02/29/24 mcg/actuation nasal Allergy Symptoms spray,suspension polyethylene glycol 3350 17 4 g PO DAILY PRN Constipation 09/10/23 02/29/24 gram/dose oral powder (Miralax) prednisone 1 mg tablet See Rx Instructions .Route .COMPLEX 12/05/23 02/29/24 ibuprofen 200 mg tablet 400 mg PO Q8H PRN Pain 12/21/23 02/29/24 albuterol sulfate 90 mcg/actuation 2 puff inhalation Q6H PRN 01/20/24 02/29/24 aerosol inhaler (Ventolin HFA) Shortness Of Breath Or Wheezing bismuth subsalicylate 525 mg 525 mg PO TID PRN Abdominal 01/20/24 02/29/24 tablet (Pepto-Bismol Ultra) Discomfort hydrocortisone 2.5 % topical cream 1 applic topical 09 01/20/24 02/29/24 with perineal applicator ondansetron HCl 4 mg tablet 4 mg PO Q8H 01/20/24 02/29/24 Previous Rx's Medication Instructions Recorded duloxetine 60 mg capsule,delayed 120 mg (2 x 60 mg) PO DAILY #60 01/04/24 release caps prazosin 2 mg capsule 2 mg PO .HS #30 caps 01/04/24 trazodone 100 mg tablet 100 mg PO BEDTIME #30 tabs 01/12/24 lamotrigine 200 mg tablet 200 mg PO BID #60 tabs 02/15/24 topiramate 25 mg tablet 75 mg (3 x 25 mg) PO BID #180 tabs 02/15/24 risperidone 2 mg tablet (Risperdal) 2 mg PO BID #60 tabs 02/19/24 clonazepam 0.5 mg tablet 0.5 mg PO .HS #30 tabs 02/24/24 Allergies Allergy/AdvReac Type Severity Reaction Status Date / Time divalproex sodium Allergy Unknown Unknown Verified 02/11/24 08:55 [From Depakote] adhesive tape Allergy Unknown Verified 02/11/24 08:55 cefpodoxime Allergy Unknown Verified 02/11/24 08:55 diazepam [From Valium] Allergy Unknown Verified 02/11/24 08:55 levomilnacipran Allergy Unknown Verified 02/11/24 08:55 [From Fetzima] Penicillins Allergy Unknown Verified 02/11/24 08:55 PFSH ED PFSH: Medical History Intermittent explosive disorder Nocturnal enuresis Psychiatric care On high dose antipsychotic drug therapy Major depressive disorder, recurrent, moderate Mild intellectual disabilities Family History Other Family history unknown Social History Smoking and tobacco/nicotine status: never used tobacco/nicotine Second hand smoke exposure: No Alcohol intake: never Substance/Drug Use: never Caregiver/support person: Yes Lives independently: No Household members: other Details: Deya Simmons Marital status: Single service: No Current occupational status: disabled Current gender identity: Female Special gilmer needs: No Agree to transfusion: Yes Course Vital Signs: Vital signs: Vital Signs Temperature 98.5 F 02/28/24 09:27 Pulse Rate 69 02/29/24 12:18 Respiratory Rate 18 02/29/24 11:57 Blood Pressure 102/71 02/29/24 12:18 Pulse Oximetry 95 02/29/24 12:18 Oxygen Delivery Me thod Room Air 02/29/24 11:57 MDM - Psych Medical Decision Making Care assumed at change of shift. Patient has remained calm I discussed patient with Dr. Pritchett is on-call for psychiatry. He is very familiar with this patient he does not recommend admission at this time. She has not been suicidal or homicidal she simply tried to get at her medications she was unable to do so. She and the caregiver both feel comfortable going home at this time. Lab Data 02/28/24 12:44 02/28/24 12:44 Radiology Impressions Chest X-Ray 02/28/24 12:10 IMPRESSION: No acute findings. Laboratory Results WBC 8.59 10^3/uL (3.29-11.43) 02/28/24 12:44 RBC 4.76 10^6/uL (3.85-5.65) 02/28/24 12:44 Hgb 14.20 g/dL (11.27-16.99) 02/28/24 12:44 Hct 45.0 % (36-47) 02/28/24 12:44 MCV 94.5 fl (85-98) 02/28/24 12:44 MCH 29.8 pg (27-33) 02/28/24 12:44 MCHC 31.6 g/dL (30-55) 02/28/24 12:44 RDW 13.3 % (12.1-15.1) 02/28/24 12:44 Plt Count 207 10^3/cmm (157-399) 02/28/24 12:44 MPV 10.2 fL (7.4-10.4) 02/28/24 12:44 Neut % (Auto) 63.4 % 02/28/24 12:44 Lymph % (Auto) 26.3 % 02/28/24 12:44 [place] % (Auto) 7.0 % 02/28/24 12:44 Eos % (Auto) 2.3 % 02/28/24 12:44 Baso % (Auto) 0.5 % 02/28/24 12:44 Neut # (Auto) 5.45 10^3/uL (1.8-7.7) 02/28/24 12:44 Lymph # (Auto) 2.3 10^3/uL (0.8-4.8) 02/28/24 12:44 [place] # (Auto) 0.6 10^3/uL (0.2-0.9) 02/28/24 12:44 Eos # (Auto) 0.2 10^3/uL (0.0-0.8) 02/28/24 12:44 Baso # (Auto) 0.0 10^3/uL (0.0-0.1) 02/28/24 12:44 Nucleated RBC % (auto) 0 % 02/28/24 12:44 Nucleated RBCs # 0.0 /100WBC 02/28/24 12:44 Sodium 143 mmol/L (136-145) 02/28/24 12:44 Potassium 4.0 mmol/L (3.5-5.1) 02/28/24 12:44 Chloride 106 mmol/L (98-107) 02/28/24 12:44 Carbon Dioxide 25 mmol/L (22-29) 02/28/24 12:44 Anion Gap 16.0 (5-19) 02/28/24 12:44 BUN 14 mg/dL (6-20) 02/28/24 12:44 Creatinine 1.3 mg/dL (0.5-0.9) H 02/28/24 12:44 GFR Calculation 48.4 mL/min (90-130) L 02/28/24 12:44 Glucose 92 mg/dL (65-115) 02/28/24 12:44 Calculated Osmolality 296 mOsm/kg (285-295) H 02/28/24 12:44 Calcium 9.4 mg/dL (8.5-10.5) 02/28/24 12:44 Total Bilirubin 0.3 mg/dL (0.15-1.2) 02/28/24 12:44 AST 32 U/L (0-32) 02/28/24 12:44 ALT 48 U/L (0-33) H 02/28/24 12:44 Alkaline Phosphatase 94 U/L (35-105) 02/28/24 12:44 Total Protein 7.6 g/dL (6.6-8.7) 02/28/24 12:44 Albumin 4.5 g/dL (3.5-5.2) 02/28/24 12:44 Globulin 3.1 g/dL (1.3-4.6) 02/28/24 12:44 TSH 0.56 uIU/mL (0.27-4.20) 02/28/24 12:44 HCG, Qual Negative (Negative) 02/28/24 12:45 Urine Color Yellow (Yellow) 02/28/24 12:45 Urine Appearance Clear (CLEAR) 02/28/24 12:45 Urine pH 6.0 (5-7) 02/28/24 12:45 Ur Specific [place] 1.009 (1.005-1.030) 02/28/24 12:45 Urine Protein Negative (Negative) 02/28/24 12:45 Urine Glucose (UA) Negative (Normal) 02/28/24 12:45 Urine Ketones Negative (Negative) 02/28/24 12:45 Urine Blood Negative (Negative) 02/28/24 12:45 Urine Nitrate Negative (Negative) 02/28/24 12:45 Urine Bilirubin Negative (Negative) 02/28/24 12:45 Urine Urobilinogen 0.2 mg/dL (Negative) 02/28/24 12:45 Ur Leukocyte Esterase Trace (Negative) A 02/28/24 12:45 Urine RBC 0-2 /hpf (0-2) 02/28/24 12:45 Urine WBC 11-20 /hpf (0-5) H 02/28/24 12:45 Ur Squamous Epith Cells 0-5 /hpf (0-5) 02/28/24 12:45 Amorphous Sediment Not Reportable 02/28/24 12:45 Urine Bacteria None seen /hpf (NONE) 02/28/24 12:45 Hyaline Casts 0.40 /lpf 02/28/24 12:45 Salicylates < 0.3 mg/dL (3-10) L 02/28/24 12:44 Urine Opiates Screen Negative ng/mL (Negative) 02/28/24 12:45 Acetaminophen < 5.0 ug/mL (10-30) L 02/28/24 12:44 Ur Barbiturates Screen Negative ng/mL (Negative) 02/28/24 12:45 Ur Phencyclidine Scrn Negative ng/mL (Negative) 02/28/24 12:45 Ur Amphetamines Screen Negative ng/mL (Negative) 02/28/24 12:45 U Benzodiazepines Scrn Negative ng/mL (Negative) 02/28/24 12:45 Urine Cocaine Screen Negative ng/mL (Negative) 02/28/24 12:45 U Marijuana (THC) Screen Negative ng/mL (Negative) 02/28/24 12:45 Ethyl Alcohol < 10 mg/dL (0-10) 02/28/24 12:44 Coronavirus (PCR) Negative (Negative) 02/28/24 12:45 Influenza A (PCR) Negative (Negative) 02/28/24 12:45 Influenza Type B (PCR) Negative (Negative) 02/28/24 12:45 RSV (PCR) Negative (Negative) 02/28/24 12:45 All radiology interpretation(s) finalized by discharge Discharge Plan Discharge Patient Disposition: Home Clinical Impression: Intermittent explosive disorder, Mild intellectual disabilities, Major depressive disorder, recurrent, moderate Condition: Stable Prescriptions: No Action levothyroxine 100 mcg capsule 100 mcg PO DAILY Rx Instructions: take 30 minutes before meal. fluticasone propionate 50 mcg/actuation spray,suspension 1 spray intranasal DAILY PRN (Reason: Allergy Symptoms) Rx Instructions: administer into each nostril polyethylene glycol 3350 [Miralax] 17 gram/dose powder 4 g PO DAILY PRN (Reason: Constipation) hydrocortisone 2.5 % cream with perineal applicator 1 applic topical 09 Pepto-Bismol Ultra 525 mg tablet 525 mg PO TID PRN (Reason: Abdominal Discomfort) Rx Instructions: do not exceed 8 doses in a 24 hour period ondansetron HCl 4 mg tablet 4 mg PO Q8H albuterol sulfate [Ventolin HFA] 90 mcg/actuation HFA aerosol inhaler 2 puff inhalation Q6H PRN (Reason: Shortness Of Breath Or Wheezing) duloxetine 60 mg capsule,delayed release(DR/EC) 120 mg PO DAILY Qty: 60 1RF prazosin 2 mg capsule 2 mg PO .HS Qty: 30 2RF trazodone 100 mg tablet 100 mg PO BEDTIME Qty: 30 2RF topiramate 25 mg tablet 75 mg PO BID Qty: 180 1RF lamotrigine 200 mg tablet 200 mg PO BID Qty: 60 2RF risperidone [Risperdal] 2 mg tablet 2 mg PO BID Qty: 60 1RF clonazepam 0.5 mg tablet 0.5 mg PO .HS Qty: 30 0RF loratadine 10 mg tablet 10 mg PO DAILY prednisone 1 mg tablet See Rx Instructions .ROUTE .COMPLEX Rx Instructions: take 2 tablets by mouth every morning and take 1 tablet every evening ibuprofen 200 mg tablet 400 mg PO Q8H PRN (Reason: Pain) Discharge Orders: Discharge ED (Routine); Ordered 02/29/24 Ordered By: Niles Simons Referrals: Fran Mera DO [Primary Care Provider] - Discharge Diet: Usual diet Discharge Activity: Increase activity as tolerated Patient Instructions: Opioid Safety, Pain Management Activity Restrictions/Additional Instructions: Thank you for choosing [facility] for your healthcare needs today. It is very important that you follow up as instructed or that you return to the Emergency Department should you have concerns or if your condition changes or worsens in any way. You were seen in the emergency room after some difficulty with your medications. We have discussed your case with Dr. Pritchett who is on-call for psychiatry and reviewed the laboratory work done. Dr. Pritchett recommends discharge and follow-up with your outpatient psychiatry team. If needed you can also follow-up with the crisis center. He is not recommending hospital admission at this time Coding Level of Care Code ED Chair Upholsterer for Carolina Figueroa
--- NOTE | 2024-02-28 12:10 | XRR_ITS ---
PROCEDURE INFORMATION: Exam: XR Chest Exam date and time: 02/28/2024 12:23 PM Age: 28 years old Clinical indication: Screening exam; Other screening; Additional info: Psych TECHNIQUE: Imaging protocol: Radiologic exam of the chest. Views: 1 view. COMPARISON: CR XR chest 1V portable [id number] 04/27/2023 10:53 AM FINDINGS: Lungs: Unremarkable. No consolidation. Pleural spaces: Unremarkable. No pleural effusion. No pneumothorax. Heart/Mediastinum: Unremarkable. No cardiomegaly. Bones/joints: Unremarkable. XR/XR chest 1V portable [id number] IMPRESSION: No acute findings.
--- NOTE | 2024-02-28 12:15 | ECG_ITS ---
[facility] Test Date: 2024-02-28 Pat Name: Jessica Pichardo Department: Room: Gender: Female Planning Assistant: : 1995 Requested By: Diogenes Mustafa Order Number: [id number] Shannon MD: Javier Velasquez M.D. Measurements Intervals [place] Rate: 81 P: 58 TN: 135 QRS: 122 QRSD: 92 T: 57 QT: 364 QTc: 425 Interpretive Statements SINUS RHYTHM WITH SINUS ARRHYTHMIA INDETERMINATE AXIS LOW QRS VOLTAGE IN PRECORDIAL LEADS [QRS DEFLECTION < 1.0 mV IN CHEST LEADS] LEFT POSTERIOR FASCICULAR BLOCK [QRS AXIS > 109, INFERIOR Q] POSSIBLE INFERIOR MYOCARDIAL INFARCTION , PROBABLY OLD [30 ms Q WAVE IN II/aVF] Compared to ECG 12/15/2023 18:14:47 Indeterminate axis now present Low QRS voltage now present Left posterior fascicular block now present Myocardial infarct finding now present Electronically Signed On 02-29-2024 14:10:29 CDT by Javier Velasquez M.D. [email or web address]
[2024-02-28 12:49] LABS: Basophils % 0.5 %; Eosinophils # 0.2 10^3/uL (0.0-0.8); Eosinophils % 2.3 %; Lymphocytes # 2.3 10^3/uL (0.8-4.8); Lymphocytes % 26.3 %; Mean Corpuscular HGB Conc 31.6 g/dL (30-55); Mean Corpuscular Hemoglobin 29.8 pg (27-33); Mean Corpuscular Volume 94.5 fl (85-98); Mean Platelet Volume 10.2 fL (7.4-10.4); Monocytes # 0.6 10^3/uL (0.2-0.9); Neutrophils # 5.45 10^3/uL (1.8-7.7); Neutrophils % 63.4 %; Nucleated Red Blood Cells % 0 %; Platelet Count 207 10^3/cmm (157-399); Red Blood Count 4.76 10^6/uL (3.85-5.65); Red Cell Distribution Width 13.3 % (12.1-15.1); White Blood Count 8.59 10^3/uL (3.29-11.43)
[2024-02-28 12:52] LABS: HCG Qualitative Urine. Negative (Negative)
[2024-02-28 13:16] LABS: Bilirubin Urine Negative (Negative); Blood Urine Negative (Negative); Glucose Urine UA Negative (Normal); Ketones Urine Negative (Negative); Leukocyte Esterase Urine Trace (Negative); Nitrate Urine Negative (Negative); Protein Urine Negative (Negative); Specific Gravity, Urine 1.009 (1.005-1.030); Urine Appearance Clear (CLEAR); Urine Color Yellow (Yellow); Urobilinogen Urine 0.2 mg/dL (Negative)
[2024-02-28 13:20] LABS: Alanine Aminotransferase 48 U/L (0-33); Albumin Level 4.5 g/dL (3.5-5.2); Alkaline Phosphatase 94 U/L (35-105); Aspartate Amino Transferase 32 U/L (0-32); Blood Urea Nitrogen 14 mg/dL (6-20); Calcium 9.4 mg/dL (8.5-10.5); Carbon Dioxide 25 mmol/L (22-29); Chloride 106 mmol/L (98-107); Globulin 3.1 g/dL (1.3-4.6); Glomerular Filtration Rate 48.4 mL/min (90-130); Glucose 92 mg/dL (65-115); Osmolality Calculated 296 mOsm/kg (285-295); Sodium 143 mmol/L (136-145); Thyroid Stimulating Hormone 0.56 uIU/mL (0.27-4.20); Total Bilirubin 0.3 mg/dL (0.15-1.2); Total Protein 7.6 g/dL (6.6-8.7)
[2024-02-28 13:22] LABS: Add Urine Microscopic? YES; Bacteria Urine None Seen /hpf; RBC Urine 0-2 /hpf (0-2); Squamous Epithelial Cell Urine 0-5 /hpf (0-5)
[2024-02-28 13:23] LABS: Acetaminophen < 5.0 ug/mL (10-30); Alcohol Level < 10 mg/dL (0-10); Salicylate < 0.3 mg/dL (3-10)
[2024-02-28 13:41] LABS: Amphetamines Screen Urine Negative (Negative); Barbiturates Screen Urine Negative (Negative); Benzodiazepines Screen Urine Negative (Negative); Cocaine Screen Urine Negative (Negative); Opiate Screen Urine Negative (Negative); PCP Screen Urine Negative (Negative); THC Screen Urine Negative (Negative)
[2024-02-28 13:54] LABS: Covid PCR NEGATIVE (Negative); Influenza A NEGATIVE (Negative); Influenza B NEGATIVE (Negative); Respiratory Syncytial Virus Ce NEGATIVE (Negative)
--- NOTE | 2024-02-28 19:21 | PC.NURSE ---
Report from LEESA Peralta. Pt layig in bed. Calm and cooperative. Updated on plan of care.
--- NOTE | 2024-02-29 03:09 | PC.NURSE ---
Rounded on pt. Pt resting quietly at this time. Resp even/unlabored. Sitter at bedside.
[2024-02-29 06:36] VITALS: BP 104/72; PULSE 71; RESP 14; O2SAT 98
--- NOTE | 2024-02-29 06:37 | PC.NURSE ---
Rounded on pt. Pt updated on plan of care. Vitals taken and stable. Pt remains calm and cooperative at this time. Staff at bedside.
--- NOTE | 2024-02-29 08:16 | PC.PHAR ---
patient is from a senior living called [facility] agency that provided the med list for me to compare to
[2024-02-29 11:57] VITALS: BP 83/58; PULSE 67; RESP 18; O2SAT 95
[2024-02-29 12:18] VITALS: BP 102/71; PULSE 69; O2SAT 95
== END 2024-02-29 12:21 | disposition home or self-care (01) ==
PROVIDERS: Emergency Medicine; Emergency Provider Family Medicine; PCP Internal Medicine
DX: F63.81 Intermittent explosive disorder (principal); F70 Mild intellectual disabilities; F33.1 Major depressive disorder, recurrent, moderate; Z11.52 Encounter for screening for COVID-19
CPT/HCPCS: 0241U; 71045; 80053; 80306; 80307; 81001; 81025; 84443; 85025; 93005; 99285

== ENCOUNTER 2024-04-18 10:14 | Inpatient (IN) | payer MEDICAID, SELFPAY ==
[2024-04-18 10:15] VITALS: BP 116/80; PULSE 89; RESP 17; TEMP 36.9; O2SAT 97; BMI 31.3
--- NOTE | 2024-04-18 10:18 | W.ED.PSYCHS ---
HPI - Psych General: Chief Complaint: Psychiatric Symptoms Stated Complaint: si Time Seen by Provider: 04/18/24 10:17 Source: patient Mode of arrival: ambulatory Limitations: no limitations History of Present Illness: Patient is a 29-year-old female presents to the ED today from her [facility] home at [facility] after she reportedly tried to drown herself in the sink. Patient states she got mad at her staff member and filled a sink full of water and stuck her head and it in a suicide attempt. Patient has been here in the emergency department multiple times. She has known poor impulse control. Patient states she gets along well with other staff members but states the staff member that was on today is not for me . Patient tells me at this time she is not acutely suicidal and only did this out of anger. She arrives to the ED today with an affidavit from deputy Tru Mi MD complaint: other (poor impulse control) Onset (ago): hour(s) Duration: intermittent History of same: Yes Relieving factors: none Exacerbating factors: other (getting angry) Associated symptoms: Deny homicidal ideation or suicidal ideation Treatments prior to arrival: none Related Data Home Medications Medication Instructions Recorded Confirmed levothyroxine 100 mcg capsule 100 mcg PO DAILY 07/25/19 04/18/24 loratadine 10 mg tablet 10 mg PO DAILY 11/11/21 04/18/24 fluticasone propionate 50 1 spray intranasal DAILY PRN 07/28/23 04/18/24 mcg/actuation nasal Allergy Symptoms spray,suspension polyethylene glycol 3350 17 4 g PO DAILY PRN Constipation 09/10/23 04/18/24 gram/dose oral powder (Miralax) prednisone 1 mg tablet See Rx Instructions .Route .COMPLEX 12/05/23 04/18/24 ibuprofen 200 mg tablet 400 mg PO Q8H PRN Pain 12/21/23 04/18/24 albuterol sulfate 90 mcg/actuation 2 puff inhalation Q6H PRN 01/20/24 04/18/24 aerosol inhaler (Ventolin HFA) Shortness Of Breath Or Wheezing bismuth subsalicylate 525 mg 525 mg PO TID PRN Abdominal 01/20/24 04/18/24 tablet (Pepto-Bismol Ultra) Discomfort hydrocortisone 2.5 % topical cream 1 applic topical 09 01/20/24 04/18/24 with perineal applicator ondansetron HCl 4 mg tablet 4 mg PO Q8H 01/20/24 04/18/24 Previous Rx's Medication Instructions Recorded prazosin 2 mg capsule 2 mg PO .HS #30 caps 01/04/24 trazodone 100 mg tablet 100 mg PO BEDTIME #30 tabs 03/11/24 duloxetine 30 mg capsule,delayed 60 mg (2 x 30 mg) PO DAILY #60 caps 04/12/24 release lamotrigine 200 mg tablet 200 mg PO BID #60 tabs 04/12/24 olanzapine 5 mg tablet 5 mg PO DAILY #30 tabs 04/12/24 risperidone 1 mg tablet 1 mg PO BID #60 tabs 04/12/24 topiramate 100 mg tablet 100 mg PO BID #60 tabs 04/12/24 Allergies Allergy/AdvReac Type Severity Reaction Status Date / Time divalproex sodium Allergy Unknown Unknown Verified 03/24/24 13:34 [From Depakote] adhesive tape Allergy Unknown Verified 03/24/24 13:34 cefpodoxime Allergy Unknown Verified 03/24/24 13:34 diazepam [From Valium] Allergy Unknown Verified 03/24/24 13:34 levomilnacipran Allergy Unknown Verified 03/24/24 13:34 [From Fetzima] Penicillins Allergy Unknown Verified 03/24/24 13:34 Review of Systems Psych: Denies: hopelessness, paranoia, suicidal ideation or homicidal ideation [facility] ED PFSH: Medical History Intermittent explosive disorder Nocturnal enuresis Psychiatric care On high dose antipsychotic drug therapy Major depressive disorder, recurrent, moderate Mild intellectual disabilities Family History Other Family history unknown Social History Smoking and tobacco/nicotine status: never used tobacco/nicotine Second hand smoke exposure: No Alcohol intake: never Substance/Drug Use: never Caregiver/support person: Yes Lives independently: No Household members: other Details: Deya Simmons Marital status: Single service: No Current occupational status: disabled Current gender identity: Female Special gilmer needs: No Agree to transfusion: Yes Physical Exam Const: COMMON NORMALS: no acute distress, no limitations, alert and well nourished GENERAL APPEARANCE: cooperative OTHER: baseline cognitive delay Neuro: COMMON NORMALS: moves all extremities, no focal motor deficits and no sensory deficits noted SENSORIUM/ORIENTATION: Yes alert Psych: COMMON NORMALS: speech normal APPEARANCE: Yes grossly normal ATTITUDE: Yes calm ACTIVITY/MOTOR BEHAVIOR: Yes appropriate eye contact SPEECH: Yes normal speech MOOD & AFFECT: Yes euthymic mood MEMORY/COGNITION: Yes memory grossly intact and Yes cognition grossly intact INSIGHT: Limited insight present (Psych) (baseline intellectual disability) JUDGEMENT: Limited judgement present (Psych) (baseline intellectual disability) Course Consultations: Consultation #1: Dr. Pritchett-is extremely familiar with patient; states she does not require inpatient hospitalization at this time; reviewed affidavit with him spoke to him later after additional affidavits were provided-he spoke to avionics manager at her [facility] and has decided to admit the patient Vital Signs: Vital signs: Vital Signs Temperature 98.4 F 04/18/24 10:15 Pulse Rate 89 04/18/24 10:15 Respiratory Rate 17 04/18/24 10:15 Blood Pressure 116/80 04/18/24 10:15 Pulse Oximetry 97 04/18/24 10:15 Oxygen Delivery Me thod Room Air 04/18/24 10:15 MDM - Psych Medical Decision Making Patient will be admitted to NPU to Dr. Pritchett once cleared medically. Medical Records I reviewed the patient's medical records. Lab Data I reviewed the patient's lab results. No radiology studies performed this visit Discharge Plan Discharge Patient Disposition: Admitted As Inpatient Clinical Impression: Poor impulse control, Mild intellectual disabilities, Suicidal ideation Condition: Stable Coding Level of Care Code ED Photostat Operator for Carolina Figueroa
[2024-04-18 17:13] LABS: Basophils % 0.5 %; Eosinophils # 0.3 10^3/uL (0.0-0.8); Eosinophils % 4.3 %; Hematocrit 45.6 % (36-47); Lymphocytes # 3.1 10^3/uL (0.8-4.8); Lymphocytes % 42.9 %; Mean Corpuscular HGB Conc 31.4 g/dL (30-55); Mean Corpuscular Hemoglobin 30.2 pg (27-33); Mean Corpuscular Volume 96.4 fl (85-98); Mean Platelet Volume 11.3 fL (7.4-10.4); Monocytes # 0.5 10^3/uL (0.2-0.9); Monocytes % 7.3 %; Neutrophils # 3.26 10^3/uL (1.8-7.7); Neutrophils % 44.7 %; Nucleated Red Blood Cells % 0 %; Platelet Count 236 10^3/cmm (157-399); Red Blood Count 4.73 10^6/uL (3.85-5.65); Red Cell Distribution Width 13.1 % (12.1-15.1); White Blood Count 7.28 10^3/uL (3.29-11.43)
[2024-04-18 17:53] VITALS: BP 101/67; PULSE 66; RESP 17; O2SAT 97
[2024-04-18 18:32] LABS: Amphetamines Screen Urine Negative (Negative); Barbiturates Screen Urine Negative (Negative); Benzodiazepines Screen Urine Negative (Negative); Cocaine Screen Urine Negative (Negative); Opiate Screen Urine Negative (Negative); PCP Screen Urine Negative (Negative); THC Screen Urine Negative (Negative)
[2024-04-18 20:00] VITALS: BP 115/82; PULSE 78; RESP 16; O2SAT 95
[2024-04-18 20:09] VITALS: BP 115/86; PULSE 80; O2SAT 95
[2024-04-18 20:21] LABS: Alanine Aminotransferase 28 U/L (0-33); Albumin Level 4.2 g/dL (3.5-5.2); Alkaline Phosphatase 77 U/L (35-105); Aspartate Amino Transferase 21 U/L (0-32); Blood Urea Nitrogen 14 mg/dL (6-20); Calcium 9.5 mg/dL (8.5-10.5); Carbon Dioxide 28 mmol/L (22-29); Chloride 103 mmol/L (98-107); Creatinine Clr Calc Pharmacy 79.2664; Globulin 2.8 g/dL (1.3-4.6); Glomerular Filtration Rate 52.7 mL/min (90-130); Glucose 81 mg/dL (65-115); Osmolality Calculated 288 mOsm/kg (285-295); Sodium 139 mmol/L (136-145); Total Bilirubin 0.4 mg/dL (0.15-1.2)
[2024-04-18 20:24] LABS: Acetaminophen < 5.0 ug/mL (10-30); Alcohol Level < 10 mg/dL (0-10); Salicylate < 0.3 mg/dL (3-10)
[2024-04-18 21:37] VITALS: BP 103/76; PULSE 84; RESP 18; TEMP 36.8; O2SAT 96
[2024-04-18 22:00] VITALS: BP 103/76; PULSE 84; RESP 18; TEMP 36.8; O2SAT 96
[2024-04-18] MEDS: risperiDONE 1 mg Tablet 2 MG PO (23:15)
[2024-04-18] MEDS: trazodone 100 mg Tablet PO (23:15)
[2024-04-18] MEDS: prazosin 1 mg Capsule 2 MG PO (23:15)
[2024-04-18] MEDS: OLANZapine 5 mg TABLET PO (23:16)
[2024-04-19 06:00] VITALS: RESP 18
--- NOTE | 2024-04-19 06:36 | PC.NURSE ---
Patietn refused vitals. Let charge nurse know.
--- NOTE | 2024-04-19 09:12 | W.PM.NPUH&PS ---
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 Allergy/AdvReac Type Severity Reaction Status Date / Time divalproex sodium Allergy Unknown Unknown Verified 03/24/24 13:34 [From Depakote] adhesive tape Allergy Unknown Verified 03/24/24 13:34 cefpodoxime Allergy Unknown Verified 03/24/24 13:34 diazepam [From Valium] Allergy Unknown Verified 03/24/24 13:34 levomilnacipran Allergy Unknown Verified 03/24/24 13:34 [From Fetzima] Penicillins Allergy Unknown Verified 03/24/24 13:34 PFSH NPU PFSH: Medical History Intermittent explosive disorder Nocturnal enuresis Psychiatric care On high dose antipsychotic drug therapy Major depressive disorder, recurrent, moderate Mild intellectual disabilities Family History Other Family history unknown Social History Smoking and tobacco/nicotine status: never used tobacco/nicotine Second hand smoke exposure: No Alcohol intake: never Substance/Drug Use: never Caregiver/support person: Yes Lives independently: No Household members: other Details: Deya Simmons Marital status: Single service: No Current occupational status: disabled Current gender identity: Female Special gilmer needs: No Agree to transfusion: Yes Mental Status Exam MSE Comments: This is an obese white female with hospital scrubs on with limited grooming and adequate eye contact. No abnormal movements except for psychomotor retardation. Cooperative with exam in mild distress. Speech was slightly decreased rate and volume and childlike. Mood described as fine, affect slightly subdued. Thought process organized. Thought content: Patient denied suicidal or homicidal ideation, there were no delusions reported or noted, she denied any auditory or visual hallucinations. Attention and concentration appeared intact and memory was mostly reliable but it is unclear whether she was being honest about her statements to her staff, but none were formally tested. She is alert and oriented times person and place. Insight, judgment and impulse control are impaired. Intellectual ability is impaired. Vitals/I&O/Wt Last Vital Signs Temp 98.2 F 04/18/24 22:00 Pulse 84 04/18/24 22:00 Resp 18 04/19/24 06:00 BP 103/76 04/18/24 22:00 Pulse Ox 96 04/18/24 22:00 O2 Del Method Room Air 04/18/24 22:00 Weight last 48 hrs Weight 90.718 kg Data NPU 04/18/24 11:11 04/18/24 19:52 A&P Assessment and plan (1) Intermittent explosive disorder: (2) Suicidal ideation: (3) Mild intellectual disabilities: (4) Dysthymia: Plan 28-year-old white female history of intellectual disability, intermittent explosive disorder, and depression currently residing in a senior living with current reports of homicidal threats and aggressive threats earlier today with multiple hospitalizations with similar presentations. We will evaluate for safety and identify whether this is a recent decline versus consistent with baseline which would we would recommend a more rapid therapeutic discharge in the next day or so. 1. Encourage individual group and milieu therapy. 2. We will continue current psychotropic medications and other outpatient medications. 3. Therapeutic observation 15-minute checks on the unit for safety 4. We will contact facility and guardian and explore safety plan for discharge as soon as it is appropriate. Involuntary Hold Information 96 Hour Hold: 96 Hour Involuntary Admission: No Attestations NPU Medical Necessity Statement*: Patient hospitalization is medically necessary and deemed to be the clinically appropriate intervention at this time. We will monitor and initiate medications while making changes as indicated. The patient's likely length of stay is 2-5 days. Coding Level of Care Code Acute Code for [facility] Diagnoses Intermittent explosive disorder F63.81 Suicidal ideation R45.851 Mild intellectual disabilities F70 Dysthymia F34.1
[2024-04-19] MEDS: risperiDONE 1 mg Tablet 2 MG PO ×2 (10:10→21:01)
[2024-04-19] MEDS: levothyroxine 100 mcg Tablet PO (10:10)
[2024-04-19] MEDS: lamoTRIgine 100 mg Tablet 200 MG PO ×2 (10:10→21:00)
[2024-04-19] MEDS: duloxetine 30 mg Capsule 60 MG PO (10:10)
[2024-04-19] MEDS: topiramate 100 mg Tablet PO ×2 (10:11→21:01)
[2024-04-19 10:14] LABS: HCG, Serum Qual Negative (Negative)
[2024-04-19 14:00] VITALS: BP 129/90; PULSE 90; RESP 16; TEMP 36.6; O2SAT 98
[2024-04-19 19:51] VITALS: BP 106/56; PULSE 77; RESP 18; TEMP 36.6; O2SAT 96
[2024-04-19] MEDS: prazosin 1 mg Capsule 2 MG PO (21:00)
[2024-04-19] MEDS: trazodone 100 mg Tablet PO (21:01)
[2024-04-19] MEDS: OLANZapine 5 mg TABLET PO (21:01)
[2024-04-20 06:00] VITALS: RESP 18
--- NOTE | 2024-04-20 06:52 | PC.NURSE ---
Patient refused vitals nurse notified.
[2024-04-20] MEDS: levothyroxine 100 mcg Tablet PO (07:01)
[2024-04-20] MEDS: risperiDONE 1 mg Tablet 2 MG PO ×2 (09:02→20:14)
[2024-04-20] MEDS: lamoTRIgine 100 mg Tablet 200 MG PO ×2 (09:03→20:14)
[2024-04-20] MEDS: topiramate 100 mg Tablet PO ×2 (09:03→20:15)
[2024-04-20] MEDS: duloxetine 30 mg Capsule 60 MG PO (09:03)
[2024-04-20 14:00] VITALS: BP 93/66; PULSE 93; RESP 18; TEMP 37.7; O2SAT 98
--- NOTE | 2024-04-20 17:58 | P.NPUPN_ITS ---
Subjective NPU 2 Subjective: Patient presented today reporting that she is doing okay. She continues to deny any depression or anxiety or anything like that. She has been focused on when she can go home. We discussed working on her level for possible alternative residential circumstances. She denies any side effects with her medication. Mental Status Exam 2 MSE Comments: This is an obese white female with hospital scrubs on with limited grooming and adequate eye contact. No abnormal movements except for psychomotor retardation. Cooperative with exam in mild distress. Speech was slightly decreased rate and volume and childlike. Mood described as fine, affect slightly subdued. Thought process organized. Thought content: Patient denied suicidal or homicidal ideation, there were no delusions reported or noted, she denied any auditory or visual hallucinations. Attention and concentration appeared intact and memory was mostly reliable but it is unclear whether she was being honest about her statements to her staff, but none were formally tested. She is alert and oriented times person and place. Insight, judgment and impulse control are impaired. Intellectual ability is impaired. Vitals/I&O/Wt Last Vital Signs Temp 100 F H 04/20/24 14:00 Pulse 93 04/20/24 14:00 Resp 18 04/20/24 14:00 BP 93/66 04/20/24 14:00 Pulse Ox 98 04/20/24 14:00 O2 Del Method Room Air 04/19/24 19:51 Data NPU 04/18/24 11:11 04/18/24 19:52 A&P Assessment and plan (1) Intermittent explosive disorder: (2) Suicidal ideation: (3) Mild intellectual disabilities: (4) Dysthymia: Plan 28-year-old white female history of intellectual disability, intermittent explosive disorder, and depression currently residing in a custodial with current reports of homicidal threats and aggressive threats earlier today with multiple hospitalizations with similar presentations. We will evaluate for safety and identify whether this is a recent decline versus consistent with baseline which would we would recommend a more rapid therapeutic discharge in the next day or so. 1. Encourage individual group and milieu therapy. 2. We will continue current psychotropic medications and other outpatient medications. 3. Therapeutic observation 15-minute checks on the unit for safety 4. We will contact facility and guardian and explore safety plan for discharge as soon as it is appropriate. Involuntary Hold Information 2 96 Hour Hold: 96 Hour Involuntary Admission: No Attestations NPU 2 Medical Necessity Statement*: Patient hospitalization is medically necessary and deemed to be the clinically appropriate intervention at this time. We will monitor and initiate medications while making changes as indicated. The patient's likely length of stay is 1-4 days. Coding Level of Care Code Acute Code for [facility] Diagnoses Intermittent explosive disorder F63.81 Suicidal ideation R45.851 Mild intellectual disabilities F70 Dysthymia F34.1
[2024-04-20] MEDS: prazosin 1 mg Capsule 2 MG PO (20:14)
[2024-04-20] MEDS: trazodone 100 mg Tablet PO (20:15)
[2024-04-20] MEDS: OLANZapine 5 mg TABLET PO (20:15)
[2024-04-20 21:05] VITALS: BP 114/75; PULSE 94; RESP 18; TEMP 37.1; O2SAT 98
[2024-04-21 06:00] VITALS: BP 91/63; PULSE 89; RESP 16; TEMP 36.7; O2SAT 97
[2024-04-21] MEDS: levothyroxine 100 mcg Tablet PO (06:34)
[2024-04-21] MEDS: risperiDONE 1 mg Tablet 2 MG PO (08:11)
[2024-04-21] MEDS: duloxetine 30 mg Capsule 60 MG PO (08:11)
[2024-04-21] MEDS: lamoTRIgine 100 mg Tablet 200 MG PO (08:12)
[2024-04-21] MEDS: topiramate 100 mg Tablet PO (08:12)
--- NOTE | 2024-04-21 14:23 | W.PM.NPUDCS ---
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 memory was mostly reliable but it is unclear whether she was being honest about her statements to her staff, but none were formally tested. She is alert and oriented times person and place. Insight, judgment and impulse control are impaired. Intellectual ability is impaired. Discharge Data Studies Completed and Pending: Laboratory Results WBC 7.28 10^3/uL (3.2 9-11.43) 04/18/24 11:11 RBC 4.73 10^6/uL (3.8 5-5.65) 04/18/24 11:11 Hgb 14.30 g/dL (11.27 -16.99) 04/18/24 11:11 Hct 45.6 % (36-47) 04/18/24 11:11 MCV 96.4 fl (85-98) 04/18/24 11:11 MCH 30.2 pg (27-33) 04/18/24 11:11 MCHC 31.4 g/dL (30-55) 04/18/24 11:11 RDW 13.1 % (12.1-15.1 ) 04/18/24 11:11 Plt Count 236 10^3/cmm (157 -399) 04/18/24 11:11 MPV 11.3 fL (7.4-10.4 ) H 04/18/24 11:11 Neut % (Auto) 44.7 % 04/18/24 11:11 Lymph % (Auto) 42.9 % 04/18/24 11:11 [place] % (Auto) 7.3 % 04/18/24 11:11 Eos % (Auto) 4.3 % 04/18/24 11:11 Baso % (Auto) 0.5 % 04/18/24 11:11 Neut # (Auto) 3.26 10^3/uL (1.8 -7.7) 04/18/24 11:11 Lymph # (Auto) 3.1 10^3/uL (0.8- 4.8) 04/18/24 11:11 [place] # (Auto) 0.5 10^3/uL (0.2- 0.9) 04/18/24 11:11 Eos # (Auto) 0.3 10^3/uL (0.0- 0.8) 04/18/24 11:11 Baso # (Auto) 0.0 10^3/uL (0.0- 0.1) 04/18/24 11:11 Nucleated RBC % (a uto) 0 % 04/18/24 11:11 Nucleated RBCs # 0.0 /100WBC 04/18/24 11:11 Sodium 139 mmol/L (136-1 45) 04/18/24 19:52 Potassium 4.0 mmol/L (3.5-5 .1) 04/18/24 19:52 Chloride 103 mmol/L (98-10 7) 04/18/24 19:52 Carbon Dioxide 28 mmol/L (22-29) 04/18/24 19:52 Anion Gap 12.0 (5-19) 04/18/24 19:52 BUN 14 mg/dL (6-20) 04/18/24 19:52 Creatinine 1.2 mg/dL (0.5-0. 9) H 04/18/24 19:52 GFR Calculation 52.7 mL/min (90-1 30) L 04/18/24 19:52 Glucose 81 mg/dL (65-115) 04/18/24 19:52 Calculated Osmolal ity 288 mOsm/kg (285- 295) 04/18/24 19:52 Calcium 9.5 mg/dL (8.5-10 .5) 04/18/24 19:52 Total Bilirubin 0.4 mg/dL (0.15-1 .2) 04/18/24 19:52 AST 21 U/L (0-32) 04/18/24 19:52 ALT 28 U/L (0-33) 04/18/24 19:52 Alkaline Phosphata se 77 U/L (35-105) 04/18/24 19:52 Total Protein 7.0 g/dL (6.6-8.7 ) 04/18/24 19:52 Albumin 4.2 g/dL (3.5-5.2 ) 04/18/24 19:52 Globulin 2.8 g/dL (1.3-4.6 ) 04/18/24 19:52 HCG, Qual Negative (Negati ve) 04/18/24 11:11 Salicylates < 0.3 mg/dL (3-10 ) L 04/18/24 19:52 Urine Opiates Scre en Negative ng/mL (N egative) 04/18/24 17:48 Acetaminophen < 5.0 ug/mL (10-3 0) L 04/18/24 19:52 Ur Barbiturates Sc reen Negative ng/mL (N egative) 04/18/24 17:48 Ur Phencyclidine S crn Negative ng/mL (N egative) 04/18/24 17:48 Ur Amphetamines Sc reen Negative ng/mL (N egative) 04/18/24 17:48 U Benzodiazepines Scrn Negative ng/mL (N egative) 04/18/24 17:48 Urine Cocaine Scre en Negative ng/mL (N egative) 04/18/24 17:48 U Marijuana (THC) Screen Negative ng/mL (N egative) 04/18/24 17:48 Ethyl Alcohol < 10 mg/dL (0-10) 04/18/24 19:52 Vitals: Last Vital Signs Temp 98.1 F 04/21/24 06:00 Pulse 89 04/21/24 06:00 Resp 16 04/21/24 06:00 BP 91/63 04/21/24 06:00 Pulse Ox 97 04/21/24 06:00 O2 Del Method Room Air 04/21/24 06:00 Discharge Plan Discharge Patient Disposition: Home Condition: Stable Prescriptions: Continued levothyroxine 100 mcg capsule 100 mcg PO DAILY Rx Instructions: take 30 minutes before meal. polyethylene glycol 3350 [Miralax] 17 gram/dose powder 4 g PO DAILY PRN (Reason: Constipation) hydrocortisone 2.5 % cream with perineal applicator 1 applic topical BID prazosin 2 mg capsule 2 mg PO .HS Qty: 30 2RF trazodone 100 mg tablet 100 mg PO BEDTIME Qty: 30 2RF duloxetine 30 mg capsule,delayed release(DR/EC) 60 mg PO DAILY Qty: 60 0RF lamotrigine 200 mg tablet 200 mg PO BID Qty: 60 0RF topiramate 100 mg tablet 100 mg PO BID Qty: 60 0RF olanzapine 5 mg tablet 5 mg PO BEDTIME Rx Instructions: at bedtime risperidone 1 mg tablet 2 mg PO BID Discharge Orders: Discharge Order (Routine); Ordered 04/21/24 Ordered By: Bandar Pritchett Referrals: [facility], Ree Bui LCSW [Other] - 04/28/24 9:30 am (Follow up) Jaky Perry PMHNP [Staff Physician] - 04/25/24 9:15 am Chaya Chau FNP [Staff Physician] - Discharge Diet: Regular Discharge Activity: Resume usual activity Patient Instructions: Opioid Safety Discharge Attestations [facility] Time Spent in Discharge Care*: less than 30 min Specific Discharge Activities: Specific discharge activities: educating patient, discussing with medical case manager/social workers/dc planners, documenting/other paperwork and evaluating patient/reviewing data Coding Level of Care Code Acute Code for Chg Fwd Diagnoses Intermittent explosive disorder F63.81 Suicidal ideation R45.851 Mild intellectual disabilities F70 Dysthymia F34.1
[2024-04-21 14:24] VITALS: BP 98/63; PULSE 89; RESP 16; TEMP 36.7; O2SAT 89
== END 2024-04-21 16:45 | disposition home or self-care (01) | DRG 883 ==
LOC: ER 16:34 → NP 17:00
PROVIDERS: Emergency Medicine; Admitting Provider Psychiatry & Neurology Psychiatry; Emergency Provider Physician Assistant; PCP Internal Medicine; Visit Provider Psychiatry & Neurology Psychiatry
DX: F63.81 Intermittent explosive disorder (principal); R45.851 Suicidal ideations; F33.1 Major depressive disorder, recurrent, moderate; F70 Mild intellectual disabilities; F34.1 Dysthymic disorder; E66.9 Obesity, unspecified; Z68.31 Body mass index [BMI] 31.0-31.9, adult
CPT/HCPCS: 36415; 80053; 80306; 80307; 84703; 85025; 97150; 97165; 99285

== ENCOUNTER 2024-05-18 11:51 | Inpatient (IN) | payer MEDICAID, SELFPAY ==
[2024-05-18 11:55] VITALS: BP 99/67; PULSE 84; RESP 16; TEMP 36.9; O2SAT 97; BMI 20.3
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
[2024-05-18 12:54] LABS: Basophils % 0.5 %; Eosinophils # 0.3 10^3/uL (0.0-0.8); Eosinophils % 4.1 %; Hematocrit 42.3 % (36-47); Lymphocytes # 2.7 10^3/uL (0.8-4.8); Lymphocytes % 36.5 %; Mean Corpuscular HGB Conc 32.4 g/dL (30-55); Mean Corpuscular Volume 92.6 fl (85-98); Mean Platelet Volume 10.2 fL (7.4-10.4); Monocytes # 0.5 10^3/uL (0.2-0.9); Monocytes % 6.5 %; Neutrophils # 3.82 10^3/uL (1.8-7.7); Nucleated Red Blood Cells % 0 %; Platelet Count 215 10^3/cmm (157-399); Red Blood Count 4.57 10^6/uL (3.85-5.65); Red Cell Distribution Width 12.2 % (12.1-15.1); White Blood Count 7.35 10^3/uL (3.29-11.43)
--- NOTE | 2024-05-18 13:15 | PC.PHAR ---
Pt has a team from [facility]-they provide current med list.
[2024-05-18 13:17] LABS: Alanine Aminotransferase 24 U/L (0-33); Albumin Level 4.6 g/dL (3.5-5.2); Alkaline Phosphatase 91 U/L (35-105); Anion Gap 13.7 (5-19); Aspartate Amino Transferase 17 U/L (0-32); Blood Urea Nitrogen 16 mg/dL (6-20); Calcium 9.9 mg/dL (8.5-10.5); Carbon Dioxide 27 mmol/L (22-29); Chloride 102 mmol/L (98-107); Globulin 2.9 g/dL (1.3-4.6); Glomerular Filtration Rate 44.2 mL/min (90-130); Glucose 94 mg/dL (65-115); Osmolality Calculated 289 mOsm/kg (285-295); Potassium 3.7 mmol/L (3.5-5.1); Sodium 139 mmol/L (136-145); Total Bilirubin 0.2 mg/dL (0.15-1.2); Total Protein 7.5 g/dL (6.6-8.7)
[2024-05-18 13:21] LABS: Acetaminophen < 5.0 ug/mL (10-30); Alcohol Level < 10 mg/dL (0-10); Salicylate < 0.3 mg/dL (3-10)
--- NOTE | 2024-05-18 14:57 | PC.NURSE ---
report called to Jack in [facility], no further questions.
[2024-05-18 15:17] VITALS: BP 125/89; PULSE 77; RESP 17; TEMP 36.7; O2SAT 93
[2024-05-18 22:00] VITALS: BP 101/67; PULSE 61; RESP 15; TEMP 36.6; O2SAT 95
[2024-05-19 06:00] VITALS: BP 101/65; PULSE 66; RESP 16; TEMP 36.6; O2SAT 95
--- NOTE | 2024-05-19 11:00 | PC.OT ---
OT eval attempted at 9:52 am with patient sleeping soundly; will attempt again at another time.
[2024-05-19] MEDS: loratadine 10 mg Tablet PO (13:11)
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
[2024-05-19 14:00] VITALS: BP 144/74; PULSE 88; RESP 16; TEMP 37; O2SAT 98
[2024-05-19] MEDS: risperiDONE 1 mg Tablet PO (17:29)
[2024-05-19] MEDS: lamoTRIgine 100 mg Tablet 200 MG PO (17:29)
[2024-05-19] MEDS: duloxetine 30 mg Capsule 60 MG PO (17:29)
[2024-05-19] MEDS: topiramate 100 mg Tablet PO (17:29)
[2024-05-19 20:20] VITALS: BP 86/59; PULSE 75; RESP 16; O2SAT 93
[2024-05-19] MEDS: prazosin 1 mg Capsule 2 MG PO (22:06)
[2024-05-19] MEDS: trazodone 100 mg Tablet PO (22:06)
[2024-05-19] MEDS: OLANZapine 5 mg TABLET PO (22:07)
[2024-05-20 06:00] VITALS: BP 95/64; PULSE 63; RESP 16; O2SAT 98
[2024-05-20] MEDS: levothyroxine 100 mcg Tablet PO (06:05)
[2024-05-20] MEDS: risperiDONE 1 mg Tablet PO ×2 (08:54→17:05)
[2024-05-20] MEDS: loratadine 10 mg Tablet PO (08:54)
[2024-05-20] MEDS: lamoTRIgine 100 mg Tablet 200 MG PO ×2 (08:54→17:05)
[2024-05-20] MEDS: topiramate 100 mg Tablet PO ×2 (08:54→17:05)
[2024-05-20 14:00] VITALS: BP 103/76; PULSE 104; RESP 16; TEMP 36.6; O2SAT 98
[2024-05-20] MEDS: duloxetine 30 mg Capsule 60 MG PO (17:05)
--- NOTE | 2024-05-20 18:37 | W.PM.NPUPNS ---
Subjective NPU Subjective: Patient presented today reporting she is doing okay. She is now really focused on the timeline of things and how and when she might go back to [facility] versus [facility] forward [facility] or what other resource is identified. We discussed the importance of her managing herself here and that we would get some information on Thursday and go from there. She denied any side effects from her medications and there were no concerns reported by staff about her behaviors. Mental Status Exam MSE Comments: This is an obese white female with hospital scrubs on with limited grooming and adequate eye contact. No abnormal movements except for psychomotor retardation. Cooperative with exam in mild distress. Speech was decreased rate and volume and childlike. Mood described as fine, affect subdued. Thought process organized. Thought content: Patient denied suicidal or homicidal ideation, there were no delusions reported or noted, she denied any auditory or visual hallucinations. Attention and concentration appeared intact and memory was mostly reliable but it is unclear whether she was being honest about her statements about her staff, but none were formally tested. She is alert and oriented times person and place. Insight, judgment and impulse control are impaired. Intellectual ability is impaired. Vitals/I&O/Wt Last Vital Signs Temp 98 F 05/20/24 14:00 Pulse 104 H 05/20/24 14:00 Resp 16 05/20/24 14:00 BP 103/76 05/20/24 14:00 Pulse Ox 98 05/20/24 14:00 O2 Del Method Room Air 05/20/24 14:00 Data NPU 05/18/24 12:44 05/18/24 12:44 A&P Assessment and plan (1) Intermittent explosive disorder: (2) Suicidal ideation: (3) Mild intellectual disabilities: (4) Dysthymia: (5) Major depressive disorder, recurrent, moderate: (6) Poor impulse control: (7) Suicidal ideation: (8) Outbursts of explosive behavior: Plan 28-year-old white female history of intellectual disability, intermittent explosive disorder, and depression currently residing in a shelter and returning with similar complaints as she has had in the past specifically reporting difficulty getting along with 1 staff member which reportedly led to agitation and conflict leading to this hospitalization. We will evaluate for safety and identify whether this is a recent decline versus consistent with baseline which would we would recommend a more rapid therapeutic discharge. However there is also a question of whether she has gotten to a point where this facility is just not adequate to manage her because of her resistance to their people and processes. 1. Encourage individual group and milieu therapy. 2. We will continue current psychotropic medications and other outpatient medications and evaluate whether the change is appropriate. 3. Therapeutic observation 15-minute checks on the unit for safety 4. We will contact facility and guardian and explore safety plan for discharge as soon as it is appropriate. Involuntary Hold Information 96 Hour Hold: 96 Hour Involuntary Admission: No Other Hold: Hold End Date: 05/23/24 Attestations U Medical Necessity Statement*: Patient hospitalization is medically necessary and deemed to be the clinically appropriate intervention at this time. We will monitor and initiate medications while making changes as indicated. The patient's likely length of stay is 5-7 days. Coding Level of Care Code Acute Code for [facility] Fwd Diagnoses Intermittent explosive disorder F63.81 Suicidal ideation R45.851 Mild intellectual disabilities F70 Dysthymia F34.1 Major depressive disorder, recurrent, moderate F33.1 Poor impulse control R45.87 Outbursts of explosive behavior R46.89
[2024-05-20 20:58] VITALS: BP 101/75; PULSE 95; RESP 18; TEMP 37.7; O2SAT 96
[2024-05-20] MEDS: OLANZapine 5 mg TABLET PO (21:35)
[2024-05-20] MEDS: prazosin 1 mg Capsule 2 MG PO (21:35)
[2024-05-20] MEDS: trazodone 100 mg Tablet PO (21:35)
[2024-05-20] MEDS: polyethylene glycol 3350 Pkt 17 gm PO (21:36)
[2024-05-21 06:00] VITALS: BP 98/60; PULSE 76; RESP 18; TEMP 37.4; O2SAT 96
[2024-05-21] MEDS: levothyroxine 100 mcg Tablet PO (06:14)
[2024-05-21] MEDS: topiramate 100 mg Tablet PO ×2 (08:59→17:33)
[2024-05-21] MEDS: lamoTRIgine 100 mg Tablet 200 MG PO ×2 (08:59→17:33)
[2024-05-21] MEDS: loratadine 10 mg Tablet PO (08:59)
[2024-05-21] MEDS: risperiDONE 1 mg Tablet PO ×2 (08:59→17:33)
[2024-05-21 14:00] VITALS: BP 100/73; PULSE 66; RESP 16; TEMP 36.8; O2SAT 97
--- NOTE | 2024-05-21 15:26 | P.NPUPN_ITS ---
Subjective NPU 2 Subjective: Patient presented today reporting that she is doing okay. She reports that she is hopeful she can find a place to go and not have to return to [facility]. We discussed the fact that we will not have an understanding of what the options are until we understand what [facility] says about availability. Otherwise she is continuing her current medication and proceeding no problem in the hospital. She denies any side effects to her medications. Mental Status Exam 2 MSE Comments: This is an obese white female with hospital scrubs on with limited grooming and adequate eye contact. No abnormal movements except for psychomotor retardation. Cooperative with exam in mild distress. Speech was decreased rate and volume and childlike. Mood described as fine, affect subdued. Thought process organized. Thought content: Patient denied suicidal or homicidal ideation, there were no delusions reported or noted, she denied any auditory or visual hallucinations. Attention and concentration appeared intact and memory was mostly reliable but it is unclear whether she was being honest about her statements about her staff, but none were formally tested. She is alert and oriented times person and place. Insight, judgment and impulse control are impaired. Intellectual ability is impaired. Vitals/I&O/Wt Last Vital Signs Temp 98.2 F 05/21/24 14:00 Pulse 66 05/21/24 14:00 Resp 16 05/21/24 14:00 BP 100/73 05/21/24 14:00 Pulse Ox 97 05/21/24 14:00 O2 Del Method Room Air 05/21/24 14:00 Data NPU 05/18/24 12:44 05/18/24 12:44 A&P Assessment and plan (1) Intermittent explosive disorder: (2) Suicidal ideation: (3) Mild intellectual disabilities: (4) Dysthymia: (5) Major depressive disorder, recurrent, moderate: (6) Poor impulse control: (7) Suicidal ideation: (8) Outbursts of explosive behavior: Plan 28-year-old white female history of intellectual disability, intermittent explosive disorder, and depression currently residing in a long-term and returning with similar complaints as she has had in the past specifically reporting difficulty getting along with 1 staff member which reportedly led to agitation and conflict leading to this hospitalization. We will evaluate for safety and identify whether this is a recent decline versus consistent with baseline which would we would recommend a more rapid therapeutic discharge. However there is also a question of whether she has gotten to a point where this facility is just not adequate to manage her because of her resistance to their people and processes. 1. Encourage individual group and milieu therapy. 2. We will continue current psychotropic medications and other outpatient medications and evaluate whether the change is appropriate. 3. Therapeutic observation 15-minute checks on the unit for safety 4. We will contact facility and guardian and explore safety plan for discharge as soon as it is appropriate. Involuntary Hold Information 2 96 Hour Hold: 96 Hour Involuntary Admission: No Other Hold: Hold End Date: 05/23/24 Attestations NPU 2 Medical Necessity Statement*: Patient hospitalization is medically necessary and deemed to be the clinically appropriate intervention at this time. We will monitor and initiate medications while making changes as indicated. The patient's likely length of stay is 4 6 days. Coding Level of Care Code Acute Code for [facility] Fwd Diagnoses Intermittent explosive disorder F63.81 Suicidal ideation R45.851 Mild intellectual disabilities F70 Dysthymia F34.1 Major depressive disorder, recurrent, moderate F33.1 Poor impulse control R45.87 Outbursts of explosive behavior R46.89
[2024-05-21] MEDS: duloxetine 30 mg Capsule 60 MG PO (17:33)
[2024-05-21 19:57] VITALS: BP 88/69; PULSE 100; RESP 18; TEMP 36.5; O2SAT 90
[2024-05-21] MEDS: hyDROXYzine 25 mg Capsule 50 MG PO (20:49)
[2024-05-21] MEDS: OLANZapine 5 mg TABLET PO (20:49)
[2024-05-21] MEDS: trazodone 100 mg Tablet PO (20:50)
[2024-05-22 06:00] VITALS: BP 98/67; PULSE 76; RESP 16; O2SAT 97
[2024-05-22] MEDS: levothyroxine 100 mcg Tablet PO (07:09)
[2024-05-22] MEDS: loratadine 10 mg Tablet PO (08:20)
[2024-05-22] MEDS: topiramate 100 mg Tablet PO ×2 (08:20→17:24)
[2024-05-22] MEDS: risperiDONE 1 mg Tablet PO ×2 (08:20→17:24)
[2024-05-22] MEDS: lamoTRIgine 100 mg Tablet 200 MG PO ×2 (08:22→17:24)
--- NOTE | 2024-05-22 10:36 | P.NPUPN_ITS ---
Subjective NPU 2 Subjective: Patient presented today reporting that she is doing okay. She continues to be focused on whether [facility] will get to [facility] and identifying that she does not want to return to [facility]. We continue to tell her that we will have a meeting in the morning of that there will be calls to the [facility] to understand what their waiting list is in after we understand that we will have a better idea of what the possibilities are for her to go directly to [facility] versus having to go somewhere else before. She denies any side effects to medications. Mental Status Exam 2 MSE Comments: This is an obese white female with hospital scrubs on with limited grooming and adequate eye contact. No abnormal movements except for psychomotor retardation. Cooperative with exam in mild distress. Speech was decreased rate and volume and childlike. Mood described as fine, affect subdued. Thought process organized. Thought content: Patient denied suicidal or homicidal ideation, there were no delusions reported or noted, she denied any auditory or visual hallucinations. Attention and concentration appeared intact and memory was mostly reliable but it is unclear whether she was being honest about her statements about her staff, but none were formally tested. She is alert and oriented times person and place. Insight, judgment and impulse control are impaired. Intellectual ability is impaired. Vitals/I&O/Wt Last Vital Signs Temp 97.7 F 05/21/24 19:57 Pulse 76 05/22/24 06:00 Resp 16 05/22/24 06:00 BP 98/67 05/22/24 06:00 Pulse Ox 97 05/22/24 06:00 O2 Del Method Room Air 05/21/24 14:00 Weight last 48 hrs Weight 89.925 kg Data NPU 05/18/24 12:44 05/18/24 12:44 A&P Assessment and plan (1) Intermittent explosive disorder: (2) Suicidal ideation: (3) Mild intellectual disabilities: (4) Dysthymia: (5) Major depressive disorder, recurrent, moderate: (6) Poor impulse control: (7) Suicidal ideation: (8) Outbursts of explosive behavior: Plan 28-year-old white female history of intellectual disability, intermittent explosive disorder, and depression currently [facility] and returning with similar complaints as she has had in the past specifically reporting difficulty getting along with 1 staff member which reportedly led to agitation and conflict leading to this hospitalization. We will evaluate for safety and identify whether this is a recent decline versus consistent with baseline which would we would recommend a more rapid therapeutic discharge. However there is also a question of whether she has gotten to a point where this facility is just not adequate to manage her because of her resistance to their people and processes. 1. Encourage individual group and milieu therapy. 2. We will continue current psychotropic medications and other outpatient medications and evaluate whether the change is appropriate. 3. Therapeutic observation 15-minute checks on the unit for safety 4. We will contact facility and guardian and explore safety plan for discharge as soon as it is appropriate. Involuntary Hold Information 2 96 Hour Hold: 96 Hour Involuntary Admission: No Attestations NPU 2 Medical Necessity Statement*: Patient hospitalization is medically necessary and deemed to be the clinically appropriate intervention at this time. We will monitor and initiate medications while making changes as indicated. The patient's likely length of stay is 3-5 days. Coding Level of Care Code Acute Code for [facility] Fwd Diagnoses Intermittent explosive disorder F63.81 Suicidal ideation R45.851 Mild intellectual disabilities F70 Dysthymia F34.1 Major depressive disorder, recurrent, moderate F33.1 Poor impulse control R45.87 Outbursts of explosive behavior R46.89
[2024-05-22 13:44] VITALS: BP 96/75; PULSE 86; RESP 16; TEMP 37.3; O2SAT 97
[2024-05-22] MEDS: duloxetine 30 mg Capsule 60 MG PO (17:24)
[2024-05-22] MEDS: OLANZapine 5 mg TABLET PO (20:35)
[2024-05-22] MEDS: hyDROXYzine 25 mg Capsule 50 MG PO (20:35)
[2024-05-22] MEDS: trazodone 100 mg Tablet PO (20:35)
[2024-05-22 21:15] VITALS: BP 91/64; PULSE 77; RESP 16; TEMP 37.1; O2SAT 98
[2024-05-23 06:00] VITALS: BP 96/67; PULSE 110; RESP 16; O2SAT 98
[2024-05-23] MEDS: levothyroxine 100 mcg Tablet PO (06:44)
[2024-05-23] MEDS: topiramate 100 mg Tablet PO ×2 (08:19→17:13)
[2024-05-23] MEDS: loratadine 10 mg Tablet PO (08:19)
[2024-05-23] MEDS: risperiDONE 1 mg Tablet PO ×2 (08:19→17:12)
[2024-05-23] MEDS: lamoTRIgine 100 mg Tablet 200 MG PO ×2 (08:19→17:13)
[2024-05-23 12:43] LABS: Basophils % 0.7 %; Eosinophils # 0.3 10^3/uL (0.0-0.8); Eosinophils % 6.6 %; Hematocrit 40.9 % (36-47); Lymphocytes # 2.6 10^3/uL (0.8-4.8); Lymphocytes % 56.9 %; Mean Corpuscular HGB Conc 32.5 g/dL (30-55); Mean Corpuscular Hemoglobin 29.8 pg (27-33); Mean Corpuscular Volume 91.7 fl (85-98); Mean Platelet Volume 10.3 fL (7.4-10.4); Monocytes # 0.4 10^3/uL (0.2-0.9); Monocytes % 8.4 %; Neutrophils # 1.23 10^3/uL (1.8-7.7); Neutrophils % 27.2 %; Nucleated Red Blood Cells % 0 %; Platelet Count 193 10^3/cmm (157-399); Red Blood Count 4.46 10^6/uL (3.85-5.65); Red Cell Distribution Width 12.3 % (12.1-15.1); White Blood Count 4.52 10^3/uL (3.29-11.43)
[2024-05-23 13:00] LABS: HCG Qualitative Urine. Negative (Negative)
[2024-05-23 13:05] LABS: Alanine Aminotransferase 87 U/L (0-33); Albumin Level 4.5 g/dL (3.5-5.2); Alkaline Phosphatase 82 U/L (35-105); Anion Gap 14.5 (5-19); Aspartate Amino Transferase 86 U/L (0-32); Blood Urea Nitrogen 9 mg/dL (6-20); Calcium 9.6 mg/dL (8.5-10.5); Carbon Dioxide 27 mmol/L (22-29); Chloride 102 mmol/L (98-107); Creatinine Clr Calc Pharmacy 67.6484; Globulin 2.6 g/dL (1.3-4.6); Glomerular Filtration Rate 44.2 mL/min (90-130); Glucose 101 mg/dL (65-115); Osmolality Calculated 289 mOsm/kg (285-295); Potassium 3.5 mmol/L (3.5-5.1); Sodium 140 mmol/L (136-145); Total Bilirubin 0.3 mg/dL (0.15-1.2); Total Protein 7.1 g/dL (6.6-8.7)
[2024-05-23 13:08] LABS: Amphetamines Screen Urine Negative (Negative); Barbiturates Screen Urine Negative (Negative); Benzodiazepines Screen Urine Negative (Negative); Cocaine Screen Urine Negative (Negative); Opiate Screen Urine Negative (Negative); PCP Screen Urine Negative (Negative); THC Screen Urine Negative (Negative)
--- NOTE | 2024-05-23 13:31 | P.NPUPN_ITS ---
Subjective NPU 2 Subjective: Patient presented today reporting that she is fine and that she did talk to the social security assessor and they are trying to get an understanding of what the possibilities would be for her to get to [facility] sooner rather than later. We continued to discuss with her that we need to hear back from them to get some idea of what the possibilities are before we start talking about whether she will be staying here but that she will end up going [facility] to the [facility]. She denied any side effects to the medication. Mental Status Exam 2 MSE Comments: This is an obese white female with hospital scrubs on with limited grooming and adequate eye contact. No abnormal movements except for psychomotor retardation. Cooperative with exam in mild distress. Speech was decreased rate and volume and childlike. Mood described as fine, affect subdued. Thought process organized. Thought content: Patient denied suicidal or homicidal ideation, there were no delusions reported or noted, she denied any auditory or visual hallucinations. Attention and concentration appeared intact and memory was mostly reliable but it is unclear whether she was being honest about her statements about her staff, but none were formally tested. She is alert and oriented times person and place. Insight, judgment and impulse control are impaired. Intellectual ability is impaired. Vitals/I&O/Wt Last Vital Signs Temp 98.8 F 05/22/24 21:15 Pulse 110 H 05/23/24 06:00 Resp 16 05/23/24 06:00 BP 96/67 05/23/24 06:00 Pulse Ox 98 05/23/24 06:00 O2 Del Method Room Air 05/22/24 13:44 Weight last 48 hrs Weight 89.925 kg Data NPU 05/23/24 12:34 05/23/24 12:34 A&P Assessment and plan (1) Intermittent explosive disorder: (2) Suicidal ideation: (3) Mild intellectual disabilities: (4) Dysthymia: (5) Major depressive disorder, recurrent, moderate: (6) Poor impulse control: (7) Suicidal ideation: (8) Outbursts of explosive behavior: Plan 28-year-old white female history of intellectual disability, intermittent explosive disorder, and depression currently residing in a [facility] and returning with similar complaints as she has had in the past specifically reporting difficulty getting along with 1 staff member which reportedly led to agitation and conflict leading to this hospitalization. We will evaluate for safety and identify whether this is a recent decline versus consistent with baseline which would we would recommend a more rapid therapeutic discharge. However there is also a question of whether she has gotten to a point where this facility is just not adequate to manage her because of her resistance to their people and processes. 1. Encourage individual group and milieu therapy. 2. We will continue current psychotropic medications and other outpatient medications and evaluate whether the change is appropriate. 3. Therapeutic observation 15-minute checks on the unit for safety 4. We will contact facility and guardian and explore safety plan for discharge as soon as it is appropriate. Involuntary Hold Information 2 96 Hour Hold: 96 Hour Involuntary Admission: No Attestations NPU 2 Medical Necessity Statement*: Patient hospitalization is medically necessary and deemed to be the clinically appropriate intervention at this time. We will monitor and initiate medications while making changes as indicated. The patient's likely length of stay is 3-5 days. Coding Level of Care Code Acute Code for [facility] Fwd Diagnoses Intermittent explosive disorder F63.81 Suicidal ideation R45.851 Mild intellectual disabilities F70 Dysthymia F34.1 Major depressive disorder, recurrent, moderate F33.1 Poor impulse control R45.87 Outbursts of explosive behavior R46.89
[2024-05-23 14:00] VITALS: BP 100/73; PULSE 101; RESP 16; TEMP 37.1; O2SAT 99
[2024-05-23] MEDS: duloxetine 30 mg Capsule 60 MG PO (17:12)
[2024-05-23] MEDS: trazodone 100 mg Tablet PO (20:37)
[2024-05-23] MEDS: OLANZapine 5 mg TABLET PO (20:37)
[2024-05-23 20:40] VITALS: BP 95/74; PULSE 95; RESP 16; TEMP 36.9
[2024-05-23] MEDS: hyDROXYzine 25 mg Capsule 50 MG PO (20:41)
[2024-05-23] MEDS: docusate sodium 100 mg Capsule 200 MG PO (23:05)
[2024-05-24 06:00] VITALS: BP 97/50; PULSE 76; RESP 16; TEMP 36.7; O2SAT 96
[2024-05-24] MEDS: levothyroxine 100 mcg Tablet PO (06:02)
[2024-05-24] MEDS: lamoTRIgine 100 mg Tablet 200 MG PO ×2 (08:34→17:17)
[2024-05-24] MEDS: loratadine 10 mg Tablet PO (08:35)
[2024-05-24] MEDS: risperiDONE 1 mg Tablet PO ×2 (08:36→17:17)
[2024-05-24] MEDS: topiramate 100 mg Tablet PO ×2 (08:36→17:17)
[2024-05-24 14:00] VITALS: BP 88/65; PULSE 87; RESP 16; TEMP 36.8; O2SAT 96
[2024-05-24 14:10] LABS: Basophils # 0.1 10^3/uL (0.0-0.1); Eosinophils # 0.3 10^3/uL (0.0-0.8); Eosinophils % 5.3 %; Hematocrit 41.7 % (36-47); Lymphocytes # 2.6 10^3/uL (0.8-4.8); Lymphocytes % 51.7 %; Mean Corpuscular HGB Conc 31.9 g/dL (30-55); Mean Corpuscular Hemoglobin 29.8 pg (27-33); Mean Corpuscular Volume 93.3 fl (85-98); Mean Platelet Volume 10.4 fL (7.4-10.4); Monocytes # 0.5 10^3/uL (0.2-0.9); Monocytes % 9.2 %; Neutrophils # 1.66 10^3/uL (1.8-7.7); Neutrophils % 32.6 %; Nucleated Red Blood Cells % 0 %; Platelet Count 198 10^3/cmm (157-399); Red Blood Count 4.47 10^6/uL (3.85-5.65); Red Cell Distribution Width 12.3 % (12.1-15.1); White Blood Count 5.09 10^3/uL (3.29-11.43)
[2024-05-24 14:29] LABS: Alanine Aminotransferase 93 U/L (0-33); Albumin Level 4.4 g/dL (3.5-5.2); Alkaline Phosphatase 86 U/L (35-105); Anion Gap 17.5 (5-19); Aspartate Amino Transferase 73 U/L (0-32); Blood Urea Nitrogen 9 mg/dL (6-20); Calcium 9.6 mg/dL (8.5-10.5); Carbon Dioxide 25 mmol/L (22-29); Chloride 103 mmol/L (98-107); Creatinine Clr Calc Pharmacy 67.6484; Globulin 2.7 g/dL (1.3-4.6); Glomerular Filtration Rate 44.2 mL/min (90-130); Glucose 93 mg/dL (65-115); Osmolality Calculated 292 mOsm/kg (285-295); Potassium 3.5 mmol/L (3.5-5.1); Sodium 142 mmol/L (136-145); Total Bilirubin 0.2 mg/dL (0.15-1.2); Total Protein 7.1 g/dL (6.6-8.7)
[2024-05-24] MEDS: duloxetine 30 mg Capsule 60 MG PO (17:17)
--- NOTE | 2024-05-24 18:50 | P.NPUPN_ITS ---
Subjective NPU 2 Subjective: Patient presented today reporting that she is fine. We continue to discuss how she looks a bit sickly with pale appearance and sunken eyes. Some redness in her eyes. Per staff reports and direct observation. She continued to be asking about what was going [facility] with [facility] and we continue to remind her the process. We discussed awaiting word from the [facility] to have an understanding of where we go next. She denied any side effects to her medications. Mental Status Exam 2 MSE Comments: This is an obese white female with hospital scrubs on with limited grooming and adequate eye contact. Patient with somewhat darkened eyes and looking a bit pale. No abnormal movements except for psychomotor retardation. Cooperative with exam in mild distress. Speech was decreased rate and volume and childlike. Mood described as fine, affect subdued. Thought process organized. Thought content: Patient denied suicidal or homicidal ideation, there were no delusions reported or noted, she denied any auditory or visual hallucinations. Attention and concentration appeared intact and memory was mostly reliable but it is unclear whether she was being honest about her statements about her staff, but none were formally tested. She is alert and oriented times person and place. Insight, judgment and impulse control are impaired. Intellectual ability is impaired. Vitals/I&O/Wt Last Vital Signs Temp 98.3 F 05/24/24 14:00 Pulse 87 05/24/24 14:00 Resp 16 05/24/24 14:00 BP 88/65 05/24/24 14:00 Pulse Ox 96 05/24/24 14:00 O2 Del Method Room Air 05/24/24 14:00 Data NPU 05/24/24 14:02 05/24/24 14:02 A&P Assessment and plan (1) Intermittent explosive disorder: (2) Suicidal ideation: (3) Mild intellectual disabilities: (4) Dysthymia: (5) Major depressive disorder, recurrent, moderate: (6) Poor impulse control: (7) Suicidal ideation: (8) Outbursts of explosive behavior: Plan 28-year-old white female history of intellectual disability, intermittent explosive disorder, and depression currently residing in a senior care and returning with similar complaints as she has had in the past specifically reporting difficulty getting along with 1 staff member which reportedly led to agitation and conflict leading to this hospitalization. We will evaluate for safety and identify whether this is a recent decline versus consistent with baseline which would we would recommend a more rapid therapeutic discharge. However there is also a question of whether she has gotten to a point where this facility is just not adequate to manage her because of her resistance to their people and processes. 1. Encourage individual group and milieu therapy. 2. We will continue current psychotropic medications and other outpatient medications and evaluate whether the change is appropriate. 3. Therapeutic observation 15-minute checks on the unit for safety 4. We will contact facility and guardian and explore safety plan for discharge as soon as it is appropriate. 5. Recheck admission labs to evaluate for any medical illness. Involuntary Hold Information 2 96 Hour Hold: 96 Hour Involuntary Admission: No Attestations NPU 2 Medical Necessity Statement*: Patient hospitalization is medically necessary and deemed to be the clinically appropriate intervention at this time. We will monitor and initiate medications while making changes as indicated. The patient's likely length of stay is 3-5 days. Coding Level of Care Code Acute Code for Chg Fwd Diagnoses Intermittent explosive disorder F63.81 Suicidal ideation R45.851 Mild intellectual disabilities F70 Dysthymia F34.1 Major depressive disorder, recurrent, moderate F33.1 Poor impulse control R45.87 Outbursts of explosive behavior R46.89
[2024-05-24 20:10] VITALS: BP 105/60; PULSE 87; RESP 16; TEMP 36.7; O2SAT 97
[2024-05-24] MEDS: docusate sodium 100 mg Capsule 200 MG PO (21:45)
[2024-05-24] MEDS: artificial tears Op Soln 15 mL Btl 1 DROP EYE-BOTH (21:46)
[2024-05-24] MEDS: trazodone 100 mg Tablet PO (21:46)
[2024-05-24] MEDS: OLANZapine 5 mg TABLET PO (21:46)
[2024-05-24] MEDS: prazosin 1 mg Capsule 2 MG PO (21:46)
[2024-05-25] MEDS: levothyroxine 100 mcg Tablet PO (05:55)
[2024-05-25 06:15] VITALS: BP 90/52; PULSE 74; RESP 18; TEMP 36.9; O2SAT 93
[2024-05-25] MEDS: loratadine 10 mg Tablet PO (09:32)
[2024-05-25] MEDS: topiramate 100 mg Tablet PO ×2 (09:32→17:30)
[2024-05-25] MEDS: lamoTRIgine 100 mg Tablet 200 MG PO ×2 (09:32→17:30)
[2024-05-25] MEDS: risperiDONE 1 mg Tablet PO ×2 (09:32→17:29)
[2024-05-25 14:00] VITALS: BP 106/69; PULSE 82; RESP 16; TEMP 36.7; O2SAT 97
--- NOTE | 2024-05-25 15:17 | P.NPUPN_ITS ---
Subjective NPU 2 Subjective: Patient presented today reporting that she is fine. We continue to discuss that she looks a bit sickly with pale appearance and sunken eyes. Some redness in her eyes. We discussed that labs were unremarkable. She continued to ask about what was going [facility] with the [facility] and we continue to remind her the process. We discussed awaiting word from the [facility] to have an understanding of where we go next. She denied any side effects to her medications. Mental Status Exam 2 MSE Comments: This is an obese white female with hospital scrubs on with limited grooming and adequate eye contact. Patient with somewhat darkened eyes and looking a bit pale. No abnormal movements except for psychomotor retardation. Cooperative with exam in mild distress. Speech was decreased rate and volume and childlike. Mood described as fine, affect subdued. Thought process organized. Thought content: Patient denied suicidal or homicidal ideation, there were no delusions reported or noted, she denied any auditory or visual hallucinations. Attention and concentration appeared intact and memory was mostly reliable but it is unclear whether she was being honest about her statements about her staff, but none were formally tested. She is alert and oriented times person and place. Insight, judgment and impulse control are impaired. Intellectual ability is impaired. Vitals/I&O/Wt Last Vital Signs Temp 98.1 F 05/25/24 14:00 Pulse 82 05/25/24 14:00 Resp 16 05/25/24 14:00 BP 106/69 05/25/24 14:00 Pulse Ox 97 05/25/24 14:00 O2 Del Method Room Air 05/25/24 14:00 Data NPU 05/24/24 14:02 05/24/24 14:02 A&P Assessment and plan (1) Intermittent explosive disorder: (2) Suicidal ideation: (3) Mild intellectual disabilities: (4) Dysthymia: (5) Major depressive disorder, recurrent, moderate: (6) Poor impulse control: (7) Suicidal ideation: (8) Outbursts of explosive behavior: Plan 28-year-old white female history of intellectual disability, intermittent explosive disorder, and depression currently residing in a detention and returning with similar complaints as she has had in the past specifically reporting difficulty getting along with 1 staff member which reportedly led to agitation and conflict leading to this hospitalization. We will evaluate for safety and identify whether this is a recent decline versus consistent with baseline which would we would recommend a more rapid therapeutic discharge. However there is also a question of whether she has gotten to a point where this facility is just not adequate to manage her because of her resistance to their people and processes. 1. Encourage individual group and milieu therapy. 2. We will continue current psychotropic medications and other outpatient medications and evaluate whether the change is appropriate. 3. Therapeutic observation 15-minute checks on the unit for safety 4. We will contact facility and guardian and explore safety plan for discharge as soon as it is appropriate. 5. Recheck admission labs to evaluate for any medical illness. Involuntary Hold Information 2 96 Hour Hold: 96 Hour Involuntary Admission: No Attestations NPU 2 Medical Necessity Statement*: Patient hospitalization is medically necessary and deemed to be the clinically appropriate intervention at this time. We will monitor and initiate medications while making changes as indicated. The patient's likely length of stay is 3-5 days. Coding Level of Care Code Acute Code for g Fwd Diagnoses Intermittent explosive disorder F63.81 Suicidal ideation R45.851 Mild intellectual disabilities F70 Dysthymia F34.1 Major depressive disorder, recurrent, moderate F33.1 Poor impulse control R45.87 Outbursts of explosive behavior R46.89
[2024-05-25] MEDS: duloxetine 30 mg Capsule 60 MG PO (17:29)
[2024-05-25 20:09] VITALS: BP 117/77; PULSE 91; RESP 18; TEMP 37.3; O2SAT 98
[2024-05-25] MEDS: hyDROXYzine 25 mg Capsule 50 MG PO (21:55)
[2024-05-25] MEDS: OLANZapine 5 mg TABLET PO (21:55)
[2024-05-25] MEDS: prazosin 1 mg Capsule 2 MG PO (21:55)
[2024-05-25] MEDS: docusate sodium 100 mg Capsule 200 MG PO (21:55)
[2024-05-25] MEDS: trazodone 100 mg Tablet PO (21:55)
[2024-05-26 06:15] VITALS: BP 91/60; PULSE 87; RESP 18; TEMP 37; O2SAT 95
[2024-05-26] MEDS: levothyroxine 100 mcg Tablet PO (06:33)
[2024-05-26] MEDS: lamoTRIgine 100 mg Tablet 200 MG PO ×2 (08:24→17:39)
[2024-05-26] MEDS: risperiDONE 1 mg Tablet PO ×2 (08:24→17:39)
[2024-05-26] MEDS: loratadine 10 mg Tablet PO (08:24)
[2024-05-26] MEDS: topiramate 100 mg Tablet PO ×2 (08:24→17:39)
[2024-05-26] MEDS: artificial tears Op Soln 15 mL Btl 1 DROP EYE-BOTH (08:25)
[2024-05-26 14:00] VITALS: BP 99/70; PULSE 99; RESP 16; TEMP 37.1; O2SAT 92
--- NOTE | 2024-05-26 16:18 | W.PM.NPUPNS ---
Subjective NPU Subjective: Patient presented today reporting that she is doing okay. We discussed the risks, benefits and alternatives of getting a hospitalist consult for concerns about her wellness and reassurance and she understood and agreed to proceed as is documented in this note. We also discussed the [facility] reporting that they are interested in receiving her but need to do an interview and are awaiting some additional documentation from us to evaluate to be able to give a more clear statement of their intent to take her. She denied any side effects to her medications. Mental Status Exam MSE Comments: This is an obese white female with hospital scrubs on with limited grooming and adequate eye contact. Patient with somewhat darkened eyes and looking a bit pale. No abnormal movements except for psychomotor retardation. Cooperative with exam in mild distress. Speech was decreased rate and volume and childlike. Mood described as fine, affect subdued. Thought process organized. Thought content: Patient denied suicidal or homicidal ideation, there were no delusions reported or noted, she denied any auditory or visual hallucinations. Attention and concentration appeared intact and memory was mostly reliable but it is unclear whether she was being honest about her statements about her staff, but none were formally tested. She is alert and oriented times person and place. Insight, judgment and impulse control are impaired. Intellectual ability is impaired. Vitals/I&O/Wt Last Vital Signs Temp 98.7 F 05/26/24 14:00 Pulse 99 05/26/24 14:00 Resp 16 05/26/24 14:00 BP 99/70 05/26/24 14:00 Pulse Ox 92 05/26/24 14:00 O2 Del Method Room Air 05/26/24 14:00 Data NPU 05/24/24 14:02 05/24/24 14:02 A&P Assessment and plan (1) Intermittent explosive disorder: (2) Suicidal ideation: (3) Mild intellectual disabilities: (4) Dysthymia: (5) Major depressive disorder, recurrent, moderate: (6) Poor impulse control: (7) Suicidal ideation: (8) Outbursts of explosive behavior: Plan 28-year-old white female history of intellectual disability, intermittent explosive disorder, and depression currently residing [place] [facility] and returning with similar complaints as she has had in the past specifically reporting difficulty getting along with 1 staff member which reportedly led to agitation and conflict leading to this hospitalization. We will evaluate for safety and identify whether this is a recent decline versus consistent with baseline which would we would recommend a more rapid therapeutic discharge. However there is also a question of whether she has gotten to a point where this facility is just not adequate to manage her because of her resistance to their people and processes. 1. Encourage individual group and milieu therapy. 2. We will continue current psychotropic medications and other outpatient medications and evaluate whether the change is appropriate. 3. Therapeutic observation 15-minute checks on the unit for safety 4. We will contact facility and guardian and explore safety plan for discharge as soon as it is appropriate. 5. Recheck admission labs to evaluate for any medical illness. 6. Obtain hospitalist consult and have evaluate apparent kidney and liver function results against patient's recent appearance. Will follow for recommendations. Involuntary Hold Information 96 Hour Hold: 96 Hour Involuntary Admission: No Attestations NPU Medical Necessity Statement*: Patient hospitalization is medically necessary and deemed to be the clinically appropriate intervention at this time. We will monitor and initiate medications while making changes as indicated. The patient's likely length of stay is 3-5 days. Coding Level of Care Code Acute Code for g Fwd Diagnoses Intermittent explosive disorder F63.81 Suicidal ideation R45.851 Mild intellectual disabilities F70 Dysthymia F34.1 Major depressive disorder, recurrent, moderate F33.1 Poor impulse control R45.87 Outbursts of explosive behavior R46.89
[2024-05-26] MEDS: duloxetine 30 mg Capsule 60 MG PO (17:39)
--- NOTE | 2024-05-26 17:49 | P.CONIM_ITS ---
Providers/Reason For Consult 2 Consulting Physician/Specialty*: yenny alvarez MD Reason for Consult*: generalized unwell , deranged LFT and KFT Attending Physician: Bandar Pritchett MD History of Present Illness History of Present Illness Jessica Pichardo is a 29 year old female with intellectual disability currently admitted to the [facility] for SI. Sh ereports no medical comorbidities. Hospitalist team consulted as she appears to be generally unwell, has been noted to have elevated cr 1.2-1.4 since past many years. She deneis ever being diagnosed with CKD. LFts additionally deranged with high AST/ALT. no known h/o liver issues. she has never been . currently b hcg negative. States she feels well overall and at her baseline. Review of Systems 2 General: Reports: ROS unobtainable due to medical condition (unreliable historian ) Medications/Allergies Home Medications Medication Instructions Recorded Confirmed Last Taken Type levothyroxine 100 mcg capsule 100 mcg PO QAM 07/25/19 05/18/24 05/18/24 History trazodone 100 mg tablet 100 mg PO BEDTIME #30 tabs 03/11/24 05/18/24 05/17/24 Rx albuterol sulfate 90 mcg/actuation 1 puff inhalation Q4H PRN Cough or 04/25/24 05/18/24 Unknown History aerosol inhaler (Ventolin HFA) wheezing bismuth subsalicylate 262 mg/15 mL 524 mg PO QID PRN Diarrhea 04/25/24 05/18/24 Unknown History oral suspension (Pepto-Bismol) fluoride (sodium) 1.1 % dental 1 applic dental BID 04/25/24 05/18/24 05/18/24 History paste (Sodium Fluoride 5000 Dry Mouth) fluticasone propionate 50 1 spray intranasal DAILY PRN Cough 04/25/24 05/18/24 Unknown History mcg/actuation nasal spray,suspension hydrocortisone 2.5 % topical cream 1 applic topical BID PRN Skin 04/25/24 05/18/24 Unknown History Irritation ibuprofen 200 mg capsule 400 mg PO Q8H PRN Pain 04/25/24 05/18/24 Unknown History loratadine 10 mg tablet (Allergy 10 mg PO DAILY 04/25/24 05/18/24 05/18/24 History Relief (loratadine)) polyethylene glycol 3350 17 17 g PO DAILY PRN Constipation 04/25/24 05/18/24 Unknown History gram/dose oral powder (Miralax) prednisone 1 mg tablet See Rx Instructions .Route .COMPLEX 04/25/24 05/18/24 05/18/24 History olanzapine 5 mg tablet 5 mg PO BEDTIME #30 tabs 05/09/24 05/18/24 05/17/24 Rx risperidone 1 mg tablet 1 mg PO BID #60 tabs 05/09/24 05/18/24 05/18/24 Rx duloxetine 30 mg capsule,delayed 60 mg PO QPM 05/18/24 05/18/24 05/17/24 History release lamotrigine 200 mg tablet 200 mg PO BID 05/18/24 05/18/24 05/18/24 History ondansetron 4 mg disintegrating 4 mg translingual Q6H PRN Nausea 05/18/24 05/18/24 Unknown History tablet And Vomiting prazosin 2 mg capsule 2 mg PO BEDTIME 05/18/24 05/18/24 05/17/24 History topiramate 100 mg tablet 100 mg PO BID 05/18/24 05/18/24 05/18/24 History witch hussein-glycerin (hamamel) 1 pad topical Q2H PRN Symptoms Of 05/18/24 05/18/24 Unknown History topical pads Eclampsia Allergies Allergy/AdvReac Type Severity Reaction Status Date / Time divalproex sodium Allergy Unknown Unknown Verified 04/25/24 09:29 [From Depakote] adhesive tape Allergy Unknown Verified 04/25/24 09:29 cefpodoxime Allergy Unknown Verified 04/25/24 09:29 diazepam [From Valium] Allergy Unknown Verified 04/25/24 09:29 levomilnacipran Allergy Unknown Verified 04/25/24 09:29 [From Fetzima] Penicillins Allergy Unknown Verified 04/25/24 09:29 Current Medications Generic Name Dose Route Start Last Admin Trade Name Freq PRN Reason Stop Dose Admin Artificial Tears 1 drop 05/24/24 20:39 05/26/24 08:25 Artificial Tears Op Soln 15 Ml Btl EYE-BOTH 1 drop Q4H PRN Administration DRY EYE(S) Docusate Sodium 200 mg 05/23/24 22:49 05/25/24 21:55 Docusate Sodium 100 Mg Capsule PO 200 mg BEDTIME KIMO Administration Duloxetine HCl 60 mg 05/19/24 18:00 05/26/24 17:39 Duloxetine 30 Mg Capsule PO 60 mg QPM KIMO Administration Hydroxyzine Pamoate 50 mg 05/18/24 15:17 05/25/24 21:55 Hydroxyzine 25 Mg Capsule PO 50 mg Q6H PRN Administration ANXIETY Lamotrigine 200 mg 05/19/24 18:00 05/26/24 17:39 Lamotrigine 100 Mg Tablet PO 200 mg BID KIMO Administration Levothyroxine Sodium 100 mcg 05/20/24 06:00 05/26/24 06:33 Levothyroxine 100 Mcg Tablet PO 100 mcg QAM KIMO Administration Loratadine 10 mg 05/19/24 11:15 05/26/24 08:24 Loratadine 10 Mg Tablet PO 10 mg DAILY KIMO Administration Olanzapine 5 mg 05/19/24 21:00 05/25/24 21:55 Olanzapine 5 Mg Tablet PO 5 mg BEDTIME KIMO Administration Polyethylene Glycol 17 gm 05/19/24 11:17 05/20/24 21:36 Polyethylene Glycol 3350 Pkt 17 Gm PO 17 gm DAILY PRN Administration Constipation Prazosin HCl 2 mg 05/19/24 21:00 05/25/24 21:55 Prazosin 1 Mg Capsule PO 2 mg BEDTIME KIMO Administration Risperidone 1 mg 05/19/24 18:00 05/26/24 17:39 Risperidone 1 Mg Tablet PO 1 mg BID KIMO Administration Topiramate 100 mg 05/19/24 18:00 05/26/24 17:39 Topiramate 100 Mg Tablet PO 100 mg BID KIMO Administration Trazodone HCl 100 mg 05/19/24 21:00 05/25/24 21:55 Trazodone 100 Mg Tablet PO 100 mg BEDTIME KIMO Administration PFSH Acute 2 PFSH: Medical History Enuresis Intermittent explosive disorder Nocturnal enuresis Psychiatric care On high dose antipsychotic drug therapy Major depressive disorder, recurrent, moderate Mild intellectual disabilities Family History Other Family history unknown Social History Smoking and tobacco/nicotine status: never used tobacco/nicotine Second hand smoke exposure: No Alcohol intake: never Substance/Drug Use: never Caregiver/support person: Yes Lives independently: No Household members: other Details: Deya Simmons Marital status: Single service: No Current occupational status: disabled Current gender identity: Female Special gilmer needs: No Agree to transfusion: Yes Vitals/I&O/Wt Last Vital Signs Temp 98.7 F 05/26/24 14:00 Pulse 99 05/26/24 14:00 Resp 16 05/26/24 14:00 BP 99/70 05/26/24 14:00 Pulse Ox 92 05/26/24 14:00 O2 Del Method Room Air 05/26/24 14:00 Physical Exam 2 Narrative: General: No acute distress, AO x3 HEENT: PERRLA, pupils bilaterally equal and reactive, pallors not present Chest: Normal vesicular breath sounds, no added sounds, equal good air entry bilaterally CVS: S1-S2 regular, no murmurs, no tachycardia, no gallops, no rubs Abdomen: Soft, nontender, no organomegaly, bowel sounds present Neuro: No focal deficits, no facial deformity, AO x3, power 5/5 in all limbs Data 05/27/24 08:51 05/27/24 08:51 A&P Assessment and plan (1) Transaminitis: elevated AST/ALT without specific cause Check Hepatitis panel, HIV screen, EAN screen US RUQ ? may be related to lamotrigine (2) CKD (chronic kidney disease): (3) CKD (chronic kidney disease) stage 2, GFR 60-89 ml/min: GFR 89 , mildly reduced no nephrotoxic medications noted on MAR denies h/o HTN or DM unknown family h/o vasculitis, check EAN panel check renal us incl renal artery doppler check UA for blood, casts , proteinuria Plan low grade fever 99.8F , check covid and influenza AG, blood cx Consult Attestations 2 Medical Necessity Statement: per admitting Coding Level of Care Code Acute Code for Chg Fwd Diagnoses Transaminitis R74.01 CKD (chronic kidney disease) N18.9 CKD (chronic kidney disease) stage 2, GFR 60-89 ml/min N18.2
--- NOTE | 2024-05-26 18:10 | PC.NURSE ---
DR. MORRELL TO CONSULT MEDICINE, (DR. DIEHL) DUE TO ELEVATED LIVER ENZYMES AND POSSIBLE RINA. LABS REVIEWED FROM THIS HOSPITAL STAY AND LAST, DR. MORRELL SAW CONCERN WITH BUN/CREATINE AND LIVER ENZYMES TRENDING UPWARD. ORDERS PLACED. [facility] CONTACTED. CURRENTLY ON UNIT TO SEE PT.
[2024-05-26 19:03] LABS: SARS Covid-2 Antigen Negative (Negative)
[2024-05-26 19:07] LABS: Influenza A by IFA Negative (Negative); Influenza B by IFA Negative (Negative)
[2024-05-26 20:02] LABS: HIV 1 & 2 Antibody Non-Reactive (Non-Reactiv); HIV 1 & 2 Antigen Non-Reactive (Non-Reactiv)
[2024-05-26 20:55] VITALS: BP 113/79; PULSE 71; RESP 20; TEMP 36.9; O2SAT 96
[2024-05-26] MEDS: OLANZapine 5 mg TABLET PO (21:04)
[2024-05-26] MEDS: docusate sodium 100 mg Capsule 200 MG PO (21:04)
[2024-05-26] MEDS: trazodone 100 mg Tablet PO (21:04)
[2024-05-26] MEDS: prazosin 1 mg Capsule 2 MG PO (21:04)
[2024-05-26 21:06] LABS: Hepatitis A Antibody IgM Non-Reactive (Nonreactive); Hepatitis B Core AB, Total Non-Reactive (Nonreactive); Hepatitis B Surface AB < 3.5 (11.5-1000); Hepatitis B Surface Antigen Non-Reactive (Nonreactive); Hepatitis C Virus Antibody Non-Reactive (Nonreactive)
[2024-05-26 21:12] LABS: Bilirubin Urine Negative (Negative); Blood Urine Negative (Negative); Glucose Urine UA Negative (Normal); Ketones Urine Negative (Negative); Leukocyte Esterase Urine Negative (Negative); Nitrate Urine Negative (Negative); Protein Urine Negative (Negative); Specific Gravity, Urine 1.009 (1.005-1.030); Urine Appearance Clear (CLEAR); Urine Color Yellow (Yellow); pH Urine 5.5 (5-7)
[2024-05-26 21:17] LABS: Add Urine Microscopic? YES; Bacteria Urine None Seen /hpf; Hyaline Casts Urine 0-4 /lpf; RBC Urine 0-2 /hpf (0-2); Squamous Epithelial Cell Urine 0-5 /hpf (0-5); WBC Urine 0-5 /hpf (0-5)
[2024-05-26 21:30] LABS: Thyroid Stimulating Hormone 0.65 uIU/mL (0.27-4.20)
[2024-05-27 06:15] VITALS: BP 100/87; PULSE 77; RESP 16; TEMP 36.9; O2SAT 98
[2024-05-27] MEDS: lamoTRIgine 100 mg Tablet 200 MG PO ×2 (08:17→17:23)
[2024-05-27] MEDS: loratadine 10 mg Tablet PO (08:17)
[2024-05-27] MEDS: risperiDONE 1 mg Tablet PO ×2 (08:17→17:23)
[2024-05-27] MEDS: levothyroxine 100 mcg Tablet PO (08:17)
[2024-05-27] MEDS: topiramate 100 mg Tablet PO ×2 (08:17→17:23)
[2024-05-27 09:03] LABS: Basophils % 0.8 %; Eosinophils # 0.3 10^3/uL (0.0-0.8); Eosinophils % 5.9 %; Hematocrit 38.8 % (36-47); Lymphocytes # 2.8 10^3/uL (0.8-4.8); Lymphocytes % 55.1 %; Mean Corpuscular HGB Conc 31.2 g/dL (30-55); Mean Corpuscular Hemoglobin 29.6 pg (27-33); Mean Corpuscular Volume 94.9 fl (85-98); Mean Platelet Volume 10.4 fL (7.4-10.4); Monocytes # 0.4 10^3/uL (0.2-0.9); Monocytes % 7.8 %; Neutrophils # 1.54 10^3/uL (1.8-7.7); Nucleated Red Blood Cells % 0 %; Platelet Count 197 10^3/cmm (157-399); Red Blood Count 4.09 10^6/uL (3.85-5.65); Red Cell Distribution Width 12.3 % (12.1-15.1); White Blood Count 5.12 10^3/uL (3.29-11.43)
[2024-05-27 09:25] LABS: Alanine Aminotransferase 62 U/L (0-33); Albumin Level 4.1 g/dL (3.5-5.2); Alkaline Phosphatase 74 U/L (35-105); Anion Gap 15.9 (5-19); Aspartate Amino Transferase 40 U/L (0-32); Blood Urea Nitrogen 12 mg/dL (6-20); Calcium 9.3 mg/dL (8.5-10.5); Carbon Dioxide 24 mmol/L (22-29); Chloride 105 mmol/L (98-107); Creatinine Clr Calc Pharmacy 67.6484; Globulin 2.5 g/dL (1.3-4.6); Glomerular Filtration Rate 44.2 mL/min (90-130); Glucose 90 mg/dL (65-115); Osmolality Calculated 291 mOsm/kg (285-295); Potassium 3.9 mmol/L (3.5-5.1); Sodium 141 mmol/L (136-145); Total Bilirubin 0.4 mg/dL (0.15-1.2); Total Protein 6.6 g/dL (6.6-8.7)
[2024-05-27 13:05] LABS: Chol HDL Ratio 5.53 mg/dL (0.0-4.40); Cholesterol 177 mg/dL (0-200); HDL Cholesterol 32 mg/dL (60-100); LDL Cholesterol Calculated 94 mg/dL (50-129); LDL HDL Ratio 2.94 RATIO (0.00-3.22); Triglycerides 257 mg/dL (0-150)
[2024-05-27 14:00] VITALS: BP 102/71; PULSE 87; RESP 16; TEMP 36.9; O2SAT 96
[2024-05-27] MEDS: duloxetine 30 mg Capsule 60 MG PO (17:23)
--- NOTE | 2024-05-27 17:47 | US_ITS ---
WS: [id number] RIGHT UPPER QUADRANT ULTRASOUND HISTORY: transaminitis COMPARISON: 06/03/2023 Liver: 16.7 cm in length. Liver is measuring slightly smaller in size as compared to the prior study. Mild coarse echotexture. No mass. No intrapelvic dilatation. Portal Vein: Normal hepatopetal flow with monophasic waveform. Gallbladder: Normally distended gallbladder with no stones or wall thickening. CBD: 0.4 cm Pancreas: Obscured. Right kidney: 9.2 cm in length. Normal size and echogenicity. No hydronephrosis or mass. Aorta and IVC: Unremarkable abdominal aorta and IVC. No ascites. US/US liver 17128 IMPRESSION: 1. Normal size liver. Liver is measuring slightly smaller as compared to the p rior study. Continued hepatic steatosis. 2. Normal gallbladder. 3. No intrahepatic duct dilatation.
--- NOTE | 2024-05-27 17:47 | USCV_ITS ---
Jessica Pichardo Age: 29 Gender: F : 1995 Exam Date: 05/27/2024 07:29 Ordering Phys: Yenny Alvarez MD Technologist: PAUL Exam Location: [facility] [place] Indication: CKD Aortic Velocity @ SMA (cm/s) 136 RIGHT KIDNEY LEFT KIDNEY Velocity (cm/s) Velocity (cm/s) Sys/Borrego Sys/Borrego Resistive Index Resistive Index 93.3 / 44.1 0.53 Proximal Renal Artery 54.0 / 24.8 0.54 47.5 / 17.8 0.62 Mid Renal Artery 87.0 / 43.6 0.50 46.4 / 24.4 0.47 Distal Renal Artery 72.1 / 30.1 0.58 63.0 / 25.8 0.59 Hilar 45.7 / 21.9 0.52 13.0 / 6.6 0.50 Upper Pole 32.1 / 13.3 0.58 23.1 / 12.1 0.48 Mid Pole 25.9 / 9.9 0.62 21.6 / 9.7 0.55 Lower Pole 25.9 / 9.9 0.62 0.68 Renal Aortic Ratio 0.64 Accleration Time (sec) 292.60 Hilar 275.80 97.80 Upper Pole 98.10 155.60 Mid Pole 99.30 110.10 Lower Pole 128.30 10.6 Kidney Length (cm) 9.7 FINDINGS Normal size kidneys. No evidence of abdominal aortic aneurysm. There is no evidence of hemodynamically significant right renal artery stenosis. There is no evidence of hemodynamically significant left renal artery stenosis. CONCLUSIONS No sonographic evidence of renal aortic stenosis or aneurysm. Dr. Ana Owens DO (Electronically Signed) Final Date: 27 May 2024 11:14 S
--- NOTE | 2024-05-27 18:08 | P.NPUPN_ITS ---
Subjective NPU 2 Subjective: Patient presented today reporting that she is doing fine but denying any challenges or new issues. We continue to discuss the timeline for the [facility] evaluating and making some decision. She seems understand that she will likely be interviewed at the beginning of next week and evaluated for possible acceptance. She denied any side effects to her medications. Mental Status Exam 2 MSE Comments: This is an obese white female with hospital scrubs on with limited grooming and adequate eye contact. Patient with somewhat darkened eyes and looking a bit pale. No abnormal movements except for psychomotor retardation. Cooperative with exam in mild distress. Speech was decreased rate and volume and childlike. Mood described as fine, affect subdued. Thought process organized. Thought content: Patient denied suicidal or homicidal ideation, there were no delusions reported or noted, she denied any auditory or visual hallucinations. Attention and concentration appeared intact and memory was mostly reliable but it is unclear whether she was being honest about her statements about her staff, but none were formally tested. She is alert and oriented times person and place. Insight, judgment and impulse control are impaired. Intellectual ability is impaired. Vitals/I&O/Wt Last Vital Signs Temp 98.4 F 05/27/24 14:00 Pulse 87 05/27/24 14:00 Resp 16 05/27/24 14:00 BP 102/71 05/27/24 14:00 Pulse Ox 96 05/27/24 14:00 O2 Del Method Room Air 05/27/24 14:00 Data NPU 05/27/24 08:51 05/27/24 08:51 Micro: Microbiology 05/26/24 20:35 Blood Culture - Preliminary Blood NEGATIVE TO DATE 05/26/24 18:57 Blood Culture - Preliminary Blood NEGATIVE TO DATE Microbiology 05/26/24 20:35 Blood Blood Culture - Preliminary NEGATIVE TO DATE 05/26/24 18:57 Blood Blood Culture - Preliminary NEGATIVE TO DATE A&P Assessment and plan (1) Intermittent explosive disorder: (2) Suicidal ideation: (3) Mild intellectual disabilities: (4) Dysthymia: (5) Major depressive disorder, recurrent, moderate: (6) Poor impulse control: (7) Suicidal ideation: (8) Outbursts of explosive behavior: Plan 28-year-old white female history of intellectual disability, intermittent explosive disorder, and depression currently residing in a longterm and returning with similar complaints as she has had in the past specifically reporting difficulty getting along with 1 staff member which reportedly led to agitation and conflict leading to this hospitalization. We will evaluate for safety and identify whether this is a recent decline versus consistent with baseline which would we would recommend a more rapid therapeutic discharge. However there is also a question of whether she has gotten to a point where this facility is just not adequate to manage her because of her resistance to their people and processes. 1. Encourage individual group and milieu therapy. 2. We will continue current psychotropic medications and other outpatient medications and evaluate whether the change is appropriate. 3. Therapeutic observation 15-minute checks on the unit for safety 4. We will contact facility and guardian and explore safety plan for discharge as soon as it is appropriate. 5. Recheck admission labs to evaluate for any medical illness. 6. Obtain hospitalist consult and have evaluate apparent kidney and liver function results against patient's recent appearance. Will follow for recommendations. 7. Awaiting the [facility]'s evaluation at the beginning of the week for possible placement. Involuntary Hold Information 2 96 Hour Hold: 96 Hour Involuntary Admission: No Attestations NPU 2 Medical Necessity Statement*: Patient hospitalization is medically necessary and deemed to be the clinically appropriate intervention at this time. We will monitor and initiate medications while making changes as indicated. The patient's likely length of stay is 3-5 days. Coding Level of Care Code Acute Code for [facility] Fwd Diagnoses Intermittent explosive disorder F63.81 Suicidal ideation R45.851 Mild intellectual disabilities F70 Dysthymia F34.1 Major depressive disorder, recurrent, moderate F33.1 Poor impulse control R45.87 Outbursts of explosive behavior R46.89
[2024-05-27] MEDS: prazosin 1 mg Capsule 2 MG PO (20:27)
[2024-05-27] MEDS: trazodone 100 mg Tablet PO (20:27)
[2024-05-27] MEDS: docusate sodium 100 mg Capsule 200 MG PO (20:27)
[2024-05-27] MEDS: OLANZapine 5 mg TABLET PO (20:28)
[2024-05-27 22:00] VITALS: BP 125/92; PULSE 76; RESP 16; TEMP 36.6; O2SAT 94
[2024-05-28 06:00] VITALS: BP 87/54; PULSE 76; RESP 16; O2SAT 95
[2024-05-28] MEDS: levothyroxine 100 mcg Tablet PO (06:11)
[2024-05-28 07:39] LABS: CENTROMERE B ANTIBODY <1.0 NEG AI (<1.0 NEG); JO-1 ANTIBODY <1.0 NEG AI (<1.0 NEG); RNP ANTIBODY <1.0 NEG AI (<1.0 NEG); SCL-70 ANTIBODY <1.0 NEG AI (<1.0 NEG); SJOGREN'S ANTIBODY (SS-A) <1.0 NEG AI (<1.0 NEG); SM ANTIBODY <1.0 NEG AI (<1.0 NEG); SS-B <1.0 NEG AI (<1.0 NEG)
[2024-05-28] MEDS: lamoTRIgine 100 mg Tablet 200 MG PO ×2 (08:04→17:22)
[2024-05-28] MEDS: risperiDONE 1 mg Tablet PO ×2 (08:05→17:23)
[2024-05-28] MEDS: loratadine 10 mg Tablet PO (08:05)
[2024-05-28] MEDS: topiramate 100 mg Tablet PO ×2 (08:05→17:22)
--- NOTE | 2024-05-28 09:13 | P.NPUPN_ITS ---
Subjective NPU 2 Subjective: Patient presented today reporting that she is doing okay. We discussed some of the findings of the hospitalists and the need for her to have regular follow-up. We continue to discuss the plan for treatment including follow-up with her PCP and probably getting regular labs to continue to follow any changes in her creatinine. She denied any side effects to her medications. Mental Status Exam 2 MSE Comments: This is an obese white female with hospital scrubs on with limited grooming and adequate eye contact. Patient with somewhat darkened eyes and looking a bit pale. No abnormal movements except for psychomotor retardation. Cooperative with exam in mild distress. Speech was decreased rate and volume and childlike. Mood described as fine, affect subdued. Thought process organized. Thought content: Patient denied suicidal or homicidal ideation, there were no delusions reported or noted, she denied any auditory or visual hallucinations. Attention and concentration appeared intact and memory was mostly reliable but it is unclear whether she was being honest about her statements about her staff, but none were formally tested. She is alert and oriented times person and place. Insight, judgment and impulse control are impaired. Intellectual ability is impaired. Vitals/I&O/Wt Last Vital Signs Temp 97.9 F 05/27/24 22:00 Pulse 76 05/28/24 06:00 Resp 16 05/28/24 06:00 BP 87/54 05/28/24 06:00 Pulse Ox 95 05/28/24 06:00 O2 Del Method Room Air 05/27/24 14:00 Data NPU 05/27/24 08:51 05/27/24 08:51 Micro: Microbiology 05/26/24 20:35 Blood Culture - Preliminary Blood NEGATIVE TO DATE 05/26/24 18:57 Blood Culture - Preliminary Blood NEGATIVE TO DATE Microbiology 05/26/24 20:35 Blood Blood Culture - Preliminary NEGATIVE TO DATE 05/26/24 18:57 Blood Blood Culture - Preliminary NEGATIVE TO DATE A&P Assessment and plan (1) Intermittent explosive disorder: (2) Suicidal ideation: (3) Mild intellectual disabilities: (4) Dysthymia: (5) Major depressive disorder, recurrent, moderate: (6) Poor impulse control: (7) Suicidal ideation: (8) Outbursts of explosive behavior: Plan 28-year-old white female history of intellectual disability, intermittent explosive disorder, and depression currently residing in a alf and returning with similar complaints as she has had in the past specifically reporting difficulty getting along with 1 staff member which reportedly led to agitation and conflict leading to this hospitalization. We will evaluate for safety and identify whether this is a recent decline versus consistent with baseline which would we would recommend a more rapid therapeutic discharge. However there is also a question of whether she has gotten to a point where this facility is just not adequate to manage her because of her resistance to their people and processes. 1. Encourage individual group and milieu therapy. 2. We will continue current psychotropic medications and other outpatient medications and evaluate whether the change is appropriate. 3. Therapeutic observation 15-minute checks on the unit for safety 4. We will contact facility and guardian and explore safety plan for discharge as soon as it is appropriate. 5. Recheck admission labs to evaluate for any medical illness. 6. Obtain hospitalist consult and have evaluate apparent kidney and liver function results against patient's recent appearance. Will follow for recommendations. 7. Awaiting the [facility]'s evaluation at the beginning of the week for possible placement. Involuntary Hold Information 2 96 Hour Hold: 96 Hour Involuntary Admission: No Attestations NPU 2 Medical Necessity Statement*: Patient hospitalization is medically necessary and deemed to be the clinically appropriate intervention at this time. We will monitor and initiate medications while making changes as indicated. The patient's likely length of stay is 3-5 days. Coding Level of Care Code Acute Code for [facility] Fwd Diagnoses Intermittent explosive disorder F63.81 Suicidal ideation R45.851 Mild intellectual disabilities F70 Dysthymia F34.1 Major depressive disorder, recurrent, moderate F33.1 Poor impulse control R45.87 Outbursts of explosive behavior R46.89
--- NOTE | 2024-05-28 10:51 | P.PN_ITS ---
Subjective 2 Subjective: No acute interim events Medications: Reviewed: Yes Vitals/I&O/Wt Last Vital Signs Temp 97.9 F 05/27/24 22:00 Pulse 76 05/28/24 06:00 Resp 16 05/28/24 06:00 BP 87/54 05/28/24 06:00 Pulse Ox 95 05/28/24 06:00 O2 Del Method Room Air 05/27/24 14:00 Physical Exam 2 Narrative: General: No acute distress, AO x3 HEENT: PERRLA, pupils bilaterally equal and reactive, pallors not present Chest: Normal vesicular breath sounds, no added sounds, equal good air entry bilaterally CVS: S1-S2 regular, no murmurs, no tachycardia, no gallops, no rubs Abdomen: Soft, nontender, no organomegaly, bowel sounds present Neuro: No focal deficits, no facial deformity, AO x3, power 5/5 in all limbs Data 05/27/24 08:51 05/27/24 08:51 Micro: Microbiology 05/26/24 20:35 Blood Culture - Preliminary Blood NEGATIVE TO DATE 05/26/24 18:57 Blood Culture - Preliminary Blood NEGATIVE TO DATE A&P Assessment and plan (1) Transaminitis: elevated AST/ALT without specific cause- currently at 40/62, downtrending compared to 06/2023 has been fluctuating since 2022 negative chronic Hepatitis B &C screen, negative HIV screen, pending EAN screen, DS DNA US RUQ with fatty liver recommend lifestyle modification, low fat diet , no statins currently recommended per ASCVD risk calculator (N/A to <40) Consult [facility]ger for diet modification recommendations Recommend no more than 2g of tylenol per day, use only if needed (2) CKD (chronic kidney disease): (3) CKD (chronic kidney disease) stage 2, GFR 60-89 ml/min: GFR 89 , mildly reduced no nephrotoxic medications noted on MAR denies h/o HTN or DM unknown family h/o vasculitis, pending EAN panel renal us with normal renal anatomy and renal artery stenosis UA negative for blood, casts , proteinuria Plan low grade fever 99.8F now resolved negative covid and influenza AG, negative blood cx no immediately actionable labs recommend f/up with PCP at discharge Attestations 2 Medical Necessity Statement*: per admitting Coding Level of Care Code Acute Code for [facility] Fwd Diagnoses Transaminitis R74.01 CKD (chronic kidney disease) N18.9 CKD (chronic kidney disease) stage 2, GFR 60-89 ml/min N18.2
[2024-05-28 14:00] VITALS: BP 108/64; PULSE 93; RESP 17; TEMP 36.8; O2SAT 99
[2024-05-28] MEDS: duloxetine 30 mg Capsule 60 MG PO (17:22)
[2024-05-28] MEDS: trazodone 100 mg Tablet PO (19:35)
[2024-05-28] MEDS: docusate sodium 100 mg Capsule 200 MG PO (19:35)
[2024-05-28] MEDS: OLANZapine 5 mg TABLET PO (19:36)
[2024-05-28] MEDS: prazosin 1 mg Capsule 2 MG PO (19:36)
[2024-05-28 22:00] VITALS: BP 90/70; PULSE 99; RESP 16; TEMP 37.4; O2SAT 98
[2024-05-29 02:34] LABS: COMPLEMENT COMPONENT C3C 143 mg/dL (83-193); COMPLEMENT COMPONENT C4C 27 mg/dL (15-57)
[2024-05-29] MEDS: levothyroxine 100 mcg Tablet PO (05:54)
[2024-05-29 06:00] VITALS: BP 85/57; PULSE 85; RESP 16; TEMP 36.6; O2SAT 95
--- NOTE | 2024-05-29 07:19 | P.NPUPN_ITS ---
Subjective NPU 2 Subjective: Patient presented today reporting that things are going all right. She once again wanted to hear the plan for the [facility] and we discussed that our last understanding was that they were going to interview her tomorrow or the day after and review her full file and render decision. We discussed their report that if they decided to except her that it is possible they could receive her by this Thursday. Otherwise she is feeling okay and we discussed briefly the thoughts of the hospitalist regarding her follow-up for her kidney and liver concerns. She denied any side effects to medications. Mental Status Exam 2 MSE Comments: This is an obese white female with hospital scrubs on with limited grooming and adequate eye contact. Patient with somewhat darkened eyes and looking a bit pale. No abnormal movements except for psychomotor retardation. Cooperative with exam in mild distress. Speech was decreased rate and volume and childlike. Mood described as fine, affect subdued. Thought process organized. Thought content: Patient denied suicidal or homicidal ideation, there were no delusions reported or noted, she denied any auditory or visual hallucinations. Attention and concentration appeared intact and memory was mostly reliable but it is unclear whether she was being honest about her statements about her staff, but none were formally tested. She is alert and oriented times person and place. Insight, judgment and impulse control are impaired. Intellectual ability is impaired. Vitals/I&O/Wt Last Vital Signs Temp 97.8 F 05/29/24 06:00 Pulse 85 05/29/24 06:00 Resp 16 05/29/24 06:00 BP 85/57 05/29/24 06:00 Pulse Ox 95 05/29/24 06:00 O2 Del Method Room Air 05/28/24 14:00 Weight last 48 hrs Weight 92.533 kg Data NPU 05/27/24 08:51 05/27/24 08:51 A&P Assessment and plan (1) Intermittent explosive disorder: (2) Suicidal ideation: (3) Mild intellectual disabilities: (4) Dysthymia: (5) Major depressive disorder, recurrent, moderate: (6) Poor impulse control: (7) Suicidal ideation: (8) Outbursts of explosive behavior: Plan 28-year-old white female history of intellectual disability, intermittent explosive disorder, and depression currently residing in a senior care and returning with similar complaints as she has had in the past specifically reporting difficulty getting along with 1 staff member which reportedly led to agitation and conflict leading to this hospitalization. We will evaluate for safety and identify whether this is a recent decline versus consistent with baseline which would we would recommend a more rapid therapeutic discharge. However there is also a question of whether she has gotten to a point where this facility is just not adequate to manage her because of her resistance to their people and processes. 1. Encourage individual group and milieu therapy. 2. We will continue current psychotropic medications and other outpatient medications and evaluate whether the change is appropriate. 3. Therapeutic observation 15-minute checks on the unit for safety 4. We will contact facility and guardian and explore safety plan for discharge as soon as it is appropriate. 5. Recheck admission labs to evaluate for any medical illness. 6. Obtain hospitalist consult and have evaluate apparent kidney and liver function results against patient's recent appearance. Will follow for recommendations. 7. Awaiting the [facility]'s evaluation at the beginning of the week for possible placement. Involuntary Hold Information 2 96 Hour Hold: 96 Hour Involuntary Admission: No Attestations NPU 2 Medical Necessity Statement*: Patient hospitalization is medically necessary and deemed to be the clinically appropriate intervention at this time. We will monitor and initiate medications while making changes as indicated. The patient's likely length of stay is 3-5 days. Coding Level of Care Code Acute Code for [facility] Fwd Diagnoses Intermittent explosive disorder F63.81 Suicidal ideation R45.851 Mild intellectual disabilities F70 Dysthymia F34.1 Major depressive disorder, recurrent, moderate F33.1 Poor impulse control R45.87 Outbursts of explosive behavior R46.89
[2024-05-29] MEDS: risperiDONE 1 mg Tablet PO ×2 (08:29→17:48)
[2024-05-29] MEDS: loratadine 10 mg Tablet PO (08:29)
[2024-05-29] MEDS: lamoTRIgine 100 mg Tablet 200 MG PO ×2 (08:29→17:48)
[2024-05-29] MEDS: topiramate 100 mg Tablet PO ×2 (08:29→17:48)
[2024-05-29 14:00] VITALS: BP 98/68; PULSE 101; RESP 16; TEMP 37.5; O2SAT 95
[2024-05-29] MEDS: duloxetine 30 mg Capsule 60 MG PO (17:47)
[2024-05-29] MEDS: docusate sodium 100 mg Capsule 200 MG PO (20:49)
[2024-05-29] MEDS: trazodone 100 mg Tablet PO (20:49)
[2024-05-29] MEDS: prazosin 1 mg Capsule 2 MG PO (20:49)
[2024-05-29] MEDS: OLANZapine 5 mg TABLET PO (20:49)
[2024-05-29 21:10] VITALS: BP 103/73; PULSE 92; RESP 16; TEMP 37.1; O2SAT 93
[2024-05-30 06:00] VITALS: BP 92/67; PULSE 80; RESP 16; TEMP 36.4; O2SAT 98
[2024-05-30] MEDS: levothyroxine 100 mcg Tablet PO (06:41)
[2024-05-30] MEDS: risperiDONE 1 mg Tablet PO ×2 (08:12→17:03)
[2024-05-30] MEDS: loratadine 10 mg Tablet PO (08:12)
[2024-05-30] MEDS: topiramate 100 mg Tablet PO ×2 (08:12→17:03)
[2024-05-30] MEDS: lamoTRIgine 100 mg Tablet 200 MG PO ×2 (08:13→17:03)
[2024-05-30 13:52] VITALS: BP 73/49; PULSE 80; RESP 16; TEMP 36.5; O2SAT 97
[2024-05-30 14:29] LABS: ANA SCREEN, IFA NEGATIVE (NEGATIVE)
[2024-05-30 14:40] LABS: THYROID PEROXIDASE ANTIBODIES 2 IU/mL (<9)
[2024-05-30 15:48] LABS: COMPLEMENT, TOTAL (CH50) 51 U/mL (31-60)
[2024-05-30] MEDS: duloxetine 30 mg Capsule 60 MG PO (17:03)
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
[2024-05-30] MEDS: trazodone 100 mg Tablet PO (20:10)
[2024-05-30] MEDS: prazosin 1 mg Capsule 2 MG PO (20:10)
[2024-05-30] MEDS: docusate sodium 100 mg Capsule 200 MG PO (20:10)
[2024-05-30] MEDS: OLANZapine 5 mg TABLET PO (20:10)
[2024-05-30] MEDS: ibuprofen 600 mg Tablet PO (20:42)
[2024-05-30 20:50] VITALS: BP 92/72; PULSE 90; RESP 18; TEMP 37.1; O2SAT 99
[2024-05-31 06:15] VITALS: BP 97/62; PULSE 74; TEMP 36.4; O2SAT 96
[2024-05-31] MEDS: levothyroxine 100 mcg Tablet PO (06:24)
[2024-05-31] MEDS: topiramate 100 mg Tablet PO ×2 (10:45→17:34)
[2024-05-31] MEDS: lamoTRIgine 100 mg Tablet 200 MG PO ×2 (10:45→17:34)
[2024-05-31] MEDS: loratadine 10 mg Tablet PO (10:46)
[2024-05-31] MEDS: risperiDONE 1 mg Tablet PO ×2 (10:46→17:34)
[2024-05-31 14:00] VITALS: BP 100/67; PULSE 67; RESP 17; TEMP 37.1; O2SAT 98
[2024-05-31] MEDS: duloxetine 30 mg Capsule 60 MG PO (17:34)
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
--- NOTE | 2024-05-31 18:54 | PC.NURSE ---
Pt has been making verbal threats to harm herself. Pt stated that she would scrape her arms if she didn't get released. Pt was encouraged by the nursing staff to think more positively and to not harm herself. Pt did contract for safety and stated that she would come up to the nurses station if she was going to self harm.
--- NOTE | 2024-05-31 18:59 | PC.NURSE ---
This nurse called the pts Guardian and left a message, the pt is wanting to ask about placement options for herself. Pt made the comment that Sushma wasn't doing her job and finding her a place to live fast enough.
[2024-05-31 19:55] VITALS: BP 93/67; PULSE 86; RESP 18; TEMP 36.9; O2SAT 97
[2024-05-31] MEDS: OLANZapine 5 mg TABLET PO (20:05)
[2024-05-31] MEDS: docusate sodium 100 mg Capsule 200 MG PO (20:05)
[2024-05-31] MEDS: trazodone 100 mg Tablet PO (20:05)
[2024-05-31] MEDS: prazosin 1 mg Capsule 2 MG PO (20:05)
[2024-06-01 06:00] VITALS: BP 90/68; PULSE 67; RESP 16; TEMP 37; O2SAT 97
[2024-06-01] MEDS: levothyroxine 100 mcg Tablet PO (06:29)
[2024-06-01 10:24] LABS: DNA AB (DS) CRITHIDIA,IFA NEGATIVE (NEGATIVE)
--- NOTE | 2024-06-01 10:44 | PC.NURSE ---
Patient refused to get out of bed this morning. She refused breakfast and her morning meds. Nurse attempted to administer meds at 0830 and 0930. Charge nurse also attempted to administer meds and patient refused. Patient was cooperative with nursing assessment.
[2024-06-01 14:00] VITALS: BP 89/68; PULSE 93; RESP 16; TEMP 36.9; O2SAT 95
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
[2024-06-01] MEDS: duloxetine 30 mg Capsule 60 MG PO (17:26)
[2024-06-01] MEDS: topiramate 25 mg Tablet 50 MG PO (17:27)
[2024-06-01] MEDS: risperiDONE 1 mg Tablet PO (17:27)
[2024-06-01] MEDS: lamoTRIgine 100 mg Tablet 200 MG PO (17:27)
[2024-06-01] MEDS: docusate sodium 100 mg Capsule 200 MG PO (20:30)
[2024-06-01] MEDS: prazosin 1 mg Capsule 2 MG PO (20:31)
[2024-06-01] MEDS: trazodone 100 mg Tablet PO (20:31)
[2024-06-01] MEDS: OLANZapine 5 mg TABLET 2.5 MG PO (20:31)
[2024-06-01 22:00] VITALS: BP 103/72; PULSE 85; RESP 18; TEMP 37.1; O2SAT 99
[2024-06-02 06:00] VITALS: BP 109/65; PULSE 72; RESP 16; O2SAT 99
[2024-06-02] MEDS: levothyroxine 100 mcg Tablet PO (06:03)
[2024-06-02] MEDS: risperiDONE 1 mg Tablet PO (08:11)
[2024-06-02] MEDS: topiramate 25 mg Tablet 50 MG PO ×2 (08:11→17:15)
[2024-06-02] MEDS: loratadine 10 mg Tablet PO (08:11)
[2024-06-02] MEDS: lamoTRIgine 100 mg Tablet 200 MG PO ×2 (08:11→17:15)
[2024-06-02 12:24] LABS: RPR w(Moniotor) w/REFL Titer NON-REACTIVE (NON-REACTIVE)
[2024-06-02 14:00] VITALS: BP 83/57; PULSE 76; RESP 16; TEMP 36.9; O2SAT 99
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
[2024-06-02] MEDS: duloxetine 30 mg Capsule 60 MG PO (17:15)
[2024-06-02] MEDS: prazosin 1 mg Capsule 2 MG PO (21:46)
[2024-06-02] MEDS: trazodone 100 mg Tablet PO (21:46)
[2024-06-02] MEDS: docusate sodium 100 mg Capsule 200 MG PO (21:47)
[2024-06-02] MEDS: risperiDONE 1 mg Tablet 1.5 MG PO (21:47)
[2024-06-02 21:54] VITALS: BP 95/64; PULSE 92; RESP 15; TEMP 36.6; O2SAT 98
[2024-06-03 06:00] VITALS: BP 86/58; PULSE 68; RESP 16; TEMP 36.8; O2SAT 96
[2024-06-03] MEDS: levothyroxine 100 mcg Tablet PO (06:11)
[2024-06-03] MEDS: lamoTRIgine 100 mg Tablet 200 MG PO ×2 (08:29→17:22)
[2024-06-03] MEDS: risperiDONE 1 mg Tablet PO (08:29)
[2024-06-03] MEDS: loratadine 10 mg Tablet PO (08:29)
[2024-06-03] MEDS: topiramate 25 mg Tablet 50 MG PO ×2 (08:29→17:22)
[2024-06-03 14:00] VITALS: PULSE 86; RESP 16; TEMP 37.2; O2SAT 96
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
[2024-06-03 17:03] VITALS: BP 86/67
[2024-06-03] MEDS: duloxetine 30 mg Capsule 60 MG PO (17:22)
[2024-06-03] MEDS: risperiDONE 1 mg Tablet 1.5 MG PO (20:37)
[2024-06-03] MEDS: trazodone 100 mg Tablet PO (20:38)
[2024-06-03] MEDS: docusate sodium 100 mg Capsule 200 MG PO (20:38)
[2024-06-03 21:49] VITALS: BP 91/57; PULSE 95; RESP 18; TEMP 36.5; O2SAT 97
[2024-06-04 06:00] VITALS: BP 93/58; PULSE 78; RESP 18; TEMP 37; O2SAT 98
[2024-06-04] MEDS: levothyroxine 100 mcg Tablet PO (06:25)
[2024-06-04] MEDS: risperiDONE 1 mg Tablet PO (09:50)
[2024-06-04] MEDS: topiramate 25 mg Tablet 50 MG PO ×2 (09:50→17:19)
[2024-06-04] MEDS: loratadine 10 mg Tablet PO (09:51)
[2024-06-04] MEDS: lamoTRIgine 100 mg Tablet 200 MG PO ×2 (09:51→17:19)
[2024-06-04 14:00] VITALS: BP 93/66; PULSE 89; RESP 16; TEMP 36.9; O2SAT 97
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
[2024-06-04] MEDS: duloxetine 30 mg Capsule 60 MG PO (17:19)
[2024-06-04] MEDS: docusate sodium 100 mg Capsule 200 MG PO (20:32)
[2024-06-04] MEDS: risperiDONE 1 mg Tablet 1.5 MG PO (20:32)
[2024-06-04] MEDS: trazodone 100 mg Tablet PO (20:32)
[2024-06-04] MEDS: prazosin 1 mg Capsule 2 MG PO (20:32)
[2024-06-04 22:00] VITALS: BP 123/90; PULSE 97; RESP 18; TEMP 37.2; O2SAT 99
[2024-06-05 06:00] VITALS: BP 94/65; PULSE 85; RESP 16; TEMP 36.5; O2SAT 93
[2024-06-05] MEDS: levothyroxine 100 mcg Tablet PO (06:15)
[2024-06-05] MEDS: topiramate 25 mg Tablet 50 MG PO ×2 (08:34→17:33)
[2024-06-05] MEDS: risperiDONE 1 mg Tablet PO (08:34)
[2024-06-05] MEDS: loratadine 10 mg Tablet PO (08:34)
[2024-06-05] MEDS: lamoTRIgine 100 mg Tablet 200 MG PO ×2 (08:34→17:33)
[2024-06-05 14:00] VITALS: BP 83/59; PULSE 100; RESP 16; TEMP 36.4; O2SAT 96
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
[2024-06-05] MEDS: duloxetine 30 mg Capsule 60 MG PO (17:33)
[2024-06-05] MEDS: OLANZapine 5 mg ODT PO (18:53)
[2024-06-05] MEDS: prazosin 1 mg Capsule 2 MG PO (20:29)
[2024-06-05] MEDS: trazodone 100 mg Tablet PO (20:29)
[2024-06-05] MEDS: risperiDONE 1 mg Tablet 1.5 MG PO (20:29)
[2024-06-05] MEDS: docusate sodium 100 mg Capsule 200 MG PO (20:29)
[2024-06-05 22:00] VITALS: BP 91/70; PULSE 78; RESP 16; O2SAT 96
[2024-06-06] MEDS: levothyroxine 100 mcg Tablet PO ×2 (05:24→20:03)
[2024-06-06 06:00] VITALS: BP 99/64; PULSE 83; RESP 16; O2SAT 98
[2024-06-06] MEDS: topiramate 25 mg Tablet 50 MG PO ×2 (08:30→17:27)
[2024-06-06] MEDS: lamoTRIgine 100 mg Tablet 200 MG PO ×2 (08:30→17:27)
[2024-06-06] MEDS: risperiDONE 1 mg Tablet PO (08:30)
[2024-06-06] MEDS: loratadine 10 mg Tablet PO (08:30)
[2024-06-06 14:00] VITALS: BP 86/67; PULSE 98; RESP 15; TEMP 36.7; O2SAT 98
[2024-06-06] MEDS: duloxetine 30 mg Capsule 60 MG PO (17:27)
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
[2024-06-06] MEDS: prazosin 1 mg Capsule 2 MG PO (20:02)
[2024-06-06] MEDS: docusate sodium 100 mg Capsule 200 MG PO (20:03)
[2024-06-06] MEDS: trazodone 100 mg Tablet PO (20:03)
[2024-06-06] MEDS: risperiDONE 1 mg Tablet 1.5 MG PO (20:03)
[2024-06-06 20:52] VITALS: BP 88/60; PULSE 111; RESP 16; TEMP 36.7; O2SAT 99
[2024-06-07 06:00] VITALS: BP 89/58; PULSE 80; RESP 16; TEMP 36.9; O2SAT 96
[2024-06-07] MEDS: lamoTRIgine 100 mg Tablet 200 MG PO ×2 (08:45→17:40)
[2024-06-07] MEDS: risperiDONE 1 mg Tablet PO (08:45)
[2024-06-07] MEDS: loratadine 10 mg Tablet PO (08:45)
[2024-06-07] MEDS: topiramate 25 mg Tablet 50 MG PO (08:45)
[2024-06-07 14:00] VITALS: BP 88/67; PULSE 91; RESP 16; TEMP 36.8; O2SAT 99
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
[2024-06-07] MEDS: risperiDONE 1 mg Tablet 1.5 MG PO (17:40)
[2024-06-07] MEDS: topiramate 25 mg Tablet PO (17:40)
[2024-06-07] MEDS: duloxetine 30 mg Capsule 60 MG PO (17:40)
[2024-06-07] MEDS: acetaminophen 500 mg Tablet PO (18:44)
[2024-06-07 19:26] VITALS: BP 97/75; PULSE 93; RESP 12; TEMP 37.1; O2SAT 99
[2024-06-07] MEDS: docusate sodium 100 mg Capsule 200 MG PO (19:27)
[2024-06-07] MEDS: prazosin 1 mg Capsule 2 MG PO (19:28)
[2024-06-07] MEDS: trazodone 100 mg Tablet PO (19:28)
[2024-06-07] MEDS: levothyroxine 100 mcg Tablet PO (19:28)
[2024-06-08 06:00] VITALS: BP 77/40; PULSE 94; RESP 18; TEMP 36.4; O2SAT 96
[2024-06-08] MEDS: lamoTRIgine 100 mg Tablet 200 MG PO ×2 (09:19→17:28)
[2024-06-08] MEDS: risperiDONE 1 mg Tablet 1.5 MG PO ×2 (09:19→17:28)
[2024-06-08] MEDS: topiramate 25 mg Tablet PO ×2 (09:19→17:28)
[2024-06-08] MEDS: loratadine 10 mg Tablet PO (09:20)
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
[2024-06-08 14:00] VITALS: BP 77/58; PULSE 104; RESP 16; TEMP 36.5; O2SAT 98
[2024-06-08] MEDS: duloxetine 30 mg Capsule 60 MG PO (17:27)
[2024-06-08 20:02] VITALS: BP 100/70; PULSE 92; RESP 14; TEMP 36.6; O2SAT 92
[2024-06-08] MEDS: docusate sodium 100 mg Capsule 200 MG PO (20:04)
[2024-06-08] MEDS: trazodone 100 mg Tablet PO (20:05)
[2024-06-08] MEDS: levothyroxine 100 mcg Tablet PO (20:05)
--- NOTE | 2024-06-08 20:06 | PC.NURSE ---
Minipress Held: Manual BP 100/70, low BP noted during the day shift.
[2024-06-09 06:00] VITALS: BP 93/65; PULSE 84; RESP 14; TEMP 36.5; O2SAT 94
[2024-06-09] MEDS: loratadine 10 mg Tablet PO (08:10)
[2024-06-09] MEDS: topiramate 25 mg Tablet PO ×2 (08:10→17:10)
[2024-06-09] MEDS: lamoTRIgine 100 mg Tablet 200 MG PO ×2 (08:10→17:06)
[2024-06-09] MEDS: risperiDONE 1 mg Tablet 1.5 MG PO ×2 (08:10→17:10)
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
[2024-06-09 14:00] VITALS: BP 116/79; PULSE 100; RESP 16; TEMP 37.7; O2SAT 93
[2024-06-09] MEDS: duloxetine 30 mg Capsule 60 MG PO (17:06)
[2024-06-09] MEDS: levothyroxine 100 mcg Tablet PO (20:17)
[2024-06-09] MEDS: trazodone 100 mg Tablet PO (20:18)
[2024-06-09] MEDS: docusate sodium 100 mg Capsule 200 MG PO (20:18)
[2024-06-09 20:30] VITALS: BP 107/76; PULSE 91; RESP 18; O2SAT 98
[2024-06-09] MEDS: hyDROXYzine 25 mg Capsule 50 MG PO (21:14)
--- NOTE | 2024-06-10 04:32 | PC.NURSE ---
bed sheets pt wet the bed; given new scrubs and wipes with baby wash to clean up with. bedding sheets taken off bed wiped down and pt given new sheets to put on. pt then took her dirty sheets to bin, washed her hands and was given a cup of water. pt then went back to her room. interaction was pleasant and pt was cooperative.
[2024-06-10 06:00] VITALS: BP 91/64; PULSE 78; RESP 16; O2SAT 96
[2024-06-10] MEDS: risperiDONE 1 mg Tablet 1.5 MG PO ×2 (09:03→17:21)
[2024-06-10] MEDS: topiramate 25 mg Tablet PO ×2 (09:03→17:21)
[2024-06-10] MEDS: lamoTRIgine 100 mg Tablet 200 MG PO ×2 (09:03→17:21)
[2024-06-10] MEDS: loratadine 10 mg Tablet PO (09:03)
[2024-06-10] MEDS: hyDROXYzine 25 mg Capsule 50 MG PO ×2 (12:14→21:30)
[2024-06-10 14:00] VITALS: BP 72/47; PULSE 81; RESP 16; TEMP 36.8; O2SAT 95
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
[2024-06-10] MEDS: duloxetine 30 mg Capsule 60 MG PO (17:21)
[2024-06-10 19:44] VITALS: BP 115/73; PULSE 89; RESP 16; TEMP 36.9; O2SAT 91
[2024-06-10] MEDS: docusate sodium 100 mg Capsule 200 MG PO (21:30)
[2024-06-10] MEDS: levothyroxine 100 mcg Tablet PO (21:30)
[2024-06-10] MEDS: trazodone 100 mg Tablet PO (21:30)
[2024-06-11] MEDS: ibuprofen 600 mg Tablet PO (03:22)
[2024-06-11 06:00] VITALS: BP 96/64; PULSE 68; RESP 16; O2SAT 96
[2024-06-11] MEDS: loratadine 10 mg Tablet PO (08:36)
[2024-06-11] MEDS: lamoTRIgine 100 mg Tablet 200 MG PO ×2 (08:36→17:38)
[2024-06-11] MEDS: topiramate 25 mg Tablet PO ×2 (08:36→17:38)
[2024-06-11] MEDS: risperiDONE 1 mg Tablet 1.5 MG PO ×2 (08:36→17:38)
[2024-06-11 14:00] VITALS: BP 89/58; PULSE 95; RESP 16; TEMP 36.7; O2SAT 98
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
[2024-06-11] MEDS: duloxetine 30 mg Capsule 60 MG PO (17:38)
[2024-06-11 20:35] VITALS: BP 100/70; PULSE 91; RESP 17; TEMP 36.6; O2SAT 98
[2024-06-11] MEDS: levothyroxine 100 mcg Tablet PO (21:18)
[2024-06-11] MEDS: docusate sodium 100 mg Capsule 200 MG PO (21:18)
[2024-06-11] MEDS: trazodone 100 mg Tablet PO (21:18)
[2024-06-12 06:00] VITALS: BP 121/82; PULSE 80; RESP 16; TEMP 36.8; O2SAT 93
[2024-06-12] MEDS: lamoTRIgine 100 mg Tablet 200 MG PO ×2 (08:46→17:26)
[2024-06-12] MEDS: loratadine 10 mg Tablet PO (08:46)
[2024-06-12] MEDS: topiramate 25 mg Tablet PO ×2 (08:46→17:26)
[2024-06-12] MEDS: risperiDONE 1 mg Tablet 1.5 MG PO ×2 (08:46→17:26)
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
[2024-06-12 14:00] VITALS: BP 115/85; PULSE 87; RESP 17; TEMP 36.6; O2SAT 99
[2024-06-12] MEDS: duloxetine 30 mg Capsule 60 MG PO (17:26)
[2024-06-12] MEDS: levothyroxine 100 mcg Tablet PO (20:05)
[2024-06-12] MEDS: docusate sodium 100 mg Capsule 200 MG PO (20:05)
[2024-06-12] MEDS: trazodone 100 mg Tablet PO (20:05)
[2024-06-12 20:16] VITALS: BP 127/91; PULSE 87; RESP 17; TEMP 37.4; O2SAT 99
[2024-06-13 06:00] VITALS: BP 105/57; PULSE 76; RESP 16; TEMP 36.7; O2SAT 96
[2024-06-13] MEDS: risperiDONE 1 mg Tablet 1.5 MG PO ×2 (08:49→17:08)
[2024-06-13] MEDS: lamoTRIgine 100 mg Tablet 200 MG PO ×2 (08:50→17:08)
[2024-06-13] MEDS: topiramate 25 mg Tablet PO ×2 (08:50→17:08)
[2024-06-13] MEDS: loratadine 10 mg Tablet PO (08:50)
--- NOTE | 2024-06-13 11:58 | P.NPUPN_ITS ---
Subjective NPU 2 Subjective: Patient presented today reporting that things are going okay. She was dealing with the unfortunate letdown that [facility] was not going to except her. She identified that her marriage and family social worker here reports that there is a new [facility] of is going to interview her tomorrow and she is excited about that possibility. Otherwise she denied any side effects or medication and reports she is accepting of this process. Mental Status Exam 2 MSE Comments: This is an obese white female with hospital scrubs on with limited grooming and adequate eye contact. No abnormal movements except for psychomotor retardation. She was cooperative with exam in mild distress. Speech was decreased in rate and normal in volume and childlike. Mood described as allright. Her affect was flat. Thought process was linear but concrete. Thought content: Patient denied suicidal or homicidal ideation, there were no delusions reported or noted, she denied any auditory or visual hallucinations. Attention and concentration appeared at baseline. She is alert and oriented times person and place. Insight was poor. Judgment was limited. Impulse control was limited. Intellectual ability is commensurate with mild cognitive impairment. Vitals/I&O/Wt Last Vital Signs Temp 98.1 F 06/13/24 06:00 Pulse 76 06/13/24 06:00 Resp 16 06/13/24 06:00 BP 105/57 06/13/24 06:00 Pulse Ox 96 06/13/24 06:00 O2 Del Method Room Air 06/10/24 14:00 Weight last 48 hrs Weight 89.63 kg Data NPU 05/27/24 08:51 05/27/24 08:51 A&P Assessment and plan (1) Intermittent explosive disorder: (2) Suicidal ideation: (3) Mild intellectual disabilities: (4) Dysthymia: (5) Major depressive disorder, recurrent, moderate: (6) Poor impulse control: (7) Suicidal ideation: (8) Outbursts of explosive behavior: Plan 28-year-old white female history of intellectual disability, intermittent explosive disorder, and depression currently residing in a [facility] and returning with similar complaints as she has had in the past specifically reporting difficulty getting along with 1 staff member which reportedly led to agitation and conflict leading to this hospitalization. We will evaluate for safety and identify whether this is a recent decline versus consistent with baseline which would we would recommend a more rapid therapeutic discharge. However there is also a question of whether she has gotten to a point where this facility is just not adequate to manage her because of her resistance to their people and processes. 1. Encourage individual group and milieu therapy. 2. Decrease topamax to 25mg daily, continue Risperidone 1.5mg bid. Continue Cymbalta 60mg daily. Lamotrigine 200mg bid. 3. Therapeutic observation 15-minute checks on the unit for safety 4. We will contact facility and guardian and explore safety plan for discharge as soon as it is appropriate. 5. Recheck admission labs to evaluate for any medical illness. 6. Obtain hospitalist consult and have evaluate apparent kidney and liver function results against patient's recent appearance. Will follow for recommendations. 7. Patient cannot return to [facility], attempting to find new facility as patient deemed unsafe to return to thrive and will likely stay in hospital. 8. Patient admitted on 05/19/24 and remains with no aggression or assaultive behavior since her hospitalization here. Currently she has a interview with new [facility] tomorrow. Involuntary Hold Information 2 96 Hour Hold: 96 Hour Involuntary Admission: No Attestations NPU 2 Medical Necessity Statement*: Patient hospitalization is medically necessary and deemed to be the clinically appropriate intervention at this time. We will monitor and initiate medications while making changes as indicated. The patient's likely length of stay is 5-7 days. Coding Level of Care Code Acute Code for [facility] Fwd Diagnoses Intermittent explosive disorder F63.81 Suicidal ideation R45.851 Mild intellectual disabilities F70 Dysthymia F34.1 Major depressive disorder, recurrent, moderate F33.1 Poor impulse control R45.87 Outbursts of explosive behavior R46.89
[2024-06-13 13:37] VITALS: BP 88/67; PULSE 90; RESP 16; TEMP 36.9; O2SAT 99
[2024-06-13] MEDS: duloxetine 30 mg Capsule 60 MG PO (17:08)
[2024-06-13 19:21] VITALS: BP 97/70; PULSE 87; RESP 18; TEMP 37; O2SAT 97
[2024-06-13] MEDS: trazodone 100 mg Tablet PO (19:36)
[2024-06-13] MEDS: docusate sodium 100 mg Capsule 200 MG PO (19:36)
[2024-06-13] MEDS: levothyroxine 100 mcg Tablet PO (19:36)
[2024-06-14 06:00] VITALS: BP 94/65; PULSE 82; RESP 16; TEMP 37.1; O2SAT 96
[2024-06-14] MEDS: lamoTRIgine 100 mg Tablet 200 MG PO ×2 (09:06→17:22)
[2024-06-14] MEDS: risperiDONE 1 mg Tablet 1.5 MG PO ×2 (09:06→17:22)
[2024-06-14] MEDS: loratadine 10 mg Tablet PO (09:06)
[2024-06-14] MEDS: topiramate 25 mg Tablet PO ×2 (09:06→17:22)
--- NOTE | 2024-06-14 11:44 | P.NPUPN_ITS ---
Subjective NPU 2 Subjective: Patient presented today reporting that she is doing fine. She had her interview earlier today and it went well she needs now to get some other paperwork filled out and have interviews with potential roommates to determine whether this is a possibility and whether they will accept her. There are also other referrals out there per staff reports. We are awaiting those answers possibly as early as tomorrow morning. She reports that the medication is working fine she is denying any issues with that and she continues to report that she will be supportive and agreeable to explore different living arrangements without reservation. Mental Status Exam 2 MSE Comments: This is an obese white female with hospital scrubs on with limited grooming and adequate eye contact. No abnormal movements except for psychomotor retardation. She was cooperative with exam in mild distress. Speech was decreased in rate and normal in volume and childlike. Mood described as allright. Her affect was flat. Thought process was linear but concrete. Thought content: Patient denied suicidal or homicidal ideation, there were no delusions reported or noted, she denied any auditory or visual hallucinations. Attention and concentration appeared at baseline. She is alert and oriented times person and place. Insight was poor. Judgment was limited. Impulse control was limited. Intellectual ability is commensurate with mild cognitive impairment. Vitals/I&O/Wt Last Vital Signs Temp 98.8 F 06/14/24 06:00 Pulse 82 06/14/24 06:00 Resp 16 06/14/24 06:00 BP 94/65 06/14/24 06:00 Pulse Ox 96 06/14/24 06:00 O2 Del Method Room Air 06/14/24 06:00 Data NPU 05/27/24 08:51 05/27/24 08:51 A&P Assessment and plan (1) Intermittent explosive disorder: (2) Suicidal ideation: (3) Mild intellectual disabilities: (4) Dysthymia: (5) Major depressive disorder, recurrent, moderate: (6) Poor impulse control: (7) Suicidal ideation: (8) Outbursts of explosive behavior: Plan 28-year-old white female history of intellectual disability, intermittent explosive disorder, and depression currently residing in a retirement and returning with similar complaints as she has had in the past specifically reporting difficulty getting along with 1 staff member which reportedly led to agitation and conflict leading to this hospitalization. We will evaluate for safety and identify whether this is a recent decline versus consistent with baseline which would we would recommend a more rapid therapeutic discharge. However there is also a question of whether she has gotten to a point where this facility is just not adequate to manage her because of her resistance to their people and processes. 1. Encourage individual group and milieu therapy. 2. Decrease topamax to 25mg daily, continue Risperidone 1.5mg bid. Continue Cymbalta 60mg daily. Lamotrigine 200mg bid. 3. Therapeutic observation 15-minute checks on the unit for safety 4. We will contact facility and guardian and explore safety plan for discharge as soon as it is appropriate. 5. Recheck admission labs to evaluate for any medical illness. 6. Obtain hospitalist consult and have evaluate apparent kidney and liver function results against patient's recent appearance. Will follow for recommendations. 7. Patient cannot return to thrive, attempting to find new facility as patient deemed unsafe to return to thrive and will likely stay in hospital. 8. Patient admitted on 05/19/24 and remains with no aggression or assaultive behavior since her hospitalization here. Currently she has a interview with new [facility] tomorrow. Involuntary Hold Information 2 96 Hour Hold: 96 Hour Involuntary Admission: No Attestations NPU 2 Medical Necessity Statement*: Patient hospitalization is medically necessary and deemed to be the clinically appropriate intervention at this time. We will monitor and initiate medications while making changes as indicated. The patient's likely length of stay is 5-7 days. Coding Level of Care Code Acute Code for [facility] Fwd Diagnoses Intermittent explosive disorder F63.81 Suicidal ideation R45.851 Mild intellectual disabilities F70 Dysthymia F34.1 Major depressive disorder, recurrent, moderate F33.1 Poor impulse control R45.87 Outbursts of explosive behavior R46.89
[2024-06-14] MEDS: artificial tears Op Soln 15 mL Btl 1 DROP EYE-BOTH (11:54)
[2024-06-14 14:00] VITALS: BP 92/67; PULSE 88; RESP 15; TEMP 37.1; O2SAT 97
--- NOTE | 2024-06-14 16:20 | PC.NURSE ---
Patient becoming agitated because she requested to talk to a specific nurse and that nurse was on the phone. Staff told her that nurse would be available to talk to her as soon as she got off of the phone. Jessica then walked to her room, walked back and said that nobody in the nurses' station cared, before walking back to her room again. She made a comment under her breath that she was about to do something bad. This RN and a IMPLEMENTATION ARCHITECT followed her to her room and talked with her. She admitted that her anger stemmed more from not knowing if her mother would be able to visit her or not due to having to have permission from her guardian and nobody had called yet. This RN told her I could call her guardian to request permission and she calmed. When this RN called the guardian she did not answer and a voicemail was left. Patient continues to linger at the nurses' station despite saying she does not need anything else.
--- NOTE | 2024-06-14 16:36 | PC.NURSE ---
Patient eager for her mother Urmila to visit. This nurse called and left a message for Charlene Pizarro to return call.
--- NOTE | 2024-06-14 17:03 | PC.NURSE ---
This RN talked with the patient's guardian, Charlene Pizarro, who stated it was okay for Jessica's mom to visit with the stipulations that it only be her mother and that it be supervised. This RN talked with the mother and the patient about the guardian's requests and they both agreed to comply. This was also communicated to Sushma, the patient's mental health case manager.
[2024-06-14] MEDS: duloxetine 30 mg Capsule 60 MG PO (17:22)
[2024-06-14] MEDS: polyethylene glycol 3350 Pkt 17 gm PO (18:13)
[2024-06-14 19:55] VITALS: BP 97/62; PULSE 86; RESP 16; TEMP 36.7; O2SAT 95
[2024-06-14] MEDS: trazodone 100 mg Tablet PO (20:02)
[2024-06-14] MEDS: levothyroxine 100 mcg Tablet PO (20:02)
[2024-06-14] MEDS: docusate sodium 100 mg Capsule 200 MG PO (20:02)
[2024-06-15 06:30] VITALS: BP 98/60; PULSE 77; RESP 16; O2SAT 96
[2024-06-15] MEDS: risperiDONE 1 mg Tablet 1.5 MG PO ×2 (09:56→18:59)
[2024-06-15] MEDS: lamoTRIgine 100 mg Tablet 200 MG PO ×2 (09:56→18:59)
[2024-06-15] MEDS: loratadine 10 mg Tablet PO (09:56)
[2024-06-15] MEDS: topiramate 25 mg Tablet PO ×2 (09:56→18:59)
[2024-06-15 14:00] VITALS: BP 94/70; PULSE 104; RESP 17; O2SAT 100
--- NOTE | 2024-06-15 16:48 | P.NPUPN_ITS ---
Subjective NPU 2 Subjective: Patient presents today endorsing no significant changes. She continues to be optimistic about 1 of these new residences or programs excepting her. She is taking her medication without concern. She denies any side effects of the medications or any problems in general. She had queried whether she would be able to talk to her biological mother which this telegraphic typewriter repairer identified that there was no new information that I had suggesting that her guardian was ready to change that directive. Mental Status Exam 2 MSE Comments: This is an obese white female with hospital scrubs on with limited grooming and adequate eye contact. No abnormal movements except for psychomotor retardation. She was cooperative with exam in mild distress. Speech was decreased in rate and normal in volume and childlike. Mood described as allright. Her affect was flat. Thought process was linear but concrete. Thought content: Patient denied suicidal or homicidal ideation, there were no delusions reported or noted, she denied any auditory or visual hallucinations. Attention and concentration appeared at baseline. She is alert and oriented times person and place. Insight was poor. Judgment was limited. Impulse control was limited. Intellectual ability is commensurate with mild cognitive impairment. Vitals/I&O/Wt Last Vital Signs Temp 98.1 F 06/14/24 19:55 Pulse 104 H 06/15/24 14:00 Resp 17 06/15/24 14:00 BP 94/70 06/15/24 14:00 Pulse Ox 100 06/15/24 14:00 O2 Del Method Room Air 06/14/24 06:00 Data NPU 05/27/24 08:51 05/27/24 08:51 A&P Assessment and plan (1) Intermittent explosive disorder: (2) Suicidal ideation: (3) Mild intellectual disabilities: (4) Dysthymia: (5) Major depressive disorder, recurrent, moderate: (6) Poor impulse control: (7) Suicidal ideation: (8) Outbursts of explosive behavior: Plan 28-year-old white female history of intellectual disability, intermittent explosive disorder, and depression currently residing in a long term and returning with similar complaints as she has had in the past specifically reporting difficulty getting along with 1 staff member which reportedly led to agitation and conflict leading to this hospitalization. We will evaluate for safety and identify whether this is a recent decline versus consistent with baseline which would we would recommend a more rapid therapeutic discharge. However there is also a question of whether she has gotten to a point where this facility is just not adequate to manage her because of her resistance to their people and processes. 1. Encourage individual group and milieu therapy. 2. Decrease topamax to 25mg daily, continue Risperidone 1.5mg bid. Continue Cymbalta 60mg daily. Lamotrigine 200mg bid. 3. Therapeutic observation 15-minute checks on the unit for safety 4. We will contact facility and guardian and explore safety plan for discharge as soon as it is appropriate. 5. Recheck admission labs to evaluate for any medical illness. 6. Obtain hospitalist consult and have evaluate apparent kidney and liver function results against patient's recent appearance. Will follow for recommendations. 7. Patient cannot return to thrive, attempting to find new facility as patient deemed unsafe to return to thrive and will likely stay in hospital. 8. Patient admitted on 05/19/24 and remains with no aggression or assaultive behavior since her hospitalization here. Currently she has a interview with new [facility] tomorrow. Involuntary Hold Information 2 96 Hour Hold: 96 Hour Involuntary Admission: No Attestations NPU 2 Medical Necessity Statement*: Patient hospitalization is medically necessary and deemed to be the clinically appropriate intervention at this time. We will monitor and initiate medications while making changes as indicated. The patient's likely length of stay is 4-6 daysas she is awaiting word of acceptance from some considering facilities. Coding Level of Care Code Acute Code for [facility] Fwd Diagnoses Intermittent explosive disorder F63.81 Suicidal ideation R45.851 Mild intellectual disabilities F70 Dysthymia F34.1 Major depressive disorder, recurrent, moderate F33.1 Poor impulse control R45.87 Outbursts of explosive behavior R46.89
[2024-06-15] MEDS: duloxetine 30 mg Capsule 60 MG PO (18:59)
[2024-06-15 20:37] VITALS: BP 100/70; PULSE 100; RESP 16; TEMP 36.7; O2SAT 96
[2024-06-15] MEDS: trazodone 100 mg Tablet PO (21:41)
[2024-06-15] MEDS: docusate sodium 100 mg Capsule 200 MG PO (21:41)
[2024-06-16 06:15] VITALS: BP 118/84; PULSE 76; RESP 16; TEMP 36.7; O2SAT 93
[2024-06-16] MEDS: lamoTRIgine 100 mg Tablet 200 MG PO ×2 (09:39→18:24)
[2024-06-16] MEDS: loratadine 10 mg Tablet PO (09:39)
[2024-06-16] MEDS: risperiDONE 1 mg Tablet 1.5 MG PO ×2 (09:39→18:24)
[2024-06-16] MEDS: topiramate 25 mg Tablet PO ×2 (09:39→18:24)
[2024-06-16 14:00] VITALS: BP 85/60; PULSE 109; RESP 16; TEMP 37.1; O2SAT 97
[2024-06-16] MEDS: duloxetine 30 mg Capsule 60 MG PO (18:24)
--- NOTE | 2024-06-16 19:34 | W.PM.NPUPNS ---
Subjective NPU Subjective: Patient presented today reporting that she was feeling all right. She continues to follow all instructions regarding interviews and trying to connect with facilities that might consider her for long-term placement. Continue to make appropriate referrals and talk to her about where things stood with referrals that were still active. She denied any issues with her medication or any other problems. Mental Status Exam MSE Comments: This is an obese white female with hospital scrubs on with limited grooming and adequate eye contact. No abnormal movements except for psychomotor retardation. She was cooperative with exam in mild distress. Speech was decreased in rate and normal in volume and childlike. Mood described as allright. Her affect was flat. Thought process was linear but concrete. Thought content: Patient denied suicidal or homicidal ideation, there were no delusions reported or noted, she denied any auditory or visual hallucinations. Attention and concentration appeared at baseline. She is alert and oriented times person and place. Insight was poor. Judgment was limited. Impulse control was limited. Intellectual ability is commensurate with mild cognitive impairment. Vitals/I&O/Wt Last Vital Signs Temp 98.7 F 06/16/24 14:00 Pulse 109 H 06/16/24 14:00 Resp 16 06/16/24 14:00 BP 85/60 06/16/24 14:00 Pulse Ox 97 06/16/24 14:00 O2 Del Method Room Air 06/16/24 14:00 Data NPU 05/27/24 08:51 05/27/24 08:51 A&P Assessment and plan (1) Intermittent explosive disorder: (2) Suicidal ideation: (3) Mild intellectual disabilities: (4) Dysthymia: (5) Major depressive disorder, recurrent, moderate: (6) Poor impulse control: (7) Suicidal ideation: (8) Outbursts of explosive behavior: Plan 28-year-old white female history of intellectual disability, intermittent explosive disorder, and depression currently residing in a [facility] and returning with similar complaints as she has had in the past specifically reporting difficulty getting along with 1 staff member which reportedly led to agitation and conflict leading to this hospitalization. We will evaluate for safety and identify whether this is a recent decline versus consistent with baseline which would we would recommend a more rapid therapeutic discharge. However there is also a question of whether she has gotten to a point where this facility is just not adequate to manage her because of her resistance to their people and processes. 1. Encourage individual group and milieu therapy. 2. Decrease topamax to 25mg daily, continue Risperidone 1.5mg bid. Continue Cymbalta 60mg daily. Lamotrigine 200mg bid. 3. Therapeutic observation 15-minute checks on the unit for safety 4. We will contact facility and guardian and explore safety plan for discharge as soon as it is appropriate. 5. Recheck admission labs to evaluate for any medical illness. 6. Obtain hospitalist consult and have evaluate apparent kidney and liver function results against patient's recent appearance. Will follow for recommendations. 7. Patient cannot return to [facility], attempting to find new facility as patient deemed unsafe to return to [facility] and will likely stay in hospital. 8. Patient admitted on 05/19/24 and remains with no aggression or assaultive behavior since her hospitalization here. Currently she has a interview with new [facility] tomorrow. Involuntary Hold Information 96 Hour Hold: 96 Hour Involuntary Admission: No Attestations NPU Medical Necessity Statement*: Patient hospitalization is medically necessary and deemed to be the clinically appropriate intervention at this time. We will monitor and initiate medications while making changes as indicated. The patient's likely length of stay is 4-6 daysas she is awaiting word of acceptance from some considering facilities. Coding Level of Care Code Acute Code for [facility] Fwd Diagnoses Intermittent explosive disorder F63.81 Suicidal ideation R45.851 Mild intellectual disabilities F70 Dysthymia F34.1 Major depressive disorder, recurrent, moderate F33.1 Poor impulse control R45.87 Outbursts of explosive behavior R46.89
[2024-06-16] MEDS: docusate sodium 100 mg Capsule 200 MG PO (20:20)
[2024-06-16] MEDS: levothyroxine 100 mcg Tablet PO (20:20)
[2024-06-16] MEDS: hyDROXYzine 25 mg Capsule 50 MG PO (20:20)
[2024-06-16] MEDS: trazodone 100 mg Tablet PO (20:20)
[2024-06-16 20:36] VITALS: RESP 16
--- NOTE | 2024-06-16 20:36 | PC.NURSE ---
pt refused vitals resp at 16
[2024-06-17 06:00] VITALS: BP 100/60; PULSE 100; RESP 16; TEMP 36.9; O2SAT 96
[2024-06-17] MEDS: loratadine 10 mg Tablet PO (08:32)
[2024-06-17] MEDS: lamoTRIgine 100 mg Tablet 200 MG PO ×2 (08:32→17:51)
[2024-06-17] MEDS: topiramate 25 mg Tablet PO ×2 (08:32→17:51)
[2024-06-17] MEDS: risperiDONE 1 mg Tablet 1.5 MG PO ×2 (08:32→17:51)
--- NOTE | 2024-06-17 12:41 | P.NPUPN_ITS ---
Subjective NPU 2 Subjective: Today reporting no changes. We discussed the fact that there seems to be a solid date at 1 facility but it will not be until the final week of June. We discussed however that we continue to put in different referrals in hopes that someone can receive her sooner. She denied any side effects to her medications or any new issues. Mental Status Exam 2 MSE Comments: This is an obese white female with hospital scrubs on with limited grooming and adequate eye contact. No abnormal movements except for psychomotor retardation. She was cooperative with exam in mild distress. Speech was decreased in rate and normal in volume and childlike. Mood described as allright. Her affect was flat. Thought process was linear but concrete. Thought content: Patient denied suicidal or homicidal ideation, there were no delusions reported or noted, she denied any auditory or visual hallucinations. Attention and concentration appeared at baseline. She is alert and oriented times person and place. Insight was poor. Judgment was limited. Impulse control was limited. Intellectual ability is commensurate with mild cognitive impairment. Vitals/I&O/Wt Last Vital Signs Temp 98.4 F 06/17/24 06:00 Pulse 100 06/17/24 06:00 Resp 16 06/17/24 06:00 BP 100/60 06/17/24 06:00 Pulse Ox 96 06/17/24 06:00 O2 Del Method Room Air 06/16/24 14:00 Data NPU 05/27/24 08:51 05/27/24 08:51 A&P Assessment and plan (1) Intermittent explosive disorder: (2) Suicidal ideation: (3) Mild intellectual disabilities: (4) Dysthymia: (5) Major depressive disorder, recurrent, moderate: (6) Poor impulse control: (7) Suicidal ideation: (8) Outbursts of explosive behavior: Plan 28-year-old white female history of intellectual disability, intermittent explosive disorder, and depression currently residing in a retirement and returning with similar complaints as she has had in the past specifically reporting difficulty getting along with 1 staff member which reportedly led to agitation and conflict leading to this hospitalization. We will evaluate for safety and identify whether this is a recent decline versus consistent with baseline which would we would recommend a more rapid therapeutic discharge. However there is also a question of whether she has gotten to a point where this facility is just not adequate to manage her because of her resistance to their people and processes. 1. Encourage individual group and milieu therapy. 2. Decrease topamax to 25mg daily, continue Risperidone 1.5mg bid. Continue Cymbalta 60mg daily. Lamotrigine 200mg bid. 3. Therapeutic observation 15-minute checks on the unit for safety 4. We will contact facility and guardian and explore safety plan for discharge as soon as it is appropriate. 5. Recheck admission labs to evaluate for any medical illness. 6. Obtain hospitalist consult and have evaluate apparent kidney and liver function results against patient's recent appearance. Will follow for recommendations. 7. Patient cannot return to [facility], attempting to find new facility as patient deemed unsafe to return to [facility] and will likely stay in hospital. 8. Patient admitted on 05/19/24 and remains with no aggression or assaultive behavior since her hospitalization here. Currently she has a interview with new [facility] tomorrow. Involuntary Hold Information 2 96 Hour Hold: 96 Hour Involuntary Admission: No Attestations NPU 2 Medical Necessity Statement*: Patient hospitalization is medically necessary and deemed to be the clinically appropriate intervention at this time. We will monitor and initiate medications while making changes as indicated. The patient's likely length of stay is 4-6 days as she is awaiting word of acceptance from some considering facilities. Coding Level of Care Code Acute Code for [facility] Fwd Diagnoses Intermittent explosive disorder F63.81 Suicidal ideation R45.851 Mild intellectual disabilities F70 Dysthymia F34.1 Major depressive disorder, recurrent, moderate F33.1 Poor impulse control R45.87 Outbursts of explosive behavior R46.89
[2024-06-17 14:00] VITALS: BP 93/67; PULSE 94; RESP 16; TEMP 37.3; O2SAT 95
[2024-06-17] MEDS: duloxetine 30 mg Capsule 60 MG PO (17:51)
[2024-06-17 20:58] VITALS: BP 90/62; PULSE 67; RESP 16; O2SAT 96
--- NOTE | 2024-06-17 22:01 | PC.NURSE ---
Patient refused evening medications. This nurse tried to administer at 2045 and 2200. [employer] attempted to wake patient with no response. Respirations 16 breaths per minute.
[2024-06-18] MEDS: ondansetron 2 mg/ML SDV 2 mL 4 MG IM (02:45)
[2024-06-18 06:00] VITALS: BP 81/51; PULSE 76; RESP 18; TEMP 36.6; O2SAT 94
--- NOTE | 2024-06-18 08:05 | P.NPUPN_ITS ---
Subjective NPU 2 Subjective: Patient presents today reporting no new issues. We discussed her feeling under the whether and us getting swabs to evaluate. We discussed however that we continue to put in referrals in hopes that someone can receive her alix. She denied any side effects to her medications or any new issues. Mental Status Exam 2 MSE Comments: This is an obese white female with hospital scrubs on with limited grooming and adequate eye contact. No abnormal movements except for psychomotor retardation. She was cooperative with exam in mild distress. Speech was decreased in rate and normal in volume and childlike. Mood described as allright. Her affect was flat. Thought process was linear but concrete. Thought content: Patient denied suicidal or homicidal ideation, there were no delusions reported or noted, she denied any auditory or visual hallucinations. Attention and concentration appeared at baseline. She is alert and oriented times person and place. Insight was poor. Judgment was limited. Impulse control was limited. Intellectual ability is commensurate with mild cognitive impairment. Vitals/I&O/Wt Last Vital Signs Temp 97.8 F 06/18/24 06:00 Pulse 76 06/18/24 06:00 Resp 18 06/18/24 06:00 BP 81/51 06/18/24 06:00 Pulse Ox 94 06/18/24 06:00 O2 Del Method Room Air 06/18/24 06:00 Data NPU 05/27/24 08:51 05/27/24 08:51 A&P Assessment and plan (1) Intermittent explosive disorder: (2) Suicidal ideation: (3) Mild intellectual disabilities: (4) Dysthymia: (5) Major depressive disorder, recurrent, moderate: (6) Poor impulse control: (7) Suicidal ideation: (8) Outbursts of explosive behavior: Plan 29-year-old white female history of intellectual disability, intermittent explosive disorder, and depression currently residing in a care home and returning with similar complaints as she has had in the past specifically reporting difficulty getting along with 1 staff member which reportedly led to agitation and conflict leading to this hospitalization. We will evaluate for safety and identify whether this is a recent decline versus consistent with baseline which would we would recommend a more rapid therapeutic discharge. However there is also a question of whether she has gotten to a point where this facility is just not adequate to manage her because of her resistance to their people and processes. 1. Encourage individual group and milieu therapy. 2. Decrease topamax to 25mg daily, continue Risperidone 1.5mg bid. Continue Cymbalta 60mg daily. Lamotrigine 200mg bid. 3. Therapeutic observation 15-minute checks on the unit for safety 4. We will contact facility and guardian and explore safety plan for discharge as soon as it is appropriate. 5. Recheck admission labs to evaluate for any medical illness. 6. Obtain hospitalist consult and have evaluate apparent kidney and liver function results against patient's recent appearance. Will follow for recommendations. 7. Patient cannot return to [facility], attempting to find new facility as patient deemed unsafe to return to [facility] and will likely stay in hospital. 8. Patient admitted on 05/19/24 and remains with no aggression or assaultive behavior since her hospitalization here. Currently she has a interview with new [facility] tomorrow. Involuntary Hold Information 2 96 Hour Hold: 96 Hour Involuntary Admission: No Attestations NPU 2 Medical Necessity Statement*: Patient hospitalization is medically necessary and deemed to be the clinically appropriate intervention at this time. We will monitor and initiate medications while making changes as indicated. The patient's likely length of stay is 4-6 days as she is awaiting word of acceptance from some considering facilities. Coding Level of Care Code Acute Code for [facility] Fwd Diagnoses Intermittent explosive disorder F63.81 Suicidal ideation R45.851 Mild intellectual disabilities F70 Dysthymia F34.1 Major depressive disorder, recurrent, moderate F33.1 Poor impulse control R45.87 Outbursts of explosive behavior R46.89
[2024-06-18] MEDS: lamoTRIgine 100 mg Tablet 200 MG PO ×2 (09:18→17:51)
[2024-06-18] MEDS: risperiDONE 1 mg Tablet 1.5 MG PO ×2 (09:18→17:51)
[2024-06-18] MEDS: loratadine 10 mg Tablet PO (09:18)
[2024-06-18] MEDS: topiramate 25 mg Tablet PO ×2 (09:18→17:51)
[2024-06-18] MEDS: acetaminophen 500 mg Tablet PO (13:35)
[2024-06-18] MEDS: ondansetron 4 MG Tablet PO (13:36)
--- NOTE | 2024-06-18 13:48 | PC.NURSE ---
Pt is running a low grade temp of 99.4, feeling sick and has thrown up twice, threw up her dose of zofran and tylenol, just now.
[2024-06-18 14:00] VITALS: BP 89/61; PULSE 79; RESP 16; TEMP 36.9; O2SAT 98
[2024-06-18] MEDS: duloxetine 30 mg Capsule 60 MG PO (17:52)
--- NOTE | 2024-06-18 18:04 | PC.NURSE ---
Pt threw up all of her 1800 medications, pt has been sick today.
[2024-06-18 19:13] LABS: Influenza A NEGATIVE (Negative); Influenza B NEGATIVE (Negative); Respiratory Syncytial Virus Ce NEGATIVE (Negative); SARS-CoV-2 PCR NEGATIVE (Negative)
[2024-06-18 19:39] VITALS: BP 94/60; PULSE 97; RESP 18; TEMP 36.9; O2SAT 94
[2024-06-18] MEDS: trazodone 100 mg Tablet PO (20:08)
[2024-06-18] MEDS: hyDROXYzine 25 mg Capsule 50 MG PO (20:08)
[2024-06-18] MEDS: levothyroxine 100 mcg Tablet PO (20:08)
[2024-06-18] MEDS: docusate sodium 100 mg Capsule 200 MG PO (20:08)
--- NOTE | 2024-06-19 00:18 | PC.NURSE ---
PT IN BED WITH EMESIS BUCKET BY SIDE. PT STATES SHE THREW UP. RN EDUCATED PT EARLIER IN THE SHIFT ABOUT EATING SO MANY SNACKS, PT DECLINED TO LISTEN. RN DID PUT UP THE SNACKS SO PT WOULD STOP EATING EXCESSIVELY. 150 MLS OF CHUNKY FOOD LIKE SUBSTANCE EMESIS IS NOTED IN BUCKET. PT WAS GIVEN A COOL CLOTH AND SNACKS REMOVED FROM ROOM WHERE PT HAD HIDDEN THEM. DR. MORRELL NOTIFIED VIA PHONE AND AWAITING CALL BACK FOR ORDERS. PT WAS OFFERED ZOFRAN 4 MG PO BUT PT STATED I CAN'T TAKE IT, I DON'T FEEL GOOD. EDUCATION WAS PROVIDED THAT THE MEDICATION WOULD HELP WITH NAUSEA, PT STATED I FEEL BETTER NOW THAT I PUCKED. PT CLEANED UP AND IS CURRENTLY RESTING WITH EYES CLOSED.
[2024-06-19 06:00] VITALS: BP 91/64; PULSE 75; RESP 16; TEMP 36.3; O2SAT 95
[2024-06-19] MEDS: topiramate 25 mg Tablet PO ×2 (08:23→17:46)
[2024-06-19] MEDS: risperiDONE 1 mg Tablet 1.5 MG PO ×2 (08:23→17:46)
[2024-06-19] MEDS: lamoTRIgine 100 mg Tablet 200 MG PO ×2 (08:23→17:46)
[2024-06-19] MEDS: loratadine 10 mg Tablet PO (08:23)
--- NOTE | 2024-06-19 08:40 | P.NPUPN_ITS ---
Subjective NPU 2 Subjective: Patient presented today reporting she is doing okay. Staff reports she is struggling with boredom and mild frustration that she is still here but still except that this is the path forward to a new facility. She had some swabs secondary to her feeling under the weather and being in the room with a person that had the flu but all studies returned negative and she is not having any objective symptoms. She does report feeling subjectively better overall. She denied any side effects of the medication. Mental Status Exam 2 MSE Comments: This is an obese white female with hospital scrubs on with limited grooming and adequate eye contact. No abnormal movements except for psychomotor retardation. She was cooperative with exam in mild distress. Speech was decreased in rate and normal in volume and childlike. Mood described as allright. Her affect was flat. Thought process was linear but concrete. Thought content: Patient denied suicidal or homicidal ideation, there were no delusions reported or noted, she denied any auditory or visual hallucinations. Attention and concentration appeared at baseline. She is alert and oriented times person and place. Insight was poor. Judgment was limited. Impulse control was limited. Intellectual ability is commensurate with mild cognitive impairment. Vitals/I&O/Wt Last Vital Signs Temp 97.3 F L 06/19/24 06:00 Pulse 75 06/19/24 06:00 Resp 16 06/19/24 06:00 BP 91/64 06/19/24 06:00 Pulse Ox 95 06/19/24 06:00 O2 Del Method Room Air 06/19/24 06:00 Data NPU 05/27/24 08:51 05/27/24 08:51 A&P Assessment and plan (1) Intermittent explosive disorder: (2) Suicidal ideation: (3) Mild intellectual disabilities: (4) Dysthymia: (5) Major depressive disorder, recurrent, moderate: (6) Poor impulse control: (7) Suicidal ideation: (8) Outbursts of explosive behavior: Plan 29-year-old white female history of intellectual disability, intermittent explosive disorder, and depression currently residing in a assisted and returning with similar complaints as she has had in the past specifically reporting difficulty getting along with 1 staff member which reportedly led to agitation and conflict leading to this hospitalization. We will evaluate for safety and identify whether this is a recent decline versus consistent with baseline which would we would recommend a more rapid therapeutic discharge. However there is also a question of whether she has gotten to a point where this facility is just not adequate to manage her because of her resistance to their people and processes. 1. Encourage individual group and milieu therapy. 2. Decrease topamax to 25mg daily, continue Risperidone 1.5mg bid. Continue Cymbalta 60mg daily. Lamotrigine 200mg bid. 3. Therapeutic observation 15-minute checks on the unit for safety 4. We will contact facility and guardian and explore safety plan for discharge as soon as it is appropriate. 5. Recheck admission labs to evaluate for any medical illness. 6. Obtain hospitalist consult and have evaluate apparent kidney and liver function results against patient's recent appearance. Will follow for recommendations. 7. Patient cannot return to [facility], attempting to find new facility as patient deemed unsafe to return to [facility] and will likely stay in hospital. 8. Patient admitted on 05/19/24 and remains with no aggression or assaultive behavior since her hospitalization here. Currently she has a interview with new [facility] tomorrow. Involuntary Hold Information 2 96 Hour Hold: 96 Hour Involuntary Admission: No Attestations NPU 2 Medical Necessity Statement*: Patient hospitalization is medically necessary and deemed to be the clinically appropriate intervention at this time. We will monitor and initiate medications while making changes as indicated. The patient's likely length of stay is 4-6 days as she is awaiting word of acceptance from some considering facilities. Coding Level of Care Code Acute Code for [facility] Fwd Diagnoses Intermittent explosive disorder F63.81 Suicidal ideation R45.851 Mild intellectual disabilities F70 Dysthymia F34.1 Major depressive disorder, recurrent, moderate F33.1 Poor impulse control R45.87 Outbursts of explosive behavior R46.89
[2024-06-19 14:00] VITALS: BP 78/52; PULSE 87; RESP 16; TEMP 37.3; O2SAT 94
[2024-06-19 14:46] VITALS: BP 102/60
[2024-06-19] MEDS: duloxetine 30 mg Capsule 60 MG PO (17:46)
[2024-06-19] MEDS: trazodone 100 mg Tablet PO (19:43)
[2024-06-19] MEDS: docusate sodium 100 mg Capsule 200 MG PO (19:43)
[2024-06-19] MEDS: levothyroxine 100 mcg Tablet PO (19:45)
[2024-06-19 20:23] VITALS: BP 101/71; PULSE 94; RESP 18; TEMP 36.7; O2SAT 96
[2024-06-20 06:00] VITALS: BP 86/52; PULSE 88; RESP 16; TEMP 37.6; O2SAT 93
--- NOTE | 2024-06-20 06:50 | PC.NURSE ---
Tried to get Jessica up to change her bedding. She had wet the bed and will not get up to change it. I set the bedding on the bedside table for her.
[2024-06-20] MEDS: lamoTRIgine 100 mg Tablet 200 MG PO ×2 (09:41→17:44)
[2024-06-20] MEDS: loratadine 10 mg Tablet PO (09:41)
[2024-06-20] MEDS: topiramate 25 mg Tablet PO (09:41)
[2024-06-20] MEDS: risperiDONE 1 mg Tablet 1.5 MG PO ×2 (09:41→17:44)
[2024-06-20 14:00] VITALS: BP 111/76; PULSE 108; RESP 17; TEMP 36.3; O2SAT 99
--- NOTE | 2024-06-20 15:58 | P.NPUPN_ITS ---
Subjective NPU 2 Subjective: Patient presented today reporting that she is feeling okay. She is excited about getting to talk to her roommates tomorrow. She was asking about how that will reflect all when she discharges. We discussed that we have no power over there process and that as soon as they identified at the highest we will start making specific plans about her discharge. She denied any side effects to the medication. Mental Status Exam 2 MSE Comments: This is an obese white female with hospital scrubs on with limited grooming and adequate eye contact. No abnormal movements except for psychomotor retardation. She was cooperative with exam in mild distress. Speech was decreased in rate and normal in volume and childlike. Mood described as allright. Her affect was flat. Thought process was linear but concrete. Thought content: Patient denied suicidal or homicidal ideation, there were no delusions reported or noted, she denied any auditory or visual hallucinations. Attention and concentration appeared at baseline. She is alert and oriented times person and place. Insight was poor. Judgment was limited. Impulse control was limited. Intellectual ability is commensurate with mild cognitive impairment. Vitals/I&O/Wt Last Vital Signs Temp 97.4 F L 06/20/24 14:00 Pulse 108 H 06/20/24 14:00 Resp 17 06/20/24 14:00 BP 111/76 06/20/24 14:00 Pulse Ox 99 06/20/24 14:00 O2 Del Method Room Air 06/19/24 14:00 Data NPU 05/27/24 08:51 05/27/24 08:51 A&P Assessment and plan (1) Intermittent explosive disorder: (2) Suicidal ideation: (3) Mild intellectual disabilities: (4) Dysthymia: (5) Major depressive disorder, recurrent, moderate: (6) Poor impulse control: (7) Suicidal ideation: (8) Outbursts of explosive behavior: Plan 29-year-old white female history of intellectual disability, intermittent explosive disorder, and depression currently residing in a custodial and returning with similar complaints as she has had in the past specifically reporting difficulty getting along with 1 staff member which reportedly led to agitation and conflict leading to this hospitalization. We will evaluate for safety and identify whether this is a recent decline versus consistent with baseline which would we would recommend a more rapid therapeutic discharge. However there is also a question of whether she has gotten to a point where this facility is just not adequate to manage her because of her resistance to their people and processes. 1. Encourage individual group and milieu therapy. 2. Decreased topamax to 25mg daily, continue Risperidone 1.5mg bid. Continue Cymbalta 60mg daily. Lamotrigine 200mg bid. 3. Therapeutic observation 15-minute checks on the unit for safety 4. We will contact facility and guardian and explore safety plan for discharge as soon as it is appropriate. 5. Recheck admission labs to evaluate for any medical illness. 6. Obtain hospitalist consult and have evaluate apparent kidney and liver function results against patient's recent appearance. Will follow for recommendations. 7. [facility] cannot return to [facility], attempting to find new facility as patient deemed unsafe to return to [facility] and will likely stay in hospital. 8. Patient admitted on 05/19/24 and remains with no aggression or assaultive behavior since her hospitalization here. Currently she has a interview with new [facility] possible roommates tomorrow. Involuntary Hold Information 2 96 Hour Hold: 96 Hour Involuntary Admission: No Attestations NPU 2 Medical Necessity Statement*: Patient hospitalization is medically necessary and deemed to be the clinically appropriate intervention at this time. We will monitor and initiate medications while making changes as indicated. The patient's likely length of stay is 4-6 days as she is awaiting word of acceptance from some considering facilities. Coding Level of Care Code Acute Code for [facility] Fwd Diagnoses Intermittent explosive disorder F63.81 Suicidal ideation R45.851 Mild intellectual disabilities F70 Dysthymia F34.1 Major depressive disorder, recurrent, moderate F33.1 Poor impulse control R45.87 Outbursts of explosive behavior R46.89
[2024-06-20] MEDS: duloxetine 30 mg Capsule 60 MG PO (17:44)
[2024-06-20] MEDS: levothyroxine 100 mcg Tablet PO (20:44)
[2024-06-20] MEDS: docusate sodium 100 mg Capsule 200 MG PO (20:44)
[2024-06-20] MEDS: trazodone 100 mg Tablet PO (20:44)
[2024-06-20 21:08] VITALS: BP 94/65; PULSE 115; RESP 16; TEMP 37; O2SAT 97
[2024-06-21 06:15] VITALS: BP 98/66; PULSE 72; RESP 14; TEMP 36.5; O2SAT 93
[2024-06-21] MEDS: loratadine 10 mg Tablet PO (09:29)
[2024-06-21] MEDS: lamoTRIgine 100 mg Tablet 200 MG PO ×2 (09:29→17:52)
[2024-06-21] MEDS: risperiDONE 1 mg Tablet 1.5 MG PO ×2 (09:29→17:52)
[2024-06-21] MEDS: topiramate 25 mg Tablet PO (09:30)
[2024-06-21 14:00] VITALS: BP 90/50; PULSE 75; RESP 14; TEMP 36.8; O2SAT 97
--- NOTE | 2024-06-21 16:17 | P.NPUPN_ITS ---
Subjective NPU 2 Subjective: Patient presented today reporting that she was feeling very happy about her situation. She reports she did have the interview with the roommates from the program that is evaluating her. She felt it went really well and that they had enjoyable conversations and that she answered their questions well. She reports they gave no indication of when a bed would be available but she felt optimistic that the plan was for them to choose her once a bed is available. She denied any side effects to the medication. Mental Status Exam 2 MSE Comments: This is an obese white female with hospital scrubs on with limited grooming and adequate eye contact. No abnormal movements except for psychomotor retardation. She was cooperative with exam in mild distress. Speech was decreased in rate and normal in volume and childlike. Mood described as allright. Her affect was flat. Thought process was linear but concrete. Thought content: Patient denied suicidal or homicidal ideation, there were no delusions reported or noted, she denied any auditory or visual hallucinations. Attention and concentration appeared at baseline. She is alert and oriented times person and place. Insight was poor. Judgment was limited. Impulse control was limited. Intellectual ability is commensurate with mild cognitive impairment. Vitals/I&O/Wt Last Vital Signs Temp 98.2 F 06/21/24 14:00 Pulse 75 06/21/24 14:00 Resp 14 06/21/24 14:00 BP 90/50 06/21/24 14:00 Pulse Ox 97 06/21/24 14:00 O2 Del Method Room Air 06/21/24 14:00 Data NPU 05/27/24 08:51 05/27/24 08:51 A&P Assessment and plan (1) Intermittent explosive disorder: (2) Suicidal ideation: (3) Mild intellectual disabilities: (4) Dysthymia: (5) Major depressive disorder, recurrent, moderate: (6) Poor impulse control: (7) Suicidal ideation: (8) Outbursts of explosive behavior: Plan 29-year-old white female history of intellectual disability, intermittent explosive disorder, and depression currently residing in a sn[facility] and returning with similar complaints as she has had in the past specifically reporting difficulty getting along with 1 staff member which reportedly led to agitation and conflict leading to this hospitalization. We will evaluate for safety and identify whether this is a recent decline versus consistent with baseline which would we would recommend a more rapid therapeutic discharge. However there is also a question of whether she has gotten to a point where this facility is just not adequate to manage her because of her resistance to their people and processes. 1. Encourage individual group and milieu therapy. 2. Decreased topamax to 25mg daily, continue Risperidone 1.5mg bid. Continue Cymbalta 60mg daily. Lamotrigine 200mg bid. 3. Therapeutic observation 15-minute checks on the unit for safety 4. We will contact facility and guardian and explore safety plan for discharge as soon as it is appropriate. 5. Recheck admission labs to evaluate for any medical illness. 6. Obtain hospitalist consult and have evaluate apparent kidney and liver function results against patient's recent appearance. Will follow for recommendations. 7. [facility] cannot [facility] to [facility], attempting to find new facility as patient deemed unsafe to return to [facility] and will likely stay in hospital. 8. Patient admitted on 05/19/24 and remains with no aggression or assaultive behavior since her hospitalization here. She had her interview with new [facility] possible roommates. It reportedly went well but the question is simply when they will have a bed date in the next days to weeks. PDMP PDMP Reviewed: Not Reviewed Involuntary Hold Information 2 96 Hour Hold: 96 Hour Involuntary Admission: No Attestations NPU 2 Medical Necessity Statement*: Patient hospitalization is medically necessary and deemed to be the clinically appropriate intervention at this time. We will monitor and initiate medications while making changes as indicated. The patient's likely length of stay is 4-6 days as she is awaiting word of acceptance from some considering facilities. Coding Level of Care Code Acute Code for [facility] Fwd Diagnoses Intermittent explosive disorder F63.81 Suicidal ideation R45.851 Mild intellectual disabilities F70 Dysthymia F34.1 Major depressive disorder, recurrent, moderate F33.1 Poor impulse control R45.87 Outbursts of explosive behavior R46.89
[2024-06-21] MEDS: duloxetine 30 mg Capsule 60 MG PO (17:51)
[2024-06-21 20:22] VITALS: BP 88/61; PULSE 90; RESP 18; TEMP 36.9; O2SAT 94
[2024-06-21] MEDS: trazodone 100 mg Tablet PO (20:47)
[2024-06-21] MEDS: levothyroxine 100 mcg Tablet PO (20:47)
[2024-06-21] MEDS: docusate sodium 100 mg Capsule 200 MG PO (20:47)
[2024-06-22 06:00] VITALS: BP 85/55; PULSE 83; RESP 15; TEMP 37.1; O2SAT 97
[2024-06-22] MEDS: risperiDONE 1 mg Tablet 1.5 MG PO ×2 (09:03→18:11)
[2024-06-22] MEDS: loratadine 10 mg Tablet PO (09:03)
[2024-06-22] MEDS: lamoTRIgine 100 mg Tablet 200 MG PO ×2 (09:03→18:10)
[2024-06-22] MEDS: topiramate 25 mg Tablet PO (09:03)
[2024-06-22 14:00] VITALS: BP 91/57; PULSE 91; RESP 16; TEMP 37.2; O2SAT 96
--- NOTE | 2024-06-22 17:42 | W.PM.NPUPNS ---
Subjective NPU Subjective: Patient presented today reporting that things are going well. She is very happy about the fact that her interview went well and just continues to await word from there. We did discuss that we are continuing to explore other places just in case. She is hopeful that this is the place she goes because she felt she had such a good conversation with her proposed roommates. Otherwise she denies any issues and is just awaiting placement. She denies any medication side effects. Mental Status Exam MSE Comments: This is an obese white female with hospital scrubs on with limited grooming and adequate eye contact. No abnormal movements except for psychomotor retardation. She was cooperative with exam in mild distress. Speech was decreased in rate and normal in volume and childlike. Mood described as allright. Her affect was flat. Thought process was linear but concrete. Thought content: Patient denied suicidal or homicidal ideation, there were no delusions reported or noted, she denied any auditory or visual hallucinations. Attention and concentration appeared at baseline. She is alert and oriented times person and place. Insight was poor. Judgment was limited. Impulse control was limited. Intellectual ability is commensurate with mild cognitive impairment. Vitals/I&O/Wt Last Vital Signs Temp 98.9 F 06/22/24 14:00 Pulse 91 06/22/24 14:00 Resp 16 06/22/24 14:00 BP 91/57 06/22/24 14:00 Pulse Ox 96 06/22/24 14:00 O2 Del Method Room Air 06/22/24 14:00 Data NPU 05/27/24 08:51 05/27/24 08:51 A&P Assessment and plan (1) Intermittent explosive disorder: (2) Suicidal ideation: (3) Mild intellectual disabilities: (4) Dysthymia: (5) Major depressive disorder, recurrent, moderate: (6) Poor impulse control: (7) Suicidal ideation: (8) Outbursts of explosive behavior: Plan 29-year-old white female history of intellectual disability, intermittent explosive disorder, and depression currently residing in a nursing home and returning with similar complaints as she has had in the past specifically reporting difficulty getting along with 1 staff member which reportedly led to agitation and conflict leading to this hospitalization. We will evaluate for safety and identify whether this is a recent decline versus consistent with baseline which would we would recommend a more rapid therapeutic discharge. However there is also a question of whether she has gotten to a point where this facility is just not adequate to manage her because of her resistance to their people and processes. 1. Encourage individual group and milieu therapy. 2. Decreased topamax to 25mg daily, continue Risperidone 1.5mg bid. Continue Cymbalta 60mg daily. Lamotrigine 200mg bid. 3. Therapeutic observation 15-minute checks on the unit for safety 4. We will contact facility and guardian and explore safety plan for discharge as soon as it is appropriate. 5. Recheck admission labs to evaluate for any medical illness. 6. Obtain hospitalist consult and have evaluate apparent kidney and liver function results against patient's recent appearance. Will follow for recommendations. 7. [facility] cannot return to [facility], attempting to find new facility as patient deemed unsafe to return to [facility] and will likely stay in hospital. 8. Patient admitted on 05/19/24 and remains with no aggression or assaultive behavior since her hospitalization here. She had her interview with new [facility] possible roommates. It reportedly went well but the question is simply when they will have a bed date in the next days to weeks. PDMP PDMP Reviewed: Not Reviewed Involuntary Hold Information 96 Hour Hold: 96 Hour Involuntary Admission: No Attestations NPU Medical Necessity Statement*: Patient hospitalization is medically necessary and deemed to be the clinically appropriate intervention at this time. We will monitor and initiate medications while making changes as indicated. The patient's likely length of stay is 4-6 days as she is awaiting word of acceptance from some considering facilities. Coding Level of Care Code Acute Code for [facility] Fwd Diagnoses Intermittent explosive disorder F63.81 Suicidal ideation R45.851 Mild intellectual disabilities F70 Dysthymia F34.1 Major depressive disorder, recurrent, moderate F33.1 Poor impulse control R45.87 Outbursts of explosive behavior R46.89
[2024-06-22] MEDS: duloxetine 30 mg Capsule 60 MG PO (18:11)
[2024-06-22 20:34] VITALS: BP 89/69; PULSE 102; RESP 18; TEMP 37.1; O2SAT 96
[2024-06-22] MEDS: trazodone 100 mg Tablet PO (20:53)
[2024-06-22] MEDS: docusate sodium 100 mg Capsule 200 MG PO (20:53)
[2024-06-22] MEDS: levothyroxine 100 mcg Tablet PO (20:53)
[2024-06-23 06:00] VITALS: BP 87/57; PULSE 95; RESP 16; O2SAT 94
[2024-06-23] MEDS: risperiDONE 1 mg Tablet 1.5 MG PO ×2 (08:45→17:41)
[2024-06-23] MEDS: lamoTRIgine 100 mg Tablet 200 MG PO ×2 (08:45→17:41)
[2024-06-23] MEDS: loratadine 10 mg Tablet PO (08:45)
[2024-06-23] MEDS: topiramate 25 mg Tablet PO (08:46)
[2024-06-23 14:00] VITALS: BP 88/63; PULSE 98; RESP 16; TEMP 37; O2SAT 97
[2024-06-23] MEDS: duloxetine 30 mg Capsule 60 MG PO (17:42)
--- NOTE | 2024-06-23 17:46 | P.NPUPN_ITS ---
Subjective NPU 2 Subjective: Patient presented today reporting things are going fine but she endorses having significant difficulty and concerned about making sure that she gets the bed. We discussed the fact that we got the word that she was chosen for that bed but that they could not give us a clear date other than by July 16. We discussed that being concerning given how long she has been here. She denied any side effects to the medication. Mental Status Exam 2 MSE Comments: This is an obese white female with hospital scrubs on with limited grooming and adequate eye contact. No abnormal movements except for psychomotor retardation. She was cooperative with exam in mild distress. Speech was decreased in rate and normal in volume and childlike. Mood described as allright. Her affect was flat. Thought process was linear but concrete. Thought content: Patient denied suicidal or homicidal ideation, there were no delusions reported or noted, she denied any auditory or visual hallucinations. Attention and concentration appeared at baseline. She is alert and oriented times person and place. Insight was poor. Judgment was limited. Impulse control was limited. Intellectual ability is commensurate with mild cognitive impairment. Vitals/I&O/Wt Last Vital Signs Temp 99.0 F 06/23/24 21:58 Pulse 107 H 06/23/24 21:58 Resp 18 06/23/24 21:58 BP 94/74 06/23/24 21:58 Pulse Ox 97 06/23/24 21:58 O2 Del Method Room Air 06/23/24 14:00 Data NPU 05/27/24 08:51 05/27/24 08:51 A&P Assessment and plan (1) Intermittent explosive disorder: (2) Suicidal ideation: (3) Mild intellectual disabilities: (4) Dysthymia: (5) Major depressive disorder, recurrent, moderate: (6) Poor impulse control: (7) Suicidal ideation: (8) Outbursts of explosive behavior: Plan 29-year-old white female history of intellectual disability, intermittent explosive disorder, and depression currently [facility] and returning with similar complaints as she has had in the past specifically reporting difficulty getting along with 1 staff member which reportedly led to agitation and conflict leading to this hospitalization. We will evaluate for safety and identify whether this is a recent decline versus consistent with baseline which would we would recommend a more rapid therapeutic discharge. However there is also a question of whether she has gotten to a point where this facility is just not adequate to manage her because of her resistance to their people and processes. 1. Encourage individual group and milieu therapy. 2. Decreased topamax to 25mg daily, continue Risperidone 1.5mg bid. Continue Cymbalta 60mg daily. Lamotrigine 200mg bid. 3. Therapeutic observation 15-minute checks on the unit for safety 4. We will contact facility and guardian and explore safety plan for discharge as soon as it is appropriate. 5. Recheck admission labs to evaluate for any medical illness. 6. Obtain hospitalist consult and have evaluate apparent kidney and liver function results against patient's recent appearance. Will follow for recommendations. 7. [facility] cannot return to [facility], attempting to find new facility as patient deemed unsafe to return to [facility] and will likely stay in hospital. 8. Patient admitted on 05/19/24 and remains with no aggression or assaultive behavior since her hospitalization here. She had her interview with new [facility] possible roommates. It reportedly went well but the question is simply when they will have a bed date in the next days to weeks. We will explore any alternatives to her staying here until that bed is available PDMP PDMP Reviewed: Not Reviewed Involuntary Hold Information 2 96 Hour Hold: 96 Hour Involuntary Admission: No Attestations NPU 2 Medical Necessity Statement*: Patient hospitalization is medically necessary and deemed to be the clinically appropriate intervention at this time. We will monitor and initiate medications while making changes as indicated. The patient's likely length of stay is 4-6 days as she is awaiting word of acceptance from some considering facilities. Coding Level of Care Code Acute Code for [facility] Fwd Diagnoses Intermittent explosive disorder F63.81 Suicidal ideation R45.851 Mild intellectual disabilities F70 Dysthymia F34.1 Major depressive disorder, recurrent, moderate F33.1 Poor impulse control R45.87 Outbursts of explosive behavior R46.89
[2024-06-23] MEDS: docusate sodium 100 mg Capsule 200 MG PO (20:19)
[2024-06-23] MEDS: trazodone 50 mg Tablet PO (20:19)
[2024-06-23] MEDS: levothyroxine 100 mcg Tablet PO (20:19)
[2024-06-23 21:58] VITALS: BP 94/74; PULSE 107; RESP 18; TEMP 37.2; O2SAT 97
[2024-06-24 06:00] VITALS: BP 111/78; PULSE 96; RESP 18; TEMP 36.7; O2SAT 100
[2024-06-24] MEDS: lamoTRIgine 100 mg Tablet 200 MG PO ×2 (08:48→17:12)
[2024-06-24] MEDS: topiramate 25 mg Tablet PO (08:48)
[2024-06-24] MEDS: risperiDONE 1 mg Tablet 1.5 MG PO ×2 (08:48→17:13)
[2024-06-24] MEDS: loratadine 10 mg Tablet PO (08:48)
--- NOTE | 2024-06-24 13:21 | W.PM.NPUPNS ---
Subjective NPU Subjective: Patient presented today reporting that she is very hopeful that she will go to the new program sooner rather than later. She understands that they have placed a latest date of July 16 but that we are trying to make sure that she is not here that much longer. We are working with her guardian and trying to figure out if there is any other option for temporary housing prior to that date. She denied any side effects to the medication. Mental Status Exam MSE Comments: This is an obese white female with hospital scrubs on with limited grooming and adequate eye contact. No abnormal movements except for psychomotor retardation. She was cooperative with exam in mild distress. Speech was decreased in rate and normal in volume and childlike. Mood described as allright. Her affect was flat. Thought process was linear but concrete. Thought content: Patient denied suicidal or homicidal ideation, there were no delusions reported or noted, she denied any auditory or visual hallucinations. Attention and concentration appeared at baseline. She is alert and oriented times person and place. Insight was poor. Judgment was limited. Impulse control was limited. Intellectual ability is commensurate with mild cognitive impairment. Vitals/I&O/Wt Last Vital Signs Temp 98.0 F 06/24/24 06:00 Pulse 96 06/24/24 06:00 Resp 18 06/24/24 06:00 BP 111/78 06/24/24 06:00 Pulse Ox 100 06/24/24 06:00 O2 Del Method Room Air 06/24/24 06:00 Data NPU 05/27/24 08:51 05/27/24 08:51 A&P Assessment and plan (1) Intermittent explosive disorder: (2) Suicidal ideation: (3) Mild intellectual disabilities: (4) Dysthymia: (5) Major depressive disorder, recurrent, moderate: (6) Poor impulse control: (7) Suicidal ideation: (8) Outbursts of explosive behavior: Plan 29-year-old white female history of intellectual disability, intermittent explosive disorder, and depression currently residing in a [facility] and returning with similar complaints as she has had in the past specifically reporting difficulty getting along with 1 staff member which reportedly led to agitation and conflict leading to this hospitalization. We will evaluate for safety and identify whether this is a recent decline versus consistent with baseline which would we would recommend a more rapid therapeutic discharge. However there is also a question of whether she has gotten to a point where this facility is just not adequate to manage her because of her resistance to their people and processes. 1. Encourage individual group and milieu therapy. 2. Decreased topamax to 25mg daily, continue Risperidone 1.5mg bid. Continue Cymbalta 60mg daily. Lamotrigine 200mg bid. 3. Therapeutic observation 15-minute checks on the unit for safety 4. We will contact facility and guardian and explore safety plan for discharge as soon as it is appropriate. 5. Recheck admission labs to evaluate for any medical illness. 6. Obtain hospitalist consult and have evaluate apparent kidney and liver function results against patient's recent appearance. Will follow for recommendations. 7. [facility] cannot return to [facility], attempting to find new facility as patient deemed unsafe to return to [facility] and will likely stay in hospital. 8. Patient admitted on 05/19/24 and remains with no aggression or assaultive behavior since her hospitalization here. She had her interview with new [facility] possible roommates. It reportedly went well but the question is simply when they will have a bed date in the next days to weeks. We will explore any alternatives to her staying here until that bed is available PDMP PDMP Reviewed: Not Reviewed Involuntary Hold Information 96 Hour Hold: 96 Hour Involuntary Admission: No Attestations NPU Medical Necessity Statement*: Patient hospitalization is medically necessary and deemed to be the clinically appropriate intervention at this time. We will monitor and initiate medications while making changes as indicated. The patient's likely length of stay is 4-6 days as she is awaiting word of acceptance from some considering facilities. Coding Level of Care Code Acute Code for [facility] Fwd Diagnoses Intermittent explosive disorder F63.81 Suicidal ideation R45.851 Mild intellectual disabilities F70 Dysthymia F34.1 Major depressive disorder, recurrent, moderate F33.1 Poor impulse control R45.87 Outbursts of explosive behavior R46.89
[2024-06-24 14:00] VITALS: BP 73/43; PULSE 91; RESP 16; TEMP 37.2; O2SAT 93
[2024-06-24] MEDS: duloxetine 30 mg Capsule 60 MG PO (17:12)
[2024-06-24] MEDS: docusate sodium 100 mg Capsule 200 MG PO (20:35)
[2024-06-24] MEDS: levothyroxine 100 mcg Tablet PO (20:35)
[2024-06-24] MEDS: trazodone 100 mg Tablet PO (20:35)
[2024-06-24 22:00] VITALS: BP 89/67; PULSE 83; RESP 18; TEMP 36.4; O2SAT 97
[2024-06-25 06:00] VITALS: BP 83/51; PULSE 73; RESP 16; O2SAT 96
--- NOTE | 2024-06-25 07:28 | P.NPUPN_ITS ---
Subjective NPU 2 Subjective: Patient presented today reporting that things are going okay. She continued to except that we have no power over the process at the facility that was excepted her already. We continue to explore alternatives and we discussed that we are doing that. She denied any side effects to her medications. Mental Status Exam 2 MSE Comments: This is an obese white female with hospital scrubs on with limited grooming and adequate eye contact. No abnormal movements except for psychomotor retardation. She was cooperative with exam in mild distress. Speech was decreased in rate and normal in volume and childlike. Mood described as allright. Her affect was flat. Thought process was linear but concrete. Thought content: Patient denied suicidal or homicidal ideation, there were no delusions reported or noted, she denied any auditory or visual hallucinations. Attention and concentration appeared at baseline. She is alert and oriented times person and place. Insight was poor. Judgment was limited. Impulse control was limited. Intellectual ability is commensurate with mild cognitive impairment. Vitals/I&O/Wt Last Vital Signs Temp 97.6 F 06/24/24 22:00 Pulse 73 06/25/24 06:00 Resp 16 06/25/24 06:00 BP 83/51 06/25/24 06:00 Pulse Ox 96 06/25/24 06:00 O2 Del Method Room Air 06/24/24 14:00 Data NPU 05/27/24 08:51 05/27/24 08:51 A&P Assessment and plan (1) Intermittent explosive disorder: (2) Suicidal ideation: (3) Mild intellectual disabilities: (4) Dysthymia: (5) Major depressive disorder, recurrent, moderate: (6) Poor impulse control: (7) Suicidal ideation: (8) Outbursts of explosive behavior: Plan 29-year-old white female history of intellectual disability, intermittent explosive disorder, and depression currently residing in a halfway and returning with similar complaints as she has had in the past specifically reporting difficulty getting along with 1 staff member which reportedly led to agitation and conflict leading to this hospitalization. We will evaluate for safety and identify whether this is a recent decline versus consistent with baseline which would we would recommend a more rapid therapeutic discharge. However there is also a question of whether she has gotten to a point where this facility is just not adequate to manage her because of her resistance to their people and processes. 1. Encourage individual group and milieu therapy. 2. Decreased topamax to 25mg daily, continue Risperidone 1.5mg bid. Continue Cymbalta 60mg daily. Lamotrigine 200mg bid. 3. Therapeutic observation 15-minute checks on the unit for safety 4. We will contact facility and guardian and explore safety plan for discharge as soon as it is appropriate. 5. Recheck admission labs to evaluate for any medical illness. 6. Obtain hospitalist consult and have evaluate apparent kidney and liver function results against patient's recent appearance. Will follow for recommendations. 7. [facility] cannot [facility] to [facility], attempting to find new facility as patient deemed unsafe to return to [facility] and will likely stay in hospital. 8. Patient admitted on 05/19/24 and remains with no aggression or assaultive behavior since her hospitalization here. She had her interview with new [facility] possible roommates. It reportedly went well but the question is simply when they will have a bed date in the next days to weeks. We will explore any alternatives to her staying here until that bed is available PDMP PDMP Reviewed: Not Reviewed Involuntary Hold Information 2 96 Hour Hold: 96 Hour Involuntary Admission: No Attestations NPU 2 Medical Necessity Statement*: Patient hospitalization is medically necessary and deemed to be the clinically appropriate intervention at this time. We will monitor and initiate medications while making changes as indicated. The patient's likely length of stay is 4-6 days as she is awaiting word of acceptance from some considering facilities. Coding Level of Care Code Acute Code for [facility] Fwd Diagnoses Intermittent explosive disorder F63.81 Suicidal ideation R45.851 Mild intellectual disabilities F70 Dysthymia F34.1 Major depressive disorder, recurrent, moderate F33.1 Poor impulse control R45.87 Outbursts of explosive behavior R46.89
[2024-06-25] MEDS: risperiDONE 1 mg Tablet 1.5 MG PO ×2 (09:37→18:09)
[2024-06-25] MEDS: loratadine 10 mg Tablet PO (09:37)
[2024-06-25] MEDS: topiramate 25 mg Tablet PO (09:38)
[2024-06-25] MEDS: lamoTRIgine 100 mg Tablet 200 MG PO ×2 (09:38→18:10)
[2024-06-25 14:00] VITALS: BP 93/70; PULSE 87; RESP 16; TEMP 36.6; O2SAT 98
[2024-06-25] MEDS: ibuprofen 600 mg Tablet PO (15:17)
[2024-06-25] MEDS: duloxetine 30 mg Capsule 60 MG PO (18:09)
[2024-06-25] MEDS: trazodone 100 mg Tablet PO (20:50)
[2024-06-25] MEDS: docusate sodium 100 mg Capsule 200 MG PO (20:50)
[2024-06-25] MEDS: levothyroxine 100 mcg Tablet PO (20:51)
[2024-06-25 22:00] VITALS: BP 86/62; PULSE 92; RESP 18; TEMP 37; O2SAT 96
[2024-06-26 06:00] VITALS: BP 100/69; PULSE 108; RESP 16; TEMP 37; O2SAT 97
[2024-06-26] MEDS: loratadine 10 mg Tablet PO (08:15)
[2024-06-26] MEDS: risperiDONE 1 mg Tablet 1.5 MG PO ×2 (08:15→17:11)
[2024-06-26] MEDS: topiramate 25 mg Tablet PO ×2 (08:15→17:11)
[2024-06-26] MEDS: lamoTRIgine 100 mg Tablet 200 MG PO ×2 (08:15→17:12)
[2024-06-26 14:00] VITALS: BP 87/63; PULSE 93; RESP 16; O2SAT 99
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
[2024-06-26] MEDS: duloxetine 30 mg Capsule 60 MG PO (17:11)
[2024-06-26] MEDS: levothyroxine 100 mcg Tablet PO (20:07)
[2024-06-26] MEDS: trazodone 100 mg Tablet PO (20:07)
[2024-06-26] MEDS: docusate sodium 100 mg Capsule 200 MG PO (20:07)
[2024-06-26 22:00] VITALS: BP 95/61; PULSE 95; RESP 16; TEMP 37; O2SAT 98
[2024-06-27 06:00] VITALS: BP 95/58; PULSE 81; RESP 16; O2SAT 97
--- NOTE | 2024-06-27 06:51 | PC.NURSE ---
Tried to get Jessica to wake up and change her scrubs and sheets because she was wet. She refused to get out of bed. Said she was tired.
[2024-06-27] MEDS: risperiDONE 1 mg Tablet 1.5 MG PO ×2 (08:45→17:29)
[2024-06-27] MEDS: loratadine 10 mg Tablet PO (08:46)
[2024-06-27] MEDS: lamoTRIgine 100 mg Tablet 200 MG PO ×2 (08:46→17:29)
[2024-06-27] MEDS: topiramate 25 mg Tablet PO ×2 (08:46→17:30)
[2024-06-27 14:00] VITALS: BP 100/60; PULSE 96; RESP 16; TEMP 36.6; O2SAT 96
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
[2024-06-27] MEDS: duloxetine 30 mg Capsule 60 MG PO (17:30)
[2024-06-27] MEDS: trazodone 100 mg Tablet PO (19:23)
[2024-06-27] MEDS: docusate sodium 100 mg Capsule 200 MG PO (19:23)
[2024-06-27] MEDS: levothyroxine 100 mcg Tablet PO (19:23)
[2024-06-27 21:04] VITALS: BP 98/71; PULSE 92; RESP 18; TEMP 37.5; O2SAT 98
[2024-06-28 06:00] VITALS: BP 98/65; PULSE 95; RESP 18; TEMP 37.1; O2SAT 96
[2024-06-28] MEDS: lamoTRIgine 100 mg Tablet 200 MG PO ×2 (08:55→17:45)
[2024-06-28] MEDS: topiramate 25 mg Tablet PO ×2 (08:55→17:44)
[2024-06-28] MEDS: loratadine 10 mg Tablet PO (08:56)
[2024-06-28] MEDS: risperiDONE 1 mg Tablet 1.5 MG PO ×2 (08:56→17:44)
[2024-06-28 14:00] VITALS: BP 95/70; PULSE 90; RESP 16; TEMP 36.6; O2SAT 95
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
[2024-06-28] MEDS: duloxetine 30 mg Capsule 60 MG PO (17:44)
[2024-06-28] MEDS: trazodone 100 mg Tablet PO (20:35)
[2024-06-28] MEDS: levothyroxine 100 mcg Tablet PO (20:35)
[2024-06-28] MEDS: docusate sodium 100 mg Capsule 200 MG PO (20:35)
[2024-06-28 22:00] VITALS: BP 80/61; PULSE 81; RESP 16; TEMP 36.7; O2SAT 98
[2024-06-29 06:00] VITALS: BP 84/55; PULSE 94; RESP 18; TEMP 36.7; O2SAT 96
[2024-06-29] MEDS: loratadine 10 mg Tablet PO (09:07)
[2024-06-29] MEDS: lamoTRIgine 100 mg Tablet 200 MG PO ×2 (09:07→17:23)
[2024-06-29] MEDS: risperiDONE 1 mg Tablet 1.5 MG PO ×2 (09:07→17:23)
[2024-06-29] MEDS: topiramate 25 mg Tablet PO ×2 (09:07→17:23)
[2024-06-29 14:00] VITALS: BP 91/68; PULSE 91; RESP 17; TEMP 36.4; O2SAT 100
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
[2024-06-29] MEDS: duloxetine 30 mg Capsule 60 MG PO (17:23)
[2024-06-29 20:26] VITALS: BP 93/60; PULSE 86; RESP 16; TEMP 36.7; O2SAT 98
[2024-06-29] MEDS: trazodone 100 mg Tablet PO (21:01)
[2024-06-29] MEDS: docusate sodium 100 mg Capsule 200 MG PO (21:01)
[2024-06-29] MEDS: levothyroxine 100 mcg Tablet PO (21:01)
[2024-06-30 06:00] VITALS: BP 104/73; PULSE 95; RESP 17; TEMP 36.9; O2SAT 99
[2024-06-30] MEDS: risperiDONE 1 mg Tablet 1.5 MG PO ×2 (08:12→16:59)
[2024-06-30] MEDS: topiramate 25 mg Tablet PO ×2 (08:12→16:59)
[2024-06-30] MEDS: lamoTRIgine 100 mg Tablet 200 MG PO ×2 (08:12→16:59)
[2024-06-30] MEDS: loratadine 10 mg Tablet PO (08:12)
[2024-06-30 14:00] VITALS: BP 94/75; PULSE 95; RESP 16; TEMP 36.5; O2SAT 100
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
[2024-06-30] MEDS: duloxetine 30 mg Capsule 60 MG PO (17:00)
[2024-06-30] MEDS: trazodone 100 mg Tablet PO (20:45)
[2024-06-30] MEDS: docusate sodium 100 mg Capsule 200 MG PO (20:45)
[2024-06-30] MEDS: levothyroxine 100 mcg Tablet PO (20:45)
[2024-06-30 21:02] VITALS: BP 99/68; PULSE 88; RESP 16; TEMP 37.1; O2SAT 97
[2024-07-01 06:00] VITALS: BP 90/52; PULSE 78; RESP 17; TEMP 36.5; O2SAT 97
[2024-07-01] MEDS: risperiDONE 1 mg Tablet 1.5 MG PO ×2 (07:19→17:32)
[2024-07-01] MEDS: lamoTRIgine 100 mg Tablet 200 MG PO ×2 (07:19→17:32)
[2024-07-01] MEDS: loratadine 10 mg Tablet PO (07:19)
[2024-07-01] MEDS: topiramate 25 mg Tablet PO ×2 (07:19→17:33)
[2024-07-01 14:00] VITALS: BP 110/78; PULSE 84; RESP 16; TEMP 37.1; O2SAT 97
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
[2024-07-01] MEDS: duloxetine 30 mg Capsule 60 MG PO (17:32)
[2024-07-01] MEDS: docusate sodium 100 mg Capsule 200 MG PO (21:50)
[2024-07-01] MEDS: trazodone 100 mg Tablet PO (21:51)
[2024-07-01] MEDS: levothyroxine 100 mcg Tablet PO (21:51)
[2024-07-01 22:00] VITALS: BP 98/64; PULSE 90; RESP 16; TEMP 36.8; O2SAT 99
--- NOTE | 2024-07-02 00:17 | PC.NURSE ---
On rounding the patient's bed was wet. Patient to bathroom with wipes to clean self and clean scrubs to wear. Patients bed was wiped with purple tops and then dried. New bedding was applied. Patient took wet clothes to dirty linen. Denies any other needs.
--- NOTE | 2024-07-02 01:37 | PC.NURSE ---
this nurse assumed care of pt at 0100.
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
[2024-07-02 06:00] VITALS: BP 109/62; PULSE 109; RESP 18; O2SAT 95
[2024-07-02] MEDS: risperiDONE 1 mg Tablet 1.5 MG PO ×2 (08:48→16:59)
[2024-07-02] MEDS: loratadine 10 mg Tablet PO (08:48)
[2024-07-02] MEDS: topiramate 25 mg Tablet PO ×2 (08:48→16:59)
[2024-07-02] MEDS: lamoTRIgine 100 mg Tablet 200 MG PO ×2 (08:49→16:59)
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
[2024-07-02 14:00] VITALS: BP 93/68; PULSE 98; RESP 16; TEMP 36.6; O2SAT 99
[2024-07-02] MEDS: duloxetine 30 mg Capsule 60 MG PO (16:59)
[2024-07-02] MEDS: prazosin 1 mg Capsule 2 MG PO (19:44)
[2024-07-02] MEDS: levothyroxine 100 mcg Tablet PO (19:44)
[2024-07-02] MEDS: docusate sodium 100 mg Capsule 200 MG PO (19:44)
[2024-07-02 20:10] VITALS: BP 102/44; PULSE 96; RESP 16; TEMP 37; O2SAT 97
[2024-07-03] MEDS: ibuprofen 600 mg Tablet PO (00:58)
[2024-07-03] MEDS: hyDROXYzine 25 mg Capsule 50 MG PO (00:58)
[2024-07-03 06:00] VITALS: BP 95/62; PULSE 80; RESP 16; O2SAT 96
[2024-07-03] MEDS: loratadine 10 mg Tablet PO (09:00)
[2024-07-03] MEDS: topiramate 25 mg Tablet PO ×2 (09:00→18:24)
[2024-07-03] MEDS: lamoTRIgine 100 mg Tablet 200 MG PO ×2 (09:00→18:24)
[2024-07-03 14:00] VITALS: BP 78/54; PULSE 74; RESP 16; TEMP 37.2; O2SAT 97
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
[2024-07-03] MEDS: duloxetine 30 mg Capsule 60 MG PO (18:24)
[2024-07-03] MEDS: docusate sodium 100 mg Capsule 200 MG PO (20:08)
[2024-07-03] MEDS: ondansetron 4 MG Tablet PO (20:08)
[2024-07-03] MEDS: levothyroxine 100 mcg Tablet PO (20:08)
[2024-07-03] MEDS: risperiDONE 2 mg Tablet PO (20:08)
[2024-07-03] MEDS: loperamide 2 mg Capsule PO (20:28)
[2024-07-03 22:00] VITALS: BP 91/66; PULSE 94; RESP 18; TEMP 36.8; O2SAT 94
[2024-07-04 06:00] VITALS: BP 90/78; PULSE 83; RESP 16; TEMP 36.7; O2SAT 95
[2024-07-04] MEDS: topiramate 25 mg Tablet PO ×2 (08:43→17:18)
[2024-07-04] MEDS: lamoTRIgine 100 mg Tablet 200 MG PO ×2 (08:43→17:18)
[2024-07-04] MEDS: loratadine 10 mg Tablet PO (08:43)
[2024-07-04 14:00] VITALS: BP 91/63; PULSE 100; TEMP 37.1; O2SAT 100
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
[2024-07-04] MEDS: ondansetron 4 MG Tablet PO (16:49)
[2024-07-04] MEDS: duloxetine 30 mg Capsule 60 MG PO (17:18)
[2024-07-04 20:37] VITALS: BP 102/71; PULSE 90; RESP 18; TEMP 36.8; O2SAT 98
[2024-07-04] MEDS: docusate sodium 100 mg Capsule 200 MG PO (21:04)
[2024-07-04] MEDS: levothyroxine 100 mcg Tablet PO (21:04)
[2024-07-04] MEDS: risperiDONE 2 mg Tablet PO (21:04)
[2024-07-04] MEDS: prazosin 1 mg Capsule 2 MG PO (21:05)
--- NOTE | 2024-07-04 21:36 | PC.NURSE ---
At 7:32 pm patient to nurses station complaining of nausea. While talking to nurse, patient stated she was going to throw up. She ran into her bathroom and had emesis of red liquid from fruit punch she had drank earlier and white chunks most likely from crackers. Patient was given a cool, wet washcloth and then laid down in bed. When this nurse looked at the MAR, patient has received Zofran at 1649. I asked her if she would like for me to call the doctor to see if she could have another medicine she refused and just wanted to lay down and sleep right now.
--- NOTE | 2024-07-04 23:38 | PC.NURSE ---
Patient remains resting in bed. Patient has had no complaints of nausea. No distress noted.
[2024-07-05 06:00] VITALS: BP 98/62; PULSE 91; RESP 18; TEMP 37.1; O2SAT 96
[2024-07-05] MEDS: topiramate 25 mg Tablet PO ×2 (08:31→17:10)
[2024-07-05] MEDS: loratadine 10 mg Tablet PO (08:31)
[2024-07-05] MEDS: lamoTRIgine 100 mg Tablet 200 MG PO ×2 (08:31→17:10)
[2024-07-05] MEDS: ondansetron 4 MG Tablet PO ×3 (09:59→23:48)
[2024-07-05] MEDS: loperamide 2 mg Capsule PO (09:59)
[2024-07-05 10:15] VITALS: BP 92/63; PULSE 98; RESP 17; TEMP 36.7; O2SAT 95
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
[2024-07-05] MEDS: acetaminophen 500 mg Tablet PO (13:32)
[2024-07-05] MEDS: cetylpyridinium Lozenge 1 EACH MUCOUS MEM (13:33)
[2024-07-05 14:00] VITALS: BP 103/57; PULSE 87; RESP 16; TEMP 36.8; O2SAT 98
[2024-07-05] MEDS: duloxetine 30 mg Capsule 60 MG PO (17:10)
[2024-07-05 19:55] VITALS: BP 110/72; PULSE 78; RESP 16; TEMP 36.8; O2SAT 96
[2024-07-05] MEDS: prazosin 1 mg Capsule 2 MG PO (21:29)
[2024-07-05] MEDS: risperiDONE 2 mg Tablet PO (21:29)
[2024-07-05] MEDS: levothyroxine 100 mcg Tablet PO (21:29)
[2024-07-05] MEDS: docusate sodium 100 mg Capsule 200 MG PO (21:29)
[2024-07-06 06:00] VITALS: BP 95/54; PULSE 105; RESP 18; TEMP 36.7; O2SAT 98
[2024-07-06] MEDS: loratadine 10 mg Tablet PO (08:30)
[2024-07-06] MEDS: topiramate 25 mg Tablet PO ×2 (08:30→17:40)
[2024-07-06] MEDS: lamoTRIgine 100 mg Tablet 200 MG PO ×2 (08:30→17:40)
[2024-07-06] MEDS: ondansetron 4 MG Tablet PO (10:52)
--- NOTE | 2024-07-06 11:01 | PC.NURSE ---
pt vomitting pt has been actively vomiting since this nurse assumed care at 1000. obtained order for resp swab and gave zofran. this nurse asked pt to stay in her room until the results of her swab come in.
--- NOTE | 2024-07-06 11:16 | PC.NURSE ---
pt vomiting pt vomited again so physician ordered odt zofran.
[2024-07-06] MEDS: ondansetron hcl ODT 4 mg Tab PO ×2 (11:29→18:06)
[2024-07-06 12:52] LABS: Adenovirus Not Detected (NOT DETECT); Chlamydia Pneumoniae Not Detected (NOT DETECT); Coronavirus 229E,HKU1,NL63,OC4 Not Detected (NOT DETECT); Human Metapneumovirus Not Detected (NOT DETECT); Human Rhinovirus/Enterovirus Not Detected (NOT DETECT); Influenza A Not Detected (NOT DETECT); Influenza A H1 Not Detected (NOT DETECT); Influenza A H1-2009 Not Detected (NOT DETECT); Influenza A H3 Not Detected (NOT DETECT); Influenza B Not Detected (NOT DETECT); Mycoplasma Pneumoniae Not Detected (NOT DETECT); Parainfluenza Virus Type 1 Not Detected (NOT DETECT); Parainfluenza Virus Type 2 Not Detected (NOT DETECT); Parainfluenza Virus Type 3 Not Detected (NOT DETECT); Parainfluenza Virus Type 4 Not Detected (NOT DETECT); Respiratory Syncytial Virus A Not Detected (NOT DETECT); Respiratory Syncytial Virus B Not Detected (NOT DETECT); SARS-COV-2 Not Detected (NOT DETECT)
[2024-07-06 14:00] VITALS: BP 92/60; PULSE 81; RESP 16; TEMP 36.9; O2SAT 98
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
--- NOTE | 2024-07-06 16:39 | PC.NURSE ---
pt out of room pt out of room to day room at this time. states she is feeling better but dizzy.
--- NOTE | 2024-07-06 17:36 | PC.NURSE ---
pt meals pt has no eaten at all today. asleep at breakfast, vomitting at lunch, and gave her food away at supper. pt had one single bite of yogurt and vomitted.
[2024-07-06] MEDS: duloxetine 30 mg Capsule 60 MG PO (17:40)
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
--- NOTE | 2024-07-06 18:47 | PC.NURSE ---
Addendum entered by Tessa Dennison RN 07/06/24 18:48: katie nguyen in room with pt at this time Original Note: pt self harm pt called this nurse into room while scratching at her wrists saying she doesn't want to live anymore.
--- NOTE | 2024-07-06 18:54 | PC.NURSE ---
physician notification physician stated to put in orders needed for patient condition.
--- NOTE | 2024-07-06 19:08 | PC.NURSE ---
pt sitting at nurses station quietly during shift report. pt noted by nurses scratching her left wrist. pt approached by this ORACLE CONSULTANT and ASSISTANT FITNESS MANAGER. pt stated she was scratching her wrist because she is not comfortable with the nurse leaving shift. ASSISTANT FITNESS MANAGER talked to pt continue to moniter pt at this time.
[2024-07-06 20:10] VITALS: BP 97/64; PULSE 100; RESP 18; O2SAT 95
[2024-07-06] MEDS: prazosin 1 mg Capsule 2 MG PO (20:15)
[2024-07-06] MEDS: risperiDONE 2 mg Tablet PO (20:16)
[2024-07-06] MEDS: levothyroxine 100 mcg Tablet PO (20:16)
--- NOTE | 2024-07-07 06:34 | PC.NURSE ---
vs not collected. pt pretened to be asleep when this SEMICONDUCTOR PROCESSING GROUP LEADER tried to obtain vs. nurse notified resp 16
[2024-07-07] MEDS: lamoTRIgine 100 mg Tablet 200 MG PO ×2 (08:24→17:25)
[2024-07-07] MEDS: loratadine 10 mg Tablet PO (08:25)
[2024-07-07] MEDS: topiramate 25 mg Tablet PO ×2 (08:25→17:25)
--- NOTE | 2024-07-07 10:41 | PC.NURSE ---
one on one order stopped. pt laying in bed. states she is very sorry for her behaviors yesterday and that will never happen again.
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
[2024-07-07 14:00] VITALS: BP 92/67; PULSE 91; RESP 16; TEMP 36.9; O2SAT 96
[2024-07-07] MEDS: OLANZapine 5 mg ODT PO (16:52)
--- NOTE | 2024-07-07 17:02 | PC.NURSE ---
pt came up to nurses station yelling and accusing staff of listening to her phone conversation. when told by this club waiter/waitress that I wasnt sure what she was talking about pt hit the window stating yes you do you were behind the door listening. again this staff memeber informed pt that I did not know what she was talking about and hitting glass of nurses station and yelling at staff is not appropriate. pt stated if you were not behind that glass I would then again hit the window. this staff club waiter/waitress informed pt that threatening staff and hitting window pane was not acceptable an until she could control herself to leave the nurses station or security would be called. pt stared at staff. at that time this club waiter/waitress turned an walked away stating to pt until she could speak with me without threatening I would not be available for her. at that time informed meteorologist in charge who went out an spoke with pt. pt then came to window crying stating she was sorry an that everything that had happen lately just has her upset. informed pt that i accepted apology but that type of action was not acceptable. pt stated she would not behave that way again. at that time administered prn zyprexia for pt anxiety.
[2024-07-07] MEDS: duloxetine 30 mg Capsule 60 MG PO (17:25)
[2024-07-07 20:15] VITALS: BP 109/56; PULSE 110; RESP 16; TEMP 36.9; O2SAT 97
[2024-07-07] MEDS: docusate sodium 100 mg Capsule 200 MG PO (20:22)
[2024-07-07] MEDS: risperiDONE 2 mg Tablet PO (20:22)
[2024-07-07] MEDS: prazosin 1 mg Capsule 3 MG PO (20:22)
[2024-07-07] MEDS: hyDROXYzine 25 mg Capsule 50 MG PO (20:25)
[2024-07-07] MEDS: levothyroxine 100 mcg Tablet PO (20:30)
[2024-07-07 21:16] VITALS: BP 111/64; PULSE 86; RESP 18; O2SAT 98
[2024-07-08 06:00] VITALS: BP 90/59; PULSE 86; RESP 16; TEMP 36.8; O2SAT 98
[2024-07-08] MEDS: topiramate 25 mg Tablet PO ×2 (09:06→17:00)
[2024-07-08] MEDS: loratadine 10 mg Tablet PO (09:06)
[2024-07-08] MEDS: lamoTRIgine 100 mg Tablet 200 MG PO ×2 (09:06→17:00)
[2024-07-08 14:00] VITALS: BP 105/66; PULSE 121; RESP 16; TEMP 37.4; O2SAT 98
[2024-07-08] MEDS: duloxetine 30 mg Capsule 60 MG PO (17:00)
--- NOTE | 2024-07-08 19:25 | P.NPUPN_ITS ---
Subjective NPU 2 Subjective: Patient presented today reporting that she is a little worried. She was discussing a court date for 9 AM on 07/11/2024. She reported having concerns about making that court date and we discussed the fact that this technical writer and editor was unclear whether the social work team had spoken with the court house and the plan was to postpone that or we were going to assist her in being able to be available for that court date. We discussed making sure that we address that first thing in the morning on Thursday. Otherwise she is anxious about getting to 07/30/2024 so that she can leave but otherwise she denied any major concerns. She denied any side effects to her medication. Mental Status Exam 2 MSE Comments: This is an obese white female with hospital scrubs on with limited grooming and adequate eye contact. No abnormal movements except for psychomotor retardation. She was cooperative with exam in mild distress. Speech was decreased in rate and normal in volume and childlike. Mood described as a little worried. Her affect was flat. Thought process was linear but concrete. Thought content: Patient denied suicidal or homicidal ideation, there were no delusions reported or noted, she denied any auditory or visual hallucinations. Attention and concentration appeared at baseline. She is alert and oriented times person and place. Insight was poor. Judgment was limited. Impulse control was limited. Intellectual ability is commensurate with mild cognitive impairment. Vitals/I&O/Wt Last Vital Signs Temp 99.4 F 07/08/24 14:00 Pulse 121 H 07/08/24 14:00 Resp 16 07/08/24 14:00 BP 105/66 07/08/24 14:00 Pulse Ox 98 07/08/24 14:00 O2 Del Method Room Air 07/08/24 14:00 Data NPU 05/27/24 08:51 05/27/24 08:51 A&P Assessment and plan (1) Intermittent explosive disorder: (2) Suicidal ideation: (3) Mild intellectual disabilities: (4) Dysthymia: (5) Major depressive disorder, recurrent, moderate: (6) Poor impulse control: (7) Suicidal ideation: Plan 29-year-old white female history of intellectual disability, intermittent explosive disorder, and depression currently residing in a assisted and returning with similar complaints as she has had in the past specifically reporting difficulty getting along with 1 staff member which reportedly led to agitation and conflict leading to this hospitalization. We will evaluate for safety and identify whether this is a recent decline versus consistent with baseline which would we would recommend a more rapid therapeutic discharge. However there is also a question of whether she has gotten to a point where this facility is just not adequate to manage her because of her resistance to their people and processes. 1. Encourage individual group and milieu therapy. 2. Continue topamax 25mg bid. continue Patient appears sedated, continue Risperidal 2mg at night. Continue Cymbalta 60mg daily. Lamotrigine 200mg bid. 3. Therapeutic observation 15-minute checks on the unit for safety 4. We will contact facility and guardian and explore safety plan for discharge as soon as it is appropriate. 5. Recheck admission labs to evaluate for any medical illness. 6. Obtain hospitalist consult and have evaluate apparent kidney and liver function results against patient's recent appearance. Will follow for recommendations. 7. Patient cannot return to [facility], attempting to find new facility as patient deemed unsafe to return to [facility] and will likely stay in hospital. 8. Patient admitted on 05/19/24 and remains with no aggression or assaultive behavior since her hospitalization here. She had her interview with new [facility] possible roommates. It reportedly went well but the question is simply when they will have a bed date in the next days to weeks. We will explore any alternatives to her staying here until that bed is available. CONSIDER DESMOPRESSIN for enuresis.-Renal consult. Current report of acceptance for [facility] on 07/30/2024. 9. D/C trazodone and Increase prazosin to 3mg at night. PDMP PDMP Reviewed: Not Reviewed Involuntary Hold Information 2 96 Hour Hold: 96 Hour Involuntary Admission: No Attestations NPU 2 Medical Necessity Statement*: Patient hospitalization is medically necessary and deemed to be the clinically appropriate intervention at this time. We will monitor and initiate medications while making changes as indicated. The patient's likely length of stay is 16-18 days when availability at new place of residence is found. Patient under guardianship and no emergency placement is available. Coding Level of Care Code Acute Code for Chg Fwd Diagnoses Intermittent explosive disorder F63.81 Suicidal ideation R45.851 Mild intellectual disabilities F70 Dysthymia F34.1 Major depressive disorder, recurrent, moderate F33.1 Poor impulse control R45.87
[2024-07-08 20:07] VITALS: BP 88/61; PULSE 91; RESP 16; TEMP 37.3; O2SAT 97
[2024-07-08] MEDS: docusate sodium 100 mg Capsule 200 MG PO (20:08)
[2024-07-08] MEDS: prazosin 1 mg Capsule 3 MG PO (20:08)
[2024-07-08] MEDS: risperiDONE 2 mg Tablet PO (20:09)
[2024-07-08] MEDS: levothyroxine 100 mcg Tablet PO (20:09)
[2024-07-08] MEDS: hyDROXYzine 25 mg Capsule 50 MG PO (20:12)
[2024-07-09 06:00] VITALS: BP 92/59; PULSE 86; RESP 16; TEMP 36.8; O2SAT 94
[2024-07-09] MEDS: topiramate 25 mg Tablet PO ×2 (08:15→18:04)
[2024-07-09] MEDS: loratadine 10 mg Tablet PO (08:15)
[2024-07-09] MEDS: lamoTRIgine 100 mg Tablet 200 MG PO ×2 (08:15→18:04)
--- NOTE | 2024-07-09 09:45 | P.NPUPN_ITS ---
Subjective NPU 2 Subjective: Patient presented today reporting that she is just awaiting her discharge in 3 weeks. She did have some concerns about some rectal irritation likely related to her being constipated. We worked with the nursing staff to identify some lubricant to assist in the irritation but also they are working with her for appropriate hygiene. Otherwise she reports she is doing fine on the medication and denied any other problems or issues. Mental Status Exam 2 MSE Comments: This is an obese white female with hospital scrubs on with limited grooming and adequate eye contact. No abnormal movements except for psychomotor retardation. She was cooperative with exam in mild distress. Speech was decreased in rate and normal in volume and childlike. Mood described as a little worried. Her affect was flat. Thought process was linear but concrete. Thought content: Patient denied suicidal or homicidal ideation, there were no delusions reported or noted, she denied any auditory or visual hallucinations. Attention and concentration appeared at baseline. She is alert and oriented times person and place. Insight was poor. Judgment was limited. Impulse control was limited. Intellectual ability is commensurate with mild cognitive impairment. Vitals/I&O/Wt Last Vital Signs Temp 98.2 F 07/09/24 06:00 Pulse 86 07/09/24 06:00 Resp 16 07/09/24 06:00 BP 92/59 07/09/24 06:00 Pulse Ox 94 07/09/24 06:00 O2 Del Method Room Air 07/09/24 06:00 Data NPU 05/27/24 08:51 05/27/24 08:51 A&P Assessment and plan (1) Intermittent explosive disorder: (2) Suicidal ideation: (3) Mild intellectual disabilities: (4) Dysthymia: (5) Major depressive disorder, recurrent, moderate: (6) Poor impulse control: (7) Suicidal ideation: Plan 29-year-old white female history of intellectual disability, intermittent explosive disorder, and depression currently residing [place] [facility] and returning with similar complaints as she has had in the past specifically reporting difficulty getting along with 1 staff member which reportedly led to agitation and conflict leading to this hospitalization. We will evaluate for safety and identify whether this is a recent decline versus consistent with baseline which would we would recommend a more rapid therapeutic discharge. However there is also a question of whether she has gotten to a point where this facility is just not adequate to manage her because of her resistance to their people and processes. 1. Encourage individual group and milieu therapy. 2. Continue topamax 25mg bid. continue Patient appears sedated, continue Risperidal 2mg at night. Continue Cymbalta 60mg daily. Lamotrigine 200mg bid. 3. Therapeutic observation 15-minute checks on the unit for safety 4. We will contact facility and guardian and explore safety plan for discharge as soon as it is appropriate. 5. Recheck admission labs to evaluate for any medical illness. 6. Obtain hospitalist consult and have evaluate apparent kidney and liver function results against patient's recent appearance. Will follow for recommendations. 7. Patient cannot return to [facility], attempting to find new facility as patient deemed unsafe to return to [facility] and will likely stay in hospital. 8. Patient admitted on 05/19/24 and remains with no aggression or assaultive behavior since her hospitalization here. She had her interview with new [facility] possible roommates. It reportedly went well but the question is simply when they will have a bed date in the next days to weeks. We will explore any alternatives to her staying here until that bed is available. CONSIDER DESMOPRESSIN for enuresis.-Renal consult. Current report of acceptance for [facility] on 07/30/2024. 9. D/C trazodone and Increase prazosin to 3mg at night. PDMP PDMP Reviewed: Not Reviewed Involuntary Hold Information 2 96 Hour Hold: 96 Hour Involuntary Admission: No Attestations NPU 2 Medical Necessity Statement*: Patient hospitalization is medically necessary and deemed to be the clinically appropriate intervention at this time. We will monitor and initiate medications while making changes as indicated. The patient's likely length of stay is 16-18 days when availability at new place of residence is found. Patient under guardianship and no emergency placement is available. Coding Level of Care Code Acute Code for Chg Fwd Diagnoses Intermittent explosive disorder F63.81 Suicidal ideation R45.851 Mild intellectual disabilities F70 Dysthymia F34.1 Major depressive disorder, recurrent, moderate F33.1 Poor impulse control R45.87
[2024-07-09 14:00] VITALS: BP 88/56; PULSE 101; RESP 18; TEMP 37.2; O2SAT 99
[2024-07-09] MEDS: acetaminophen 500 mg Tablet PO (14:59)
--- NOTE | 2024-07-09 17:20 | PC.NURSE ---
Patient reports a burning a sensation around her anus. Dr. Pritchett aware. Dr. Pritchett recommends that patient shower, and take showers routinely, then apply a barrier cream or something similar.
[2024-07-09] MEDS: duloxetine 30 mg Capsule 60 MG PO (18:04)
[2024-07-09] MEDS: docusate sodium 100 mg Capsule 200 MG PO (20:53)
[2024-07-09] MEDS: risperiDONE 2 mg Tablet PO (20:53)
[2024-07-09] MEDS: levothyroxine 100 mcg Tablet PO (20:53)
[2024-07-09] MEDS: prazosin 1 mg Capsule 3 MG PO (20:53)
[2024-07-09 21:03] VITALS: BP 92/64; PULSE 102; RESP 16; TEMP 38.1; O2SAT 97
[2024-07-10 05:59] VITALS: BMI 29.2
[2024-07-10 06:00] VITALS: BP 103/68; PULSE 96; RESP 18; TEMP 37.2; O2SAT 96
[2024-07-10] MEDS: loratadine 10 mg Tablet PO (08:33)
[2024-07-10] MEDS: topiramate 25 mg Tablet PO ×2 (08:33→18:08)
[2024-07-10] MEDS: lamoTRIgine 100 mg Tablet 200 MG PO ×2 (08:33→18:08)
--- NOTE | 2024-07-10 11:26 | P.NPUPN_ITS ---
Subjective NPU 2 Subjective: Patient presented today reporting that things are going okay. She did identify being anxious about whether or not she was going to this program on July 30 as suggested. We discussed that we had not heard anything to the contrary at this point and has been discussed with us as a certainty. Otherwise she reports that she is feeling a little better than yesterday as far as her GI complaints and she denied any side effects from medication. Mental Status Exam 2 MSE Comments: This is an obese white female with hospital scrubs on with limited grooming and adequate eye contact. No abnormal movements except for psychomotor retardation. She was cooperative with exam in mild distress. Speech was decreased in rate and normal in volume and childlike. Mood described as a little worried. Her affect was flat. Thought process was linear but concrete. Thought content: Patient denied suicidal or homicidal ideation, there were no delusions reported or noted, she denied any auditory or visual hallucinations. Attention and concentration appeared at baseline. She is alert and oriented times person and place. Insight was poor. Judgment was limited. Impulse control was limited. Intellectual ability is commensurate with mild cognitive impairment. Vitals/I&O/Wt Last Vital Signs Temp 99 F 07/10/24 06:00 Pulse 96 07/10/24 06:00 Resp 18 07/10/24 06:00 BP 103/68 07/10/24 06:00 Pulse Ox 96 07/10/24 06:00 O2 Del Method Room Air 07/10/24 06:00 07/09/24 07/10/24 07/10/24 22:59 06:59 14:59 Intake Total 240 / 720 Balance 240 / 720 Weight last 48 hrs Weight 84.822 kg Data NPU 05/27/24 08:51 05/27/24 08:51 A&P Assessment and plan (1) Intermittent explosive disorder: (2) Suicidal ideation: (3) Mild intellectual disabilities: (4) Dysthymia: (5) Major depressive disorder, recurrent, moderate: (6) Poor impulse control: (7) Suicidal ideation: Plan 29-year-old white female history of intellectual disability, intermittent explosive disorder, and depression currently residing in a long-term and returning with similar complaints as she has had in the past specifically reporting difficulty getting along with 1 staff member which reportedly led to agitation and conflict leading to this hospitalization. We will evaluate for safety and identify whether this is a recent decline versus consistent with baseline which would we would recommend a more rapid therapeutic discharge. However there is also a question of whether she has gotten to a point where this facility is just not adequate to manage her because of her resistance to their people and processes. 1. Encourage individual group and milieu therapy. 2. Continue topamax 25mg bid. continue Patient appears sedated, continue Risperidal 2mg at night. Continue Cymbalta 60mg daily. Lamotrigine 200mg bid. 3. Therapeutic observation 15-minute checks on the unit for safety 4. We will contact facility and guardian and explore safety plan for discharge as soon as it is appropriate. 5. Recheck admission labs to evaluate for any medical illness. 6. Obtain hospitalist consult and have evaluate apparent kidney and liver function results against patient's recent appearance. Will follow for recommendations. 7. [facility] cannot [facility] to [facility], attempting to find new facility as patient deemed unsafe to return to [facility] and will likely stay in hospital. 8. Patient admitted on 05/19/24 and remains with no aggression or assaultive behavior since her hospitalization here. She had her interview with new [facility] possible room[facility]. It reportedly went well but the question is simply when they will have a bed date in the next days to weeks. We will explore any alternatives to her staying here until that bed is available. CONSIDER DESMOPRESSIN for enuresis.-Renal consult. Current report of acceptance for [facility] on 07/30/2024. 9. D/C trazodone and Increase prazosin to 3mg at night. PDMP PDMP Reviewed: Not Reviewed Involuntary Hold Information 2 96 Hour Hold: 96 Hour Involuntary Admission: No Attestations NPU 2 Medical Necessity Statement*: Patient hospitalization is medically necessary and deemed to be the clinically appropriate intervention at this time. We will monitor and initiate medications while making changes as indicated. The patient's likely length of stay is 20 days when availability at new place of residence is found. Patient under guardianship and no emergency placement is available. Coding Level of Care Code Acute Code for Chg Fwd Diagnoses Intermittent explosive disorder F63.81 Suicidal ideation R45.851 Mild intellectual disabilities F70 Dysthymia F34.1 Major depressive disorder, recurrent, moderate F33.1 Poor impulse control R45.87
[2024-07-10 14:00] VITALS: BP 95/65; PULSE 96; RESP 16; TEMP 36.7; O2SAT 96
[2024-07-10] MEDS: duloxetine 30 mg Capsule 60 MG PO (18:08)
[2024-07-10] MEDS: levothyroxine 100 mcg Tablet PO (20:08)
[2024-07-10] MEDS: prazosin 1 mg Capsule 3 MG PO (20:08)
[2024-07-10] MEDS: risperiDONE 2 mg Tablet PO (20:08)
[2024-07-10] MEDS: docusate sodium 100 mg Capsule 200 MG PO (20:08)
[2024-07-10 21:17] VITALS: BP 98/68; PULSE 95; RESP 16; TEMP 37.2; O2SAT 100
[2024-07-11 06:00] VITALS: BP 86/51; PULSE 77; RESP 16; O2SAT 95
[2024-07-11] MEDS: lamoTRIgine 100 mg Tablet 200 MG PO ×2 (09:03→17:14)
[2024-07-11] MEDS: loratadine 10 mg Tablet PO (09:03)
[2024-07-11] MEDS: topiramate 25 mg Tablet PO ×2 (09:03→17:14)
[2024-07-11 14:00] VITALS: BP 96/70; PULSE 102; RESP 16; TEMP 36.8; O2SAT 97
[2024-07-11] MEDS: duloxetine 30 mg Capsule 60 MG PO (17:14)
--- NOTE | 2024-07-11 17:39 | P.NPUPN_ITS ---
Subjective NPU 2 Subjective: Patient presented today reporting that she is doing okay. She was actually reporting being excited because she got a chance to see her dad. Otherwise she reports that she is just waiting for the process to play out and is looking forward to discharging to her facility. She denied any new problems and denied any side effects to the medication. Mental Status Exam 2 MSE Comments: This is an obese white female with hospital scrubs on with limited grooming and adequate eye contact. No abnormal movements except for psychomotor retardation. She was cooperative with exam in mild distress. Speech was decreased in rate and normal in volume and childlike. Mood described as pretty good. Her affect was flat. Thought process was linear but concrete. Thought content: Patient denied suicidal or homicidal ideation, there were no delusions reported or noted, she denied any auditory or visual hallucinations. Attention and concentration appeared at baseline. She is alert and oriented times person and place. Insight was poor. Judgment was limited. Impulse control was limited. Intellectual ability is commensurate with mild cognitive impairment. Vitals/I&O/Wt Last Vital Signs Temp 98.3 F 07/11/24 14:00 Pulse 102 H 07/11/24 14:00 Resp 16 07/11/24 14:00 BP 96/70 07/11/24 14:00 Pulse Ox 97 07/11/24 14:00 O2 Del Method Room Air 07/11/24 14:00 Weight last 48 hrs Weight 84.822 kg Data NPU 05/27/24 08:51 05/27/24 08:51 A&P Assessment and plan (1) Intermittent explosive disorder: (2) Suicidal ideation: (3) Mild intellectual disabilities: (4) Dysthymia: (5) Major depressive disorder, recurrent, moderate: (6) Poor impulse control: (7) Suicidal ideation: Plan 29-year-old white female history of intellectual disability, intermittent explosive disorder, and depression currently residing in a shelter and returning with similar complaints as she has had in the past specifically reporting difficulty getting along with 1 staff member which reportedly led to agitation and conflict leading to this hospitalization. We will evaluate for safety and identify whether this is a recent decline versus consistent with baseline which would we would recommend a more rapid therapeutic discharge. However there is also a question of whether she has gotten to a point where this facility is just not adequate to manage her because of her resistance to their people and processes. 1. Encourage individual group and milieu therapy. 2. Continue topamax 25mg bid. continue Patient appears sedated, continue Risperidal 2mg at night. Continue Cymbalta 60mg daily. Lamotrigine 200mg bid. 3. Therapeutic observation 15-minute checks on the unit for safety 4. We will contact facility and guardian and explore safety plan for discharge as soon as it is appropriate. 5. Recheck admission labs to evaluate for any medical illness. 6. Obtain hospitalist consult and have evaluate apparent kidney and liver function results against patient's recent appearance. Will follow for recommendations. 7. [facility] cannot [facility] to [facility], attempting to find new facility as patient deemed unsafe to return to [facility] and will likely stay in hospital. 8. Patient admitted on 05/19/24 and remains with no aggression or assaultive behavior since her hospitalization here. She had her interview with new [facility] possible roommates. It reportedly went well but the question is simply when they will have a bed date in the next days to weeks. We will explore any alternatives to her staying here until that bed is available. CONSIDER DESMOPRESSIN for enuresis.-Renal consult. Current report of acceptance for [facility] on 07/30/2024. 9. D/C trazodone and Increase prazosin to 3mg at night. PDMP PDMP Reviewed: Not Reviewed Involuntary Hold Information 2 96 Hour Hold: 96 Hour Involuntary Admission: No Attestations NPU 2 Medical Necessity Statement*: Patient hospitalization is medically necessary and deemed to be the clinically appropriate intervention at this time. We will monitor and initiate medications while making changes as indicated. The patient's likely length of stay is 20 days when availability at new place of residence is found. Patient under guardianship and no emergency placement is available. Coding Level of Care Code Acute Code for Chg Fwd Diagnoses Intermittent explosive disorder F63.81 Suicidal ideation R45.851 Mild intellectual disabilities F70 Dysthymia F34.1 Major depressive disorder, recurrent, moderate F33.1 Poor impulse control R45.87
[2024-07-11] MEDS: OLANZapine 5 mg ODT PO (18:09)
[2024-07-11] MEDS: prazosin 1 mg Capsule 3 MG PO (20:10)
[2024-07-11] MEDS: levothyroxine 100 mcg Tablet PO (20:10)
[2024-07-11] MEDS: docusate sodium 100 mg Capsule 200 MG PO (20:10)
[2024-07-11] MEDS: risperiDONE 2 mg Tablet PO (20:10)
[2024-07-11 21:58] VITALS: BP 127/96; PULSE 91; RESP 16; O2SAT 99
[2024-07-12 06:00] VITALS: BP 86/57; PULSE 88; RESP 16; O2SAT 94
[2024-07-12] MEDS: loratadine 10 mg Tablet PO (09:40)
[2024-07-12] MEDS: topiramate 25 mg Tablet PO ×2 (09:40→17:32)
[2024-07-12] MEDS: lamoTRIgine 100 mg Tablet 200 MG PO ×2 (09:40→17:32)
[2024-07-12] MEDS: hyDROXYzine 25 mg Capsule 50 MG PO (11:46)
[2024-07-12 14:00] VITALS: BP 90/66; PULSE 91; RESP 17; TEMP 37.9; O2SAT 100
--- NOTE | 2024-07-12 17:12 | P.NPUPN_ITS ---
Subjective NPU 2 Subjective: Patient presented today reporting that she is okay. She endorsed that it is her understanding that they are in the process of gathering her things from her previous [facility] and shipping it up to the new facility. She reports that for the first time she seems to be convinced that this is actually going to happen and is not just a possibility. She reports that she is hopeful that this is the case and gets the impression that it might actually happen sooner than 07/30/2024. She denied any side effects to the medication. Mental Status Exam 2 MSE Comments: This is an obese white female with hospital scrubs on with limited grooming and adequate eye contact. No abnormal movements except for psychomotor retardation. She was cooperative with exam in mild distress. Speech was decreased in rate and normal in volume and childlike. Mood described as pretty good. Her affect was flat. Thought process was linear but concrete. Thought content: Patient denied suicidal or homicidal ideation, there were no delusions reported or noted, she denied any auditory or visual hallucinations. Attention and concentration appeared at baseline. She is alert and oriented times person and place. Insight was poor. Judgment was limited. Impulse control was limited. Intellectual ability is commensurate with mild cognitive impairment. Vitals/I&O/Wt Last Vital Signs Temp 100.2 F H 07/12/24 14:00 Pulse 91 07/12/24 14:00 Resp 17 07/12/24 14:00 BP 90/66 07/12/24 14:00 Pulse Ox 100 07/12/24 14:00 O2 Del Method Room Air 07/11/24 14:00 Data NPU 05/27/24 08:51 05/27/24 08:51 A&P Assessment and plan (1) Intermittent explosive disorder: (2) Suicidal ideation: (3) Mild intellectual disabilities: (4) Dysthymia: (5) Major depressive disorder, recurrent, moderate: (6) Poor impulse control: (7) Suicidal ideation: Plan 29-year-old white female history of intellectual disability, intermittent explosive disorder, and depression currently residing [place] [facility] and returning with similar complaints as she has had in the past specifically reporting difficulty getting along with 1 staff member which reportedly led to agitation and conflict leading to this hospitalization. We will evaluate for safety and identify whether this is a recent decline versus consistent with baseline which would we would recommend a more rapid therapeutic discharge. However there is also a question of whether she has gotten to a point where this facility is just not adequate to manage her because of her resistance to their people and processes. 1. Encourage individual group and milieu therapy. 2. Continue topamax 25mg bid. continue Patient appears sedated, continue Risperidal 2mg at night. Continue Cymbalta 60mg daily. Lamotrigine 200mg bid. 3. Therapeutic observation 15-minute checks on the unit for safety 4. We will contact facility and guardian and explore safety plan for discharge as soon as it is appropriate. 5. Recheck admission labs to evaluate for any medical illness. 6. Obtain hospitalist consult and have evaluate apparent kidney and liver function results against patient's recent appearance. Will follow for recommendations. 7. [facility] cannot [facility] to [facility], attempting to find new facility as patient deemed unsafe to return to [facility] and will likely stay in hospital. 8. Patient admitted on 05/19/24 and remains with no aggression or assaultive behavior since her hospitalization here. She had her interview with new [facility] possible roommates. It reportedly went well but the question is simply when they will have a bed date in the next days to weeks. We will explore any alternatives to her staying here until that bed is available. CONSIDER DESMOPRESSIN for enuresis.-Renal consult. Current report of acceptance for [facility] on 07/30/2024. There are reported hopes for an earlier date. 9. D/C trazodone and Increase prazosin to 3mg at night. PDMP PDMP Reviewed: Not Reviewed Involuntary Hold Information 2 96 Hour Hold: 96 Hour Involuntary Admission: No Attestations NPU 2 Medical Necessity Statement*: Patient hospitalization is medically necessary and deemed to be the clinically appropriate intervention at this time. We will monitor and initiate medications while making changes as indicated. The patient's likely length of stay is 18 days when availability at new place of residence is found. Patient under guardianship and no emergency placement is available. Coding Level of Care Code Acute Code for Chg Fwd Diagnoses Intermittent explosive disorder F63.81 Suicidal ideation R45.851 Mild intellectual disabilities F70 Dysthymia F34.1 Major depressive disorder, recurrent, moderate F33.1 Poor impulse control R45.87
[2024-07-12] MEDS: duloxetine 30 mg Capsule 60 MG PO (17:32)
[2024-07-12] MEDS: prazosin 1 mg Capsule 3 MG PO (19:53)
[2024-07-12] MEDS: levothyroxine 100 mcg Tablet PO (19:53)
[2024-07-12] MEDS: docusate sodium 100 mg Capsule 200 MG PO (19:54)
[2024-07-12] MEDS: risperiDONE 2 mg Tablet PO (19:54)
[2024-07-12 20:22] VITALS: BP 96/70; PULSE 99; RESP 18; TEMP 37.4; O2SAT 99
[2024-07-13 06:00] VITALS: BP 97/60; PULSE 96; RESP 16; TEMP 37.1; O2SAT 96
[2024-07-13] MEDS: topiramate 25 mg Tablet PO ×2 (09:15→18:33)
[2024-07-13] MEDS: loratadine 10 mg Tablet PO (09:15)
[2024-07-13] MEDS: lamoTRIgine 100 mg Tablet 200 MG PO ×2 (09:15→18:33)
[2024-07-13 14:00] VITALS: BP 95/64; PULSE 84; RESP 17; TEMP 36.6; O2SAT 96
--- NOTE | 2024-07-13 14:18 | P.NPUPN_ITS ---
Subjective NPU 2 Subjective: Patient presented today reporting that she is struggling with the reality that her friend left the hospital. She was speaking about a patient who had been here before she came and then spent this entire time here together mostly on the same side. She spent her time with this securities underwriter talking about how he looked after me. And that he was nice and kind and he had told her not to cry but she reports that she cried anyway because she was sad that he was gone. But we discussed that there will be a point where she is gone and will be someone here in the same situation and we just have to try to be happy for people to accomplish their goals for being here. She denied any other issues or any side effects to her medication. Mental Status Exam 2 MSE Comments: This is an obese white female with hospital scrubs on with limited grooming and adequate eye contact. No abnormal movements except for psychomotor retardation. She was cooperative with exam in mild distress. Speech was decreased in rate and normal in volume and childlike. Mood described as sad that my friend left, her affect was flat and slightly tearful. Thought process was linear but concrete. Thought content: Patient denied suicidal or homicidal ideation, there were no delusions reported or noted, she denied any auditory or visual hallucinations. Attention and concentration appeared at baseline. She is alert and oriented times person and place. Insight was poor. Judgment was limited. Impulse control was limited. Intellectual ability is commensurate with mild cognitive impairment. Vitals/I&O/Wt Last Vital Signs Temp 98.8 F 07/13/24 06:00 Pulse 96 07/13/24 06:00 Resp 16 07/13/24 06:00 BP 97/60 07/13/24 06:00 Pulse Ox 96 07/13/24 06:00 O2 Del Method Room Air 07/13/24 06:00 Data NPU 05/27/24 08:51 05/27/24 08:51 A&P Assessment and plan (1) Intermittent explosive disorder: (2) Suicidal ideation: (3) Mild intellectual disabilities: (4) Dysthymia: (5) Major depressive disorder, recurrent, moderate: (6) Poor impulse control: (7) Suicidal ideation: Plan 29-year-old white female history of intellectual disability, intermittent explosive disorder, and depression currently residing in a custodial and returning with similar complaints as she has had in the past specifically reporting difficulty getting along with 1 staff member which reportedly led to agitation and conflict leading to this hospitalization. We will evaluate for safety and identify whether this is a recent decline versus consistent with baseline which would we would recommend a more rapid therapeutic discharge. However there is also a question of whether she has gotten to a point where this facility is just not adequate to manage her because of her resistance to their people and processes. 1. Encourage individual group and milieu therapy. 2. Continue topamax 25mg bid. continue Patient appears sedated, continue Risperidal 2mg at night. Continue Cymbalta 60mg daily. Lamotrigine 200mg bid. 3. Therapeutic observation 15-minute checks on the unit for safety 4. We will contact facility and guardian and explore safety plan for discharge as soon as it is appropriate. 5. Recheck admission labs to evaluate for any medical illness. 6. Obtain hospitalist consult and have evaluate apparent kidney and liver function results against patient's recent appearance. Will follow for recommendations. 7. [facility] cannot [facility] to [facility], attempting to find new facility as patient deemed unsafe to return to [facility] and will likely stay in hospital. 8. Patient admitted on 05/19/24 and remains with no aggression or assaultive behavior since her hospitalization here. She had her interview with new [facility] possible roommates. It reportedly went well but the question is simply when they will have a bed date in the next days to weeks. We will explore any alternatives to her staying here until that bed is available. CONSIDER DESMOPRESSIN for enuresis.-Renal consult. Current report of acceptance for [facility] on 07/30/2024. There are reported hopes for an earlier date. 9. D/C trazodone and Increase prazosin to 3mg at night. PDMP PDMP Reviewed: Not Reviewed Involuntary Hold Information 2 96 Hour Hold: 96 Hour Involuntary Admission: No Attestations NPU 2 Medical Necessity Statement*: Patient hospitalization is medically necessary and deemed to be the clinically appropriate intervention at this time. We will monitor and initiate medications while making changes as indicated. The patient's likely length of stay is 18 days when availability at new place of residence is found. Patient under guardianship and no emergency placement is available. Coding Level of Care Code Acute Code for Chg Fwd Diagnoses Intermittent explosive disorder F63.81 Suicidal ideation R45.851 Mild intellectual disabilities F70 Dysthymia F34.1 Major depressive disorder, recurrent, moderate F33.1 Poor impulse control R45.87
[2024-07-13] MEDS: acetaminophen 500 mg Tablet PO (15:50)
[2024-07-13] MEDS: duloxetine 30 mg Capsule 60 MG PO (18:33)
[2024-07-13 20:03] VITALS: BP 97/63; PULSE 102; RESP 17; TEMP 36.8; O2SAT 97
[2024-07-13] MEDS: hyDROXYzine 25 mg Capsule 50 MG PO (20:14)
[2024-07-13] MEDS: prazosin 1 mg Capsule 3 MG PO (20:15)
[2024-07-13] MEDS: risperiDONE 2 mg Tablet PO (20:16)
[2024-07-13] MEDS: docusate sodium 100 mg Capsule 200 MG PO (20:16)
[2024-07-14 06:00] VITALS: BP 91/63; PULSE 85; RESP 16; TEMP 37.2; O2SAT 95
[2024-07-14] MEDS: lamoTRIgine 100 mg Tablet 200 MG PO ×2 (08:41→17:20)
[2024-07-14] MEDS: loratadine 10 mg Tablet PO (08:42)
[2024-07-14] MEDS: topiramate 25 mg Tablet PO ×2 (08:42→17:20)
[2024-07-14] MEDS: hyDROXYzine 25 mg Capsule 50 MG PO (10:57)
--- NOTE | 2024-07-14 12:18 | P.NPUPN_ITS ---
Subjective NPU 2 Subjective: Patient presented today reporting that she is feeling a little better from yesterday. She reports that she is having a decent day and is just awaiting the opportunity to get transition to the new facility. Otherwise she denies that there is anything new. And she denies any side effects to her medications. Mental Status Exam 2 MSE Comments: This is an obese white female with hospital scrubs on with limited grooming and adequate eye contact. No abnormal movements except for psychomotor retardation. She was cooperative with exam in mild distress. Speech was decreased in rate and normal in volume and childlike. Mood described as sad that my friend left, her affect was flat and slightly tearful. Thought process was linear but concrete. Thought content: Patient denied suicidal or homicidal ideation, there were no delusions reported or noted, she denied any auditory or visual hallucinations. Attention and concentration appeared at baseline. She is alert and oriented times person and place. Insight was poor. Judgment was limited. Impulse control was limited. Intellectual ability is commensurate with mild cognitive impairment. Vitals/I&O/Wt Last Vital Signs Temp 98.9 F 07/14/24 06:00 Pulse 85 07/14/24 06:00 Resp 16 07/14/24 06:00 BP 91/63 07/14/24 06:00 Pulse Ox 95 07/14/24 06:00 O2 Del Method Room Air 07/14/24 06:00 Data NPU 05/27/24 08:51 05/27/24 08:51 A&P Assessment and plan (1) Intermittent explosive disorder: (2) Suicidal ideation: (3) Mild intellectual disabilities: (4) Dysthymia: (5) Major depressive disorder, recurrent, moderate: (6) Poor impulse control: (7) Suicidal ideation: Plan 29-year-old white female history of intellectual disability, intermittent explosive disorder, and depression currently residing in a custodial and returning with similar complaints as she has had in the past specifically reporting difficulty getting along with 1 staff member which reportedly led to agitation and conflict leading to this hospitalization. We will evaluate for safety and identify whether this is a recent decline versus consistent with baseline which would we would recommend a more rapid therapeutic discharge. However there is also a question of whether she has gotten to a point where this facility is just not adequate to manage her because of her resistance to their people and processes. 1. Encourage individual group and milieu therapy. 2. Continue topamax 25mg bid. continue Patient appears sedated, continue Risperidal 2mg at night. Continue Cymbalta 60mg daily. Lamotrigine 200mg bid. 3. Therapeutic observation 15-minute checks on the unit for safety 4. We will contact facility and guardian and explore safety plan for discharge as soon as it is appropriate. 5. Recheck admission labs to evaluate for any medical illness. 6. Obtain hospitalist consult and have evaluate apparent kidney and liver function results against patient's recent appearance. Will follow for recommendations. 7. [facility] cannot [facility] to [facility], attempting to find new facility as patient deemed unsafe to return to [facility] and will likely stay in hospital. 8. Patient admitted on 05/19/24 and remains with no aggression or assaultive behavior since her hospitalization here. She had her interview with new [facility] possible roommates. It reportedly went well but the question is simply when they will have a bed date in the next days to weeks. We will explore any alternatives to her staying here until that bed is available. CONSIDER DESMOPRESSIN for enuresis.-Renal consult. Current report of acceptance for [facility] on 07/30/2024. There are reported hopes for an earlier date. 9. D/C trazodone and Increase prazosin to 3mg at night. PDMP PDMP Reviewed: Not Reviewed Involuntary Hold Information 2 96 Hour Hold: 96 Hour Involuntary Admission: No Attestations NPU 2 Medical Necessity Statement*: Patient hospitalization is medically necessary and deemed to be the clinically appropriate intervention at this time. We will monitor and initiate medications while making changes as indicated. The patient's likely length of stay is 18 days when availability at new place of residence is found. Patient under guardianship and no emergency placement is available. Coding Level of Care Code Acute Code for Chg Fwd Diagnoses Intermittent explosive disorder F63.81 Suicidal ideation R45.851 Mild intellectual disabilities F70 Dysthymia F34.1 Major depressive disorder, recurrent, moderate F33.1 Poor impulse control R45.87
[2024-07-14 14:00] VITALS: BP 97/63; PULSE 88; RESP 16; TEMP 37.1; O2SAT 97
[2024-07-14] MEDS: duloxetine 30 mg Capsule 60 MG PO (17:20)
[2024-07-14 20:06] VITALS: BP 97/65; PULSE 100; RESP 18; TEMP 37.6; O2SAT 98
[2024-07-14] MEDS: risperiDONE 2 mg Tablet PO (20:44)
[2024-07-14] MEDS: prazosin 1 mg Capsule 3 MG PO (20:44)
[2024-07-14] MEDS: levothyroxine 100 mcg Tablet PO (20:44)
[2024-07-15 06:00] VITALS: BP 89/52; PULSE 78; RESP 18; TEMP 36.9; O2SAT 95
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
[2024-07-15] MEDS: lamoTRIgine 100 mg Tablet 200 MG PO ×2 (08:58→18:38)
[2024-07-15] MEDS: topiramate 25 mg Tablet PO ×2 (08:58→18:38)
[2024-07-15] MEDS: loratadine 10 mg Tablet PO (08:58)
--- NOTE | 2024-07-15 13:44 | P.NPUPN_ITS ---
Subjective NPU 2 Subjective: Patient presented today reporting she is doing okay. She did endorse some frustration with one of the other clients and we discussed the risks, benefits and alternatives of changing rooms to avoid conflict and she understood and agreed to proceed as is documented in this note. She denied any side effects to the medication and reports she is waiting anxiously for her placement. Mental Status Exam 2 MSE Comments: This is an obese white female with hospital scrubs on with limited grooming and adequate eye contact. No abnormal movements except for psychomotor retardation. She was cooperative with exam in mild distress. Speech was decreased in rate and normal in volume and childlike. Mood described as frustrated with another patient, her affect was flat and slightly irritable. Thought process was linear but concrete. Thought content: Patient denied suicidal or homicidal ideation, there were no delusions reported or noted, she denied any auditory or visual hallucinations. Attention and concentration appeared at baseline. She is alert and oriented times person and place. Insight was poor. Judgment was limited. Impulse control was limited. Intellectual ability is commensurate with mild cognitive impairment. Vitals/I&O/Wt Last Vital Signs Temp 98.5 F 07/15/24 06:00 Pulse 78 07/15/24 06:00 Resp 18 07/15/24 06:00 BP 89/52 07/15/24 06:00 Pulse Ox 95 07/15/24 06:00 O2 Del Method Room Air 07/15/24 06:00 07/14/24 07/15/24 07/15/24 22:59 06:59 14:59 Intake Total 240 / 240 Balance 240 / 240 Data NPU 05/27/24 08:51 05/27/24 08:51 A&P Assessment and plan (1) Intermittent explosive disorder: (2) Suicidal ideation: (3) Mild intellectual disabilities: (4) Dysthymia: (5) Major depressive disorder, recurrent, moderate: (6) Poor impulse control: (7) Suicidal ideation: Plan 29-year-old white female history of intellectual disability, intermittent explosive disorder, and depression currently residing in a residential and returning with similar complaints as she has had in the past specifically reporting difficulty getting along with 1 staff member which reportedly led to agitation and conflict leading to this hospitalization. We will evaluate for safety and identify whether this is a recent decline versus consistent with baseline which would we would recommend a more rapid therapeutic discharge. However there is also a question of whether she has gotten to a point where this facility is just not adequate to manage her because of her resistance to their people and processes. 1. Encourage individual group and milieu therapy. 2. Continue topamax 25mg bid. continue Patient appears sedated, continue Risperidal 2mg at night. Continue Cymbalta 60mg daily. Lamotrigine 200mg bid. 3. Therapeutic observation 15-minute checks on the unit for safety 4. We will contact facility and guardian and explore safety plan for discharge as soon as it is appropriate. 5. Recheck admission labs to evaluate for any medical illness. 6. Obtain hospitalist consult and have evaluate apparent kidney and liver function results against patient's recent appearance. Will follow for recommendations. 7. Patient cannot return to [facility], attempting to find new facility as patient deemed unsafe to return to [facility] and will likely stay in hospital. 8. Patient admitted on 05/19/24 and remains with no aggression or assaultive behavior since her hospitalization here. She had her interview with new [facility] possible roommates. It reportedly went well but the question is simply when they will have a bed date in the next days to weeks. We will explore any alternatives to her staying here until that bed is available. CONSIDER DESMOPRESSIN for enuresis.-Renal consult. Current report of acceptance for [facility] on 07/30/2024. There are reported hopes for an earlier date. 9. D/C trazodone and Increase prazosin to 3mg at night. PDMP PDMP Reviewed: Not Reviewed Involuntary Hold Information 2 96 Hour Hold: 96 Hour Involuntary Admission: No Attestations NPU 2 Medical Necessity Statement*: Patient hospitalization is medically necessary and deemed to be the clinically appropriate intervention at this time. We will monitor and initiate medications while making changes as indicated. The patient's likely length of stay is 15 days when availability at new place of residence is found. Patient under guardianship and no emergency placement is available. Coding Level of Care Code Acute Code for Chg Fwd Diagnoses Intermittent explosive disorder F63.81 Suicidal ideation R45.851 Mild intellectual disabilities F70 Dysthymia F34.1 Major depressive disorder, recurrent, moderate F33.1 Poor impulse control R45.87
[2024-07-15 14:00] VITALS: BP 93/63; PULSE 95; RESP 18; TEMP 37.6; O2SAT 96
[2024-07-15] MEDS: duloxetine 30 mg Capsule 60 MG PO (18:39)
[2024-07-15 22:00] VITALS: BP 91/65; PULSE 106; RESP 18; TEMP 37.2; O2SAT 95
[2024-07-15] MEDS: hyDROXYzine 25 mg Capsule 50 MG PO (22:18)
[2024-07-15] MEDS: prazosin 1 mg Capsule 3 MG PO (22:18)
[2024-07-15] MEDS: levothyroxine 100 mcg Tablet PO (22:19)
[2024-07-15] MEDS: risperiDONE 2 mg Tablet PO (22:19)
[2024-07-15] MEDS: OLANZapine 5 mg ODT PO (22:19)
[2024-07-16 06:00] VITALS: RESP 15
--- NOTE | 2024-07-16 06:08 | PC.NURSE ---
Asked patient multiple times to obtain vital signs. pt refused. automotive assembler notified. Respiration rate 15.
[2024-07-16] MEDS: lamoTRIgine 100 mg Tablet 200 MG PO ×2 (09:24→21:05)
[2024-07-16] MEDS: topiramate 25 mg Tablet PO ×2 (09:24→21:05)
[2024-07-16] MEDS: loratadine 10 mg Tablet PO (09:24)
[2024-07-16] MEDS: hyDROXYzine 25 mg Capsule 50 MG PO ×2 (10:49→21:00)
--- NOTE | 2024-07-16 10:51 | PC.NURSE ---
prn vistaril 50 mg given po per pt c/o stated anxiety
--- NOTE | 2024-07-16 11:34 | P.NPUPN_ITS ---
Subjective NPU 2 Subjective: Patient presented today reporting that things are going pretty good. She had let go of some of the concerns she had about the other patient that was somewhat picking on her. She continued to focus on getting out of her soon and being hopeful that possibly she might leave early as was brought up by the social sciences chair. We discussed sticking to the plan of knowing she is going to be out of here on the 15th for sure and if things happen more quickly we can enjoy that as well. Otherwise she denied any other concerns and denied any side effects to the medication. Mental Status Exam 2 MSE Comments: This is an obese white female with hospital scrubs on with limited grooming and adequate eye contact. No abnormal movements except for psychomotor retardation. She was cooperative with exam in mild distress. Speech was decreased in rate and normal in volume and childlike. Mood described as frustrated with another patient, her affect was flat and slightly irritable. Thought process was linear but concrete. Thought content: Patient denied suicidal or homicidal ideation, there were no delusions reported or noted, she denied any auditory or visual hallucinations. Attention and concentration appeared at baseline. She is alert and oriented times person and place. Insight was poor. Judgment was limited. Impulse control was limited. Intellectual ability is commensurate with mild cognitive impairment. Vitals/I&O/Wt Last Vital Signs Temp 98.9 F 07/15/24 22:00 Pulse 106 H 07/15/24 22:00 Resp 15 07/16/24 06:00 BP 91/65 07/15/24 22:00 Pulse Ox 95 07/15/24 22:00 O2 Del Method Room Air 07/15/24 22:00 Data NPU 05/27/24 08:51 05/27/24 08:51 A&P Assessment and plan (1) Intermittent explosive disorder: (2) Suicidal ideation: (3) Mild intellectual disabilities: (4) Dysthymia: (5) Major depressive disorder, recurrent, moderate: (6) Poor impulse control: (7) Suicidal ideation: Plan 29-year-old white female history of intellectual disability, intermittent explosive disorder, and depression currently residing in a [facility] and returning with similar complaints as she has had in the past specifically reporting difficulty getting along with 1 staff member which reportedly led to agitation and conflict leading to this hospitalization. We will evaluate for safety and identify whether this is a recent decline versus consistent with baseline which would we would recommend a more rapid therapeutic discharge. However there is also a question of whether she has gotten to a point where this facility is just not adequate to manage her because of her resistance to their people and processes. 1. Encourage individual group and milieu therapy. 2. Continue topamax 25mg bid. continue Patient appears sedated, continue Risperidal 2mg at night. Continue Cymbalta 60mg daily. Lamotrigine 200mg bid. 3. Therapeutic observation 15-minute checks on the unit for safety 4. We will contact facility and guardian and explore safety plan for discharge as soon as it is appropriate. 5. Recheck admission labs to evaluate for any medical illness. 6. Obtain hospitalist consult and have evaluate apparent kidney and liver function results against patient's recent appearance. Will follow for recommendations. 7. Patient cannot return to [facility], attempting to find new facility as patient deemed unsafe to return to [facility] and will likely stay in hospital. 8. Patient admitted on 05/19/24 and remains with no aggression or assaultive behavior since her hospitalization here. She had her interview with new [facility] possible roommates. It reportedly went well but the question is simply when they will have a bed date in the next days to weeks. We will explore any alternatives to her staying here until that bed is available. CONSIDER DESMOPRESSIN for enuresis.-Renal consult. Current report of acceptance for [facility] on 07/30/2024. There are reported hopes for an earlier date. 9. D/C trazodone and Increase prazosin to 3mg at night. PDMP PDMP Reviewed: Not Reviewed Involuntary Hold Information 2 96 Hour Hold: 96 Hour Involuntary Admission: No Attestations NPU 2 Medical Necessity Statement*: Patient hospitalization is medically necessary and deemed to be the clinically appropriate intervention at this time. We will monitor and initiate medications while making changes as indicated. The patient's likely length of stay is 14 days when availability at new place of residence is found. Patient under guardianship and no emergency placement is available. Coding Level of Care Code Acute Code for Chg Fwd Diagnoses Intermittent explosive disorder F63.81 Suicidal ideation R45.851 Mild intellectual disabilities F70 Dysthymia F34.1 Major depressive disorder, recurrent, moderate F33.1 Poor impulse control R45.87
[2024-07-16 13:13] VITALS: BP 98/67; PULSE 95; RESP 17; TEMP 37.6; O2SAT 98
[2024-07-16 20:28] VITALS: BP 94/65; PULSE 90; RESP 18; TEMP 37.5; O2SAT 98
[2024-07-16] MEDS: prazosin 1 mg Capsule 3 MG PO (20:58)
[2024-07-16] MEDS: OLANZapine 5 mg ODT PO (20:59)
[2024-07-16] MEDS: risperiDONE 2 mg Tablet PO (20:59)
[2024-07-16] MEDS: duloxetine 30 mg Capsule 60 MG PO (20:59)
[2024-07-16] MEDS: levothyroxine 100 mcg Tablet PO (21:05)
[2024-07-17 06:00] VITALS: BP 95/59; PULSE 73; RESP 16; O2SAT 95
[2024-07-17] MEDS: loratadine 10 mg Tablet PO (08:54)
[2024-07-17] MEDS: lamoTRIgine 100 mg Tablet 200 MG PO ×2 (08:54→20:20)
[2024-07-17] MEDS: hyDROXYzine 25 mg Capsule 50 MG PO (08:54)
[2024-07-17] MEDS: topiramate 25 mg Tablet PO ×2 (08:54→20:20)
--- NOTE | 2024-07-17 10:18 | PC.NURSE ---
FLAT AFFECT IS NOTED. DENIES SI/HI AND AVH AT THIS TIME. RATES ANXIETY AND DEPRESSION /. VISTARIL 50 MG GIVEN ORDERED FOR INCREASED ANXIETY. SUPPORT VOICED. DENIES PAIN.
[2024-07-17 14:00] VITALS: BP 98/57; PULSE 88; RESP 18; TEMP 37.2; O2SAT 97
--- NOTE | 2024-07-17 15:23 | P.NPUPN_ITS ---
Subjective NPU 2 Subjective: Patient presents today reporting that she is doing fine and is hopeful for discharge earlier than 07/30/2024. We continued to stressed the strategy of being excited that she can go on 07/30/2024 but be hopeful for circumstances to lead to an early departure. We discussed that we would not know about any changes in the plan until the social work team arrives tomorrow and reviews there messages. Otherwise she continues to navigate the ongoing changes in the census with people she is friendly with leaving and new people arriving. She denied any side effects to her medications. Mental Status Exam 2 MSE Comments: This is an obese white female with hospital scrubs on with limited grooming and adequate eye contact. No abnormal movements except for psychomotor retardation. She was cooperative with exam in mild distress. Speech was decreased in rate and normal in volume and childlike. Mood described as frustrated with another patient, her affect was flat and slightly irritable. Thought process was linear but concrete. Thought content: Patient denied suicidal or homicidal ideation, there were no delusions reported or noted, she denied any auditory or visual hallucinations. Attention and concentration appeared at baseline. She is alert and oriented times person and place. Insight was poor. Judgment was limited. Impulse control was limited. Intellectual ability is commensurate with mild cognitive impairment. Vitals/I&O/Wt Last Vital Signs Temp 99.5 F 07/16/24 20:28 Pulse 73 07/17/24 06:00 Resp 16 07/17/24 06:00 BP 95/59 07/17/24 06:00 Pulse Ox 95 07/17/24 06:00 O2 Del Method Room Air 07/16/24 13:13 Weight last 48 hrs Weight 83.733 kg Data NPU 05/27/24 08:51 05/27/24 08:51 A&P Assessment and plan (1) Intermittent explosive disorder: (2) Suicidal ideation: (3) Mild intellectual disabilities: (4) Dysthymia: (5) Major depressive disorder, recurrent, moderate: (6) Poor impulse control: (7) Suicidal ideation: Plan 29-year-old white female history of intellectual disability, intermittent explosive disorder, and depression currently residing in a [facility] and returning with similar complaints as she has had in the past specifically reporting difficulty getting along with 1 staff member which reportedly led to agitation and conflict leading to this hospitalization. We will evaluate for safety and identify whether this is a recent decline versus consistent with baseline which would we would recommend a more rapid therapeutic discharge. However there is also a question of whether she has gotten to a point where this facility is just not adequate to manage her because of her resistance to their people and processes. 1. Encourage individual group and milieu therapy. 2. Continue topamax 25mg bid. continue Patient appears sedated, continue Risperidal 2mg at night. Continue Cymbalta 60mg daily. Lamotrigine 200mg bid. 3. Therapeutic observation 15-minute checks on the unit for safety 4. We will contact facility and guardian and explore safety plan for discharge as soon as it is appropriate. 5. Recheck admission labs to evaluate for any medical illness. 6. Obtain hospitalist consult and have evaluate apparent kidney and liver function results against patient's recent appearance. Will follow for recommendations. 7. Patient cannot return to [facility], attempting to find new facility as patient deemed unsafe to return to [facility] and will likely stay in hospital. 8. Patient admitted on 05/19/24 and remains with no aggression or assaultive behavior since her hospitalization here. She had her interview with new [facility] possible roommates. It reportedly went well but the question is simply when they will have a bed date in the next days to weeks. We will explore any alternatives to her staying here until that bed is available. CONSIDER DESMOPRESSIN for enuresis.-Renal consult. Current report of acceptance for [facility] on 07/30/2024. There are reported hopes for an earlier date. 9. D/C trazodone and Increase prazosin to 3mg at night. PDMP PDMP Reviewed: Not Reviewed Involuntary Hold Information 2 96 Hour Hold: 96 Hour Involuntary Admission: No Attestations NPU 2 Medical Necessity Statement*: Patient hospitalization is medically necessary and deemed to be the clinically appropriate intervention at this time. We will monitor and initiate medications while making changes as indicated. The patient's likely length of stay is 14 days when availability at new place of residence is found. Patient under guardianship and no emergency placement is available. Coding Level of Care Code Acute Code for Chg Fwd Diagnoses Intermittent explosive disorder F63.81 Suicidal ideation R45.851 Mild intellectual disabilities F70 Dysthymia F34.1 Major depressive disorder, recurrent, moderate F33.1 Poor impulse control R45.87
[2024-07-17 19:58] VITALS: BP 97/59; PULSE 99; RESP 16; TEMP 37.1; O2SAT 100
[2024-07-17] MEDS: docusate sodium 100 mg Capsule 200 MG PO (20:20)
[2024-07-17] MEDS: duloxetine 30 mg Capsule 60 MG PO (20:20)
[2024-07-17] MEDS: levothyroxine 100 mcg Tablet PO (20:20)
[2024-07-17] MEDS: risperiDONE 2 mg Tablet PO (20:20)
[2024-07-17] MEDS: prazosin 1 mg Capsule 3 MG PO (20:21)
[2024-07-18 06:00] VITALS: BP 96/68; PULSE 73; RESP 18; TEMP 36.8; O2SAT 96
[2024-07-18] MEDS: lamoTRIgine 100 mg Tablet 200 MG PO ×2 (09:09→20:00)
[2024-07-18] MEDS: loratadine 10 mg Tablet PO (09:10)
[2024-07-18] MEDS: topiramate 25 mg Tablet PO ×2 (09:10→20:00)
[2024-07-18] MEDS: acetaminophen 500 mg Tablet PO ×2 (13:31→21:49)
--- NOTE | 2024-07-18 13:44 | PC.NURSE ---
Pt. requested conditioner. Signee asked if she was going to take a shower, she stated no she was wanting to put the conditioner on a washrag to make it smell good and wipe something off. Signee said no that's not what conditioner is for and pt. said fine whatever I'll just ask Joana Pt. then asked for her shampoo, signee asked if she was going to wash her hair she stated no and began cursing.
[2024-07-18 13:53] VITALS: BP 93/68; PULSE 96; RESP 17; TEMP 36.7; O2SAT 97
--- NOTE | 2024-07-18 14:35 | W.PM.NPUPNS ---
Subjective NPU Subjective: Patient presented today reporting that she is feeling fine and really trying to not think about when she is discharging but being hopeful that it happens this week. We discussed that everyone is hopeful for her but focused on the fact that she has a place to go and that the time is coming up. She denied any new problems and just continues to navigate the landscape of the different personalities that are on the unit currently. She denied any side effects to her medications. Mental Status Exam MSE Comments: This is an obese white female with hospital scrubs on with limited grooming and adequate eye contact. No abnormal movements except for psychomotor retardation. She was cooperative with exam in mild distress. Speech was decreased in rate and normal in volume and childlike. Mood described as frustrated with another patient, her affect was flat and slightly irritable. Thought process was linear but concrete. Thought content: Patient denied suicidal or homicidal ideation, there were no delusions reported or noted, she denied any auditory or visual hallucinations. Attention and concentration appeared at baseline. She is alert and oriented times person and place. Insight was poor. Judgment was limited. Impulse control was limited. Intellectual ability is commensurate with mild cognitive impairment. Vitals/I&O/Wt Last Vital Signs Temp 98.0 F 07/18/24 13:53 Pulse 96 07/18/24 13:53 Resp 17 07/18/24 13:53 BP 93/68 07/18/24 13:53 Pulse Ox 97 07/18/24 13:53 O2 Del Method Room Air 07/18/24 06:00 Weight last 48 hrs Weight 83.733 kg Data NPU 05/27/24 08:51 05/27/24 08:51 A&P Assessment and plan (1) Intermittent explosive disorder: (2) Suicidal ideation: (3) Mild intellectual disabilities: (4) Dysthymia: (5) Major depressive disorder, recurrent, moderate: (6) Poor impulse control: (7) Suicidal ideation: Plan 29-year-old white female history of intellectual disability, intermittent explosive disorder, and depression currently residing in a skilled nursing and returning with similar complaints as she has had in the past specifically reporting difficulty getting along with 1 staff member which reportedly led to agitation and conflict leading to this hospitalization. We will evaluate for safety and identify whether this is a recent decline versus consistent with baseline which would we would recommend a more rapid therapeutic discharge. However there is also a question of whether she has gotten to a point where this facility is just not adequate to manage her because of her resistance to their people and processes. 1. Encourage individual group and milieu therapy. 2. Continue topamax 25mg bid. continue Patient appears sedated, continue Risperidal 2mg at night. Continue Cymbalta 60mg daily. Lamotrigine 200mg bid. 3. Therapeutic observation 15-minute checks on the unit for safety 4. We will contact facility and guardian and explore safety plan for discharge as soon as it is appropriate. 5. Recheck admission labs to evaluate for any medical illness. 6. Obtain hospitalist consult and have evaluate apparent kidney and liver function results against patient's recent appearance. Will follow for recommendations. 7. Patient cannot return to [facility], attempting to find new facility as patient deemed unsafe to return to [facility] and will likely stay in hospital. 8. Patient admitted on 05/19/24 and remains with no aggression or assaultive behavior since her hospitalization here. She had her interview with new [facility] possible roommates. It reportedly went well but the question is simply when they will have a bed date in the next days to weeks. We will explore any alternatives to her staying here until that bed is available. CONSIDER DESMOPRESSIN for enuresis.-Renal consult. Current report of acceptance for [facility] on 07/30/2024. There are reported hopes for an earlier date. 9. D/C trazodone and Increase prazosin to 3mg at night. PDMP PDMP Reviewed: Not Reviewed Involuntary Hold Information 96 Hour Hold: 96 Hour Involuntary Admission: No Attestations NPU Medical Necessity Statement*: Patient hospitalization is medically necessary and deemed to be the clinically appropriate intervention at this time. We will monitor and initiate medications while making changes as indicated. The patient's likely length of stay is 14 days when availability at new place of residence is found. Patient under guardianship and no emergency placement is available. Coding Level of Care Code Acute Code for Chg Fwd Diagnoses Intermittent explosive disorder F63.81 Suicidal ideation R45.851 Mild intellectual disabilities F70 Dysthymia F34.1 Major depressive disorder, recurrent, moderate F33.1 Poor impulse control R45.87
--- NOTE | 2024-07-18 16:11 | PC.NURSE ---
Aggravation Patient at window upset at this nurse because she can't have all of her games from her mother in her room. Per LEESA Angel patient can use the Trouble game and Qwixx game but she is to return them to the staff when she is done. Patient upset by this, saying that this isn't fair. Patient tearful. Patient went to her room and this nurse talked with patient about appropriate behavior. Patient apologized.
[2024-07-18] MEDS: hyDROXYzine 25 mg Capsule 50 MG PO (19:32)
[2024-07-18] MEDS: docusate sodium 100 mg Capsule 200 MG PO (20:00)
[2024-07-18] MEDS: levothyroxine 100 mcg Tablet PO (20:00)
[2024-07-18] MEDS: duloxetine 30 mg Capsule 60 MG PO (20:00)
[2024-07-18] MEDS: risperiDONE 2 mg Tablet PO (20:00)
[2024-07-18] MEDS: prazosin 1 mg Capsule 3 MG PO (20:01)
[2024-07-18 20:34] VITALS: BP 79/59; PULSE 97; RESP 17; TEMP 36.8; O2SAT 95
[2024-07-18] MEDS: ondansetron hcl ODT 4 mg Tab PO (21:05)
[2024-07-18] MEDS: OLANZapine 5 mg ODT PO (21:46)
--- NOTE | 2024-07-18 21:57 | PC.NURSE ---
PT COMPLAINING OF HEADACHE RATING AN 8/10 AFTER VERBAL CONFRONTATION WITH ANOTHER PT, TYLENOL 500MG GIVEN FOR HEADACHE, AND ZYPREXA 5MG GIVEN FOR ANXIETY.
[2024-07-19 06:00] VITALS: BP 91/55; PULSE 81; RESP 17; TEMP 36.5; O2SAT 98
[2024-07-19] MEDS: ondansetron hcl ODT 4 mg Tab PO (08:13)
[2024-07-19] MEDS: loratadine 10 mg Tablet PO (08:13)
[2024-07-19] MEDS: topiramate 25 mg Tablet PO ×2 (08:58→20:55)
[2024-07-19] MEDS: lamoTRIgine 100 mg Tablet 200 MG PO ×2 (08:58→20:57)
--- NOTE | 2024-07-19 11:19 | PC.NURSE ---
Pt. demanding this shift, intrusive, up at nurses station a lot requesting different things such as drinks, snacks, coloring pages, wanting different things printed off.
[2024-07-19] MEDS: loperamide 2 mg Capsule PO (11:36)
[2024-07-19 14:00] VITALS: BP 87/65; PULSE 96; RESP 17; TEMP 36.5; O2SAT 98
[2024-07-19 20:00] VITALS: BP 94/64; PULSE 87; RESP 17; TEMP 36.9; O2SAT 96
--- NOTE | 2024-07-19 20:05 | P.NPUPN_ITS ---
Subjective NPU 2 Subjective: Patient presented today reporting that she is feeling better. She continues to be focused on when discharge will happen and we continue to be in touch with the program saying that there is a reasonable chance that she will get there before the 15th of this month. Otherwise she reports that there are no new issues and she is having no problems with the medications. She is eating and sleeping fine and denied any specific problems. Mental Status Exam 2 MSE Comments: This is an obese white female with hospital scrubs on with limited grooming and adequate eye contact. No abnormal movements except for psychomotor retardation. She was cooperative with exam in mild distress. Speech was decreased in rate and normal in volume and childlike. Mood described as frustrated with another patient, her affect was flat and slightly irritable. Thought process was linear but concrete. Thought content: Patient denied suicidal or homicidal ideation, there were no delusions reported or noted, she denied any auditory or visual hallucinations. Attention and concentration appeared at baseline. She is alert and oriented times person and place. Insight was poor. Judgment was limited. Impulse control was limited. Intellectual ability is commensurate with mild cognitive impairment. Vitals/I&O/Wt Last Vital Signs Temp 98.5 F 07/19/24 20:00 Pulse 87 07/19/24 20:00 Resp 17 07/19/24 20:00 BP 94/64 07/19/24 20:00 Pulse Ox 96 07/19/24 20:00 O2 Del Method Room Air 07/19/24 20:00 Data NPU 05/27/24 08:51 05/27/24 08:51 A&P Assessment and plan (1) Intermittent explosive disorder: (2) Suicidal ideation: (3) Mild intellectual disabilities: (4) Dysthymia: (5) Major depressive disorder, recurrent, moderate: (6) Poor impulse control: (7) Suicidal ideation: Plan 29-year-old white female history of intellectual disability, intermittent explosive disorder, and depression currently residing in a long-term and returning with similar complaints as she has had in the past specifically reporting difficulty getting along with 1 staff member which reportedly led to agitation and conflict leading to this hospitalization. We will evaluate for safety and identify whether this is a recent decline versus consistent with baseline which would we would recommend a more rapid therapeutic discharge. However there is also a question of whether she has gotten to a point where this facility is just not adequate to manage her because of her resistance to their people and processes. 1. Encourage individual group and milieu therapy. 2. Continue topamax 25mg bid. continue Patient appears sedated, continue Risperidal 2mg at night. Continue Cymbalta 60mg daily. Lamotrigine 200mg bid. 3. Therapeutic observation 15-minute checks on the unit for safety 4. We will contact facility and guardian and explore safety plan for discharge as soon as it is appropriate. 5. Recheck admission labs to evaluate for any medical illness. 6. Obtain hospitalist consult and have evaluate apparent kidney and liver function results against patient's recent appearance. Will follow for recommendations. 7. Patient cannot return to thrive, attempting to find new facility as patient deemed unsafe to return to thrive and will likely stay in hospital. 8. Patient admitted on 05/19/24 and remains with no aggression or assaultive behavior since her hospitalization here. She had her interview with new [facility] possible roommates. It reportedly went well but the question is simply when they will have a bed date in the next days to weeks. We will explore any alternatives to her staying here until that bed is available. CONSIDER DESMOPRESSIN for enuresis.-Renal consult. Current report of acceptance for [facility] on 07/30/2024. There are reported hopes for an earlier date. 9. D/C trazodone and Increase prazosin to 3mg at night. PDMP PDMP Reviewed: Not Reviewed Involuntary Hold Information 2 96 Hour Hold: 96 Hour Involuntary Admission: No Attestations NPU 2 Medical Necessity Statement*: Patient hospitalization is medically necessary and deemed to be the clinically appropriate intervention at this time. We will monitor and initiate medications while making changes as indicated. The patient's likely length of stay is 14 days when availability at new place of residence is found. Patient under guardianship and no emergency placement is available. Coding Level of Care Code Acute Code for Chg Fwd Diagnoses Intermittent explosive disorder F63.81 Suicidal ideation R45.851 Mild intellectual disabilities F70 Dysthymia F34.1 Major depressive disorder, recurrent, moderate F33.1 Poor impulse control R45.87
[2024-07-19] MEDS: duloxetine 30 mg Capsule 60 MG PO (20:55)
[2024-07-19] MEDS: hyDROXYzine 25 mg Capsule 50 MG PO (20:56)
[2024-07-19] MEDS: risperiDONE 2 mg Tablet PO (20:56)
[2024-07-19] MEDS: prazosin 1 mg Capsule 3 MG PO (20:57)
[2024-07-19] MEDS: levothyroxine 100 mcg Tablet PO (20:57)
[2024-07-19] MEDS: OLANZapine 5 mg ODT PO (20:57)
[2024-07-20 06:00] VITALS: BP 95/64; PULSE 100; RESP 18; TEMP 37.2; O2SAT 96
--- NOTE | 2024-07-20 11:26 | P.NPUPN_ITS ---
Subjective NPU 2 Subjective: Patient presented today reporting that she is doing fine. We discussed the fact that we still have not heard anything that suggest that her timeline of 07/30/2024 has been updated but that once we get word on her situation there will not be any delays or need for any adjustments on our part to get her out of here. 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 She denied any side effects to her medication. Mental Status Exam 2 MSE Comments: This is an obese white female with hospital scrubs on with limited grooming and adequate eye contact. No abnormal movements except for psychomotor retardation. She was cooperative with exam in mild distress. Speech was decreased in rate and normal in volume and childlike. Mood described as frustrated with another patient, her affect was flat and slightly irritable. Thought process was linear but concrete. Thought content: Patient denied suicidal or homicidal ideation, there were no delusions reported or noted, she denied any auditory or visual hallucinations. Attention and concentration appeared at baseline. She is alert and oriented times person and place. Insight was poor. Judgment was limited. Impulse control was limited. Intellectual ability is commensurate with mild cognitive impairment. Vitals/I&O/Wt Last Vital Signs Temp 98.9 F 07/20/24 06:00 Pulse 100 07/20/24 06:00 Resp 18 07/20/24 06:00 BP 95/64 07/20/24 06:00 Pulse Ox 96 07/20/24 06:00 O2 Del Method Room Air 07/20/24 06:00 Data NPU 05/27/24 08:51 05/27/24 08:51 A&P Assessment and plan (1) Intermittent explosive disorder: (2) Suicidal ideation: (3) Mild intellectual disabilities: (4) Dysthymia: (5) Major depressive disorder, recurrent, moderate: (6) Poor impulse control: (7) Suicidal ideation: Plan 29-year-old white female history of intellectual disability, intermittent explosive disorder, and depression currently residing in a long term and returning with similar complaints as she has had in the past specifically reporting difficulty getting along with 1 staff member which reportedly led to agitation and conflict leading to this hospitalization. We will evaluate for safety and identify whether this is a recent decline versus consistent with baseline which would we would recommend a more rapid therapeutic discharge. However there is also a question of whether she has gotten to a point where this facility is just not adequate to manage her because of her resistance to their people and processes. 1. Encourage individual group and milieu therapy. 2. Continue topamax 25mg bid. continue Patient appears sedated, continue Risperidal 2mg at night. Continue Cymbalta 60mg daily. Lamotrigine 200mg bid. 3. Therapeutic observation 15-minute checks on the unit for safety 4. We will contact facility and guardian and explore safety plan for discharge as soon as it is appropriate. 5. Recheck admission labs to evaluate for any medical illness. 6. Obtain hospitalist consult and have evaluate apparent kidney and liver function results against patient's recent appearance. Will follow for recommendations. 7. Patient cannot return to thrive, attempting to find new facility as patient deemed unsafe to return to thrive and will likely stay in hospital. 8. Patient admitted on 05/19/24 and remains with no aggression or assaultive behavior since her hospitalization here. She had her interview with new [facility] possible roommates. It reportedly went well but the question is simply when they will have a bed date in the next days to weeks. We will explore any alternatives to her staying here until that bed is available. CONSIDER DESMOPRESSIN for enuresis.-Renal consult. Current report of acceptance for [facility] on 07/30/2024. There are reported hopes for an earlier date. 9. D/C trazodone and Increase prazosin to 3mg at night. PDMP PDMP Reviewed: Not Reviewed Involuntary Hold Information 2 96 Hour Hold: 96 Hour Involuntary Admission: No Attestations NPU 2 Medical Necessity Statement*: Patient hospitalization is medically necessary and deemed to be the clinically appropriate intervention at this time. We will monitor and initiate medications while making changes as indicated. The patient's likely length of stay is 14 days when availability at new place of residence is found. Patient under guardianship and no emergency placement is available. Coding Level of Care Code Acute Code for Chg Fwd Diagnoses Intermittent explosive disorder F63.81 Suicidal ideation R45.851 Mild intellectual disabilities F70 Dysthymia F34.1 Major depressive disorder, recurrent, moderate F33.1 Poor impulse control R45.87
[2024-07-20] MEDS: lamoTRIgine 100 mg Tablet 200 MG PO ×2 (11:55→21:45)
[2024-07-20] MEDS: loratadine 10 mg Tablet PO (11:56)
[2024-07-20] MEDS: topiramate 25 mg Tablet PO ×2 (11:56→21:45)
[2024-07-20 14:00] VITALS: BP 92/65; PULSE 84; RESP 17; TEMP 37.3; O2SAT 100
[2024-07-20] MEDS: diphenhydrAMINE 50 mg/mL SDV 1mL IM (18:32)
[2024-07-20] MEDS: haloperidol inj 5 mg/mL INJ 1 mL IM (18:33)
--- NOTE | 2024-07-20 18:42 | PC.NURSE ---
ADMINSITERED HALDOL IN LEFT DELTOID, REHABILITATION SUPERVISOR ADMINISTERED BENADRYL TO PT. PT ANGELES, USING PROFANITY TOWARDS STAFF AND OTHER PATIENTS.
--- NOTE | 2024-07-20 18:45 | CTR_ITS ---
PROCEDURE INFORMATION: Exam: CT Head Without Contrast Exam date and time: 07/20/2024 7:31 PM Age: 29 years old Clinical indication: Injury or trauma; Fall; Blunt trauma (contusions or hematomas); Without loss of consciousness TECHNIQUE: Imaging protocol: Computed tomography of the head without contrast. Radiation optimization: All CT scans at this facility use at least one of these dose optimization techniques: automated exposure control; mA and/or kV adjustment per patient size (includes targeted exams where dose is matched to clinical indication); or iterative reconstruction. COMPARISON: CT head wo con* [id number] 01/16/2024 2:07 PM RADIATION DOSE METRICS: Total DLP (mGy-cm): 1111.48 FINDINGS: Brain: Parenchymal structures of the brain demonstrate normal anatomy and attenuation. The patient is asymmetrically positioned within the gantry slightly challenging to resolution. The midline is intact. Trace streaking artifact is suspected along the high left of midline frontal region as seen on image 42 of series 3. This appears to extend past anatomic boundaries. No hemorrhage. Unremarkable white matter. No mass effect. Cerebral ventricles: Ventricles demonstrate normal size shape and configuration and are in proportion to the degree of widening of the sulci, sylvian fissures and basilar cisterns. Paranasal sinuses: Visualized sinuses are unremarkable. No fluid levels. Mastoid air cells: Visualized mastoid air cells are well aerated. Bones: Unremarkable. No acute fracture. Soft tissues: Prominent high right parietal scalp hematoma noted. CT/CT head wo con* [id number] IMPRESSION: 1. No acute intracranial abnormality. 2. Prominent high right parietal scalp hematoma.
[2024-07-20 18:48] VITALS: BP 103/75; PULSE 97; RESP 16; TEMP 37.6; O2SAT 97
--- NOTE | 2024-07-20 19:41 | PC.NURSE ---
Addendum entered by Felicia Nettles RN 07/20/24 19:50: Amend time of incident to 183. Original Note: Behavioral Event: This nurse was rounding in NPU. Upon entering the nurses station patient was in a verbal altercation with another patient on the unit. This nurse asked both patients to go back to their rooms and we did not need them arguing and to please separate. Jessica refused to go to her room and started yelling at this nurse Your a fucking girly girl you don't even know what your fucking talking about. Your taking her side. I didn't do anything wrong. I will not go back to my fucking room this is bullshit. Patient stated hitting the glass at the nurses station. Jack RN asked this nurse to pull PRN IM medications for patients agitation and call security. Jack RN then escorted patient back to her room to keep her safe and away from the other patient. This nurse and Nikki LUDWIG pulled PRN medications. Juwan from responded to unit. This Nikki zmabrano LPN, , and Jack responded to patients room and did administer PRN medications for patients aggression and agitation. After medications administered patient still remained upset and was crying.
--- NOTE | 2024-07-20 19:44 | PC.NURSE ---
Robert BOURNE and security Monae took this pt to CT from 1929 to 1939 pt now resting in bed
--- NOTE | 2024-07-20 19:44 | PC.NURSE ---
PT HAS BEEN AGITATED OFF AND ON ALL DAY WITH THIS PROGRAM COORDINATOR DUE TO NOT GETTING THE SOUL ATTENTION FOR HERSELF. ONE OF THOSE INCIDENTS WAS ANOTHER PT #2 ATTEMPTING TO CALL THE BANK FOR [employer] PROTECTION AND THIS PT CAME AND TOLD THIS PROGRAM COORDINATOR THAT PT #2 WAS CALLING 911 ON PURPOSE. THIS PROGRAM COORDINATOR TOLD THIS PT THAT PT #2 WAS NOT CALLING 911 AND THAT IM AWARE OF WHO PT #2 IS CALLING. THIS PT GOT UPSET AND AGITATED WITH THIS PROGRAM COORDINATOR BECAUSE SHE SAID THAT THIS PROGRAM COORDINATOR WAS TAKING PT #2 SIDE. SECURITY CAME DOWN AND TALKED TO THIS PT ALONG WITH THIS PROGRAM COORDINATOR AND PT CALMED DOWN. AT AROUND 1830 THIS PT WAS IN PTS ROOM YELLING AT CHARGE NURSE SAYING THAT THE CHARGE NURSE PUSHED HER, THIS PROGRAM COORDINATOR WENT INTO PTS ROOM AND ATTEMPTED TO TALK TO HER TO REDIRECT THE SITUATION DUE TO BEING VERBALLY AGGRESSIVE, PT SHOWED ME HER HEAD, THIS PROGRAM COORDINATOR LOOKED BUT DIDN'T SEE ANYTHING AT THE TIME. SHE THEN STARTED YELLING SAYING THIS PROGRAM COORDINATOR DIDN'T BELIEVE HER AND THIS PROGRAM COORDINATOR EXPLAINED TO HER THAT I DIDN'T KNOW WHAT HAPPENED AND THIS PROGRAM COORDINATOR WAS JUST COMING INTO FIND OUT. THIS PROGRAM COORDINATOR TOLD HER TO TAKE A DEEP BREATH AND TELL ME WHAT HAPPENED. PT THEN BEGAN YELLING SHE WANTED CHARGE NURSE FIRED , ALL OF US NURSES ARE STICKING UP FOR HIM , I AM GOING TO CALL 911 AND TELL THEM HE (CHARGE NURSE BABITA) PUSHED ME DOWN AND IF THEY DON'T FIRE HIM (CHARGE NURSE) THEN I'M GOING TO BUST DOWN THAT DOOR AND LEAVE HER . PT THEN STARTED TO RUN AT THIS PROGRAM COORDINATOR TRYING TO GET TO CHARGE NURSE BUT WAS BLOCKED BY THIS PROGRAM COORDINATOR AND SECURITY BRIANNA AND JAIR. SLOAN SEVILLA WAS PRESENT, ALONG WITH OTHER STAFF. [employer] W[employer] EQUIPMENT MECHANIC WAS NOTIFIED AT 1850.
[2024-07-20 20:56] VITALS: BP 91/66; PULSE 85; RESP 15; TEMP 36.8; O2SAT 94
[2024-07-20] MEDS: prazosin 1 mg Capsule 3 MG PO (21:45)
[2024-07-20] MEDS: levothyroxine 100 mcg Tablet PO (21:45)
[2024-07-20] MEDS: risperiDONE 2 mg Tablet PO (21:45)
[2024-07-20] MEDS: hyDROXYzine 25 mg Capsule 50 MG PO (21:46)
[2024-07-20] MEDS: duloxetine 30 mg Capsule 60 MG PO (21:46)
[2024-07-20] MEDS: OLANZapine 5 mg ODT PO (21:46)
[2024-07-20] MEDS: docusate sodium 100 mg Capsule 200 MG PO (21:46)
--- NOTE | 2024-07-20 22:13 | PM.CONSULT ---
Providers/Reason For Consult Consulting Physician/Specialty*: Hospitalist Reason for Consult*: Evaluation after a fall Attending Physician: Keron Darden MD History of Present Illness History of Present Illness Jessica Pichardo is a 29 year old female who experienced a fall in the evening when she was arguing with her roommate. Nurse was at the door entrance with her arms spread out, patient ran into the nurse, she lost her balance and fell backward. CT scan was done which showed right parietal hematoma, I was asked to evaluate the patient. Patient is not endorsing any nausea, headache, she does not have any focal deficits, her blood pressure has been running low I have held her prazosin. Clinically she looks euvolemic. She is on room air. Able to comprehend all of my questions and answer my questions appropriately. She is not complaining of any other pain. I have requested orthostatics, EKG to monitor QTc interval Review of Systems Const: Denies: fever(s) Eyes: Denies: change in vision ENMT: Denies: throat pain Card: Denies: chest pain Resp: Denies: dyspnea Musc: Denies: back pain Neuro: Reports: headache(s) Medications/Allergies Home Medications ?Medication ?Instructions ?Recorded ?Confirmed ?Last Taken ?Type levothyroxine 100 mcg capsule 100 mcg PO QAM 07/25/19 07/18/24 05/18/24 History trazodone 100 mg tablet 100 mg PO BEDTIME #30 tabs 03/11/24 07/18/24 05/17/24 Rx albuterol sulfate 90 mcg/actuation 1 puff inhalation Q4H PRN Cough or 04/25/24 07/18/24 Unknown History aerosol inhaler (Ventolin HFA) wheezing bismuth subsalicylate 262 mg/15 mL 524 mg PO QID PRN Diarrhea 04/25/24 07/18/24 Unknown History oral suspension (Pepto-Bismol) fluoride (sodium) 1.1 % dental 1 applic dental BID 04/25/24 07/18/24 05/18/24 History paste (Sodium Fluoride 5000 Dry Mouth) fluticasone propionate 50 1 spray intranasal DAILY PRN Cough 04/25/24 07/18/24 Unknown History mcg/actuation nasal spray,suspension hydrocortisone 2.5 % topical cream 1 applic topical BID PRN Skin 04/25/24 07/18/24 Unknown History Irritation ibuprofen 200 mg capsule 400 mg PO Q8H PRN Pain 04/25/24 07/18/24 Unknown History loratadine 10 mg tablet (Allergy 10 mg PO DAILY 04/25/24 07/18/24 05/18/24 History Relief (loratadine)) polyethylene glycol 3350 17 17 g PO DAILY PRN Constipation 04/25/24 07/18/24 Unknown History gram/dose oral powder (Miralax) prednisone 1 mg tablet See Rx Instructions .Route .COMPLEX 04/25/24 07/18/24 05/18/24 History olanzapine 5 mg tablet 5 mg PO BEDTIME #30 tabs 05/09/24 07/18/24 05/17/24 Rx risperidone 1 mg tablet 1 mg PO BID #60 tabs 05/09/24 07/18/24 05/18/24 Rx duloxetine 30 mg capsule,delayed 60 mg PO QPM 05/18/24 07/18/24 05/17/24 History release lamotrigine 200 mg tablet 200 mg PO BID 05/18/24 07/18/24 05/18/24 History ondansetron 4 mg disintegrating 4 mg translingual Q6H PRN Nausea 05/18/24 07/18/24 Unknown History tablet And Vomiting prazosin 2 mg capsule 2 mg PO BEDTIME 05/18/24 07/18/24 05/17/24 History topiramate 100 mg tablet 100 mg PO BID 05/18/24 07/18/24 05/18/24 History witch hussein-glycerin (hamamel) 1 pad topical Q2H PRN Symptoms Of 05/18/24 07/18/24 Unknown History topical pads Eclampsia risperidone 1 mg tablet 1.5 mg (1.5 x 1 mg) PO BID 30 days 06/07/24 07/18/24 Unknown Rx #90 tabs topiramate 25 mg tablet 25 mg PO BID 30 days #60 tabs 06/07/24 07/18/24 Unknown Rx Allergies Allergy/AdvReac Type Severity Reaction Status Date / Time divalproex sodium (From Allergy Unknown Unknown Verified 07/18/24 12:53 Depakote) adhesive tape Allergy Unknown Verified 07/18/24 12:53 cefpodoxime Allergy Unknown Verified 07/18/24 12:53 diazepam (From Valium) Allergy Unknown Verified 07/18/24 12:53 levomilnacipran (From Allergy Unknown Verified 07/18/24 12:53 Fetzima) Penicillins Allergy Unknown Verified 07/18/24 12:53 Current Medications Generic Name Dose Route Start Last Admin Trade Name Freq PRN Reason Stop Dose Admin Acetaminophen 500 mg 05/28/24 10:58 07/18/24 21:49 Acetaminophen 500 Mg Tablet PO 500 mg Q8H PRN Administration MILD PAIN Artificial Tears 1 drop 05/24/24 20:39 06/14/24 11:54 Artificial Tears Op Soln 15 Ml Btl EYE-BOTH 1 drop Q4H PRN Administration DRY EYE(S) Benzocaine 1 each 07/05/24 13:20 07/05/24 13:33 Cetylpyridinium Lozenge MUCOUS MEM 1 each Q2H PRN Administration SORE THROAT Diphenhydramine HCl 50 mg 05/18/24 15:17 07/20/24 18:32 Diphenhydramine 50 Mg/Ml Sdv 1ml IM 50 mg Q4H PRN Administration Severe Aggression Docusate Sodium 200 mg 05/23/24 22:49 07/20/24 21:46 Docusate Sodium 100 Mg Capsule PO 200 mg BEDTIME KIMO Administration Duloxetine HCl 60 mg 07/16/24 21:00 07/20/24 21:46 Duloxetine 30 Mg Capsule PO 60 mg 2100 KIMO Administration Haloperidol Lactate 5 mg 05/18/24 15:17 07/20/24 18:33 Haloperidol Inj 5 Mg/Ml Inj 1 Ml IM 5 mg Q4H PRN Administration Severe Aggression Hydroxyzine Pamoate 50 mg 05/18/24 15:17 07/20/24 21:46 Hydroxyzine 25 Mg Capsule PO 50 mg Q6H PRN Administration ANXIETY Ibuprofen 600 mg 05/18/24 15:18 07/03/24 00:58 Ibuprofen 600 Mg Tablet PO 600 mg Q6H PRN Administration MODERATE PAIN Lamotrigine 200 mg 07/16/24 21:00 07/20/24 21:45 Lamotrigine 100 Mg Tablet PO 200 mg 0900,2100 KIMO Administration Levothyroxine Sodium 100 mcg 06/06/24 21:00 07/20/24 21:45 Levothyroxine 100 Mcg Tablet PO 100 mcg QPM@2100 KIMO Administration Loperamide HCl 2 mg 05/18/24 15:18 07/19/24 11:36 Loperamide 2 Mg Capsule PO 2 mg Q6H PRN Administration DIARRHEA Loratadine 10 mg 05/19/24 11:15 07/20/24 11:56 Loratadine 10 Mg Tablet PO 10 mg DAILY KIMO Administration Olanzapine 5 mg 05/18/24 15:17 07/20/24 21:46 Olanzapine 5 Mg Odt PO 5 mg Q4H PRN Administration Agitation/Psychosis Ondansetron HCl 4 mg 07/06/24 11:16 07/19/24 08:13 Ondansetron Hcl Odt 4 Mg Tab PO 4 mg Q4H PRN Administration NAUSEA AND VOMITING Polyethylene Glycol 17 gm 05/19/24 11:17 06/14/24 18:13 Polyethylene Glycol 3350 Pkt 17 Gm PO 17 gm DAILY PRN Administration Constipation Prazosin HCl 3 mg 07/07/24 21:00 07/20/24 21:45 Prazosin 1 Mg Capsule PO 3 mg BEDTIME KIMO Administration Risperidone 2 mg 07/03/24 21:00 07/20/24 21:45 Risperidone 2 Mg Tablet PO 2 mg BEDTIME KIMO Administration Topiramate 25 mg 07/16/24 21:00 07/20/24 21:45 Topiramate 25 Mg Tablet PO 25 mg 0900,2100 KIMO Administration PFSH Acute PFSH: Medical History Enuresis Intermittent explosive disorder Nocturnal enuresis Psychiatric care On high dose antipsychotic drug therapy Major depressive disorder, recurrent, moderate Mild intellectual disabilities Family History Other Family history unknown Social History Smoking and tobacco/nicotine status: never used tobacco/nicotine Second hand smoke exposure: No Alcohol intake: never Substance/Drug Use: never Caregiver/support person: Yes Lives independently: No Household members: other Details: Deya Simmons Marital status: Single service: No Current occupational status: disabled Current gender identity: Female Special gilmer needs: No Agree to transfusion: Yes Vitals/I&O/Wt Last Vital Signs Temp 98.3 F 07/20/24 20:56 Pulse 85 07/20/24 20:56 Resp 15 07/20/24 20:56 BP 91/66 07/20/24 20:56 Pulse Ox 94 07/20/24 20:56 O2 Del Method Room Air 07/20/24 20:56 Physical Exam Narrative: Awake and alert GCS 15 No active focal deficit Right parietal and occipital area hematoma noted No active focal deficit at all NIH 0 GCS 15 AOx4 Euvolemic Low blood pressure 91/66 mm. Currently on room air No active distress S1, S2 No audible stridor or wheezing Data 05/27/24 08:51 05/27/24 08:51 A&P Assessment and plan (1) Nocturnal enuresis: (2) Mild intellectual disabilities: (3) Hypothyroid: (4) On high dose antipsychotic drug therapy: (5) Poor impulse control: (6) Major depressive disorder, recurrent, moderate: (7) Accident due to mechanical fall without injury: Plan Mechanical fall No focal deficit Parietal and occipital right-sided hematoma noted No active focal deficit at all NIH 0 No active nausea or vomiting Headache improved after getting ibuprofen She does have low blood pressure I would hold her prazosin, I would request nephrology or neuropsych to change her medication for nocturnal enuresis Requested B12, TSH, prolactin and EKG For now she is not on any anticoagulating agent or aspirin, okay to hold for now In case patient starts experiencing nausea, vomiting or worsening of headache or blurry vision please let medicine team know, for now I will just hold off on prazosin check orthostatics, patient endorsing poor p.o. intake PDMP PDMP Reviewed: Not Reviewed Consult Attestations Medical Necessity Statement: As per neuropsych Diagnoses Nocturnal enuresis N39.44 Mild intellectual disabilities F70 Hypothyroid E03.9 On high dose antipsychotic drug therapy Z79.899 Poor impulse control R45.87 Major depressive disorder, recurrent, moderate F33.1 Accident due to mechanical fall without injury W19.XXXA
[2024-07-20] MEDS: ibuprofen 600 mg Tablet PO (22:32)
[2024-07-20] MEDS: haloperidol 5 mg Tablet PO (22:33)
[2024-07-21 00:44] VITALS: BP 82/53; BP 93/53; PULSE 76; PULSE 84; RESP 18; TEMP 36.8; O2SAT 93
[2024-07-21 00:45] VITALS: BP 80/58; PULSE 96
[2024-07-21] MEDS: ondansetron hcl ODT 4 mg Tab PO (01:17)
[2024-07-21 06:00] VITALS: BP 90/54; PULSE 80; RESP 17; TEMP 36.4; O2SAT 93
[2024-07-21 08:20] LABS: Prolactin 29.48 ng/mL (4.8-23.3); Thyroid Stimulating Hormone 0.17 uIU/mL (0.27-4.20); Vitamin B12 273 pg/mL (232-1245)
--- NOTE | 2024-07-21 09:41 | PC.NURSE ---
IN BED RESTING. RN HAS BEEN TO ROOM SEVERAL TIMES TO WAKE UP PT TO TAKE MEDICATIONS THIS AM. PT WAKES UP SAYS OKAY THEN WILL NOT GET UP TO TAKE MEDICATIONS. RN WENT THE LAST TIME TO WAKE UP PT TO TAKE MEDICATIONS AND PT STATED STOP LEAVE ME ALONE, I WANT TO SLEEP. PT HAS NOT TAKEN AM MEDICATIONS AND CONTINUES TO DECLINE. SUPPORT VOICED.
[2024-07-21] MEDS: hyDROXYzine 25 mg Capsule 50 MG PO ×2 (09:58→20:40)
[2024-07-21] MEDS: loratadine 10 mg Tablet PO (09:58)
[2024-07-21] MEDS: lamoTRIgine 100 mg Tablet 200 MG PO ×2 (09:58→20:39)
[2024-07-21] MEDS: topiramate 25 mg Tablet PO ×2 (09:58→20:40)
--- NOTE | 2024-07-21 12:18 | P.NPUPN_ITS ---
Subjective NPU 2 Subjective: Patient presented today reporting that things are fine. She had some moments of frustration yesterday once again struggling with her interactions with some psychotic individuals and individuals that are likely trying to elicit response given her sometimes poor frustration tolerance. She denied any side effects or medication and continues to be optimistic about discharge next Thursday. Mental Status Exam 2 MSE Comments: This is an obese white female with hospital scrubs on with limited grooming and adequate eye contact. No abnormal movements except for psychomotor retardation. She was cooperative with exam in mild distress. Speech was decreased in rate and normal in volume and childlike. Mood described as frustrated with another patient, her affect was flat and slightly irritable. Thought process was linear but concrete. Thought content: Patient denied suicidal or homicidal ideation, there were no delusions reported or noted, she denied any auditory or visual hallucinations. Attention and concentration appeared at baseline. She is alert and oriented times person and place. Insight was poor. Judgment was limited. Impulse control was limited. Intellectual ability is commensurate with mild cognitive impairment. Vitals/I&O/Wt Last Vital Signs Temp 97.6 F 07/21/24 06:00 Pulse 80 07/21/24 06:00 Resp 17 07/21/24 06:00 BP 90/54 07/21/24 06:00 Pulse Ox 93 07/21/24 06:00 O2 Del Method Room Air 07/21/24 06:00 Data NPU 05/27/24 08:51 05/27/24 08:51 A&P Assessment and plan (1) Intermittent explosive disorder: (2) Suicidal ideation: (3) Mild intellectual disabilities: (4) Dysthymia: (5) Major depressive disorder, recurrent, moderate: (6) Poor impulse control: (7) Suicidal ideation: Plan 29-year-old white female history of intellectual disability, intermittent explosive disorder, and depression currently residing in a snf and returning with similar complaints as she has had in the past specifically reporting difficulty getting along with 1 staff member which reportedly led to agitation and conflict leading to this hospitalization. We will evaluate for safety and identify whether this is a recent decline versus consistent with baseline which would we would recommend a more rapid therapeutic discharge. However there is also a question of whether she has gotten to a point where this facility is just not adequate to manage her because of her resistance to their people and processes. 1. Encourage individual group and milieu therapy. 2. Continue topamax 25mg bid. continue Patient appears sedated, continue Risperidal 2mg at night. Continue Cymbalta 60mg daily. Lamotrigine 200mg bid. 3. Therapeutic observation 15-minute checks on the unit for safety 4. We will contact facility and guardian and explore safety plan for discharge as soon as it is appropriate. 5. Recheck admission labs to evaluate for any medical illness. 6. Obtain hospitalist consult and have evaluate apparent kidney and liver function results against patient's recent appearance. Will follow for recommendations. 7. Patient cannot return to [facility], attempting to find new facility as patient deemed unsafe to return to [facility] and will likely stay in hospital. 8. Patient admitted on 05/19/24 and remains with no aggression or assaultive behavior since her hospitalization here. She had her interview with new [facility] possible roommates. It reportedly went well but the question is simply when they will have a bed date in the next days to weeks. We will explore any alternatives to her staying here until that bed is available. CONSIDER DESMOPRESSIN for enuresis.-Renal consult. Current report of acceptance for [facility] on 07/30/2024. There are reported hopes for an earlier date. 9. D/C trazodone and Increase prazosin to 3mg at night. PDMP PDMP Reviewed: Not Reviewed Involuntary Hold Information 2 96 Hour Hold: 96 Hour Involuntary Admission: No Attestations NPU 2 Medical Necessity Statement*: Patient hospitalization is medically necessary and deemed to be the clinically appropriate intervention at this time. We will monitor and initiate medications while making changes as indicated. The patient's likely length of stay is 14 days when availability at new place of residence is found. Patient under guardianship and no emergency placement is available. Coding Level of Care Code Acute Code for Chg Fwd Diagnoses Intermittent explosive disorder F63.81 Suicidal ideation R45.851 Mild intellectual disabilities F70 Dysthymia F34.1 Major depressive disorder, recurrent, moderate F33.1 Poor impulse control R45.87
[2024-07-21 14:00] VITALS: BP 96/61; PULSE 97; RESP 18; TEMP 36.6; O2SAT 97
[2024-07-21] MEDS: diphenhydrAMINE 50 mg/mL SDV 1mL IM (17:58)
[2024-07-21] MEDS: haloperidol inj 5 mg/mL INJ 1 mL IM (17:58)
--- NOTE | 2024-07-21 18:32 | PC.NURSE ---
PT BEGAN ACTING OUT AT APPROXIMATELY 1715. STARTED ACCUSING HOT REPAIRMAN OF LOSING MY FUCKING GAME YOU BITCH. JUST FIND IT NOW AND GIVE IT TO ME. STAFF WENT TO PT ROOM WHERE SHE WAS OBSERVED THROWING TRASH AND HER OTHER GAMES. THIS RN GAVE PT CHOICES TO EITHER COLOR, PLAY ADWOA OR CLEAN UP ROOM. PT CONTINUED WITH THE VERBAL AGGRESSION AND CALLING STAFF NAMES AND MAKING THREATS OF HARM TOWARDS STAFF. RN INFORMED PT ONCE SHE CALMED DOWN SHE COULD COME AND SPEAK TO STAFF AND THIS RN WOULD LOOK FOR HER GAME. THIS RN DID FIND THE GAME PT WAS WANTING AND CALLED HARISH LANDERS AND ASKED IF THE GAME HAD BEEN APPROVED TO GIVE TO PT PRIOR WHICH IT WAS. THE DECISION WAS MADE TO KEEP THE GAME UNTIL TOMORROW AND HAVE THE PT SPEAK TO OR HARISH THE TRANSACTIONAL ATTORNEY PRIOR TO GETTING THE PRIVILEGE OF HAVING THE GAME. PT THEN BECAME ESCALATED BEATING ON THE WINDOW AND SAYING I'M GOING TO KILL MYSELF LOOK I ALREADY TRIED. PT POINTED AT HER WRISTS AND THERE WERE SMALL RED AREAS OVER HER VEINS WHERE PT STATED I'M GONNA RIP OUT MY VEINS. CODE LINNEA WAS CALLED AT 175, STAFF ARRIVED AND SAFE [address] TO [address] PT IN SAFE POSITION TO BE ASSISTED TO THE SECLUSION ROOM. 1756 PT WAS GIVEN HALDOL 5 MG IM TO LEFT GLUTEAL AND BENADRYL 50 MG TO RIGHT DELTOID. PT WAS PLACED IN SECLUSION AT 175 WITH ONE TO ONE OBSERVATION. MCAT TUTOR PRESENT. HARISH LANDERS CONTACTED BY PHONE AT 180 AND WAS NOTIFIED FACE TO FACE AT 175. SECLUSION WAS ENDED AT 180. PT WAS TEARFUL. RN ASSURED PT THAT EVERYTHING WAS OKAY, NO ONE WAS MAD AT PT AND THE GOAL IS TO GET PT TO DISCHARGE ON THURSDAY SO PT CAN GO TO HER NEW HOUSE. PT AND RN WALKED TO PT ROOM AND PT LAID DOWN. MOISES VILLALBA WAS NOTIFIED VIA PHONE AT 181. SEE VITAL SIGN FLOW SHEET FOR VITALS POST-SECLUSION AND MEDICATION. ALL QUESTIONS WERE ANSWERED AND SUPPORT WAS VOICED TO PT.
[2024-07-21 18:36] VITALS: BP 82/59; PULSE 93; RESP 18; TEMP 37.5; O2SAT 96
[2024-07-21 20:29] VITALS: BP 92/59; PULSE 83; RESP 16; O2SAT 96
[2024-07-21] MEDS: levothyroxine 100 mcg Tablet PO (20:39)
[2024-07-21] MEDS: risperiDONE 2 mg Tablet PO (20:39)
[2024-07-21] MEDS: magnesium hydroxide 30 mL UDC PO (20:39)
[2024-07-21] MEDS: duloxetine 30 mg Capsule 60 MG PO (20:40)
[2024-07-21] MEDS: docusate sodium 100 mg Capsule 200 MG PO (20:40)
[2024-07-22 06:00] VITALS: BP 86/58; PULSE 78; RESP 17; TEMP 36.7; O2SAT 96
--- NOTE | 2024-07-22 09:44 | PC.NURSE ---
RESTING IN BED, RN TO ROOM TWICE TO INFORM PT HER MEDICATIONS WERE READY TO TAKE. AT 0941 PT CONTINUES TO DECLINE TO COME TO THE NURSES STATION AND TAKE HER MORNING MEDICATIONS. PT REMAINS IMPULSIVE, IRRITABLE AND RESISTIVE TO CARE. STAFF CONTINUES TO ENCOURAGE PT TO TAKE MEDICATIONS WITH NO RESOLVE. PT CONTINUES TO LAY DOWN IN BED, WITHDRAWN AND ISOLATING TO ROOM. SUPPORT VOICED.
[2024-07-22] MEDS: loratadine 10 mg Tablet PO (10:37)
[2024-07-22] MEDS: hyDROXYzine 25 mg Capsule 50 MG PO (10:37)
[2024-07-22] MEDS: topiramate 25 mg Tablet PO ×2 (10:37→21:31)
[2024-07-22] MEDS: OLANZapine 5 mg ODT PO ×2 (10:38→21:31)
[2024-07-22] MEDS: lamoTRIgine 100 mg Tablet 200 MG PO ×2 (10:38→21:31)
--- NOTE | 2024-07-22 12:24 | PC.NURSE ---
pt complaing of sob, lethargy, states feeling hot, and like she is going to go into panic attack vital signs taken bp86/59 o2 95% pulse 92, temp 98.7 pt states she has been in bed all day has not drank any amount of H2o, or anything to eat. gave pt a drink of H2o and ceral, pt sitting on bench near nurses station for observation.
--- NOTE | 2024-07-22 13:52 | PC.NURSE ---
THIS RN SPOKE WITH [place] FROM [facility] AND CONFIRMED THAT PT NEEDS TO DISCHARGE ON THURSDAY THE AT NOON WITH MEDS TO BEDS THEN HAVE DR. MORRELL SEND [facility]LECTRON[facility] TO [place] FOR REFILLS. NURSE TO NURSE TO BE DONE ON THURSDAY AND NURSE TO CALL [phone].INFORMATION GIVEN TO LABEL OPERATOR, DOCTOR AND PASSED ON IN REPORT.
[2024-07-22 14:00] VITALS: BP 94/64; PULSE 97; RESP 18; TEMP 37.6; O2SAT 95
[2024-07-22] MEDS: haloperidol 5 mg Tablet PO (14:33)
--- NOTE | 2024-07-22 14:58 | PC.NURSE ---
GIVEN HALDOL 5 MG ORDERED FOR INCREASED ANXIETY. PT ANOTHER PT ON THE UNIT CONTINUE TO BICKER AT EACH OTHER. PT VERBALLY REDIRECTED AND ENCOURAGED TO MAKE GOOD CHOICES.
--- NOTE | 2024-07-22 15:37 | P.NPUPN_ITS ---
Subjective NPU 2 Subjective: Patient presented today reporting that she is doing all right. We discussed the importance of her being able to manage her reactions to different individuals on the unit even though they are quite provoking. We discussed that his ability to manage ones responses is critical to her having success in her life in general as she moves to different facilities and deals with different individuals. She continues to report being excited about leaving and going to this program on Thursday. She denied any side effects or medications. Mental Status Exam 2 MSE Comments: This is an obese white female with hospital scrubs on with limited grooming and adequate eye contact. No abnormal movements except for psychomotor retardation. She was cooperative with exam in mild distress. Speech was decreased in rate and normal in volume and childlike. Mood described as frustrated with another patient, her affect was flat and slightly irritable. Thought process was linear but concrete. Thought content: Patient denied suicidal or homicidal ideation, there were no delusions reported or noted, she denied any auditory or visual hallucinations. Attention and concentration appeared at baseline. She is alert and oriented times person and place. Insight was poor. Judgment was limited. Impulse control was limited. Intellectual ability is commensurate with mild cognitive impairment. Vitals/I&O/Wt Last Vital Signs Temp 98.1 F 07/22/24 06:00 Pulse 78 07/22/24 06:00 Resp 17 07/22/24 06:00 BP 86/58 07/22/24 06:00 Pulse Ox 96 07/22/24 06:00 O2 Del Method Room Air 07/22/24 06:00 Data NPU 05/27/24 08:51 05/27/24 08:51 A&P Assessment and plan (1) Intermittent explosive disorder: (2) Suicidal ideation: (3) Mild intellectual disabilities: (4) Dysthymia: (5) Major depressive disorder, recurrent, moderate: (6) Poor impulse control: (7) Suicidal ideation: Plan 29-year-old white female history of intellectual disability, intermittent explosive disorder, and depression currently [facility] and returning with similar complaints as she has had in the past specifically reporting difficulty getting along with 1 staff member which reportedly led to agitation and conflict leading to this hospitalization. We will evaluate for safety and identify whether this is a recent decline versus consistent with baseline which would we would recommend a more rapid therapeutic discharge. However there is also a question of whether she has gotten to a point where this facility is just not adequate to manage her because of her resistance to their people and processes. 1. Encourage individual group and milieu therapy. 2. Continue topamax 25mg bid. continue Patient appears sedated, continue Risperidal 2mg at night. Continue Cymbalta 60mg daily. Lamotrigine 200mg bid. 3. Therapeutic observation 15-minute checks on the unit for safety 4. We will contact facility and guardian and explore safety plan for discharge as soon as it is appropriate. 5. Recheck admission labs to evaluate for any medical illness. 6. Obtain hospitalist consult and have evaluate apparent kidney and liver function results against patient's recent appearance. Will follow for recommendations. 7. Patient cannot return to [facility], attempting to find new facility as patient deemed unsafe to return to [facility] and will likely stay in hospital. 8. Patient admitted on 05/19/24 and remains with no aggression or assaultive behavior since her hospitalization here. She had her interview with new [facility] possible roommates. It reportedly went well but the question is simply when they will have a bed date in the next days to weeks. We will explore any alternatives to her staying here until that bed is available. CONSIDER DESMOPRESSIN for enuresis.-Renal consult. Current report of acceptance for [facility] on 07/27/2024. There are reported hopes for an earlier date. 9. D/C trazodone and Increase prazosin to 3mg at night. PDMP PDMP Reviewed: Not Reviewed Involuntary Hold Information 2 Hold Status: Legal Status: Active Guardianship Date/Time Hold Expires: 96 Hour Hold: 96 Hour Involuntary Admission: No Attestations NPU 2 Medical Necessity Statement*: Patient hospitalization is medically necessary and deemed to be the clinically appropriate intervention at this time. We will monitor and initiate medications while making changes as indicated. The patient's likely length of stay is 5 days when availability at new place of residence is found. Patient under guardianship and no emergency placement is available. Coding Level of Care Code Acute Code for Chg Fwd Diagnoses Intermittent explosive disorder F63.81 Suicidal ideation R45.851 Mild intellectual disabilities F70 Dysthymia F34.1 Major depressive disorder, recurrent, moderate F33.1 Poor impulse control R45.87
[2024-07-22 19:56] VITALS: BP 94/62; PULSE 96; RESP 16; TEMP 37.2; O2SAT 97
[2024-07-22] MEDS: duloxetine 30 mg Capsule 60 MG PO (21:30)
[2024-07-22] MEDS: docusate sodium 100 mg Capsule 200 MG PO (21:30)
[2024-07-22] MEDS: risperiDONE 2 mg Tablet PO (21:31)
[2024-07-22] MEDS: levothyroxine 100 mcg Tablet PO (21:31)
[2024-07-23 06:00] VITALS: BP 94/65; PULSE 82; RESP 16; TEMP 37.2; O2SAT 95
--- NOTE | 2024-07-23 07:06 | W.PM.NPUPNS ---
Subjective NPU Subjective: Patient presented today having a better day since the more challenging patient was moved to the other side. Otherwise she is just trying to make sure she does not do anything that jeopardizes her being able to leave on the . She denied any side effects to the medication. Mental Status Exam MSE Comments: This is an obese white female with hospital scrubs on with limited grooming and adequate eye contact. No abnormal movements except for psychomotor retardation. She was cooperative with exam in mild distress. Speech was decreased in rate and normal in volume and childlike. Mood described as frustrated with another patient, her affect was flat and slightly irritable. Thought process was linear but concrete. Thought content: Patient denied suicidal or homicidal ideation, there were no delusions reported or noted, she denied any auditory or visual hallucinations. Attention and concentration appeared at baseline. She is alert and oriented times person and place. Insight was poor. Judgment was limited. Impulse control was limited. Intellectual ability is commensurate with mild cognitive impairment. Vitals/I&O/Wt Last Vital Signs Temp 99.0 F 07/23/24 06:00 Pulse 82 07/23/24 06:00 Resp 16 07/23/24 06:00 BP 94/65 07/23/24 06:00 Pulse Ox 95 07/23/24 06:00 O2 Del Method Room Air 07/23/24 06:00 Data NPU 05/27/24 08:51 05/27/24 08:51 A&P Assessment and plan (1) Intermittent explosive disorder: (2) Suicidal ideation: (3) Mild intellectual disabilities: (4) Dysthymia: (5) Major depressive disorder, recurrent, moderate: (6) Poor impulse control: (7) Suicidal ideation: Plan 29-year-old white female history of intellectual disability, intermittent explosive disorder, and depression currently residing in a intermediate and returning with similar complaints as she has had in the past specifically reporting difficulty getting along with 1 staff member which reportedly led to agitation and conflict leading to this hospitalization. We will evaluate for safety and identify whether this is a recent decline versus consistent with baseline which would we would recommend a more rapid therapeutic discharge. However there is also a question of whether she has gotten to a point where this facility is just not adequate to manage her because of her resistance to their people and processes. 1. Encourage individual group and milieu therapy. 2. Continue topamax 25mg bid. continue Patient appears sedated, continue Risperidal 2mg at night. Continue Cymbalta 60mg daily. Lamotrigine 200mg bid. 3. Therapeutic observation 15-minute checks on the unit for safety 4. We will contact facility and guardian and explore safety plan for discharge as soon as it is appropriate. 5. Recheck admission labs to evaluate for any medical illness. 6. Obtain hospitalist consult and have evaluate apparent kidney and liver function results against patient's recent appearance. Will follow for recommendations. 7. Patient cannot return to [facility], attempting to find new facility as patient deemed unsafe to return to thrive and will likely stay in hospital. 8. Patient admitted on 05/19/24 and remains with no aggression or assaultive behavior since her hospitalization here. She had her interview with new [facility] possible roommates. CONSIDER DESMOPRESSIN for enuresis.-Renal consult. Current report of acceptance for [facility] on 07/27/2024. There are reported hopes for an earlier date but no later than then. 9. D/C trazodone and Increase prazosin to 3mg at night. PDMP PDMP Reviewed: Not Reviewed Involuntary Hold Information Hold Status: Legal Status: Active Guardianship Date/Time Hold Expires: 07/30/24 96 Hour Hold: 96 Hour Involuntary Admission: No Attestations NPU Medical Necessity Statement*: Patient hospitalization is medically necessary and deemed to be the clinically appropriate intervention at this time. We will monitor and initiate medications while making changes as indicated. The patient's likely length of stay is 4 days. Patient under guardianship and no emergency placement is available. Coding Level of Care Code Acute Code for Chg Fwd Diagnoses Intermittent explosive disorder F63.81 Suicidal ideation R45.851 Mild intellectual disabilities F70 Dysthymia F34.1 Major depressive disorder, recurrent, moderate F33.1 Poor impulse control R45.87
[2024-07-23] MEDS: loratadine 10 mg Tablet PO (11:34)
[2024-07-23] MEDS: lamoTRIgine 100 mg Tablet 200 MG PO ×2 (11:34→22:02)
[2024-07-23] MEDS: topiramate 25 mg Tablet PO ×2 (11:34→22:02)
[2024-07-23 14:00] VITALS: BP 91/63; PULSE 105; RESP 16; TEMP 36.9; O2SAT 99
[2024-07-23] MEDS: loperamide 2 mg Capsule PO (14:45)
[2024-07-23] MEDS: ondansetron hcl ODT 4 mg Tab PO (17:26)
[2024-07-23 19:56] VITALS: BP 94/65; PULSE 90; RESP 18; TEMP 36.7; O2SAT 97
[2024-07-23] MEDS: risperiDONE 2 mg Tablet PO (22:02)
[2024-07-23] MEDS: duloxetine 30 mg Capsule 60 MG PO (22:02)
[2024-07-23] MEDS: levothyroxine 100 mcg Tablet PO (22:02)
[2024-07-24 06:00] VITALS: BP 98/65; PULSE 65; RESP 16; TEMP 36.6; O2SAT 98; BMI 29.5
[2024-07-24] MEDS: lamoTRIgine 100 mg Tablet 200 MG PO ×2 (08:08→20:04)
[2024-07-24] MEDS: loratadine 10 mg Tablet PO (08:08)
[2024-07-24] MEDS: topiramate 25 mg Tablet PO ×2 (08:08→20:04)
[2024-07-24 14:00] VITALS: BP 82/57; PULSE 70; RESP 17; TEMP 37.1; O2SAT 97
[2024-07-24] MEDS: magnesium hydroxide 30 mL UDC PO (14:38)
[2024-07-24] MEDS: acetaminophen 500 mg Tablet PO (15:36)
[2024-07-24] MEDS: ondansetron hcl ODT 4 mg Tab PO ×2 (15:37→20:03)
--- NOTE | 2024-07-24 17:39 | P.NPUPN_ITS ---
Subjective NPU 2 Subjective: 29-year-old female history of poor impul se control and a history of mild cognitive impairment currently awaiting placement at an adult living facility. Patient had continued to express improved mood. She had reported having less nightmares and stated that her episodes of enuresis had been substantially better. There was no acts of aggression noted here. She reported that she was looking forward to going to [facility] in the next 2 days. She was redirectable on the milieu. No side effects noted by patient from medication. Mental Status Exam 2 MSE Comments: This is an obese white female with hospital scrubs on with limited grooming and adequate eye contact. No abnormal movements except for psychomotor retardation. She was cooperative with exam in mild distress. Speech was nomal in rate and normal in volume and childlike. Mood described as good. Her affect appeared euthymic today. Her thought process was linear, logical and goal directed. Thought content: Patient denied suicidal or homicidal ideation, There were no delusions reported or noted, she denied any auditory or visual hallucinations. Attention and concentration appeared at baseline. She is alert and oriented times person and place. Insight was poor. Judgment was limited. Impulse control was limited. Intellectual ability is commensurate with mild cognitive impairment. Vitals/I&O/Wt Last Vital Signs Temp 98.7 F 07/24/24 14:00 Pulse 70 07/24/24 14:00 Resp 17 07/24/24 14:00 BP 82/57 07/24/24 14:00 Pulse Ox 97 07/24/24 14:00 O2 Del Method Room Air 07/24/24 06:00 Weight last 48 hrs Weight 85.332 kg Data NPU 05/27/24 08:51 05/27/24 08:51 A&P Assessment and plan (1) Intermittent explosive disorder: (2) Suicidal ideation: (3) Mild intellectual disabilities: (4) Dysthymia: (5) Major depressive disorder, recurrent, moderate: (6) Poor impulse control: (7) Suicidal ideation: Plan 29-year-old white female history of intellectual disability, intermittent explosive disorder, and depression currently residing in a skilled nursing and returning with similar complaints as she has had in the past specifically reporting difficulty getting along with 1 staff member which reportedly led to agitation and conflict leading to this hospitalization. We will evaluate for safety and identify whether this is a recent decline versus consistent with baseline which would we would recommend a more rapid therapeutic discharge. However there is also a question of whether she has gotten to a point where this facility is just not adequate to manage her because of her resistance to their people and processes. 1. Encourage individual group and milieu therapy. 2. Continue topamax 25mg bid. continue Patient appears sedated, continue Risperidal 2mg at night. Continue Cymbalta 60mg daily. Lamotrigine 200mg bid. 3. Therapeutic observation 15-minute checks on the unit for safety 4. We will contact facility and guardian and explore safety plan for discharge as soon as it is appropriate. 5. Recheck admission labs to evaluate for any medical illness. 6. Obtain hospitalist consult and have evaluate apparent kidney and liver function results against patient's recent appearance. Will follow for recommendations. 7. Patient cannot return to [facility], attempting to find new facility as patient deemed unsafe to return to thrive and will likely stay in hospital. 8. Patient admitted on 05/19/24 and remains with no aggression or assaultive behavior since her hospitalization here. She had her interview with new [facility] possible roommates. CONSIDER DESMOPRESSIN for enuresis.-Renal consult. Current report of acceptance for [facility] on 07/27/2024. There are reported hopes for an earlier date but no later than then. 9. Continue prazosin to 3mg at night. PDMP PDMP Reviewed: Not Reviewed Involuntary Hold Information 2 Hold Status: Legal Status: Active Guardianship Date/Time Hold Expires: 96 Hour Hold: 96 Hour Involuntary Admission: No Attestations NPU 2 Medical Necessity Statement*: Patient hospitalization is medically necessary and deemed to be the clinically appropriate intervention at this time. We will monitor and initiate medications while making changes as indicated. The patient's likely length of stay is 4 days. Patient under guardianship and no emergency placement is available. Coding Level of Care Code Acute Code for Chg Fwd Diagnoses Intermittent explosive disorder F63.81 Suicidal ideation R45.851 Mild intellectual disabilities F70 Dysthymia F34.1 Major depressive disorder, recurrent, moderate F33.1 Poor impulse control R45.87
[2024-07-24 19:57] VITALS: BP 90/63; PULSE 90; RESP 18; TEMP 37.8; O2SAT 96
[2024-07-24] MEDS: levothyroxine 100 mcg Tablet PO (20:04)
[2024-07-24] MEDS: OLANZapine 5 mg ODT PO (20:04)
[2024-07-24] MEDS: duloxetine 30 mg Capsule 60 MG PO (20:04)
[2024-07-24] MEDS: risperiDONE 2 mg Tablet PO (20:04)
[2024-07-24] MEDS: ibuprofen 600 mg Tablet PO (21:39)
[2024-07-24] MEDS: hyDROXYzine 25 mg Capsule 50 MG PO (23:05)
[2024-07-25 06:00] VITALS: RESP 16
--- NOTE | 2024-07-25 06:28 | PC.NURSE ---
pt sleeping vitals not taken charge notified
[2024-07-25] MEDS: loratadine 10 mg Tablet PO (08:12)
[2024-07-25] MEDS: lamoTRIgine 100 mg Tablet 200 MG PO ×2 (08:12→20:23)
[2024-07-25] MEDS: topiramate 25 mg Tablet PO ×2 (08:13→20:22)
--- NOTE | 2024-07-25 13:24 | W.PM.NPUPNS ---
Subjective NPU Subjective: 29-year-old female history of poor impulse control and a history of mild cognitive impairment currently awaiting placement at an adult living facility. No behavioral problems were noted. She reported good energy and reported having some difficulties with sleep last night due to a disruption with a new patient entering on the unit. The patient had reported no feelings of hopelessness and reported feeling optimistic about going to her new living situation in 2 days. She reported no side effects from her medication. Mental Status Exam MSE Comments: This is an obese white female with hospital scrubs on with limited grooming and adequate eye contact. No abnormal movements except for psychomotor retardation. She was cooperative with exam in mild distress. Speech was nomal in rate and normal in volume and childlike. Mood described as tired. Her affect appeared more restricted today. Her thought process was linear, logical and goal directed. Thought content: Patient denied suicidal or homicidal ideation, There were no delusions reported or noted, she denied any auditory or visual hallucinations. Attention and concentration appeared at baseline. She is alert and oriented times person and place and time. Insight was poor. Judgment was limited. Impulse control was limited. Intellectual ability is commensurate with mild cognitive impairment. Vitals/I&O/Wt Last Vital Signs Temp 100.1 F H 07/24/24 19:57 Pulse 90 07/24/24 19:57 Resp 16 07/25/24 06:00 BP 90/63 07/24/24 19:57 Pulse Ox 96 07/24/24 19:57 O2 Del Method Room Air 07/24/24 06:00 Weight last 48 hrs Weight 85.332 kg Data NPU 05/27/24 08:51 05/27/24 08:51 A&P Assessment and plan (1) Intermittent explosive disorder: (2) Suicidal ideation: (3) Mild intellectual disabilities: (4) Dysthymia: (5) Major depressive disorder, recurrent, moderate: (6) Poor impulse control: (7) Suicidal ideation: Plan 29-year-old white female history of intellectual disability, intermittent explosive disorder, and depression currently residing in a detention and returning with similar complaints as she has had in the past specifically reporting difficulty getting along with 1 staff member which reportedly led to agitation and conflict leading to this hospitalization. We will evaluate for safety and identify whether this is a recent decline versus consistent with baseline which would we would recommend a more rapid therapeutic discharge. However there is also a question of whether she has gotten to a point where this facility is just not adequate to manage her because of her resistance to their people and processes. 1. Encourage individual group and milieu therapy. 2. Continue topamax 25mg bid. continue Patient appears sedated, continue Risperidal 2mg at night. Continue Cymbalta 60mg daily. Lamotrigine 200mg bid. 3. Therapeutic observation 15-minute checks on the unit for safety 4. We will contact facility and guardian and explore safety plan for discharge as soon as it is appropriate. 5. Recheck admission labs to evaluate for any medical illness. 6. Obtain hospitalist consult and have evaluate apparent kidney and liver function results against patient's recent appearance. Will follow for recommendations. 7. Patient cannot return to [facility], attempting to find new facility as patient deemed unsafe to return to [facility] and will likely stay in hospital. 8. Patient admitted on 05/19/24 and remains with no aggression or assaultive behavior since her hospitalization here. She had her interview with new [facility] possible roommates. CONSIDER DESMOPRESSIN for enuresis.-Renal consult. Current report of acceptance for [facility] on 07/27/2024. There are reported hopes for an earlier date but no later than then. 9. Continue prazosin to 3mg at night. PDMP PDMP Reviewed: Not Reviewed Involuntary Hold Information Hold Status: Legal Status: Active Guardianship Date/Time Hold Expires: 07/30/24 96 Hour Hold: 96 Hour Involuntary Admission: No Attestations NPU Medical Necessity Statement*: Patient hospitalization is medically necessary and deemed to be the clinically appropriate intervention at this time. We will monitor and initiate medications while making changes as indicated. The patient's likely length of stay is 4 days. Patient under guardianship and no emergency placement is available. Coding Level of Care Code Acute Code for Chg Fwd Diagnoses Intermittent explosive disorder F63.81 Suicidal ideation R45.851 Mild intellectual disabilities F70 Dysthymia F34.1 Major depressive disorder, recurrent, moderate F33.1 Poor impulse control R45.87
[2024-07-25 14:00] VITALS: BP 88/63; PULSE 91; RESP 18; TEMP 36.3; O2SAT 96
[2024-07-25] MEDS: ondansetron hcl ODT 4 mg Tab PO (18:11)
--- NOTE | 2024-07-25 18:11 | PC.NURSE ---
PRN ZOFRAN 4 MG GIVEN PO SUBLINGUAL PER PT C/O STATED NAUSEA/VOMITING
[2024-07-25 20:08] VITALS: BP 88/59; PULSE 87; RESP 18; TEMP 37.7; O2SAT 96
[2024-07-25] MEDS: duloxetine 30 mg Capsule 60 MG PO (20:23)
[2024-07-25] MEDS: risperiDONE 2 mg Tablet PO (20:23)
[2024-07-25] MEDS: levothyroxine 100 mcg Tablet PO (20:23)
[2024-07-25] MEDS: hyDROXYzine 25 mg Capsule 50 MG PO (21:24)
--- NOTE | 2024-07-25 21:42 | PC.NURSE ---
BEHAVIORAL Throughout the beginning of the shift, pt needed to be redirected several times due to her behaviors. Pt was calm and cooperative during shift assessment then became agitated at this nurse because nursing staff cares about the other patient more than her. This nurse educated the patient that it is not fair for me to only talk to her and that other patient needs my attention as well. Pt stated that she understood and that she was sorry. After nursing staff exited the room pt came to the nurses station a few minutes later and asked this nurse if we could go back to her room and talk. Nursing staff stated that we would be with her in a moment. Pt then proceeded to roll her eyes and slam her door shut. When this nurse enter the room patient stated that she wanted to get the fuck out of here because she hates this place. Pt then proceeded to say if i had a knife i'd fucking kill myself right now. This nurse attempted to verbally de-escalate the pt, however pt continued to get more irritated. Pt then stated you should know, last time one of my staff got on my nerves i almost killed her. This nurse left pts room immediately to go get another staff member. Pt then came into the hallway and apologized and asked this nurse to come back. This nurse informed the pt that I needed to come get another staff member due to the pt making a threat. the pt then rolled her eyes and stated i didn't fucking threaten you but if thats what you want to say, send me to [facility] i dont give a fuck and went back to her room. This nurse and OZIEL Schrader went to pts room to find her picking at the screws to the window. When asked what she was doing pt stated im escaping, you guys don't give a shit about me. Nursing staff was able to get the pt away from the window and after a few minutes of talking pt began crying stating that she was sorry and that she is just nervous about leaving in 2 days. Staff educated pt that it is okay to be nervous but threatening staff members and trying to get the window open so she could escape is not acceptable. Pt stated that she understood and apologized. After staff left pts room, pt came to the nurses station and asked for something to help with her anxiety. Vistaril 50mg Po was given to pt at 2123. Pt then went back to her room and laid down. Pt is now observed resting in bed quietly with eyes closed.
--- NOTE | 2024-07-26 06:44 | PC.NURSE ---
Patient refused vs resp 16. Charge nurse notified
[2024-07-26] MEDS: topiramate 25 mg Tablet PO ×2 (11:23→21:14)
[2024-07-26] MEDS: loratadine 10 mg Tablet PO (11:23)
[2024-07-26] MEDS: lamoTRIgine 100 mg Tablet 200 MG PO ×2 (11:23→21:14)
[2024-07-26 14:00] VITALS: BP 85/64; PULSE 91; RESP 18; TEMP 36.8; O2SAT 99
--- NOTE | 2024-07-26 14:10 | P.NPUPN_ITS ---
Subjective NPU 2 Subjective: 29-year-old female history of poor impul se control and a history of mild cognitive impairment currently awaiting placement at an adult living facility. The patient had reported no current problems although she had struggled when another peer on the unit appeared to be in crisis as she had felt that staff had not been paying enough attention to her needs. She had become redirectable and did not engage in any self injury. She had reported that she was feeling less angry today. She had no episodes of enuresis and reported no recent nightmares. She reported no side effects from her medication regimen. Mental Status Exam 2 MSE Comments: This is an obese white female with hospital scrubs on with limited grooming and adequate eye contact. No abnormal movements except for psychomotor retardation. She was cooperative with exam in mild distress. Speech was nomal in rate and normal in volume and childlike. Mood described as tired. Her affect appeared more restricted today. Her thought process was linear, logical and goal directed. Thought content: Patient denied suicidal or homicidal ideation, There were no delusions reported or noted, she denied any auditory or visual hallucinations. Attention and concentration appeared at baseline. She is alert and oriented times person and place and time. Insight was poor. Judgment was limited. Impulse control was limited. Intellectual ability is commensurate with mild cognitive impairment. Vitals/I&O/Wt Last Vital Signs Temp 99.9 F H 07/25/24 20:08 Pulse 87 07/25/24 20:08 Resp 18 07/25/24 20:08 BP 88/59 07/25/24 20:08 Pulse Ox 96 07/25/24 20:08 O2 Del Method Room Air 07/25/24 20:08 07/25/24 07/26/24 07/26/24 22:59 06:59 14:59 Intake Total 240 / 240 Balance 240 / 240 Data NPU 05/27/24 08:51 05/27/24 08:51 A&P Assessment and plan (1) Intermittent explosive disorder: (2) Suicidal ideation: (3) Mild intellectual disabilities: (4) Dysthymia: (5) Major depressive disorder, recurrent, moderate: (6) Poor impulse control: (7) Suicidal ideation: Plan 29-year-old white female history of intellectual disability, intermittent explosive disorder, and depression currently residing [place] [facility] and returning with similar complaints as she has had in the past specifically reporting difficulty getting along with 1 staff member which reportedly led to agitation and conflict leading to this hospitalization. We will evaluate for safety and identify whether this is a recent decline versus consistent with baseline which would we would recommend a more rapid therapeutic discharge. However there is also a question of whether she has gotten to a point where this facility is just not adequate to manage her because of her resistance to their people and processes. 1. Encourage individual group and milieu therapy. 2. Continue topamax 25mg bid. continue Patient appears sedated, continue Risperidal 2mg at night. Continue Cymbalta 60mg daily. Lamotrigine 200mg bid. 3. Therapeutic observation 15-minute checks on the unit for safety 4. We will contact facility and guardian and explore safety plan for discharge as soon as it is appropriate. 5. Recheck admission labs to evaluate for any medical illness. 6. Obtain hospitalist consult and have evaluate apparent kidney and liver function results against patient's recent appearance. Will follow for recommendations. 7. Patient cannot return to [facility], attempting to find new facility as patient deemed unsafe to return to [facility] and will likely stay in hospital. 8. Patient admitted on 05/19/24 and remains with no aggression or assaultive behavior since her hospitalization here. She had her interview with new [facility] possible roommates. CONSIDER DESMOPRESSIN for enuresis.-Renal consult. Current report of acceptance for [facility] on 07/27/2024. There are reported hopes for an earlier date but no later than then. 9. Continue prazosin to 3mg at night. 10. D/C tommorow to [facility]. PDMP PDMP Reviewed: Not Reviewed Involuntary Hold Information 2 Hold Status: Legal Status: Active Guardianship Date/Time Hold Expires: 96 Hour Hold: 96 Hour Involuntary Admission: No Attestations NPU 2 Medical Necessity Statement*: Patient hospitalization is medically necessary and deemed to be the clinically appropriate intervention at this time. We will monitor and initiate medications while making changes as indicated. The patient's likely length of stay is 1 day. Coding Level of Care Code Acute Code for Chg Fwd Diagnoses Intermittent explosive disorder F63.81 Suicidal ideation R45.851 Mild intellectual disabilities F70 Dysthymia F34.1 Major depressive disorder, recurrent, moderate F33.1 Poor impulse control R45.87
--- NOTE | 2024-07-26 15:04 | PC.NURSE ---
Per Dr. aDrden, 7 day supply of patient's medications called in to [facility]: cymbalta, lamotrigine, levothyroxine, loratadine, risperidone, topiramate.
[2024-07-26] MEDS: loperamide 2 mg Capsule PO (16:24)
[2024-07-26] MEDS: OLANZapine 5 mg ODT PO ×2 (19:39→23:56)
[2024-07-26 19:59] VITALS: BP 86/61; PULSE 110; RESP 18; TEMP 37.6; O2SAT 95
[2024-07-26] MEDS: risperiDONE 2 mg Tablet PO (21:14)
[2024-07-26] MEDS: duloxetine 30 mg Capsule 60 MG PO (21:14)
[2024-07-26] MEDS: levothyroxine 100 mcg Tablet PO (21:14)
[2024-07-26] MEDS: hyDROXYzine 25 mg Capsule 50 MG PO (21:14)
[2024-07-27 06:00] VITALS: BP 81/61; PULSE 90; RESP 17; TEMP 37.2; O2SAT 95
[2024-07-27] MEDS: hyDROXYzine 25 mg Capsule 50 MG PO (08:51)
[2024-07-27] MEDS: topiramate 25 mg Tablet PO (08:51)
[2024-07-27] MEDS: lamoTRIgine 100 mg Tablet 200 MG PO (08:51)
[2024-07-27] MEDS: loratadine 10 mg Tablet PO (08:51)
--- NOTE | 2024-07-27 09:07 | PC.NURSE ---
REMAINS AT WINDOW AND WILL NOT FOLLOW DIRECTION FROM STAFF. ANXIOUS AND MAKING STATEMENTS TO STAFF I'M GOING TO EXPLODE AT YOU IF YOU DON'T STOP TELLING ME WHAT TO DO. PT WAS RE-EDUCATED THAT SHE CAN NOT STAND UP HERE WITH THE RN IS ON THE PHONE DISCUSSING PATIENT INFORMATION AND GIVING MEDICATIONS. PT STOMPED OFF AND MAD. PT HAS BEEN REDIRECTED SEVERAL TIMES. VISTARIL 50 MG WAS GIVEN FOR INCREASED ANXIETY. PT IS TO DISCHARGE AT NOON.
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
[2024-07-27 09:45] VITALS: BP 99/65; PULSE 74; RESP 18; TEMP 37.2; O2SAT 99
== END 2024-07-27 13:22 | disposition intermediate care facility (04) | DRG 883 ==
LOC: ER 13:04 → NP 14:30
PROVIDERS: Internal Medicine; Student in an Organized Health Care Education/Training Program; Admitting Provider Psychiatry & Neurology Psychiatry; Emergency Provider Emergency Medicine; Visit Provider Psychiatry & Neurology Psychiatry
DX: F63.81 Intermittent explosive disorder (principal); R45.851 Suicidal ideations; F33.1 Major depressive disorder, recurrent, moderate; F70 Mild intellectual disabilities; F34.1 Dysthymic disorder; R45.87 Impulsiveness; E66.9 Obesity, unspecified; Z68.29 Body mass index [BMI] 29.0-29.9, adult; N18.2 Chronic kidney disease, stage 2 (mild); R74.01 Elevation of levels of liver transaminase levels; R11.10 Vomiting, unspecified; R19.7 Diarrhea, unspecified; F51.5 Nightmare disorder; Z75.1 Person awaiting admission to adequate facility elsewhere; W03.XXXA Other fall on same level due to collision with another person, initial encounter; Y92.230 Patient room in hospital as the place of occurrence of the external cause; S00.03XA Contusion of scalp, initial encounter; E03.9 Hypothyroidism, unspecified; R03.1 Nonspecific low blood-pressure reading
CPT/HCPCS: 36415; 70450; 76705; 80053; 80061; 80306; 80307; 81001; 81025; 82607; 84146; 84443; 85025; 86160; 86162; 86235; 86255; 86376; 86592; 86705; 86706; 86709; 86803; 87040; 87340; 87426; 87486; 87581; 87633; 87637; 87804; 87806; 93975; 96372; 97150; 97165; 99285; J1200; J1630; J2405; J9999; Q0162